=== PATIENT | male | born 1960 | race Caucasian/White ===

== ENCOUNTER 2017-11-13 21:06 | Emergency (ER) | payer BC ==
[2017-11-13] MEDS ORDERED: DIPH,PERTUS(ACELL)TETVAC-LF 0.5 ML VIAL IM ONE (21:31)
[2017-11-13 21:53] LABS: Amphetamine Screen,Urine Not Detected (NotDetected); Barbiturate Screen,Urine Not Detected (NotDetected); Benzodiazepines Screen,Urine Not Detected (NotDetected); Cocaine Screen,Urine Not Detected (NotDetected); Methadone Screen, Urine Not Detected (NotDetected); Opiate Screen,Urine Not Detected (NotDetected); Oxycodone Screen, Urine Not Detected (NotDetected); Phencyclidine Screen,Urine Not Detected (NotDetected); Tricyclic Antidepressant,Urine Not Detected (NotDetected); Urn Cannabinoid Scrn Detected (NotDetected)
--- NOTE | 2017-11-13 22:09 | ED ---
Alcohol HPI - General Chief Complaint: Alcohol Stated Complaint: Medical eval etoh Time Seen by Provider: 11/13/17 21:31 Source: patient, police Mode of arrival: ambulatory Limitations: no limitations - History of Present Illness Initial Comments: This patient is a 56-year-old man brought to be evaluated by police. Police of been called to the patient's home for a domestic dispute, and found the patient very intoxicated. He also mentioned to them that he was depressed. The patient furthermore had had a fall earlier the day, so they felt the patient should be evaluated. Here he is complaining of a little bit of headache at the location of the fall area he states that he had been drinking and lost his balance and fell. No loss consciousness. No neurologic symptoms. No neck pain. The patient denies other injuries. He could not remember when his last tetanus shot was. 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 Recent Trauma: Yes Associated Symptoms: depression Treatments Prior to Arrival: none - Related Data Home Medications Medication Instructions Recorded Confirmed Lisinopril-Hctz 20-25 mg 1 tab PO DAILY 11/13/17 11/13/17 [Zestoretic 20-25] NIFEdipine [NIFEdipine ER] 90 mg PO DAILY 11/13/17 11/13/17 levETIRAcetam [Keppra] 1,000 mg PO Q12HR 11/13/17 11/13/17 Allergies Allergy/AdvReac Type Severity Reaction Status Date / Time No Known Allergies Allergy Verified 11/13/17 22:05 Review of Systems ROS Statement: Those systems with pertinent positive or pertinent negative responses have been documented in the HPI. ROS Other: All systems not noted in ROS Statement are negative. Constitutional: Denies: fever, chills Eyes: Denies: vision change ENT: Denies: ear pain, hearing loss, epistaxis Respiratory: Denies: cough, dyspnea Cardiovascular: Denies: chest pain Gastrointestinal: Denies: abdominal pain, vomiting Musculoskeletal: Denies: back pain Skin: Denies: rash Neurological: Reports: headache. Denies: weakness, numbness, paresthesias, confusion Psychiatric: Reports: depression Past Medical History Past Medical History: No Reported History, Hypertension History of Any Multi-Drug Resistant Organisms: None Reported Past Surgical History: Orthopedic Surgery Additional Past Surgical History / Comment(s): rt femur Past Psychological History: Depression Smoking Status: Current every day smoker Past Alcohol Use History: Abuse, Daily, Heavy Past Drug Use History: Marijuana General Exam Limitations: no limitations General appearance: alert, in no apparent distress, appears intoxicated Head exam: Present: normocephalic, other (Patient has an abrasion/superficial laceration to the left forehead. There is no bony tenderness or deformity) Eye exam: Present: normal appearance, nystagmus. Absent: PERRL, EOMI, scleral icterus, conjunctival injection ENT exam: Present: mucous membranes dry Neck exam: Present: normal inspection, full ROM. Absent: tenderness Respiratory exam: Present: normal lung sounds bilaterally. Absent: respiratory distress, wheezes, rales, rhonchi, stridor, chest wall tenderness Cardiovascular Exam: Present: regular rate, normal rhythm, normal heart sounds. Absent: systolic murmur, diastolic murmur, rubs, gallop GI/Abdominal exam: Present: soft. Absent: distended, tenderness, guarding, rebound, mass Extremities exam: Present: normal inspection, normal capillary refill. Absent: pedal edema, calf tenderness Back exam: Present: normal inspection. Absent: vertebral tenderness Neurological exam: Present: alert, oriented X3. Absent: motor sensory deficit Skin exam: Present: warm, dry, intact, normal color. Absent: rash Course Vital Signs 11/13/17 11/14/17 11/14/17 21:14 00:14 06:11 Temperature 98.0 F 98.3 F Pulse Rate 82 72 64 Respiratory 22 18 15 Rate Blood Pressure 130/79 112/72 113/73 O2 Sat by Pulse 96 95 96 Oximetry Medical Decision Making - Lab Data Lab Results 11/13/17 Range/Units 21:40 Urine Opiates Screen Not Detected (NotDetected) Ur Oxycodone Screen Not Detected (NotDetected) Urine Methadone Screen Not Detected (NotDetected) Ur Propoxyphene Screen Not Detected (NotDetected) Ur Barbiturates Screen Not Detected (NotDetected) U Tricyclic Antidepress Not Detected (NotDetected) Ur Phencyclidine Scrn Not Detected (NotDetected) Ur Amphetamines Screen Not Detected (NotDetected) U Methamphetamines Scrn Not Detected (NotDetected) U Benzodiazepines Scrn Not Detected (NotDetected) Urine Cocaine Screen Not Detected (NotDetected) U Marijuana (THC) Screen Detected H (NotDetected) Disposition Clinical Impression: Alcoholic intoxication Disposition: HOME SELF-CARE Condition: Fair Instructions: Alcohol Intoxication (ED) Referrals: None,Stated [Primary Care Provider] - 1-2 days
--- NOTE | 2017-11-13 22:49 | CT ---
EXAMINATION TYPE: CT brain zack foster DATE OF EXAM: 11/13/2017 COMPARISON: NONE HISTORY: ETOH. Left frontal laceration. Neck pain CT DLP: 1565.6 mGycm Automated exposure control for dose reduction was used. TECHNIQUE: CT scan of the head and cervical spine are performed without contrast. FINDINGS: There is mild cerebral cortical atrophy. There is no mass effect nor midline shift. There is no sign of intracranial hemorrhage. The calvarium appears intact. There is a 4 mm density at the skin surface over the left zygoma. There is some narrowing of the C5-6 disc space with spurring of the endplates. Posterior elements are intact. The skull base is intact. There is no compression fracture. There is a moderate posterior C5 -6 disc herniation with narrowing of the spinal canal in the midline. There is 7 mm spinal stenosis.. IMPRESSION: Cerebral atrophy. No acute intracranial abnormality. Small foreign body at the skin surface over the left zygoma. Spondylosis at C5-6 with moderate superior C5-6 cervical disc herniation. No fracture.
[2017-11-14 08:01] VITALS: BP 132/81; PULSE 98; RESP 16; TEMP 98
== END 2017-11-14 08:01 | disposition home or self-care (01) ==
LOC: EC 21:06
DX: S01.81XA Laceration without foreign body of other part of head, initial encounter (principal); F10.129 Alcohol abuse with intoxication, unspecified; R51 Headache; F32.9 Major depressive disorder, single episode, unspecified; F17.200 Nicotine dependence, unspecified, uncomplicated; I10 Essential (primary) hypertension; Z79.899 Other long term (current) drug therapy; Z23 Encounter for immunization; W18.30XA Fall on same level, unspecified, initial encounter; Y92.009 Unspecified place in unspecified non-institutional (private) residence as the place of occurrence of the external cause
CPT/HCPCS: 70450; 72125; 80306; 82075; 90471; 90715; 99284

== ENCOUNTER → 2018-04-23 | Outpatient (CLI) | payer BC ==
--- NOTE | 2018-04-23 12:55 | XR ---
EXAMINATION TYPE: PA chest and right rib series DATE OF EXAM: 04/23/2018 COMPARISON: None HISTORY: 57-year-old male with right lower anterior rib pain after fall TECHNIQUE: 5 views FINDINGS: Heart normal size. Mild hyperinflation. Aorta and pulmonary vasculature within normal limits. 8 mm nodular density projecting at the left lower lung. Evaluation of the right-sided ribs shows a minimally offset fracture of the right anterolateral ninth rib. IMPRESSION: 1. Minimally offset acute fracture of the right anterolateral ninth rib. 2. Possible underlying COPD without acute cardiopulmonary process. 3. Possible 8 mm pulmonary nodule left lower lobe. Recommend contrast-enhanced CT chest versus 4-6 we ek follow-up radiographs depending on if the patient has risk factors for development of lung cancer.
== END | disposition home or self-care (01) ==
LOC: RADXRYALE 09:06
PROVIDERS: ATTEND Family Medicine
DX: S22.31XA Fracture of one rib, right side, initial encounter for closed fracture (principal)

== ENCOUNTER → 2018-06-09 | Outpatient (CLI) | payer BC ==
--- NOTE | 2018-06-09 12:02 | MR ---
EXAMINATION TYPE: MR brain wo/w con DATE OF EXAM: 06/09/2018 COMPARISON: HISTORY: Localization-related (focal) (partial) symptomatic epilepsy TECHNIQUE: Multiplanar, multisequence images of the brain and brainstem is performed without and with IV contras t, utilizing 6 mL intravenous Gadavist . FINDINGS: Diffusion weighted images demonstrate no evidence of a recent infarct or other diffusion ab normality. Mild generalized degenerative change. There are a few scattered areas of abnormal signal the white matter. All measure less than 5 mm. No e nhancing lesions. No callosal lesions. No cerebellopontine angle mass. Midline structures demonstrate normal morphology. The craniocervical junction appears within normal limits. Post contrast images demonstrate no abnormal enhancement. The dural venous sinuses appear pa tent. Changes of chronic sinusitis noted. IMPRESSION: 1. Minimal nonspecific white matter changes can be seen with migraine headaches, hypertension, remote microvascular ischemia, demyelinating disease. 2. Changes of chronic sinusitis.
== END | disposition home or self-care (01) ==
LOC: RADMRIMAIN 09:40
PROVIDERS: ATTEND Psychiatry & Neurology Neurology
DX: G37.9 Demyelinating disease of central nervous system, unspecified (principal); G43.909 Migraine, unspecified, not intractable, without status migrainosus; I10 Essential (primary) hypertension; J32.9 Chronic sinusitis, unspecified
CPT/HCPCS: 82565; 70553; 36415; A9585

== ENCOUNTER → 2018-06-11 | Outpatient (CLI) | payer BC ==
--- NOTE | 2018-06-14 15:01 | EEG ---
ELECTROENCEPHALOGRAM REPORT DATE OF SERVICE: 06/11/2018. REASON FOR TESTING: MMODL / IJN: [id number] /
== END | disposition home or self-care (01) ==
LOC: NEUROMAIN 07:39
PROVIDERS: ATTEND Psychiatry & Neurology Neurology
DX: G40.209 Localization-related (focal) (partial) symptomatic epilepsy and epileptic syndromes with complex partial seizures, not intractable, without status epilepticus (principal)
CPT/HCPCS: 95816

== ENCOUNTER 2018-08-23 16:42 | Emergency (ER) | payer BC ==
--- NOTE | 2018-08-23 16:58 | ED ---
General Adult HPI - General Stated complaint: anxiety Time Seen by Provider: 08/23/18 16:42 Source: patient, EMS, RN notes reviewed Mode of arrival: EMS - History of Present Illness Initial comments: This is a 57-year-old male with a history of alcoholism and seizure disorder history of pancreatitis and COPD who was brought in by EMS due to shortness of breath he also complained of being anxious he does admit to drinking at least 2 shots of the beer today. He did have a seizure today he states. He denies any pain denies any fevers chills nausea vomiting sweats he complained of shortness of breath as no phlegm production no overt cough no chest pain. He also complains of being anxious. No complaints of fevers chills or sweats. - Related Data Home Medications Medication Instructions Recorded Confirmed Lisinopril-Hctz 20-25 mg 1 tab PO DAILY 11/13/17 08/23/18 [Zestoretic 20-25] NIFEdipine [NIFEdipine ER] 90 mg PO DAILY 11/13/17 08/23/18 levETIRAcetam [Keppra] 1,000 mg PO Q12HR 11/13/17 08/23/18 Folic Acid 1 mg PO DAILY 08/23/18 08/23/18 Metoprolol Succinate (ER) [Toprol 25 mg PO DAILY 08/23/18 08/23/18 XL] Sertraline [Zoloft] 50 mg PO DAILY 08/23/18 08/23/18 Previous Rx's Medication Instructions Recorded Magnesium 200 mg PO DAILY #15 tablet 08/23/18 Potassium Chloride ER [K-Dur 20] 20 meq PO DAILY #15 tab 08/23/18 Allergies Allergy/AdvReac Type Severity Reaction Status Date / Time No Known Allergies Allergy Verified 08/23/18 17:48 Review of Systems ROS Statement: Those systems with pertinent positive or pertinent negative responses have been documented in the HPI. ROS Other: All systems not noted in ROS Statement are negative. Past Medical History Past Medical History: No Reported History, Hypertension History of Any Multi-Drug Resistant Organisms: None Reported Past Surgical History: Orthopedic Surgery Additional Past Surgical History / Comment(s): rt femur Past Psychological History: Depression Smoking Status: Current every day smoker Past Alcohol Use History: Abuse, Daily, Heavy Past Drug Use History: Marijuana General Exam - General Exam Comments Initial Comments: This is a well-developed sec appearing male who is awake alert somewhat lethargic. General appearance: alert, in no apparent distress Head exam: Present: atraumatic, normocephalic, normal inspection Eye exam: Present: normal appearance, PERRL, EOMI. Absent: scleral icterus, conjunctival injection, periorbital swelling ENT exam: Present: mucous membranes dry Neck exam: Present: normal inspection. Absent: tenderness, meningismus, lymphadenopathy Respiratory exam: Present: normal lung sounds bilaterally. Absent: respiratory distress, wheezes, rales, rhonchi, stridor Cardiovascular Exam: Present: regular rate, normal rhythm, normal heart sounds. Absent: systolic murmur, diastolic murmur, rubs, gallop, clicks GI/Abdominal exam: Present: soft, normal bowel sounds. Absent: distended, tenderness, guarding, rebound, rigid Extremities exam: Present: normal inspection, full ROM, normal capillary refill. Absent: tenderness, pedal edema, joint swelling, calf tenderness Back exam: Present: normal inspection Neurological exam: Present: alert, oriented X3, CN II-XII intact Psychiatric exam: Present: normal affect, normal mood Skin exam: Present: warm, dry, intact, normal color. Absent: rash Course Vital Signs 08/23/18 17:02 Temperature 98.8 F Pulse Rate 60 Respiratory 18 Rate Blood Pressure 149/100 O2 Sat by Pulse 98 Oximetry EKG Findings - EKG Results: EKG: interpreted by FREDDIE, sinus rhythm (Sinus bradycardia 57. 01 50 QRS duration 108 QT since QTC 492/478 poor R-wave progression.) Medical Decision Making - Medical Decision Making I did reevaluate patient several occasions and did discuss the findings with him and his . Patient does demonstrate evidence of alcohol intoxication he also demonstrates hypomagnesemia hypokalemia. He is awake alert oriented 3 in no distress. He is able ambulate. He does want to go home his as well as take him home and watch him. She is very comfortable with this. - Lab Data Result diagrams: 08/23/18 17:01 08/23/18 17:53 Lab Results 08/23/18 08/23/18 08/23/18 Range/Units 17:01 17:53 17:53 WBC 4.4 (3.8-10.6) k/uL RBC 3.98 L (4.30-5.90) m/uL Hgb 13.5 (13.0-17.5) gm/dL Hct 42.2 (39.0-53.0) % MCV 106.0 H (80.0-100.0) fL MCH 34.0 (25.0-35.0) pg MCHC 32.0 (31.0-37.0) g/dL RDW 14.2 (11.5-15.5) % Plt Count 154 (150-450) k/uL Neutrophils % (Manual) 72 % Lymphocytes % (Manual) 26 % Monocytes % (Manual) 2 % Neutrophils # (Manual) 3.17 (1.3-7.7) k/uL Lymphocytes # (Manual) 1.14 (1.0-4.8) k/uL Monocytes # (Manual) 0.09 (0-1.0) k/uL Nucleated RBCs 0 (0-0) /100 WBC Manual Slide Review Performed Macrocytosis Moderate Sodium 140 (137-145) mmol/L Potassium 2.8 L (3.5-5.1) mmol/L Chloride 100 (98-107) mmol/L Carbon Dioxide 24 (22-30) mmol/L Anion Gap 16 mmol/L BUN 10 (9-20) mg/dL Creatinine 0.68 (0.66-1.25) mg/dL Est GFR (CKD-EPI)AfAm >90 (>60 ml/min/1.73 sqM) Est GFR (CKD-EPI)NonAf >90 (>60 ml/min/1.73 sqM) Glucose 79 (74-99) mg/dL Calcium 9.1 (8.4-10.2) mg/dL Magnesium 1.8 (1.6-2.3) mg/dL Total Bilirubin 0.8 (0.2-1.3) mg/dL AST 243 H (17-59) U/L ALT 107 H (21-72) U/L Alkaline Phosphatase 129 H (38-126) U/L Total Creatine Kinase 147 (55-170) U/L CK-MB (CK-2) 1.4 (0.0-2.4) ng/mL CK-MB (CK-2) Rel Index 1.0 Troponin I <0.012 (0.000-0.034) ng/mL Total Protein 7.5 (6.3-8.2) g/dL Albumin 4.2 (3.5-5.0) g/dL Amylase 75 (30-110) U/L Lipase 213 (23-300) U/L Serum Alcohol 263 H* mg/dL Disposition Clinical Impression: Alcohol intoxication, Hypokalemia, Seizure Disposition: HOME SELF-CARE Condition: Stable Instructions: Hypokalemia (ED), Alcohol Intoxication (ED), Abuse of Alcohol (ED ), Recurrent Seizures in Adults (ED), Alcohol Dependence (ED) Prescriptions: Magnesium 200 mg PO DAILY #15 tablet Potassium Chloride ER [K-Dur 20] 20 meq PO DAILY #15 tab Is patient prescribed a controlled substance at d/c from ED?: No Referrals: Deirdre Mary DO [Primary Care Provider] - 1-2 days
[2018-08-23 17:07] VITALS: BP 149/100; PULSE 60; RESP 18; TEMP 98.8
[2018-08-23 17:31] LABS: HCT 42.2 % (39.0-53.0); HGB 13.5 gm/dL (13.0-17.5); Macrocytosis Moderate; Mean Platelet Volume 7.7; Platelet Count 154 k/uL (150-450); RBC 3.98 m/uL (4.30-5.90); RDW 14.2 % (11.5-15.5); WBC 4.4 k/uL (3.8-10.6)
[2018-08-23 17:49] LABS: Lymphocytes # (M) 1.14 k/uL (1.0-4.8); Monocytes # (M) 0.09 k/uL (0-1.0); Neutrophils # (M) 3.17 k/uL (1.3-7.7); Neutrophils % (M) 72 %; Nucleated Red Blood Cells 0 /100 WBC (0-0); Total Cells Counted 100
[2018-08-23 18:16] LABS: ALT 107 U/L (21-72); AST 243 U/L (17-59); Albumin 4.2 g/dL (3.5-5.0); Alkaline Phosphatase 129 U/L (38-126); Amylase 75 U/L (30-110); Anion Gap 16 mmol/L; Blood Urea Nitrogen 10 mg/dL (9-20); Calcium 9.1 mg/dL (8.4-10.2); Carbon Dioxide 24 mmol/L (22-30); Chloride 100 mmol/L (98-107); Glucose 79 mg/dL (74-99); Lipase 213 U/L (23-300); Magnesium 1.8 mg/dL (1.6-2.3); Potassium 2.8 mmol/L (3.5-5.1); Sodium 140 mmol/L (137-145); Total Bilirubin 0.8 mg/dL (0.2-1.3); Total Protein 7.5 g/dL (6.3-8.2)
[2018-08-23 18:18] LABS: Creatine Kinase 147 U/L (55-170)
[2018-08-23 18:19] LABS: Alcohol 263 mg/dL
[2018-08-23 18:31] LABS: Creatine Kinase MB 1.4 ng/mL (0.0-2.4); Troponin I <0.012 ng/mL (0.000-0.034)
[2018-08-23] MEDS ORDERED: MAGNESIUM SULFATE-D5W PMX 1 GM in DEXTROSE/WATER 1 100ML.BAG IVPB ONE (18:49)
[2018-08-23] MEDS ORDERED: POTASSIUM CHLORIDE 20 MEQ in WATER FOR INJECTION 1 100ML.BAG IVPB STA (18:51)
--- NOTE | 2018-08-23 19:05 | XR ---
EXAMINATION TYPE: XR chest 2V DATE OF EXAM: 08/23/2018 COMPARISON: 04/23/2018 HISTORY: 57-year-old male with cough, shortness of breath TECHNIQUE: PA and lateral views FINDINGS: Heart normal size. Aorta and pulmonary vasculature within normal limits. Mild peribronchial cuffing i s noted. Nodularity at the left mid to lower lung was present previously and is similar to less defin ed, possible nipple shadow. No consolidation or pleural effusion. IMPRESSION: Mild peribronchial cuffing could represent bronchitis or asthma. Subtle nodularity left mid to lower lung was present four months ago and is stable to less defined. Nipple shadow is suspected. Additiona l follow-up to establish more long-term stability is recommended. The follow-up can utilize vinny colvin.
[2018-08-23] MEDS ORDERED: POTASSIUM CHLORIDE ER 20 MEQ TAB.ER PO STA (19:24)
== END 2018-08-23 19:38 | disposition home or self-care (01) ==
LOC: EC 16:42
DX: G40.909 Epilepsy, unspecified, not intractable, without status epilepticus (principal); F10.129 Alcohol abuse with intoxication, unspecified; E87.6 Hypokalemia; R06.02 Shortness of breath; F41.9 Anxiety disorder, unspecified; I10 Essential (primary) hypertension; F32.9 Major depressive disorder, single episode, unspecified; F17.200 Nicotine dependence, unspecified, uncomplicated; Z79.899 Other long term (current) drug therapy; Z53.8 Procedure and treatment not carried out for other reasons
CPT/HCPCS: 36415; 71046; 80053; 80320; 82150; 82550; 82553; 83690; 83735; 84484; 85025; 93005; 99284

== ENCOUNTER 2019-07-23 13:24 | Inpatient (IN) | payer BC ==
[2019-07-23] MEDS ORDERED: THIAMINE 100 MG in SODIUM CHLORIDE 0.9% 50 ML IVPB STA (14:27)
--- NOTE | 2019-07-23 14:33 | ED ---
General Adult HPI - General Chief complaint: Recheck/Abnormal Lab/Rx Stated complaint: MENTAL HEALTH Time Seen by Provider: 07/23/19 13:29 Source: patient, EMS, RN notes reviewed, old records reviewed Mode of arrival: EMS Limitations: no limitations - History of Present Illness Initial comments: 58-year-old male history of alcohol abuse presenting with altered mental status, bizarre behavior and heavy alcohol consumption. Patient admits to drinking a lcohol over the past several days. Wound was white he's had very strange behaviors been making stacks she is, he's been moving items around his garage with no apparent purpose. He has threatened to move out of the house. She states all this is acute. He was seen at an outside hospital earlier in the week and were discharged. Patient has not been eating or drinking well. He has only been consuming alcohol. - Related Data Home Medications Medication Instructions Recorded Confirmed Lisinopril-Hctz 20-25 mg 1 tab PO DAILY 11/13/17 08/23/18 [Zestoretic 20-25] NIFEdipine [NIFEdipine ER] 90 mg PO DAILY 11/13/17 08/23/18 levETIRAcetam [Keppra] 1,000 mg PO Q12HR 11/13/17 08/23/18 Folic Acid 1 mg PO DAILY 08/23/18 08/23/18 Metoprolol Succinate (ER) [Toprol 25 mg PO DAILY 08/23/18 08/23/18 XL] Sertraline [Zoloft] 50 mg PO DAILY 08/23/18 08/23/18 Previous Rx's Medication Instructions Recorded Magnesium 200 mg PO DAILY #15 tablet 08/23/18 Potassium Chloride ER [K-Dur 20] 20 meq PO DAILY #15 tab 08/23/18 Allergies Allergy/AdvReac Type Severity Reaction Status Date / Time No Known Allergies Allergy Verified 07/23/19 13:47 Review of Systems ROS Statement: Those systems with pertinent positive or pertinent negative responses have been documented in the HPI. ROS Other: All systems not noted in ROS Statement are negative. Past Medical History Past Medical History: No Reported History, Hypertension History of Any Multi-Drug Resistant Organisms: None Reported Past Surgical History: Orthopedic Surgery Additional Past Surgical History / Comment(s): rt femur Past Psychological History: Depression Smoking Status: Current every day smoker Past Alcohol Use History: Abuse, Daily, Heavy Past Drug Use History: Marijuana General Exam Limitations: no limitations General appearance: alert, appears intoxicated Head exam: Present: atraumatic, normocephalic Eye exam: Present: normal appearance, PERRL, nystagmus ENT exam: Present: mucous membranes dry (Horizontal nystagmus) Neck exam: Present: normal inspection. Absent: tenderness, meningismus Respiratory exam: Present: normal lung sounds bilaterally. Absent: respiratory distress, wheezes Cardiovascular Exam: Present: regular rate, normal rhythm GI/Abdominal exam: Present: soft. Absent: distended, tenderness, guarding Extremities exam: Present: normal inspection, normal capillary refill. Absent: pedal edema, calf tenderness Neurological exam: Present: alert, oriented X3, CN II-XII intact. Absent: motor sensory deficit Skin exam: Present: warm, dry, intact. Absent: cyanosis, diaphoretic Course Vital Signs 07/23/19 07/23/19 07/23/19 13:45 13:47 14:36 Temperature 96.9 F L Pulse Rate 72 89 Respiratory 18 18 Rate Blood Pressure 132/70 139/68 O2 Sat by Pulse 97 96 Oximetry Medical Decision Making - Medical Decision Making 58 yo male presenting with confusion, bizarre behavior, ataxia and nystagmus. Patient presented anxious, he has tremor at baseline. He has a very fine horizontal nystagmus on exam. He is bilateral [id number] ataxia and tremor. Vital signs are stable. He appears dehydrated. He has otherwise nonfocal neurologic exam moving all extremities symmetrically. Head CT is performed emergency department which is negative for intracranial hemorrhage, there is chronic changes with no acute process. Chest x-ray performed, negative for focal pneumonia or acute findings. He is anemic which is macrocytic consistent with alcohol abuse. He has mildly elevated AST, ALT and alkaline phosphatase. He has a normal pneumonia. He has a magnesium of 1.6 which is replaced. His urine drug screen is positive for benzodiazepines as well as THC. His alcohol which is 0. He is given thiamine emergency department as well as benzodiazepines and IV fluids. Patient will be admitted for altered mental status, confusion, concern for Wernicke's encephalopathy and concern for alcohol withdrawal. Neurology will be placed on consult. - Lab Data Result diagrams: 07/23/19 14:29 07/23/19 14:29 Lab Results 07/23/19 07/23/1919 Range/Units 13:25 14:29 14:29 WBC (3.8-10.6) k/uL RBC (4.30-5.90) m/uL Hgb (13.0-17.5) gm/dL Hct (39.0-53.0) % MCV (80.0-100.0) fL MCH (25.0-35.0) pg MCHC (31.0-37.0) g/dL RDW (11.5-15.5) % Plt Count (150-450) k/uL Neutrophils % % Lymphocytes % % Monocytes % % Eosinophils % % Basophils % % Neutrophils # (1.3-7.7) k/uL Lymphocytes # (1.0-4.8) k/uL Monocytes # (0-1.0) k/uL Eosinophils # (0-0.7) k/uL Basophils # (0-0.2) k/uL Macrocytosis PT (9.0-12.0) sec INR (<1.2) APTT (22.0-30.0) sec Sodium 134 L (137-145) mmol/L Potassium 3.7 (3.5-5.1) mmol/L Chloride 102 (98-107) mmol/L Carbon Dioxide 23 (22-30) mmol/L Anion Gap 9 mmol/L BUN 12 (9-20) mg/dL Creatinine 0.51 L (0.66-1.25) mg/dL Est GFR (CKD-EPI)AfAm >90 (>60 ml/min/1.73 sqM) Est GFR (CKD-EPI)NonAf >90 (>60 ml/min/1.73 sqM) Glucose 87 (74-99) mg/dL Calcium 9.5 (8.4-10.2) mg/dL Magnesium 1.6 (1.6-2.3) mg/dL Total Bilirubin 0.8 (0.2-1.3) mg/dL AST 211 H (17-59) U/L ALT 140 H (21-72) U/L Alkaline Phosphatase 135 H (38-126) U/L Ammonia 17 (<30) umol/L Total Protein 7.3 (6.3-8.2) g/dL Albumin 3.9 (3.5-5.0) g/dL Urine Color Yellow Urine Appearance Clear (Clear) Urine pH 6.5 (5.0-8.0) Ur Specific [place] 1.023 (1.001-1.035) Urine Protein Trace H (Negative) Urine Glucose (UA) Negative (Negative) Urine Ketones Trace H (Negative) Urine Blood Negative (Negative) Urine Nitrite Negative (Negative) Urine Bilirubin Negative (Negative) Urine Urobilinogen 2.0 (<2.0) mg/dL Ur Leukocyte Esterase Negative (Negative) Urine Opiates Screen Not Detected (NotDetected) Ur Oxycodone Screen Not Detected (NotDetected) Urine Methadone Screen Not Detected (NotDetected) Ur Propoxyphene Screen Not Detected (NotDetected) Ur Barbiturates Screen Not Detected (NotDetected) U Tricyclic Antidepress Not Detected (NotDetected) Ur Phencyclidine Scrn Not Detected (NotDetected) Ur Amphetamines Screen Not Detected (NotDetected) U Methamphetamines Scrn Not Detected (NotDetected) U Benzodiazepines Scrn Detected H (NotDetected) Urine Cocaine Screen Not Detected (NotDetected) U Marijuana (THC) Screen Detected H (NotDetected) Serum Alcohol <10 mg/dL 07/23/19 07/23/19 Range/Units 14:29 14:29 WBC 8.9 (3.8-10.6) k/uL RBC 3.09 L (4.30-5.90) m/uL Hgb 10.4 L (13.0-17.5) gm/dL Hct 31.6 L (39.0-53.0) % MCV 102.5 H (80.0-100.0) fL MCH 33.7 (25.0-35.0) pg MCHC 32.9 (31.0-37.0) g/dL RDW 14.8 (11.5-15.5) % Plt Count 426 (150-450) k/uL Neutrophils % 74 % Lymphocytes % 15 % Monocytes % 7 % Eosinophils % 1 % Basophils % 0 % Neutrophils # 6.6 (1.3-7.7) k/uL Lymphocytes # 1.3 (1.0-4.8) k/uL Monocytes # 0.6 (0-1.0) k/uL Eosinophils # 0.1 (0-0.7) k/uL Basophils # 0.0 (0-0.2) k/uL Macrocytosis Slight PT 10.5 (9.0-12.0) sec INR 1.0 (<1.2) APTT 28.0 (22.0-30.0) sec Sodium (137-145) mmol/L Potassium (3.5-5.1) mmol/L Chloride (98-107) mmol/L Carbon Dioxide (22-30) mmol/L Anion Gap mmol/L BUN (9-20) mg/dL Creatinine (0.66-1.25) mg/dL Est GFR (CKD-EPI)AfAm (>60 ml/min/1.73 sqM) Est GFR (CKD-EPI)NonAf (>60 ml/min/1.73 sqM) Glucose (74-99) mg/dL Calcium (8.4-10.2) mg/dL Magnesium (1.6-2.3) mg/dL Total Bilirubin (0.2-1.3) mg/dL AST (17-59) U/L ALT (21-72) U/L Alkaline Phosphatase (38-126) U/L Ammonia (<30) umol/L Total Protein (6.3-8.2) g/dL Albumin (3.5-5.0) g/dL Urine Color Urine Appearance (Clear) Urine pH (5.0-8.0) Ur Specific [place] (1.001-1.035) Urine Protein (Negative) Urine Glucose (UA) (Negative) Urine Ketones (Negative) Urine Blood (Negative) Urine Nitrite (Negative) Urine Bilirubin (Negative) Urine Urobilinogen (<2.0) mg/dL Ur Leukocyte Esterase (Negative) Urine Opiates Screen (NotDetected) Ur Oxycodone Screen (NotDetected) Urine Methadone Screen (NotDetected) Ur Propoxyphene Screen (NotDetected) Ur Barbiturates Screen (NotDetected) U Tricyclic Antidepress (NotDetected) Ur Phencyclidine Scrn (NotDetected) Ur Amphetamines Screen (NotDetected) U Methamphetamines Scrn (NotDetected) U Benzodiazepines Scrn (NotDetected) Urine Cocaine Screen (NotDetected) U Marijuana (THC) Screen (NotDetected) Serum Alcohol mg/dL Disposition Clinical Impression: Encephalopathy, Alcohol withdrawal Disposition: ADMITTED IP TO [facility] Condition: Stable Is patient prescribed a controlled substance at d/c from ED?: No Referrals: Deirdre Mary DO [Primary Care Provider] - 1-2 days Decision to Admit Reason: Admit from EC Decision Date: 07/23/19 Decision Time: 15:46
[2019-07-23 14:43] LABS: Basophils % (A) 0 %; Eosinophils # (A) 0.1 k/uL (0-0.7); Eosinophils % (A) 1 %; HCT 31.6 % (39.0-53.0); HGB 10.4 gm/dL (13.0-17.5); Lymphocytes # (A) 1.3 k/uL (1.0-4.8); Lymphocytes % (A) 15 %; MCH 33.7 pg (25.0-35.0); MCHC 32.9 g/dL (31.0-37.0); MCV 102.5 fL (80.0-100.0); Macrocytosis Slight; Mean Platelet Volume 6.5; Monocytes # (A) 0.6 k/uL (0-1.0); Monocytes % (A) 7 %; Neutrophils # (A) 6.6 k/uL (1.3-7.7); Neutrophils % (A) 74 %; Platelet Count 426 k/uL (150-450); RBC 3.09 m/uL (4.30-5.90); RDW 14.8 % (11.5-15.5); WBC 8.9 k/uL (3.8-10.6)
[2019-07-23 14:52] LABS: Prothrombin Time 10.5 sec (9.0-12.0)
[2019-07-23 14:53] LABS: Appearance,Urine Clear (Clear); Bilirubin,Urine Negative (Negative); Blood,Urine Negative (Negative); Color,Urine Yellow; Glucose,Urine (UA) Negative (Negative); Ketones,Urine Trace (Negative); Leukocyte Esterase,Urine Negative (Negative); Nitrite,Urine Negative (Negative); PH, Urine 6.5 (5.0-8.0); Protein,Urine Trace (Negative); Specific Gravity,Urine 1.023 (1.001-1.035)
[2019-07-23 14:53] LABS: ALT 140 U/L (21-72); AST 211 U/L (17-59); African American GFR (CKD) >90 (>60 ml/min/1.73 sqM); Albumin 3.9 g/dL (3.5-5.0); Alcohol <10 mg/dL; Alkaline Phosphatase 135 U/L (38-126); Anion Gap 9 mmol/L; Blood Urea Nitrogen 12 mg/dL (9-20); Calcium 9.5 mg/dL (8.4-10.2); Carbon Dioxide 23 mmol/L (22-30); Chloride 102 mmol/L (98-107); Glucose 87 mg/dL (74-99); Magnesium 1.6 mg/dL (1.6-2.3); Non-African American GFR(CKD) >90 (>60 ml/min/1.73 sqM); Potassium 3.7 mmol/L (3.5-5.1); Sodium 134 mmol/L (137-145); Total Bilirubin 0.8 mg/dL (0.2-1.3); Total Protein 7.3 g/dL (6.3-8.2)
[2019-07-23 15:05] LABS: Cocaine Screen,Urine Not Detected (NotDetected); Opiate Screen,Urine Not Detected (NotDetected); Phencyclidine Screen,Urine Not Detected (NotDetected); Urn Cannabinoid Scrn Detected (NotDetected)
[2019-07-23 15:06] LABS: Amphetamine Screen,Urine Not Detected (NotDetected); Barbiturate Screen,Urine Not Detected (NotDetected); Benzodiazepines Screen,Urine Detected (NotDetected); Methadone Screen, Urine Not Detected (NotDetected); Oxycodone Screen, Urine Not Detected (NotDetected); Tricyclic Antidepressant,Urine Not Detected (NotDetected)
--- NOTE | 2019-07-23 15:07 | XR ---
EXAMINATION TYPE: XR chest 2V DATE OF EXAM: 07/23/2019 COMPARISON: Chest x-ray August 23, 2018 HISTORY: Altered mental status and weakness. TECHNIQUE: Frontal and lateral views of the chest are obtained. FINDINGS: There is chronic parenchyma changes without suspicious focal air space opacity, pleural ef fusion, or pneumothorax seen. The cardiac silhouette size is more prominent but remains within kacey l limits. The osseous structures are intact. IMPRESSION: No acute cardiopulmonary process.
--- NOTE | 2019-07-23 15:08 | CT ---
EXAMINATION TYPE: CT brain wo con DATE OF EXAM: 07/23/2019 HISTORY: AMS. Focal seizures, due to alcohol withdrawal CT DLP: 1143.4 mGycm. Automated Exposure Control for Dose Reduction was Utilized. TECHNIQUE: CT scan of the head is performed without contrast. COMPARISON: CT brain November 13, 2017 MRI brain June 09, 2018. FINDINGS: There is no acute intracranial hemorrhage or midline shift identified. There is diffuse v entricular and sulcal prominence consistent with diffuse age-related cerebral atrophy. There is low- attenuation in the periventricular white matter consistent with chronic small vessel ischemic change. The globes are intact and the visualized sinuses are clear. IMPRESSION: No acute intracranial hemorrhage or midline shift. There is mild to moderate diffuse ag e-related cerebral atrophy and mild chronic small vessel ischemic change redemonstrated. No signific ant change from prior studies.
[2019-07-23] MEDS ORDERED: MAGNESIUM SULFATE-D5W PMX 1 GM in DEXTROSE/WATER 1 100ML.BAG IVPB ONE (15:32)
[2019-07-23] MEDS ORDERED: LORazepam 2 MG/ML INJ IV PRN (15:32)
[2019-07-23] MEDS ORDERED: NALOXONE 0.4 MG/ML 1 ML VIAL IV PRN (15:40)
[2019-07-23] MEDS: SODIUM CHLORIDE 0.9% 1,000 ML IV SCH ×2 (16:02→21:31)
[2019-07-23] MEDS: LORazepam 2 MG/ML INJ IV PRN ×3 (16:02→23:33)
[2019-07-23] MEDS ORDERED: HYDROcodone/APAP 5-325MG 1 EACH TAB PO PRN (19:20)
[2019-07-23] MEDS: levETIRAcetam 500 MG TAB PO SCH (21:31)
--- NOTE | 2019-07-23 22:53 | HP ---
HISTORY AND PHYSICAL CHIEF COMPLAINT: Confusion. HISTORY OF PRESENT ILLNESS: This 58-year-old gentleman with a past medical history of hypertension, history of depression, being followed by Dr. Mary in the outpatient setting has significant history of alcohol and smoking also. The patient got confused and the petition the patient and was taken to [facility] and was admitted for further evaluation and treatment with possible delirium tremens. Alcohol was negative. Patient had THC and benzodiazepines blood screens are positive. LFTs elevated also. There is no history of fever, rigors. No headache, loss of consciousness, seizures. The patient unable to give a coherent history. Most of the history taken from my discussion with staff and review of the chart. PAST MEDICAL HISTORY: History of hypertension, history of EtOH. MEDICATIONS: Medications are home medications are: 1. Atarax 25 mg t.i.d. p.r.n. 2. Vitamin B1 100 mg. 3. Zoloft 250 mg daily. 4. Potassium 90 mg daily. 5. Magnesium 200 mg daily. 6. Motrin 800 mg t.i.d. p.r.n. 7. Keppra 1000 mg p.o. b.i.d. 8. Toprol-XL 25 mg p.o. daily. 9. Folic acid 1 mg daily. ALLERGIES: None. Family history, social history and review of systems could not be taken because of the patient's change in mental status. PHYSICAL EXAM: Patient is stuporous, arousable, but confused. Pulse 72. Blood pressure 130/77, respirations 18. Temperature 96.9, pulse ox 97% on room air. HEENT: Conjunctivae normal. Neck: No JVD. CARDIOVASCULAR systems: S1, S2. RESPIRATIONS: Breath sounds diminished in the bases. A few scattered rhonchi. ABDOMEN: Soft. Non tender. No mass palpable. CENTRAL NERVOUS SYSTEM: No focal deficits. LEGS: No edema. No swelling. NERVOUS SYSTEM: Higher functions as mentioned earlier, otherwise could not be examined at this time. SKIN: No ulcers, no rashes and no bleeding. JOINTS: No active deforming arthropathy. LABS: WBC 8.9, hemoglobin 10.4, sodium 134, AST ALT noted. ASSESSMENT: 1. Change in mental status possible acute delirium tremens. 2. History of ETOH. 3. Alcohol withdrawal. 4. Anemia macrocytic 2nd alcohol. 5. Hyponatremia. 6. Use AST/ALT alcoholic hepatitis, present on admission. 7. Hypertension. 8. History of nicotine dependence. 9. History of THC. RECOMMENDATIONS AND DISCUSSION: In this 58-year-old gentleman who presented with multiple complex medical issues, we will monitor the patient closely continue the current management and will continue with CIWA protocol. Multivitamins supplementation. Otherwise, DVT prophylaxis. Continue to monitor. Resume the home medications. Guarded prognosis because of multiple complex medical issues. Further recommendations to follow. A copy of dictation Dr. Mary who is the primary physician. I also recommend alcohol rehab and AA meetings as an outpatient. MMODL / IJN: [id number] /
[2019-07-23] MEDS: THIAMINE 200 MG in SODIUM CHLORIDE 0.9% 100 ML IVPB SCH (23:33)
[2019-07-24] MEDS: PANTOPRAZOLE 40 MG TABLET PO SCH (05:39)
[2019-07-24] MEDS: LORazepam 2 MG/ML INJ IV PRN (05:40)
[2019-07-24 06:07] LABS: Basophils % (A) 0 %; Eosinophils # (A) 0.3 k/uL (0-0.7); Eosinophils % (A) 5 %; HCT 32.6 % (39.0-53.0); HGB 10.6 gm/dL (13.0-17.5); Lymphocytes # (A) 1.5 k/uL (1.0-4.8); Lymphocytes % (A) 23 %; MCH 33.6 pg (25.0-35.0); MCHC 32.6 g/dL (31.0-37.0); Macrocytosis Slight; Mean Platelet Volume 6.5; Monocytes # (A) 0.4 k/uL (0-1.0); Monocytes % (A) 7 %; Neutrophils # (A) 4.1 k/uL (1.3-7.7); Neutrophils % (A) 63 %; Platelet Count 405 k/uL (150-450); RBC 3.16 m/uL (4.30-5.90); RDW 14.7 % (11.5-15.5); WBC 6.6 k/uL (3.8-10.6)
[2019-07-24 06:22] LABS: ALT 129 U/L (21-72); AST 178 U/L (17-59); African American GFR (CKD) >90 (>60 ml/min/1.73 sqM); Albumin 3.2 g/dL (3.5-5.0); Alkaline Phosphatase 116 U/L (38-126); Anion Gap 7 mmol/L; Blood Urea Nitrogen 11 mg/dL (9-20); Calcium 8.9 mg/dL (8.4-10.2); Carbon Dioxide 23 mmol/L (22-30); Chloride 108 mmol/L (98-107); Glucose 83 mg/dL (74-99); Non-African American GFR(CKD) >90 (>60 ml/min/1.73 sqM); Potassium 3.8 mmol/L (3.5-5.1); Sodium 138 mmol/L (137-145); Total Bilirubin 0.9 mg/dL (0.2-1.3); Total Protein 6.4 g/dL (6.3-8.2)
[2019-07-24] MEDS: THIAMINE 200 MG in SODIUM CHLORIDE 0.9% 100 ML IVPB SCH ×2 (08:25→21:06)
[2019-07-24] MEDS: NICOTINE 14MG/24HR PATCH TRANSDERM SCH (08:30)
[2019-07-24] MEDS: FOLIC ACID 1 MG TAB PO SCH (08:33)
[2019-07-24] MEDS: levETIRAcetam 500 MG TAB PO SCH ×2 (08:33→21:06)
[2019-07-24] MEDS: METOPROLOL SUCCINATE (ER) 25 MG TAB.ER.24H PO SCH (08:33)
[2019-07-24] MEDS: MAGNESIUM OXIDE 400 MG TAB PO SCH (08:33)
[2019-07-24] MEDS: SERTRALINE 50 MG TAB PO SCH (08:33)
[2019-07-24] MEDS: THIAMINE 100 MG TAB PO SCH (08:33)
[2019-07-24] MEDS: MULTIVITAMINS, THERA 1 EACH TAB PO SCH (08:33)
[2019-07-24 13:14] VITALS: BMI 15.7
--- NOTE | 2019-07-24 14:46 | P.CN ---
Psychiatric Consult - . Consult date: 07/24/19 Consult:: Reason for consultation: "Alcohol abuse, confusion" Identifying data: Patient is a 58-year-old male who has history of alcohol use disorder and depression. The patient was seen while he was at medical floor. Chief complaint and history of present illness: The patient was admitted to medical service because of altered mental status and confusion which is apparently secondary to severe alcohol use. Patient presented to the ER for further evaluation for DTs, and he was petitioned by his to come to the hospital. As pair chart review his tox screen was positive for benzodiazepines and marijuana. Patient presents to some degree confused and not fully oriented, and he wasn't able to give very informative history, but he was able to answer some questions. He couldn't recall details about his symptoms or alcohol use. The patient reports has been treated for "mild" depression, but he suffers more from an anxiety. He couldn't recall when he started to feel depressed and what medication he takes for depression, but according to chart review he has been prescribed Zoloft 50 mg daily. Patient denies feeling hopeless, helplessness, worthlessness, or suicidal. He denies any current or previous suicidal plan, intent, or attempts. He denies current symptoms of depression including diminished motivation, lack of interest, feeling guilty, or sleep problems. Patient reports sometimes have mood swings, irritable mood, and easily agitated. He denies any violent or aggressive behavior. Patient denies any homicidal ideation, and he denies any hallucinations, paranoid ideation, or delusions. Patient doesn't have any manic symptoms including flight of ideas, pressured speech, tangential thought process, or euphoric mood with irrational behavior. Past psychiatric history: Previous psychiatric hospitalization: Denies any previous psychiatric hospitalization. Previous suicidal attempts: Denies any previous suicidal attempt. Previous psychiatric treatment: Couldn't recall details when he started treatment for depression and anxiety, but apparently he is prescribed Zoloft. Substance use history: Nicotine: Admitted for smoking 1 pack per day for more than 10 years. Alcohol: Couldn't give details about his alcohol use, but he reports that he drinks because he likes it alcohol. He has previous inpatient rehab treatment at [place]. He couldn't give any amount about how much he used to drink. He reports history of severe alcohol withdrawal symptoms including shaking and seizures. Reports previous history of sobriety but he couldn't give any further details. Reports to smoking marijuana occasionally. Denies use of any street drugs and he couldn't explain post drug screen for benzodiazepines. Family history of psychiatric illness: Denies any family history of mental illness, alcohol use disorder, or suicide. Brief social history: Currently lives with his , currently unemployed on [employer]. Reports completed high school and has some college credits. He reports having children from his previous marriage. Reports history of previous DUIs. Mental status examination; Appearance: The patient appears stated age, adequately groomed and dressed, no specific features. Gait/posture: Normal gait, Normal arm swinging: No abnormal movements. Attitude and behavior: engaged, cooperative, eye contact. Motor activity: Normal psychomotor activity Speech: Normal rate, tone. Mood: Anxious Affect: Constricted Thought form: goal-directed, linear, coherent. Thought content: Non-delusional, denies suicidal thoughts, denies homicidal thoughts, denies intentions or plans. Perception: Denies any auditory or visual hallucinations Attention: No impairment. Patient was able to repeat serial 5. Orientation: Patient patient was fully oriented to time place person and situation. Insight: Patient has fair insight about his psychiatric disorder. Judgment: Patient has fair judgment about his psychiatric treatment. Assessment: Alcohol use disorder, severe. Unspecified depressive disorder. Recommendations: Addressed and ensured patient's safety, patient is not actively suicidal, but according to petition paper by his he could be potentially harming himself (no further information available at this time from his ) At this point a decision about psychiatric clearance couldn't be made before obtaining more information from his . SW to obtain collateral information and shere it with psychiatry team tomorrow. EPS nurse was informed about this case and need further follow up. Continue one to one observation. Medication management: Continue Zoloft 50 mg daily for depression and anxiety symptoms. Continue monitoring for alcohol withdrawal symptoms and use when necessary benzodiazepines for severe withdrawal. Discussed the treatment plan with the requesting physician/service. Thank you for permitting me to assist in this patient's treatment. Please call psychiatry department if you have any question or need further help with this case.
[2019-07-24] MEDS: SODIUM CHLORIDE 0.9% 1,000 ML IV SCH (21:06)
[2019-07-24] MEDS: TEMAZEPAM 15 MG CAP PO PRN (21:06)
--- NOTE | 2019-07-24 22:29 | PN ---
PROGRESS NOTE DATE OF SERVICE: 07/24/2019 This 58-year-old gentleman who was admitted with change in mental status and acute delirium tremens following alcohol withdrawal and intense alcohol intake, being closely monitored. Psychiatry is following the patient closely. The patient apparently was petitioned with some abnormal behavior according to the . Otherwise, psychiatry is following the patient. No chest pain. No palpitations. No fever. EXAM: Alert and oriented x3. Pulse is 77, blood pressure 137/80, respiration 18, temperature 98.2, pulse ox 94% on room air. HEENT: Conjunctivae normal. Oral mucosa moist. NECK: No jugular venous distention. No lymph node enlargement. CARDIOVASCULAR: S1, S2. RESPIRATORY: Diminished breath sounds at the bases. No rhonchi, no crackles. ABDOMEN: Soft, nontender. LEGS: No swelling. NERVOUS SYSTEM: No focal deficits. LAB: WBC 6.7, hemoglobin 10.6, sodium 130, potassium 3.8. AST is 178, ALT is 129. ASSESSMENT: 1. Change in mental status, possibly acute delirium tremens. 2. History of ETOH. 3. Alcohol withdrawal. 4. Anemia, microcytic secondary to alcohol. 5. Hyponatremia. 6. AST, ALT alcoholic hepatitis, present on admission. 7. Hypertension. 8. History of nicotine dependence. 9. History of THC. RECOMMENDATIONS AND DISCUSSION: Recommend to continue current medications, continue to monitor, continue symptomatic treatment, psychiatric evaluation. Guarded prognosis. Further recommendations to follow. MMODL / IJN: [id number] / MTDD
[2019-07-25 04:14] VITALS: RESP 18
[2019-07-25 06:06] LABS: Basophils % (A) 1 %; Eosinophils # (A) 0.3 k/uL (0-0.7); Eosinophils % (A) 5 %; HCT 32.7 % (39.0-53.0); HGB 10.8 gm/dL (13.0-17.5); Lymphocytes # (A) 1.6 k/uL (1.0-4.8); Lymphocytes % (A) 23 %; MCH 34.2 pg (25.0-35.0); MCV 103.4 fL (80.0-100.0); Macrocytosis Slight; Mean Platelet Volume 6.5; Monocytes # (A) 0.5 k/uL (0-1.0); Monocytes % (A) 7 %; Neutrophils # (A) 4.5 k/uL (1.3-7.7); Neutrophils % (A) 62 %; Platelet Count 382 k/uL (150-450); RBC 3.17 m/uL (4.30-5.90); RDW 14.7 % (11.5-15.5); WBC 7.2 k/uL (3.8-10.6)
[2019-07-25] MEDS: PANTOPRAZOLE 40 MG TABLET PO SCH (06:14)
[2019-07-25] MEDS: SODIUM CHLORIDE 0.9% 1,000 ML IV SCH (06:14)
[2019-07-25 06:20] LABS: ALT 117 U/L (21-72); AST 140 U/L (17-59); African American GFR (CKD) >90 (>60 ml/min/1.73 sqM); Albumin 3.3 g/dL (3.5-5.0); Alkaline Phosphatase 109 U/L (38-126); Anion Gap 7 mmol/L; Blood Urea Nitrogen 10 mg/dL (9-20); Calcium 9.3 mg/dL (8.4-10.2); Carbon Dioxide 22 mmol/L (22-30); Chloride 107 mmol/L (98-107); Glucose 119 mg/dL (74-99); Non-African American GFR(CKD) >90 (>60 ml/min/1.73 sqM); Potassium 3.7 mmol/L (3.5-5.1); Sodium 136 mmol/L (137-145); Total Bilirubin 0.6 mg/dL (0.2-1.3); Total Protein 6.5 g/dL (6.3-8.2)
[2019-07-25] MEDS: NICOTINE 14MG/24HR PATCH TRANSDERM SCH (08:32)
[2019-07-25] MEDS: MAGNESIUM OXIDE 400 MG TAB PO SCH (08:32)
[2019-07-25] MEDS: THIAMINE 100 MG TAB PO SCH (08:33)
[2019-07-25] MEDS: levETIRAcetam 500 MG TAB PO SCH ×2 (08:33→19:51)
[2019-07-25] MEDS: METOPROLOL SUCCINATE (ER) 25 MG TAB.ER.24H PO SCH (08:33)
[2019-07-25] MEDS: THIAMINE 200 MG in SODIUM CHLORIDE 0.9% 100 ML IVPB SCH ×2 (08:33→19:52)
[2019-07-25] MEDS: FOLIC ACID 1 MG TAB PO SCH (08:33)
[2019-07-25] MEDS: SERTRALINE 50 MG TAB PO SCH (08:33)
[2019-07-25] MEDS: MULTIVITAMINS, THERA 1 EACH TAB PO SCH (11:50)
[2019-07-25] MEDS: IBUPROFEN 800 MG TAB PO PRN ×2 (12:48→19:51)
--- NOTE | 2019-07-25 15:44 | P.CON ---
Consult Note - . Consult date: 07/25/19 Assessment/Plan:: Clinical Problems: Alcohol use disorder severe, alcohol withdrawal, seizure disorder Interim history: I reviewed the medical record, interviewed the patient and spoke with his on the telephone. The hospitalist submitted a psychiatric consult for evaluation of alcohol abuse and confusion. Dr. Davis's sees consult appreciated. His completed a petition that read "fear of harming self or others. Weilding concepcion knife-delusional actions." He was aware that his completed a petition for hospitalization and thought she completed the petition because he was "playing with my concepcion knife." The patient's denied suicidal ideations, intent or plan. He admitted owning a "concepcion knife" but denied that he had been using this to threaten suicide or make a suicide gesture. I spoke to his . She stated she completed the petition because she is concerned about his alcohol use problems. She stated that the Thursday prior to admission he was sharpening his knife then began to run the knife up and down his leg. During this action he appeared unaware of his surroundings. He did not make a suicidal threat or gesture and did not cut himself. She denied that he made suicidal threats or gestures. She denied that he was talking about suicide. She is aware of his alcohol use problem and expressed her frustration with his continued drinking. Mental status exam: He presented as a casually groomed 58-year-old male who was sitting comfortably in bed with his one-to-one in attendance. He made eye contact and attended to interview. He had no distinguishing features or prominent physical abnormalities. He had a blunted but bright facial expression. He was alert and oriented to person, place and time. He showed no abnormality of psychomotor behavior. He was not restless or tremulous. His speech was spontaneous with normal rate, volume and rhythm. He had no articulation difficulties. His affect was stable and appropriate. He denied suicidal ideation or wishes. He denied homicidal ideation. He denied feeling hopeless, helpless or worthless. His spouse no ideas reference, paranoid ideation or delusional thoughts. His thinking was concrete but his associations were coherent and logical. He denied hallucinations and did not appear to be responding to internal stimuli. Assessment: He is middle-aged man with an alcohol use problem and a seizure disorder. He presented to the [facility] for the treatment of acute confusion most likely related to alcohol withdrawal (his serum alcohol level on admission was less than 10). His completed a petition for psychiatric hospitalization because she was concerned about his alcohol use. He denied suicidal ideation, plan or intent. His denied that he expressed suicidal ideation intent or plan prior to admission. She is greatly concerned about his continued alcohol use problems. There is no indication for acute psychiatric treatment at this time but he would benefit from continued substance abuse treatment. Plan: Discontinue one-to-one. Consult social work for residential substance abuse treatment. There is no indication for admission to the psychiatric unit.
[2019-07-25] MEDS: TEMAZEPAM 15 MG CAP PO PRN (19:51)
--- NOTE | 2019-07-25 19:55 | P.CNNES ---
History of Present Illness Consult date: 07/25/19 Reason for Consult: Encephalopathy Chief complaint: AMS, bizarre behavior, and heavy EtOH consumption History of Present Illness: HISTORY OF PRESENT ILLNESS: Thank you for allowing me to evaluate Mr. Hector Caro. Mr. Caro is a 58 year-old man with PMhx of HTN, EtOH withdrawal seizures, depression, presenting to [facility] for EtOH withdrawal symptoms along with bizarre behaviors. Patient's is at bedside. States that patient has been drinking heavily, and it was time for him to stop. Patient was taken by family to an [facility] for patient having bizarre behaviors such as arranging his fishing poles in a row and taking pictures of them. Patient states that he was taking pictures for his brother who lives in [place]. Patient endorses having had multiple episodes of seizures in the setting of heavy EtOH use and withdrawal since about a year ago. Patient denies ever having seizures outside of those episodes. Patient denies ever being intubated for EtOH withdrawal. Patient understands that he needs to stop smoking and drinking, but everyone at his house. Patient's showed a video of patient while he was in the ED, in which patient keeps playing with the blanket. She states that when patient has seizures, he stares off and has random movements of one side but cannot describe accurately. Patient denies headache, nausea, vomiting, weakness, numbness or tin gling. Endorsing double vision when he looks with both eyes but disappears when he closes one eye. Patient denies he stopped driving 5 years ago as he was still drinking a lot and thought it would be dangerous. PAST MEDICAL HISTORY: HTN, EtOH withdrawal seizures, depression PAST SURGICAL HISTORY: R femur surgery HOME MEDICATIONS: Lisinopril-HCTZ, nifedipine, keppra, folic acid, metoprolol, sertraline ALLERGIES: NKDA SOCIAL HISTORY: Current everyday smoker. Endorses heavy daily EtOH abuse. Endorses marijuana use. REVIEW OF SYSTEMS: The 14 systems are reviewed and no additional points are identified compared to the review of systems documented history and physical PHYSICAL EXAMINATION: VITAL SIGNS: T 97.7 HR 69 RR 18 BP 135/72 O2 sat 97% on RA GEN.: NAD, pleasant and cooperative HEENT: NCAT, sclera with mild icterus NECK: Supple SKIN AND EXTREMITIES: Warm to touch, no edema NEURO: MENTAL STATUS: Patient alert and oriented to self, place, time. Able to name the current president. Speech fluent, able to name and repeat, following all commands readily. No right and left disorientation, neglect CRANIAL NERVES II THROUGH XII: II: Pupils are unequal, OD 3mm OS 2mm but both reactive to light symmetrically. No afferent pupillary defect. Visual scott are intact. III, IV, : No ptosis. Extraocular movements full. No nystagmus. V: Facial sensation intact from V1-3. VII. No clear facial asymmetry. VIII: Hearing intact to finger rub bilaterally. IX, X: Symmetric palate elevation. XI: Shoulder shrug intact. XII: Tongue midline without fasciculation or atrophy. MOTOR: Normal bulk/tone. No pronator drift or tremor. Strength is 5/5 throughout all 4 extremities. SENSORY: Intact to light touch in all 4 extremities. Romberg is positive REFLEXES: 2+ throughout. Toes are downgoing. COORDINATION: Finger to nose intact. No dysmetria. GAIT: Narrow-based and stable. Able to toe/heel walk. Difficulty with tandem walking DIAGNOSTIC TESTING: LABORATORY: WBC 7.2 Hgb 10.8 Platelet 382 INR 1.0 Na 136 K 3.7 Cl 107 CO2 22 BUN 10 Cr 0.54 glucose 119 AST 140 ALT 117 AlkPHos 109 urinalysis negative urine tox +benzo and THC IMAGING: CT Head w/o contrast 07/23/19: No acute intracranial hemorrhage or midline shift. There is mild to moderate diffuse age-related cerebral atrophy and mild chronic small vessel ischemic change redemonstrated. No significant change from prior studies. ASSESSMENT/RECOMMENDATIONS: 58 year-old man with PMhx of HTN, EtOH withdrawal seizures, depression, presenting to [facility] for EtOH withdrawal symptoms along with bizarre behaviors. Per patient and , patient's seizure episodes only occurred in the setting of heavy EtOH use and when withdrawing. Patient has been taking seizure medication, but no seizure meds are recommended for EtOH withdrawal seizures. However, since patient is already on seizure medication, it should be continued for now and then tapered off as outpatient. MRI brain was obtained as patient reported having double vision although it was not acute/subacute (had been occurring for a few months). MRI brain per my review with no acute or old stroke. There is possibly some air pocket in the frontal sinus, but would await final radiology report. Patient needs follow-up with outpatient Neurology within 2-3 weeks of discharge. Neurology will sign off at this time. Please call with additional questions or concerns. Past Medical History Past Medical History: No Reported History, Hypertension History of Any Multi-Drug Resistant Organisms: None Reported Past Surgical History: Orthopedic Surgery Additional Past Surgical History / Comment(s): rt femur Past Psychological History: Depression Smoking Status: Current every day smoker Past Alcohol Use History: Abuse, Daily, Heavy Past Drug Use History: Marijuana Medications and Allergies Home Medications Medication Instructions Recorded Confirmed Type levETIRAcetam [Keppra] 1,000 mg PO BID 11/13/17 07/23/19 History Folic Acid 1 mg PO DAILY 08/23/18 07/23/19 History Magnesium 200 mg PO DAILY #15 tablet 08/23/18 07/23/19 Rx Metoprolol Succinate (ER) [Toprol 25 mg PO DAILY 08/23/18 07/23/19 History XL] Sertraline [Zoloft] 50 mg PO DAILY 08/23/18 07/23/19 History Ibuprofen [Motrin] 800 mg PO TID PRN 07/23/19 07/23/19 History Potassium 99 mg PO DAILY 07/23/19 07/23/19 History Thiamine HCl [Vitamin B-1] 100 mg PO DAILY 07/23/19 07/23/19 History hydrOXYzine HCL [Atarax] 25 mg PO TID PRN 07/23/19 07/23/19 History Allergies Allergy/AdvReac Type Severity Reaction Status Date / Time No Known Allergies Allergy Verified 07/23/19 16:08 Physical Examination - Vital Signs Vital Signs: Vital Signs Temp Pulse Resp BP Pulse Ox 07/25/19 04:00 97.8 F 64 18 130/78 95 07/25/19 00:00 98.0 F 65 17 151/86 95 07/24/19 20:00 98.4 F 70 18 135/78 98 07/24/19 16:00 99.2 F 77 18 130/75 94 L 07/24/19 11:11 97.9 F 90 16 124/74 96 Intake and Output 07/24/19 07/25/19 07/25/19 22:59 06:59 14:59 Intake Total 360 120 Output Total 400 400 Balance -40 -400 120 Intake: Oral 360 120 Output: Urine 400 400 Other: Voiding Method Toilet Toilet Urinal Urinal Weight 63.5 kg Results - Laboratory Findings CBC and BMP: 07/25/19 05:27 07/25/19 05:27 Abnormal Lab Findings: Abnormal Labs 07/23/19 07/23/19 07/23/19 13:25 14:29 14:29 RBC 3.09 L Hgb 10.4 L Hct 31.6 L MCV 102.5 H Sodium 134 L Chloride Creatinine 0.51 L Glucose AST 211 H ALT 140 H Alkaline Phosphatase 135 H Albumin Urine Protein Trace H Urine Ketones Trace H U Benzodiazepines Scrn Detected H U Marijuana (THC) Screen Detected H 07/24/19 07/24/19 07/25/19 05:23 05:23 05:27 RBC 3.16 L 3.17 L Hgb 10.6 L 10.8 L Hct 32.6 L 32.7 L MCV 103.0 H 103.4 H Sodium Chloride 108 H Creatinine 0.57 L Glucose AST 178 H ALT 129 H Alkaline Phosphatase Albumin 3.2 L Urine Protein Urine Ketones U Benzodiazepines Scrn U Marijuana (THC) Screen 07/25/19 05:27 RBC Hgb Hct MCV Sodium 136 L Chloride Creatinine 0.54 L Glucose 119 H AST 140 H ALT 117 H Alkaline Phosphatase Albumin 3.3 L Urine Protein Urine Ketones U Benzodiazepines Scrn U Marijuana (THC) Screen
--- NOTE | 2019-07-25 21:46 | MR ---
EXAMINATION TYPE: MR brain wo con DATE OF EXAM: 07/25/2019 COMPARISON: 07/23/2019 CT brain HISTORY: ETOH, double vision, seizure TECHNIQUE: Multiplanar, multisequence images of the brain and brainstem is performed without intravenous contras t. FINDINGS: Diffusion weighted images demonstrate no evidence of a recent infarct or other diffusion ab normality. There is no extra-axial fluid collection. Punctate old lacunar injury of the cranial aspe ct of the caudate nucleus on FLAIR axial fat-sat image 18. Mild burden nonspecific white matter montanez e with scattered punctate foci of T2/FLAIR hyperintensity in the subcortical and periventricular whit e matter. The ventricular system and cisternal spaces are diffusely prominent with frontal predominan ce. Midline structures demonstrate normal morphology. The craniocervical junction appears within normal limits. The dural venous sinuses appear patent. The visualized sinuses demonstrate mild mucosal thick ening of the ethmoid and frontal sinuses as well as scant mucosal thickening of the maxillary sinuses . Secretions are seen in the posterior nasopharynx. IMPRESSION: 1. No acute infarct, midline shift or mass effect. 2. Frontal predominant cerebral atrophy. 3. Mild burden nonspecific white matter change, most commonly on the basis of chronic microangiopath y. In this patient with alcohol abuse no MR evidence of Wernicke's encephalopathy.
[2019-07-26 06:22] LABS: Basophils % (A) 0 %; Eosinophils # (A) 0.4 k/uL (0-0.7); Eosinophils % (A) 6 %; HCT 33.5 % (39.0-53.0); HGB 10.5 gm/dL (13.0-17.5); Lymphocytes # (A) 1.5 k/uL (1.0-4.8); Lymphocytes % (A) 23 %; MCH 32.7 pg (25.0-35.0); MCHC 31.4 g/dL (31.0-37.0); MCV 104.3 fL (80.0-100.0); Macrocytosis Moderate; Mean Platelet Volume 6.6; Monocytes # (A) 0.5 k/uL (0-1.0); Monocytes % (A) 8 %; Neutrophils # (A) 4.1 k/uL (1.3-7.7); Neutrophils % (A) 60 %; Platelet Count 399 k/uL (150-450); RBC 3.21 m/uL (4.30-5.90); RDW 14.7 % (11.5-15.5); WBC 6.8 k/uL (3.8-10.6)
[2019-07-26 06:32] LABS: ALT 126 U/L (21-72); AST 151 U/L (17-59); African American GFR (CKD) >90 (>60 ml/min/1.73 sqM); Albumin 3.3 g/dL (3.5-5.0); Alkaline Phosphatase 97 U/L (38-126); Anion Gap 5 mmol/L; Blood Urea Nitrogen 14 mg/dL (9-20); Calcium 9.4 mg/dL (8.4-10.2); Carbon Dioxide 25 mmol/L (22-30); Chloride 108 mmol/L (98-107); Glucose 98 mg/dL (74-99); Non-African American GFR(CKD) >90 (>60 ml/min/1.73 sqM); Potassium 3.9 mmol/L (3.5-5.1); Sodium 138 mmol/L (137-145); Total Bilirubin 0.6 mg/dL (0.2-1.3); Total Protein 6.3 g/dL (6.3-8.2)
[2019-07-26] MEDS: SODIUM CHLORIDE 0.9% 1,000 ML IV SCH (06:53)
[2019-07-26] MEDS: PANTOPRAZOLE 40 MG TABLET PO SCH (06:58)
--- NOTE | 2019-07-26 07:16 | PN ---
PROGRESS NOTE DATE OF SERVICE: 07/25/2019 This is a 58-year-old gentleman who was admitted with change in mental status and acute delirium tremens, is being closely monitored at this time. Neurology and Psychiatry are following the patient closely. A brain MRA was done which showed some cerebral atrophy and white matter changes, no acute abnormalities noted. The patient apparently was petitioned by the patient's also. Per Psychiatry, there was no evidence of any acute inpatient rehab. No chest pain. No palpitations. No fever. PHYSICAL EXAM: Alert and oriented x2. Pulse is 65, blood pressure 120/70, respiration 17, temperature 97.9, pulse ox 98% on room air. HEENT: Conjunctivae normal. Oral mucosa moist. NECK: No jugular venous distention. No lymph node enlargement. CARDIOVASCULAR SYSTEM: S1, S2, muffled. RESPIRATION: Breath sounds diminished at the bases, no rhonchi, no crackles. ABDOMEN: Soft, nontender. LEGS: No edema. No swelling. NERVOUS SYSTEM: No focal deficits. LABS: WBC is 7.8, hemoglobin is 10.8, sodium 136 and AST is 140, ALT is 117. ASSESSMENT: 1. Change in mental status, possible acute delirium tremens. 2. History of ETOH. 3. Alcohol withdrawal. 4. Anemia, microcytic secondary to alcohol. 5. Hyponatremia. 6. AST, ALT, IV with alcoholic hepatitis, present on admission. 7. Hypertension. 8. History of nicotine dependence. 9. History of THC. RECOMMENDATION: Recommend to continue current medications, continue with the monitoring and symptomatic treatment. Otherwise, repeat labs, closely monitor. Follow with multiple consultants. Prognosis guarded. Further recommendations to follow. MMODL / IJN: [id number] /
[2019-07-26] MEDS: NICOTINE 14MG/24HR PATCH TRANSDERM SCH (08:37)
[2019-07-26] MEDS: levETIRAcetam 500 MG TAB PO SCH (08:38)
[2019-07-26] MEDS: MAGNESIUM OXIDE 400 MG TAB PO SCH (08:38)
[2019-07-26] MEDS: METOPROLOL SUCCINATE (ER) 25 MG TAB.ER.24H PO SCH (08:38)
[2019-07-26] MEDS: FOLIC ACID 1 MG TAB PO SCH (08:38)
[2019-07-26] MEDS: THIAMINE 100 MG TAB PO SCH (08:38)
[2019-07-26] MEDS: SERTRALINE 50 MG TAB PO SCH (08:38)
[2019-07-26] MEDS: THIAMINE 200 MG in SODIUM CHLORIDE 0.9% 100 ML IVPB SCH (08:43)
[2019-07-26] MEDS: IBUPROFEN 800 MG TAB PO PRN (12:46)
[2019-07-26 13:27] VITALS: BP 152/82; PULSE 61; TEMP 98.1
--- NOTE | 2019-07-29 07:47 | DS ---
DISCHARGE SUMMARY DATE OF SERVICE: 07/28/2019 FINAL DIAGNOSES: 1. Change in mental status possible acute delirium tremens. 2. History of ETOH. 3. Alcohol withdrawal. 4. Anemia macrocytic secondary to alcohol. 5. Hyponatremia. 6. AST, ALT with possible alcoholic hepatitis, present on admission. 7. Hypertension. 8. History of nicotine dependence. 9. History of THC. DISCHARGE DISPOSITION: The patient will be discharged in a stable condition with guarded prognosis. HISTORY OF PRESENT ILLNESS: This is a 58-year-old gentleman with a past medical history of multiple medical problems with change in mental status, acute delirium tremens, treated symptomatically, improved significantly. The psychiatrist saw the patient. The patient improved significantly. On exam, vitals are stable. CARDIOVASCULAR SYSTEM: S1, S2. ABDOMEN: Soft. NERVOUS SYSTEM: No focal deficits. DISCHARGE ADVICE: 1. Diet is cardiac. 2. Activity limited until followup. 3. No EtOH, rehab. 4. Follow with Dr. Montano in 2 days. 5. Follow up Psych as recommended. DISCHARGE MEDICATIONS ARE: 1. Atarax 25 mg t.i.d. p.r.n. 2. Fluticasone, Flonase nasal spray p.r.n. 3. Folic acid 1 mg p.o. daily. 4. Keppra 1000 mg p.o. b.i.d. 5. Motrin p.r.n. 6. Multivitamins 1 p.o. daily. 7. Potassium 99 mg p.o. daily. 8. Toprol-XL 25 mg p.o. 9. Vitamin thiamine 100 mg p.o. daily. 10.Zoloft 20 mg p.o. daily. 11.Ativan 1 mg p.o. b.i.d. p.r.n. 12.Magnesium 200 mg p.o. daily. Once again, the patient will be discharged in a stable condition with guarded prognosis. MMODL / IJN: [id number] /
== END 2019-07-26 13:02 | disposition home or self-care (01) | DRG 897 ==
LOC: EC 13:24 → 3SCARD 15:40
PROVIDERS: ADMIT Hospitalist; ATTEND Hospitalist
DX: F10.231 Alcohol dependence with withdrawal delirium (principal); E87.1 Hypo-osmolality and hyponatremia; G93.40 Encephalopathy, unspecified; F12.90 Cannabis use, unspecified, uncomplicated; E86.0 Dehydration; D53.9 Nutritional anemia, unspecified; D50.9 Iron deficiency anemia, unspecified; F17.200 Nicotine dependence, unspecified, uncomplicated; F32.9 Major depressive disorder, single episode, unspecified; G40.909 Epilepsy, unspecified, not intractable, without status epilepticus; H53.2 Diplopia; H55.09 Other forms of nystagmus; I10 Essential (primary) hypertension; K70.10 Alcoholic hepatitis without ascites; Z79.899 Other long term (current) drug therapy
CPT/HCPCS: 36415; 70450; 70551; 71046; 80053; 80306; 80320; 81003; 82075; 82140; 83735; 85025; 85610; 85730; 96365; 96368; 96375; 99285

== ENCOUNTER 2019-07-27 07:05 | Emergency (ER) | payer BC ==
[2019-07-27 07:33] VITALS: PULSE 76; TEMP 98
--- NOTE | 2019-07-27 07:34 | ED ---
General Adult HPI - General Stated complaint: Mental health Time Seen by Provider: 07/27/19 07:08 Source: patient, EMS, RN notes reviewed, old records reviewed - History of Present Illness Initial comments: 58-year-old male presenting for mental health evaluation. Patient had recent admission with alcohol abuse and withdrawal. Patient presents today for psychiatric evaluation, he was up throughout the night picking through the neighbor's trash. He's had several episodes of bizarre behavior over the past several weeks. He was admitted with both psychiatric and neurology evaluation within the past one week. He does admit to drinking alcohol this evening states his last drink was at approximately 2 AM. He presents for evaluation at 7:30 AM. Patient has no specific complaints. No suicidal or homicidal ideation. No headache. No fever. No nausea vomiting. No chest pain or dyspnea. - Related Data Home Medications Medication Instructions Recorded Confirmed levETIRAcetam [Keppra] 1,000 mg PO BID 11/13/17 07/27/19 Folic Acid 1 mg PO DAILY 08/23/18 07/27/19 Metoprolol Succinate (ER) [Toprol 25 mg PO DAILY 08/23/18 07/27/19 XL] Sertraline [Zoloft] 50 mg PO DAILY 08/23/18 07/27/19 Ibuprofen [Motrin] 800 mg PO TID PRN 07/23/19 07/27/19 Potassium 99 mg PO DAILY 07/23/19 07/27/19 Thiamine HCl [Vitamin B-1] 100 mg PO DAILY 07/23/19 07/27/19 hydrOXYzine HCL [Atarax] 25 mg PO TID PRN 07/23/19 07/27/19 Fluticasone Nasal [place] [Flonase 1 spray EA NOSTRIL QID PRN 07/27/19 07/27/19 Nasal [place]] Multivitamins, Thera [Multivitamin 1 tab PO DAILY 07/27/19 07/27/19 (formulary)] Previous Rx's Medication Instructions Recorded Magnesium 200 mg PO DAILY #15 tablet 08/23/18 LORazepam [Ativan] 1 mg PO BID #10 tab 07/26/19 Allergies Allergy/AdvReac Type Severity Reaction Status Date / Time No Known Allergies Allergy Verified 07/27/19 08:50 Review of Systems ROS Statement: Those systems with pertinent positive or pertinent negative responses have been documented in the HPI. ROS Other: All systems not noted in ROS Statement are negative. Past Medical History Past Medical History: No Reported History, Hypertension History of Any Multi-Drug Resistant Organisms: None Reported Past Surgical History: Orthopedic Surgery Additional Past Surgical History / Comment(s): rt femur Past Psychological History: Depression Smoking Status: Current every day smoker Past Alcohol Use History: Abuse, Daily, Heavy Past Drug Use History: Marijuana General Exam General appearance: alert, in no apparent distress Head exam: Present: atraumatic, normocephalic Eye exam: Present: normal appearance, PERRL ENT exam: Present: normal exam Neck exam: Present: normal inspection. Absent: tenderness, meningismus Respiratory exam: Present: normal lung sounds bilaterally. Absent: respiratory distress, wheezes Cardiovascular Exam: Present: regular rate, normal rhythm GI/Abdominal exam: Present: soft. Absent: distended, tenderness Extremities exam: Present: normal inspection, normal capillary refill. Absent: calf tenderness Neurological exam: Present: alert, oriented X3, CN II-XII intact, normal gait. Absent: motor sensory deficit Psychiatric exam: Present: agitated. Absent: suicidal ideation Skin exam: Present: warm, dry, intact. Absent: cyanosis, diaphoretic Course Vital Signs 07/27/19 07:30 Temperature 98.0 F Pulse Rate 76 Respiratory 16 Rate Blood Pressure 132/76 O2 Sat by Pulse 99 Oximetry Medical Decision Making - Medical Decision Making 58-year-old male presents for bizarre behavior and psychiatric evaluation. Patient was petitioned by his . He was found in the evening picking up trash throughout the city. Patient is alert and cooperative, he's got a nonfocal neurologic exam. He was admitted recently with similar symptoms. He is evaluated by EPS in the emergency department and felt to be safe for discharge. He is able to sign a safety plan. His is with him she will take him home. She is given outpatient referral including community mental health, professor of counseling and aging, and substance abuse information including possible need for "ordered guardianship and substance abuse rehabilitation. Patient's safe for discharge at this time under the care of his . is agreeable with plan. - Lab Data Lab Results 07/27/19 Range/Units 07:37 Urine Opiates Screen Detected H (NotDetected) Ur Oxycodone Screen Not Detected (NotDetected) Urine Methadone Screen Not Detected (NotDetected) Ur Propoxyphene Screen Not Detected (NotDetected) Ur Barbiturates Screen Not Detected (NotDetected) U Tricyclic Antidepress Not Detected (NotDetected) Ur Phencyclidine Scrn Not Detected (NotDetected) Ur Amphetamines Screen Not Detected (NotDetected) U Methamphetamines Scrn Not Detected (NotDetected) U Benzodiazepines Scrn Detected H (NotDetected) Urine Cocaine Screen Not Detected (NotDetected) U Marijuana (THC) Screen Detected H (NotDetected) Disposition Clinical Impression: Encephalopathy, Alcohol abuse Disposition: HOME SELF-CARE Condition: Fair Instructions (If sedation given, give patient instructions): Abuse of Alcohol (ED), Alcohol Dependence (ED) Is patient prescribed a controlled substance at d/c from ED?: No Referrals: None,Stated [Primary Care Provider] - 1-2 days Isha Maloney MD [REFERRING] - 1-2 days Time of Disposition: 10:37
[2019-07-27 08:00] LABS: Cocaine Screen,Urine Not Detected (NotDetected); Opiate Screen,Urine Detected (NotDetected); Phencyclidine Screen,Urine Not Detected (NotDetected); Urn Cannabinoid Scrn Detected (NotDetected)
[2019-07-27 08:01] LABS: Amphetamine Screen,Urine Not Detected (NotDetected); Barbiturate Screen,Urine Not Detected (NotDetected); Benzodiazepines Screen,Urine Detected (NotDetected); Methadone Screen, Urine Not Detected (NotDetected); Oxycodone Screen, Urine Not Detected (NotDetected); Tricyclic Antidepressant,Urine Not Detected (NotDetected)
[2019-07-27] MEDS ORDERED: LORazepam 1 MG TAB PO STA (10:35)
[2019-07-27 11:15] VITALS: BP 140/86; RESP 165
== END 2019-07-27 11:14 | disposition home or self-care (01) ==
LOC: EC 07:05
DX: G93.40 Encephalopathy, unspecified (principal); F10.10 Alcohol abuse, uncomplicated; I10 Essential (primary) hypertension; F32.9 Major depressive disorder, single episode, unspecified; F17.200 Nicotine dependence, unspecified, uncomplicated; Z79.899 Other long term (current) drug therapy
CPT/HCPCS: 80306; 82075; 99284

== ENCOUNTER → 2019-09-01 | Outpatient (CLI) | payer BC ==
--- NOTE | 2019-09-01 12:29 | XR ---
EXAMINATION TYPE: XR hand complete LT DATE OF EXAM: 09/01/2019 CLINICAL HISTORY: Recent fifth metacarpal fracture of the left hand. Evaluate healing. Left hand pain . TECHNIQUE: Frontal, lateral and oblique images of the left hand are obtained. COMPARISON: None. FINDINGS: There is no acute fracture/dislocation evident in the left hand. Subacute fracture is seen of the fifth metacarpal head with impaction. Impaction of 8 mm and maximal volar displacement of the distal fracture fragment of 2 mm on the later al view. Impaction fracture is noncomminuted and transversely oriented without intra-articular extens ion. Advanced degenerative changes seen of the first carpometacarpal joint with subcortical cysts, op posing surface sclerosis and bony proliferative change. Lucency of the distal third metacarpal head c ould relate to degenerative cyst or other intraosseous lesion. This appears well-circumscribed and rey s benign characteristics. Negative ulnar variance is seen. The joint spaces in the left hand appear w ithin normal limits. The overlying soft tissue appears unremarkable. IMPRESSION: 1. No evidence of acute fracture of the distal fifth metacarpal is minimally displaced and impacted a s measured above without intra-articular extension. 2. Advanced degenerative change of the first carpal metacarpal joint. 3. Lucent well-circumscribed 8 mm osseous lesion of the distal third metacarpal head, likely benign. 4. Incidentally noted negative ulnar variance.
== END | disposition home or self-care (01) ==
LOC: RADXRYALE 11:47
PROVIDERS: ATTEND Physician Assistant
DX: M19.042 Primary osteoarthritis, left hand (principal); M25.842 Other specified joint disorders, left hand

== ENCOUNTER → 2019-09-15 | Outpatient (CLI) | payer BC ==
--- NOTE | 2019-09-15 11:53 | XR ---
Left hand HISTORY: Fracture 3 views of left hand correlated to prior exam September 01, 2019 Fifth metacarpal fracture shows volar angulation as on prior exam. Suspect there is some periosteal n ew bone formation compared to prior exam. Punctate ossific densities noted on the lateral view sugges ts combination, no intra-articular involvement IMPRESSION: Suspect some fracture healing.
== END | disposition home or self-care (01) ==
LOC: RADXRYALE 10:31
PROVIDERS: ATTEND Physician Assistant
DX: S62.307D Unspecified fracture of fifth metacarpal bone, left hand, subsequent encounter for fracture with routine healing (principal)

== ENCOUNTER 2019-09-18 15:24 | Observation (INO) | payer BC ==
[2019-09-18] MEDS ORDERED: FOLIC ACID 1 MG TAB PO STA (16:32)
[2019-09-18] MEDS ORDERED: THIAMINE 100 MG/ML 2 ML VIAL IM STA (16:32)
[2019-09-18] MEDS ORDERED: DIPH,PERTUS(ACELL)TETVAC-LF 0.5 ML VIAL IM ONE (16:32)
[2019-09-18] MEDS ORDERED: SODIUM CHLORIDE 0.9% 1,000 ML IV STA (16:32)
[2019-09-18] MEDS ORDERED: LORazepam 2 MG/ML INJ IV PRN ×3 (16:33)
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
[2019-09-18 17:12] LABS: Basophils # (A) 0.1 k/uL (0-0.2); Basophils % (A) 1 %; Eosinophils # (A) 0.1 k/uL (0-0.7); Eosinophils % (A) 2 %; HCT 36.9 % (39.0-53.0); HGB 11.6 gm/dL (13.0-17.5); Lymphocytes # (A) 1.4 k/uL (1.0-4.8); Lymphocytes % (A) 25 %; MCH 30.5 pg (25.0-35.0); MCHC 31.5 g/dL (31.0-37.0); MCV 96.8 fL (80.0-100.0); Mean Platelet Volume 7.2; Monocytes # (A) 0.4 k/uL (0-1.0); Monocytes % (A) 7 %; Neutrophils # (A) 3.5 k/uL (1.3-7.7); Neutrophils % (A) 62 %; Platelet Count 252 k/uL (150-450); RBC 3.81 m/uL (4.30-5.90); RDW 15.1 % (11.5-15.5); WBC 5.6 k/uL (3.8-10.6)
[2019-09-18 17:21] LABS: Chloride 105 mmol/L (98-107); Partial Thromboplastin Time 27.7 sec (22.0-30.0); Prothrombin Time 10.8 sec (9.0-12.0)
[2019-09-18 17:24] LABS: African American GFR (CKD) >90 (>60 ml/min/1.73 sqM); Alcohol 75 mg/dL; Anion Gap 15 mmol/L; Blood Urea Nitrogen 12 mg/dL (9-20); Calcium 9.5 mg/dL (8.4-10.2); Carbon Dioxide 19 mmol/L (22-30); Glucose 84 mg/dL (74-99); Magnesium 1.7 mg/dL (1.6-2.3); Non-African American GFR(CKD) >90 (>60 ml/min/1.73 sqM); Potassium 4.4 mmol/L (3.5-5.1); Sodium 139 mmol/L (137-145)
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
[2019-09-18 17:42] LABS: Glucose,Whole Blood 85 mg/dL (75-99)
--- NOTE | 2019-09-18 17:48 | XR ---
EXAMINATION TYPE: XR chest 1V portable DATE OF EXAM: 09/18/2019 COMPARISON: 07/23/2019 HISTORY: Altered mental status TECHNIQUE: FINDINGS: Heart is normal. Lungs are clear. Costophrenic angles are clear. There are no hilar masses. IMPRESSION: No active cardiopulmonary disease. No change.
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
[2019-09-18] MEDS ORDERED: NALOXONE 0.4 MG/ML 1 ML VIAL IV PRN (19:55)
[2019-09-18] MEDS ORDERED: ONDANSETRON 4 MG/2 ML VIAL IVP PRN (19:55)
[2019-09-18] MEDS: SODIUM CHLORIDE 0.9% 1,000 ML IV SCH (22:17)
[2019-09-19] MEDS: SODIUM CHLORIDE 0.9% 1,000 ML IV SCH ×2 (08:18→22:17)
[2019-09-19] MEDS: HYDROcodone/APAP 5-325MG 1 EACH TAB PO PRN (14:06)
[2019-09-19] MEDS ORDERED: IBUPROFEN 800 MG TAB PO PRN (14:21)
--- NOTE | 2019-09-19 14:31 | XR ---
EXAMINATION TYPE: XR chest 2V DATE OF EXAM: 09/19/2019 COMPARISON: 09/18/2019 HISTORY: Shortness of breath TECHNIQUE: Frontal and lateral views of the chest are obtained. FINDINGS: There is no focal air space opacity, pleural effusion, or pneumothorax seen. Pulmonary hyp erinflation with flattening of the diaphragms on the lateral view suggesting underlying COPD. The car diac silhouette size is within normal limits. The osseous structures are intact. Mild multilevel de generative change of the spine. IMPRESSION: No acute cardiopulmonary process. Findings suggesting underlying COPD.
[2019-09-19] MEDS: FOLIC ACID 1 MG TAB PO SCH (15:57)
[2019-09-19] MEDS: POTASSIUM CHLORIDE ER 10 MEQ TAB.ER.PRT PO SCH (15:57)
[2019-09-19] MEDS: MAGNESIUM OXIDE 400 MG TAB PO SCH (15:57)
[2019-09-19] MEDS: METOPROLOL SUCCINATE (ER) 25 MG TAB.ER.24H PO SCH (15:57)
[2019-09-19] MEDS: FLUTICASONE 50MCG/SPRAY NASAL 16GM EA NOSTRIL SCH (16:49)
[2019-09-19] MEDS: levETIRAcetam 500 MG TAB PO SCH ×2 (16:49→22:17)
[2019-09-19 16:52] LABS: ALT 46 U/L (4-49); AST 63 U/L (17-59); African American GFR (CKD) >90 (>60 ml/min/1.73 sqM); Albumin 3.9 g/dL (3.5-5.0); Alkaline Phosphatase 134 U/L (38-126); Anion Gap 11 mmol/L; Blood Urea Nitrogen 12 mg/dL (9-20); Calcium 9.1 mg/dL (8.4-10.2); Carbon Dioxide 19 mmol/L (22-30); Chloride 106 mmol/L (98-107); Glucose 93 mg/dL (74-99); Non-African American GFR(CKD) >90 (>60 ml/min/1.73 sqM); Sodium 136 mmol/L (137-145); Total Bilirubin 0.8 mg/dL (0.2-1.3); Total Protein 7.2 g/dL (6.3-8.2)
[2019-09-19] MEDS ORDERED: cloNIDine HCL 0.1 MG TAB PO PRN (18:09)
[2019-09-19] MEDS ORDERED: TEMAZEPAM 15 MG CAP PO PRN (18:09)
[2019-09-19] MEDS ORDERED: SERTRALINE 50 MG TAB PO SCH (21:00)
[2019-09-19] MEDS: cloNIDine HCL 0.1 MG TAB PO SCH ×2 (21:43→22:06)
[2019-09-19] MEDS: HEPARIN SODIUM,PORCINE 5,000 UNIT/ML 1 ML VIAL SQ SCH (21:43)
[2019-09-19] MEDS: PANTOPRAZOLE 40 MG TABLET PO SCH (21:43)
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
[2019-09-20] MEDS: SODIUM CHLORIDE 0.9% 1,000 ML IV SCH (01:25)
[2019-09-20] MEDS: HYDROcodone/APAP 5-325MG 1 EACH TAB PO PRN (03:57)
[2019-09-20 07:50] VITALS: BP 146/85; PULSE 60; RESP 17; TEMP 98.1
[2019-09-20 07:57] LABS: Basophils % (A) 1 %; Eosinophils # (A) 0.2 k/uL (0-0.7); Eosinophils % (A) 4 %; HCT 36.3 % (39.0-53.0); HGB 11.4 gm/dL (13.0-17.5); Lymphocytes # (A) 1.5 k/uL (1.0-4.8); Lymphocytes % (A) 31 %; MCH 30.7 pg (25.0-35.0); MCHC 31.3 g/dL (31.0-37.0); MCV 98.1 fL (80.0-100.0); Mean Platelet Volume 7.4; Monocytes # (A) 0.3 k/uL (0-1.0); Monocytes % (A) 7 %; Neutrophils # (A) 2.7 k/uL (1.3-7.7); Neutrophils % (A) 55 %; Platelet Count 226 k/uL (150-450); RBC 3.71 m/uL (4.30-5.90); WBC 4.9 k/uL (3.8-10.6)
[2019-09-20 08:12] LABS: ALT 38 U/L (4-49); AST 61 U/L (17-59); African American GFR (CKD) >90 (>60 ml/min/1.73 sqM); Albumin 3.5 g/dL (3.5-5.0); Alkaline Phosphatase 122 U/L (38-126); Anion Gap 7 mmol/L; Blood Urea Nitrogen 7 mg/dL (9-20); Calcium 8.9 mg/dL (8.4-10.2); Carbon Dioxide 23 mmol/L (22-30); Chloride 108 mmol/L (98-107); Glucose 126 mg/dL (74-99); Non-African American GFR(CKD) >90 (>60 ml/min/1.73 sqM); Potassium 3.6 mmol/L (3.5-5.1); Sodium 138 mmol/L (137-145); Total Bilirubin 0.7 mg/dL (0.2-1.3); Total Protein 6.7 g/dL (6.3-8.2)
[2019-09-20] MEDS ORDERED: THIAMINE 100 MG TAB PO SCH (09:00)
[2019-09-20] MEDS ORDERED: MULTIVITAMINS, THERA 1 EACH TAB PO SCH (09:00)
[2019-09-20] MEDS: METOPROLOL SUCCINATE (ER) 25 MG TAB.ER.24H PO SCH (09:20)
[2019-09-20] MEDS: HEPARIN SODIUM,PORCINE 5,000 UNIT/ML 1 ML VIAL SQ SCH (09:21)
[2019-09-20] MEDS: PANTOPRAZOLE 40 MG TABLET PO SCH (09:21)
[2019-09-20] MEDS: FLUTICASONE 50MCG/SPRAY NASAL 16GM EA NOSTRIL SCH (09:21)
[2019-09-20] MEDS: cloNIDine HCL 0.1 MG TAB PO SCH (09:21)
[2019-09-20] MEDS: FOLIC ACID 1 MG TAB PO SCH (09:21)
[2019-09-20] MEDS: POTASSIUM CHLORIDE ER 10 MEQ TAB.ER.PRT PO SCH (09:21)
[2019-09-20] MEDS: MAGNESIUM OXIDE 400 MG TAB PO SCH (09:21)
[2019-09-20] MEDS: levETIRAcetam 500 MG TAB PO SCH (09:22)
--- NOTE | 2019-09-21 07:12 | DS ---
DISCHARGE SUMMARY DATE OF SERVICE: 09/20/2019 FINAL DIAGNOSES: 1. Acute alcohol intoxication. 2. Acute alcohol withdrawal and acute delirium tremens. 3. Change in mental status, metabolic encephalopathy, possibly secondary to alcohol. 4. Anemia, normocytic possibly nutritional. 5. Hyponatremia. 6. Increased AST. 7. Alcoholic hepatitis. 8. History of depression. 9. History of nicotine dependence. 10.History of THC. 11.FULL CODE. DISCHARGE DISPOSITION: The patient will be discharged in stable condition with guarded prognosis. HISTORY OF PRESENT ILLNESS: This is a 58-year-old gentleman with a past medical history of multiple medical problems including alcohol intoxication as well as acute delirium tremens. The patient was treated symptomatically. [facility] protocol was used. Patient improved significantly. On exam, vitals are stable. CARDIOVASCULAR: S1, S2. ABDOMEN: Soft. NERVOUS SYSTEM: No focal deficits. Patient will be discharged in stable condition with guarded prognosis. Diet is cardiac diet. Activity limited until followup. Follow up with Dr. Hewitt in 2-3 days. No alcohol and to attend AA and alcohol rehab. DISCHARGE MEDICATIONS: 1. Flonase once spray as before. 2. Folic acid 1 mg daily. 3. Keppra 1000 mg p.o. b.i.d. 4. Motrin p.r.n. 5. Multivitamins 1 p.o. daily. 6. Potassium as before. 7. Toprol-XL 25 mg daily. 8. Thiamine 100 mg p.o. daily. 9. Zoloft 50 mg q.h.s. 10.Ativan 1 mg p.o. b.i.d. for 3 days. 11.Clonidine 0.1 p.o. b.i.d. for 10 days. 12.Magnesium 200 mg p.o. daily. MMODL / IJN: [id number] /
== END 2019-09-20 12:36 | disposition home or self-care (01) ==
LOC: EC 15:24 → 4SSUR 19:55
PROVIDERS: ADMIT Hospitalist; ATTEND Hospitalist
DX: F10.221 Alcohol dependence with intoxication delirium (principal); F10.231 Alcohol dependence with withdrawal delirium; K70.10 Alcoholic hepatitis without ascites; S00.81XA Abrasion of other part of head, initial encounter; I10 Essential (primary) hypertension; Z23 Encounter for immunization; F17.200 Nicotine dependence, unspecified, uncomplicated; D64.9 Anemia, unspecified; F32.9 Major depressive disorder, single episode, unspecified; G31.9 Degenerative disease of nervous system, unspecified; E87.1 Hypo-osmolality and hyponatremia; M19.90 Unspecified osteoarthritis, unspecified site; Y90.3 Blood alcohol level of 60-79 mg/100 ml; Z79.1 Long term (current) use of non-steroidal anti-inflammatories (NSAID); Z79.899 Other long term (current) drug therapy; X58.XXXA Exposure to other specified factors, initial encounter
CPT/HCPCS: 96361 ×2; 96372 ×3; 96360; 99285; 36415; 93005; 80053 ×2; 80048; 83735; 85025 ×2; 85610; 85730; 80320; 72170; 71045; 71046; 72125; 70450; 90715; G0378 ×3; J1644 ×2; J3411

== ENCOUNTER 2019-09-26 19:05 | Inpatient (IN) | payer BC, MEDICAID ==
--- NOTE | 2019-09-26 19:39 | ED ---
Psych HPI - General Chief Complaint: Psychiatric Symptoms Stated Complaint: EPS eval Time Seen by Provider: 09/26/19 19:24 Source: patient, EMS, RN notes reviewed Mode of arrival: ambulatory - History of Present Illness Initial Comments: This is a 58-year-old male who is brought in by [facility] on a pickup order. Patient. He's been depressed and suicidal been exhibiting bizarre behavior he does admit to drinking 2 drinks today. He states he took his medications and several night meds but he apparently has been noncompliant. He also apparently took his hand in a fashion of a gun and pointed to his head acting like he wanted to shoot himself. He denies any drugs other than marijuana no fevers chills nausea vomiting sweats or other symptoms. MD Complaint: suicidal ideation, feels depressed, other - Related Data Home Medications Medication Instructions Recorded Confirmed Folic Acid 1 mg PO DAILY 08/23/18 09/26/19 Metoprolol Succinate (ER) [Toprol 25 mg PO DAILY 08/23/18 09/26/19 XL] Sertraline [Zoloft] 50 mg PO HS 08/23/18 09/26/19 Ibuprofen [Motrin] 800 mg PO TID PRN 07/23/19 09/26/19 Thiamine HCl [Vitamin B-1] 100 mg PO DAILY 07/23/19 09/26/19 Fluticasone Nasal Maceo [Flonase 1 spray EA NOSTRIL DAILY 07/27/19 09/26/19 Nasal Maceo] Multivitamins, Thera [Multivitamin 1 tab PO DAILY 07/27/19 09/26/19 (formulary)] levETIRAcetam [Keppra] 1,000 mg PO Q12HR 09/18/19 09/26/19 Previous Rx's Medication Instructions Recorded Magnesium 200 mg PO DAILY #15 tablet 08/23/18 cloNIDine HCL [Catapres] 0.1 mg PO BID #20 tab 09/20/19 Allergies Allergy/AdvReac Type Severity Reaction Status Date / Time No Known Allergies Allergy Verified 09/26/19 20:08 Review of Systems ROS Statement: Those systems with pertinent positive or pertinent negative responses have been documented in the HPI. ROS Other: All systems not noted in ROS Statement are negative. Past Medical History Past Medical History: No Reported History, Hypertension History of Any Multi-Drug Resistant Organisms: None Reported Past Surgical History: Orthopedic Surgery Additional Past Surgical History / Comment(s): rt femur Past Psychological History: Depression Smoking Status: Current every day smoker Past Alcohol Use History: Abuse, Daily, Heavy Past Drug Use History: Marijuana General Exam - General Exam Comments Initial Comments: This is a well-developed asthenic appearing male who is awake alert oriented 3 he does appear to be demonstrating obsessive compulsive activity clinically enough impression off everything before meals history. To be examined. Limitations: no limitations General appearance: alert, anxious Head exam: Present: atraumatic, normocephalic, normal inspection Eye exam: Present: normal appearance, PERRL, EOMI. Absent: scleral icterus, conjunctival injection, periorbital swelling ENT exam: Present: normal exam, mucous membranes moist Neck exam: Present: normal inspection. Absent: tenderness, meningismus, lymphadenopathy Respiratory exam: Present: normal lung sounds bilaterally. Absent: respiratory distress, wheezes, rales, rhonchi, stridor Cardiovascular Exam: Present: regular rate, normal rhythm, normal heart sounds. Absent: systolic murmur, diastolic murmur, rubs, gallop, clicks GI/Abdominal exam: Present: soft, normal bowel sounds. Absent: distended, tenderness, guarding, rebound, rigid Extremities exam: Present: normal inspection, full ROM, normal capillary refill. Absent: tenderness, pedal edema, joint swelling, calf tenderness Back exam: Present: normal inspection Neurological exam: Present: alert, oriented X3, CN II-XII intact Psychiatric exam: Present: depressed, manic, suicidal ideation Skin exam: Present: warm, dry, intact, normal color. Absent: rash Course Vital Signs 09/26/19 19:08 Temperature 98.3 F Pulse Rate 81 Respiratory 19 Rate Blood Pressure 156/95 O2 Sat by Pulse 99 Oximetry - Reevaluation(s) Reevaluation #1: 09/26/19 20:57 The patient's care is endorsed to Dr. Vines at her shift change he is pending evaluation by psychiatry Medical Decision Making - Medical Decision Making She was initially endorsed Dr. giraldo shift change was ultimately admitted to the mental health unit for inpatient treatment - Lab Data Result diagrams: 09/28/19 06:00 09/28/19 06:00 Lab Results 09/26/19 Range/Units 19:00 Urine Opiates Screen Not Detected (NotDetected) Ur Oxycodone Screen Not Detected (NotDetected) Urine Methadone Screen Not Detected (NotDetected) Ur Propoxyphene Screen Not Detected (NotDetected) Ur Barbiturates Screen Not Detected (NotDetected) U Tricyclic Antidepress Detected H (NotDetected) Ur Phencyclidine Scrn Detected H (NotDetected) Ur Amphetamines Screen Not Detected (NotDetected) U Methamphetamines Scrn Not Detected (NotDetected) U Benzodiazepines Scrn Not Detected (NotDetected) Urine Cocaine Screen Not Detected (NotDetected) U Marijuana (THC) Screen Detected H (NotDetected) Disposition Clinical Impression: Depression, Suicidal ideation Disposition: TRANSFER TO PSYCH HOSP/UNIT Condition: Stable
[2019-09-26 20:24] LABS: Amphetamine Screen,Urine Not Detected (NotDetected); Barbiturate Screen,Urine Not Detected (NotDetected); Benzodiazepines Screen,Urine Not Detected (NotDetected); Cocaine Screen,Urine Not Detected (NotDetected); Methadone Screen, Urine Not Detected (NotDetected); Opiate Screen,Urine Not Detected (NotDetected); Oxycodone Screen, Urine Not Detected (NotDetected); Phencyclidine Screen,Urine Detected (NotDetected); Tricyclic Antidepressant,Urine Detected (NotDetected); Urn Cannabinoid Scrn Detected (NotDetected)
[2019-09-27] MEDS ORDERED: ACETAMINOPHEN TAB 325 MG TAB PO PRN (00:10)
[2019-09-27] MEDS ORDERED: MAG HYDROX/AL HYDROX/SIMETH 30 ML CUP PO PRN (00:10)
[2019-09-27] MEDS ORDERED: MAGNESIUM HYDROXIDE 2,400 MG/10 ML CUP PO PRN (00:10)
[2019-09-27] MEDS ORDERED: LORazepam 1 MG TAB PO PRN (00:10)
[2019-09-27] MEDS ORDERED: LORazepam 2 MG/ML INJ IM PRN (00:11)
[2019-09-27] MEDS: FLUTICASONE 50MCG/SPRAY NASAL 16GM EA NOSTRIL SCH (09:24)
[2019-09-27] MEDS: METOPROLOL SUCCINATE (ER) 25 MG TAB.ER.24H PO SCH (09:25)
[2019-09-27] MEDS: MULTIVITAMINS, THERA 1 EACH TAB PO SCH (09:25)
[2019-09-27] MEDS: levETIRAcetam 500 MG TAB PO SCH ×2 (09:25→21:29)
[2019-09-27] MEDS: THIAMINE 100 MG TAB PO SCH (09:26)
[2019-09-27] MEDS: FOLIC ACID 1 MG TAB PO SCH (09:26)
[2019-09-27] MEDS: cloNIDine HCL 0.1 MG TAB PO SCH ×2 (09:31→21:29)
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
[2019-09-27] MEDS: SERTRALINE 50 MG TAB PO SCH (21:29)
[2019-09-27] MEDS: IBUPROFEN 800 MG TAB PO PRN (21:31)
[2019-09-27] MEDS: chlordiazePOXIDE 25 MG CAP PO SCH (23:09)
[2019-09-28 09:21] LABS: Basophils # (A) 0.1 k/uL (0-0.2); Basophils % (A) 2 %; Eosinophils # (A) 0.2 k/uL (0-0.7); Eosinophils % (A) 4 %; HCT 39.4 % (39.0-53.0); Lymphocytes # (A) 1.4 k/uL (1.0-4.8); Lymphocytes % (A) 24 %; MCH 29.6 pg (25.0-35.0); MCHC 30.5 g/dL (31.0-37.0); MCV 97.1 fL (80.0-100.0); Mean Platelet Volume 7.4; Monocytes # (A) 0.4 k/uL (0-1.0); Monocytes % (A) 6 %; Neutrophils # (A) 3.6 k/uL (1.3-7.7); Neutrophils % (A) 61 %; Platelet Count 362 k/uL (150-450); RBC 4.06 m/uL (4.30-5.90); WBC 5.8 k/uL (3.8-10.6)
[2019-09-28 09:44] LABS: ALT 48 U/L (4-49); AST 102 U/L (17-59); African American GFR (CKD) >90 (>60 ml/min/1.73 sqM); Albumin 4.2 g/dL (3.5-5.0); Alkaline Phosphatase 137 U/L (38-126); Anion Gap 8 mmol/L; Blood Urea Nitrogen 16 mg/dL (9-20); Calcium 10.1 mg/dL (8.4-10.2); Carbon Dioxide 27 mmol/L (22-30); Chloride 104 mmol/L (98-107); Cholesterol 171 mg/dL (<200); Glucose 154 mg/dL (74-99); HDL Cholesterol 75 mg/dL (40-60); LDL Cholesterol,Calculated 73 mg/dL (0-99); Non-African American GFR(CKD) >90 (>60 ml/min/1.73 sqM); Potassium 4.3 mmol/L (3.5-5.1); Sodium 139 mmol/L (137-145); Total Bilirubin 0.8 mg/dL (0.2-1.3); Total Protein 7.9 g/dL (6.3-8.2); Triglycerides 115 mg/dL (<150)
[2019-09-28] MEDS: METOPROLOL SUCCINATE (ER) 25 MG TAB.ER.24H PO SCH (09:46)
[2019-09-28] MEDS: chlordiazePOXIDE 25 MG CAP PO SCH ×3 (09:46→22:10)
[2019-09-28] MEDS: levETIRAcetam 500 MG TAB PO SCH ×2 (09:46→22:10)
[2019-09-28] MEDS: FOLIC ACID 1 MG TAB PO SCH (09:46)
[2019-09-28] MEDS: FLUTICASONE 50MCG/SPRAY NASAL 16GM EA NOSTRIL SCH (09:46)
[2019-09-28] MEDS: cloNIDine HCL 0.1 MG TAB PO SCH ×2 (09:46→22:10)
[2019-09-28] MEDS: MULTIVITAMINS, THERA 1 EACH TAB PO SCH (09:47)
[2019-09-28] MEDS: THIAMINE 100 MG TAB PO SCH (09:47)
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
[2019-09-28 17:13] LABS: Hemoglobin A1C 5.2 % (4.0-6.0)
[2019-09-28] MEDS: SERTRALINE 50 MG TAB PO SCH (22:10)
[2019-09-29] MEDS: METOPROLOL SUCCINATE (ER) 25 MG TAB.ER.24H PO SCH (09:55)
[2019-09-29] MEDS: THIAMINE 100 MG TAB PO SCH (09:56)
[2019-09-29] MEDS: MULTIVITAMINS, THERA 1 EACH TAB PO SCH (09:56)
[2019-09-29] MEDS: cloNIDine HCL 0.1 MG TAB PO SCH ×2 (09:56→21:50)
[2019-09-29] MEDS: levETIRAcetam 500 MG TAB PO SCH ×2 (09:56→21:50)
[2019-09-29] MEDS: chlordiazePOXIDE 25 MG CAP PO SCH ×3 (09:56→21:51)
[2019-09-29] MEDS: FOLIC ACID 1 MG TAB PO SCH (09:56)
[2019-09-29] MEDS: FLUTICASONE 50MCG/SPRAY NASAL 16GM EA NOSTRIL SCH (09:57)
--- NOTE | 2019-09-29 14:41 | P.PN ---
Subjective Progress Note Date: 09/29/19 Principal diagnosis: Alcohol use disorder severe, alcohol withdrawal, rule out alcohol withdrawal delirium, marital problems I reviewed the medical record, interviewed the patient and discuss his treatment and treatment plan during team meeting. He was less demanding but again r equested to be discharged. He stated several time during interview that he "does not belong here." He denied feeling depressed or having thoughts of or suicide. He denies alcohol withdrawal symptoms. He denies experiencing psychotic symptoms such as hallucinations or paranoia. He denies that he has thoughts of harm towards his stating that he "loves her" and would never hurt her. He confirmed that he has no plans to stop drinking because he enjoys drinking alcohol. He justified his alcohol use by the fact that his family and her family drink alcohol and his "has a glass of wine" with friends "once in a while". He remains opposed to a residential substance abuse treatment program. His response to the possibility that a visor installer may order treatment was "we'll see what happens." During treatment team the [facility] liaison reported that he is [facility] chief petroleum engineer will visit him today and report to the printing plate maker. Objective - Vital Signs Vital signs: Vital Signs Temp 97.9 F 09/29/19 02:30 Pulse 115 H 09/29/19 10:01 Resp 20 09/29/19 10:01 BP 109/78 09/29/19 10:01 Pulse Ox 99 09/27/19 06:05 - Exam He presented as a casually groomed middle-aged male who was pleasant and cooperative. He made eye contact and attended to the interview. He was not tremulous or diaphoretic. He had a calm facial expression. He was alert and oriented to person, place and time. He was not restless or agitated. His speech was spontaneous with normal volume but normal rate and rhythm. He was not angry, loud or depending as he was yesterday. He made no threats towards himself or others. He denied that he has thoughts of harm towards his . He denied feeling hopeless helpless or worthless. He he did not express ideas reference, paranoid ideation or delusions. His thinking was concrete. Associations were coherent and logical. He denied hallucinations and did not appear to be responding to internal stimuli. - Labs CBC & Chem 7: 09/28/19 06:00 09/28/19 06:00 Assessment and Plan Assessment: He has no signs of alcohol withdrawal. He denies feelings depression or thoughts of or suicide. He denies homicidal ideation. There is no evidence of psychosis. Plan: Discharge home after recently being with his chief petroleum engineer. Continue sertraline 25 mg daily for depression and/or anxiety. Continue alcohol detox as written by PCP.
[2019-09-29] MEDS: SERTRALINE 50 MG TAB PO SCH (21:50)
[2019-09-29 22:32] LABS: Appearance,Urine Clear (Clear); Bilirubin,Urine Negative (Negative); Blood,Urine Negative (Negative); Color,Urine Yellow; Glucose,Urine (UA) Negative (Negative); Ketones,Urine Negative (Negative); Leukocyte Esterase,Urine Negative (Negative); Nitrite,Urine Negative (Negative); Protein,Urine Negative (Negative)
[2019-09-30 03:31] VITALS: RESP 14; TEMP 98
[2019-09-30] MEDS: FOLIC ACID 1 MG TAB PO SCH (08:50)
[2019-09-30] MEDS: MULTIVITAMINS, THERA 1 EACH TAB PO SCH (08:50)
[2019-09-30] MEDS: THIAMINE 100 MG TAB PO SCH (08:50)
[2019-09-30] MEDS: METOPROLOL SUCCINATE (ER) 25 MG TAB.ER.24H PO SCH (08:50)
[2019-09-30] MEDS: FLUTICASONE 50MCG/SPRAY NASAL 16GM EA NOSTRIL SCH (08:50)
[2019-09-30] MEDS: cloNIDine HCL 0.1 MG TAB PO SCH (08:51)
[2019-09-30] MEDS: chlordiazePOXIDE 25 MG CAP PO SCH (08:51)
[2019-09-30] MEDS: levETIRAcetam 500 MG TAB PO SCH (08:51)
[2019-09-30] MEDS: IBUPROFEN 800 MG TAB PO PRN (08:53)
[2019-09-30 09:52] VITALS: BP 118/84; PULSE 87
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
== END 2019-09-30 12:23 | disposition home or self-care (01) | DRG 897 ==
LOC: EC 19:05 → 3MHU 23:15
PROVIDERS: ADMIT Psychiatry & Neurology Psychiatry; ATTEND Psychiatry & Neurology Psychiatry
DX: F10.231 Alcohol dependence with withdrawal delirium (principal); R45.851 Suicidal ideations; F10.24 Alcohol dependence with alcohol-induced mood disorder; I10 Essential (primary) hypertension; F17.200 Nicotine dependence, unspecified, uncomplicated; G40.909 Epilepsy, unspecified, not intractable, without status epilepticus; F12.90 Cannabis use, unspecified, uncomplicated; F41.9 Anxiety disorder, unspecified; F32.9 Major depressive disorder, single episode, unspecified; F19.10 Other psychoactive substance abuse, uncomplicated; Z91.19 Patient's noncompliance with other medical treatment and regimen; Z56.0 Unemployment, unspecified; Z79.899 Other long term (current) drug therapy
CPT/HCPCS: 80053; 80061; 80306; 81003; 82075; 83036; 84443; 85025; 99285

== ENCOUNTER 2019-10-23 17:32 | Inpatient (IN) | payer BC ==
[2019-10-23] MEDS ORDERED: SODIUM CHLORIDE 0.9% 1,000 ML IV STA ×2 (17:45→21:35)
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
[2019-10-23 18:49] LABS: Basophils % (A) 0 %; Eosinophils # (A) 0.1 k/uL (0-0.7); Eosinophils % (A) 1 %; HGB 14.1 gm/dL (13.0-17.5); Lymphocytes # (A) 2.1 k/uL (1.0-4.8); Lymphocytes % (A) 26 %; MCH 29.4 pg (25.0-35.0); MCHC 32.6 g/dL (31.0-37.0); Mean Platelet Volume 7.6; Monocytes # (A) 0.4 k/uL (0-1.0); Monocytes % (A) 6 %; Neutrophils # (A) 5.2 k/uL (1.3-7.7); Neutrophils % (A) 66 %; Platelet Count 189 k/uL (150-450); RBC 4.78 m/uL (4.30-5.90); RDW 15.8 % (11.5-15.5)
[2019-10-23 19:10] LABS: ALT 25 U/L (4-49); AST 84 U/L (17-59); African American GFR (CKD) >90 (>60 ml/min/1.73 sqM); Albumin 4.3 g/dL (3.5-5.0); Alkaline Phosphatase 177 U/L (38-126); Anion Gap 17 mmol/L; Blood Urea Nitrogen 16 mg/dL (9-20); Calcium 9.9 mg/dL (8.4-10.2); Carbon Dioxide 20 mmol/L (22-30); Chloride 98 mmol/L (98-107); Glucose 91 mg/dL (74-99); Non-African American GFR(CKD) >90 (>60 ml/min/1.73 sqM); Sodium 135 mmol/L (137-145); Total Bilirubin 0.7 mg/dL (0.2-1.3); Total Protein 7.7 g/dL (6.3-8.2)
[2019-10-23 19:22] LABS: Alcohol 160 mg/dL; Potassium 3.7 mmol/L (3.5-5.1)
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
[2019-10-23] MEDS ORDERED: HYDROmorphone 1 MG/ML 1 ML SYRINGE IVP STA (20:12)
[2019-10-23] MEDS ORDERED: LIDOCAINE 1% INJ 10MG/ML (20 ML MDV) SQ ONE (20:12)
[2019-10-23] MEDS ORDERED: LORazepam 2 MG/ML INJ ONE (20:42)
[2019-10-23] MEDS ORDERED: LORazepam 2 MG/ML INJ IV STA (20:44)
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
[2019-10-23] MEDS ORDERED: ACETAMINOPHEN TAB 325 MG TAB PO PRN (21:23)
[2019-10-23] MEDS ORDERED: HYDROcodone/APAP 5-325MG 1 EACH TAB PO PRN (21:23)
[2019-10-23] MEDS ORDERED: NALOXONE 0.4 MG/ML 1 ML VIAL IV PRN (21:23)
[2019-10-23] MEDS ORDERED: LORazepam 2 MG/ML INJ IV PRN ×4 (21:25)
[2019-10-23] MEDS: THIAMINE 100 MG TAB PO SCH (21:50)
[2019-10-23 22:20] LABS: Glucose,Whole Blood 90 mg/dL (75-99)
[2019-10-24] MEDS: HEPARIN SODIUM,PORCINE 5,000 UNIT/ML 1 ML VIAL SQ SCH ×4 (00:44→23:20)
[2019-10-24] MEDS: HYDROcodone/APAP 5-325MG 1 EACH TAB PO PRN ×5 (00:44→22:33)
[2019-10-24 04:40] LABS: African American GFR (CKD) >90 (>60 ml/min/1.73 sqM); Anion Gap 11 mmol/L; Blood Urea Nitrogen 16 mg/dL (9-20); Calcium 9.3 mg/dL (8.4-10.2); Carbon Dioxide 21 mmol/L (22-30); Chloride 101 mmol/L (98-107); Glucose 82 mg/dL (74-99); Non-African American GFR(CKD) >90 (>60 ml/min/1.73 sqM); Potassium 3.5 mmol/L (3.5-5.1); Sodium 133 mmol/L (137-145)
[2019-10-24 04:53] LABS: Basophils % (A) 0 %; Eosinophils # (A) 0.1 k/uL (0-0.7); Eosinophils % (A) 1 %; HCT 37.1 % (39.0-53.0); Lymphocytes # (A) 1.6 k/uL (1.0-4.8); Lymphocytes % (A) 19 %; MCH 29.7 pg (25.0-35.0); MCHC 32.4 g/dL (31.0-37.0); MCV 91.8 fL (80.0-100.0); Mean Platelet Volume 8.3; Monocytes # (A) 0.5 k/uL (0-1.0); Monocytes % (A) 6 %; Neutrophils % (A) 72 %; Platelet Count 209 k/uL (150-450); RBC 4.04 m/uL (4.30-5.90); RDW 15.7 % (11.5-15.5); WBC 8.3 k/uL (3.8-10.6)
[2019-10-24] MEDS ORDERED: Potassium Replacement Protocol 1 EACH MISC MISCELLANE PRN (04:56)
[2019-10-24] MEDS: POTASSIUM CHLORIDE ER 20 MEQ TAB.ER PO SCH ×2 (05:08→06:31)
[2019-10-24] MEDS: THIAMINE 100 MG TAB PO SCH ×2 (06:31→17:23)
[2019-10-24] MEDS: PANTOPRAZOLE 40 MG TABLET PO SCH (06:31)
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
--- NOTE | 2019-10-24 11:20 | XR ---
EXAMINATION TYPE: XR chest 1V portable DATE OF EXAM: 10/24/2019 COMPARISON: 10/24/2019 HISTORY: Chest tube. Follow-up exam. Waterseal placed. TECHNIQUE: Single frontal view of the chest is obtained. FINDINGS: Subcutaneous emphysema similar. Trace left pneumothorax is resolved. Right hemidiaphragm e levation is chronic. Cardiomediastinal silhouette is stable. No new focal consolidation. Resolved rig ht basilar atelectasis. Stable placement of a left thoracostomy tube. IMPRESSION: Resolved right basilar atelectasis and resolved left pneumothorax with stable placement of a left thoracostomy tube.
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
[2019-10-24] MEDS: SODIUM CHLORIDE 0.9% 1,000 ML IV SCH ×2 (15:41→23:20)
[2019-10-24] MEDS ORDERED: IPRATROPIUM-ALBUTEROL 3 ML NEB INHALATION PRN (19:26)
[2019-10-24] MEDS ORDERED: HYDROmorphone 0.5 MG/0.5 ML SYRINGE IVP PRN (19:26)
[2019-10-24] MEDS ORDERED: TEMAZEPAM 15 MG CAP PO PRN (19:26)
[2019-10-24] MEDS: IPRATROPIUM-ALBUTEROL 3 ML NEB INHALATION SCH (20:17)
[2019-10-24] MEDS: SERTRALINE 50 MG TAB PO SCH (20:30)
[2019-10-24] MEDS: levETIRAcetam 500 MG TAB PO SCH (20:30)
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
[2019-10-25 04:51] LABS: Basophils % (A) 0 %; Eosinophils # (A) 0.2 k/uL (0-0.7); Eosinophils % (A) 4 %; HCT 37.3 % (39.0-53.0); Lymphocytes # (A) 1.8 k/uL (1.0-4.8); Lymphocytes % (A) 30 %; MCH 29.2 pg (25.0-35.0); MCHC 32.2 g/dL (31.0-37.0); MCV 90.7 fL (80.0-100.0); Mean Platelet Volume 8.4; Monocytes # (A) 0.4 k/uL (0-1.0); Monocytes % (A) 7 %; Neutrophils # (A) 3.3 k/uL (1.3-7.7); Neutrophils % (A) 57 %; Platelet Count 151 k/uL (150-450); RBC 4.11 m/uL (4.30-5.90); RDW 15.5 % (11.5-15.5); WBC 5.9 k/uL (3.8-10.6)
[2019-10-25 04:58] LABS: African American GFR (CKD) >90 (>60 ml/min/1.73 sqM); Anion Gap 7 mmol/L; Blood Urea Nitrogen 7 mg/dL (9-20); Calcium 9.4 mg/dL (8.4-10.2); Carbon Dioxide 26 mmol/L (22-30); Chloride 97 mmol/L (98-107); Glucose 157 mg/dL (74-99); Non-African American GFR(CKD) >90 (>60 ml/min/1.73 sqM); Potassium 2.9 mmol/L (3.5-5.1); Sodium 130 mmol/L (137-145)
[2019-10-25] MEDS: POTASSIUM CHLORIDE ER 20 MEQ TAB.ER PO SCH ×3 (06:36→11:54)
[2019-10-25] MEDS: PANTOPRAZOLE 40 MG TABLET PO SCH (06:36)
[2019-10-25] MEDS: THIAMINE 100 MG TAB PO SCH ×2 (06:36→17:53)
[2019-10-25] MEDS: levETIRAcetam 500 MG TAB PO SCH ×2 (07:50→19:51)
[2019-10-25] MEDS: HYDROcodone/APAP 5-325MG 1 EACH TAB PO PRN ×4 (07:50→23:45)
[2019-10-25] MEDS: FOLIC ACID 1 MG TAB PO SCH (07:51)
[2019-10-25] MEDS: HEPARIN SODIUM,PORCINE 5,000 UNIT/ML 1 ML VIAL SQ SCH ×3 (07:51→23:45)
[2019-10-25] MEDS: METOPROLOL SUCCINATE (ER) 25 MG TAB.ER.24H PO SCH (07:51)
[2019-10-25] MEDS: MULTIVITAMINS, THERA 1 EACH TAB PO SCH (07:51)
[2019-10-25] MEDS: FLUTICASONE 50MCG/SPRAY NASAL 16GM EA NOSTRIL SCH (07:52)
[2019-10-25] MEDS: MAGNESIUM OXIDE 400 MG TAB PO SCH (07:52)
[2019-10-25] MEDS: SODIUM CHLORIDE 0.9% 1,000 ML IV SCH (07:52)
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
--- NOTE | 2019-10-25 08:40 | XR ---
EXAMINATION TYPE: XR chest 1V portable DATE OF EXAM: 10/25/2019 COMPARISON: 10/24/2019 INDICATION: Short of breath TECHNIQUE: Single frontal view of the chest is obtained. FINDINGS: The heart size is normal. The pulmonary vasculature is normal. The lungs are clear. No pneumothorax is evident. Left-sided chest tube is present. Small amount of subcutaneous emphysema is lateral to the left lower chest wall. IMPRESSION: 1. No pneumothorax, left-sided chest tube remains in position.
[2019-10-25] MEDS ORDERED: NON FORMULARY DRUG (Vitamin B Complex [Vitamin B Complex] 1 CAP) PO SCH (09:00)
[2019-10-25] MEDS: IPRATROPIUM-ALBUTEROL 3 ML NEB INHALATION SCH ×3 (09:29→20:38)
--- NOTE | 2019-10-25 09:58 | XR ---
EXAMINATION TYPE: XR chest 1V portable DATE OF EXAM: 10/25/2019 COMPARISON: 10/25/2019 earlier exam INDICATION: Left Thorax, prior chest tube TECHNIQUE: Single frontal view of the chest is obtained. FINDINGS: The heart size is normal. The pulmonary vasculature is normal. The lungs are clear. Chest tube is been removed. Small amount of subcutaneous emphysema is lateral. No thorax is evident. IMPRESSION: 1. No pneumothorax post chest tube removal
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
[2019-10-25 14:48] LABS: Magnesium 1.4 mg/dL (1.6-2.3); Potassium 3.7 mmol/L (3.5-5.1)
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
[2019-10-25] MEDS ORDERED: Magnesium Replacement Protocol 1 EACH MISC MISCELLANE PRN (15:45)
[2019-10-25] MEDS: MAGNESIUM SULFATE-D5W PMX 1 GM in DEXTROSE/WATER 1 100ML.BAG IVPB SCH ×3 (16:02→19:50)
[2019-10-25] MEDS: SERTRALINE 50 MG TAB PO SCH (19:51)
[2019-10-26] MEDS: HYDROcodone/APAP 5-325MG 1 EACH TAB PO PRN ×2 (05:18→10:07)
--- NOTE | 2019-10-26 07:41 | XR ---
EXAMINATION TYPE: XR chest 2V DATE OF EXAM: 10/26/2019 COMPARISON: 10/25/2019 HISTORY: Follow-up for pneumothorax TECHNIQUE: Frontal and lateral views of the chest are obtained. FINDINGS: There is no pulmonary vascular congestion, pleural effusion, or pneumothorax seen. The ca rdiac silhouette size is within normal limits. The osseous structures are intact. Punctate foci of subcutaneous emphysema are seen with subtle adjacent left rib fracture. Minimal right basilar atelect asis at the costophrenic angle. IMPRESSION: 1. No residual left pneumothorax seen status post thoracostomy tube placement. Few punctate foci of s ubcutaneous emphysema remain. 2. Similar subsegmental right basilar atelectasis.
[2019-10-26 08:11] LABS: Basophils % (A) 0 %; Eosinophils # (A) 0.4 k/uL (0-0.7); Eosinophils % (A) 7 %; HCT 38.9 % (39.0-53.0); HGB 12.3 gm/dL (13.0-17.5); Lymphocytes # (A) 1.8 k/uL (1.0-4.8); Lymphocytes % (A) 30 %; MCH 29.3 pg (25.0-35.0); MCHC 31.7 g/dL (31.0-37.0); MCV 92.4 fL (80.0-100.0); Mean Platelet Volume 8.5; Monocytes # (A) 0.4 k/uL (0-1.0); Monocytes % (A) 7 %; Neutrophils # (A) 3.1 k/uL (1.3-7.7); Neutrophils % (A) 51 %; Platelet Count 192 k/uL (150-450); WBC 6.1 k/uL (3.8-10.6)
[2019-10-26 08:13] VITALS: BP 135/93; RESP 17; TEMP 97.8
[2019-10-26 08:23] LABS: African American GFR (CKD) >90 (>60 ml/min/1.73 sqM); Anion Gap 10 mmol/L; Blood Urea Nitrogen 8 mg/dL (9-20); Calcium 9.7 mg/dL (8.4-10.2); Carbon Dioxide 24 mmol/L (22-30); Chloride 97 mmol/L (98-107); Glucose 104 mg/dL (74-99); Magnesium 1.9 mg/dL (1.6-2.3); Non-African American GFR(CKD) >90 (>60 ml/min/1.73 sqM); Potassium 3.7 mmol/L (3.5-5.1); Sodium 131 mmol/L (137-145)
[2019-10-26] MEDS: levETIRAcetam 500 MG TAB PO SCH (08:30)
[2019-10-26] MEDS: PANTOPRAZOLE 40 MG TABLET PO SCH (08:30)
[2019-10-26] MEDS: METOPROLOL SUCCINATE (ER) 25 MG TAB.ER.24H PO SCH (08:30)
[2019-10-26] MEDS: FOLIC ACID 1 MG TAB PO SCH (08:30)
[2019-10-26] MEDS: HEPARIN SODIUM,PORCINE 5,000 UNIT/ML 1 ML VIAL SQ SCH (08:30)
[2019-10-26] MEDS: MAGNESIUM OXIDE 400 MG TAB PO SCH (08:30)
[2019-10-26] MEDS: MULTIVITAMINS, THERA 1 EACH TAB PO SCH (08:30)
[2019-10-26] MEDS: THIAMINE 100 MG TAB PO SCH (08:30)
[2019-10-26] MEDS: FLUTICASONE 50MCG/SPRAY NASAL 16GM EA NOSTRIL SCH (08:32)
[2019-10-26] MEDS: IPRATROPIUM-ALBUTEROL 3 ML NEB INHALATION SCH (08:37)
[2019-10-26 08:50] VITALS: PULSE 82
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
== END 2019-10-26 11:45 | disposition home or self-care (01) | DRG 200 ==
LOC: EC 17:32 → 2SICU 21:24 → 5NMEDONC 10-25 18:44
PROVIDERS: ADMIT Surgery; ATTEND Surgery
PROC: 0W9B30Z Drainage of Left Pleural Cavity with Drainage Device, Percutaneous Approach (ICD-10-PCS; principal; 2019-10-23)
DX: S27.0XXA Traumatic pneumothorax, initial encounter (principal); S22.42XA Multiple fractures of ribs, left side, initial encounter for closed fracture; E87.2 Acidosis; J44.1 Chronic obstructive pulmonary disease with (acute) exacerbation; E87.1 Hypo-osmolality and hyponatremia; J98.11 Atelectasis; T79.7XXA Traumatic subcutaneous emphysema, initial encounter; F10.229 Alcohol dependence with intoxication, unspecified; E83.42 Hypomagnesemia; E87.6 Hypokalemia; G40.909 Epilepsy, unspecified, not intractable, without status epilepticus; I10 Essential (primary) hypertension; F32.9 Major depressive disorder, single episode, unspecified; Y90.6 Blood alcohol level of 120-199 mg/100 ml; F17.210 Nicotine dependence, cigarettes, uncomplicated; Z71.41 Alcohol abuse counseling and surveillance of alcoholic; Z71.6 Tobacco abuse counseling; Z98.890 Other specified postprocedural states; Z79.899 Other long term (current) drug therapy; Y04.0XXA Assault by unarmed brawl or fight, initial encounter; Y92.008 Other place in unspecified non-institutional (private) residence as the place of occurrence of the external cause
CPT/HCPCS: 32551; 36415; 71045; 71046; 72050; 80048; 80053; 80320; 83605; 83735; 84132; 85025; 94640; 96361; 96374; 96375; 99285

== ENCOUNTER 2019-10-29 14:41 | Emergency (ER) | payer BC ==
[2019-10-29 14:48] VITALS: RESP 18; TEMP 98.1
[2019-10-29] MEDS ORDERED: THIAMINE 100 MG/ML 2 ML VIAL IM STA (14:51)
[2019-10-29] MEDS ORDERED: LORazepam 2 MG/ML INJ IV PRN ×3 (14:51)
[2019-10-29 15:39] LABS: Anisocytosis Slight; Basophils % (A) 0 %; Eosinophils # (A) 0.1 k/uL (0-0.7); Eosinophils % (A) 1 %; HCT 32.8 % (39.0-53.0); HGB 10.9 gm/dL (13.0-17.5); Lymphocytes # (A) 0.8 k/uL (1.0-4.8); Lymphocytes % (A) 14 %; MCH 30.3 pg (25.0-35.0); MCHC 33.3 g/dL (31.0-37.0); Mean Platelet Volume 7.6; Monocytes # (A) 0.4 k/uL (0-1.0); Monocytes % (A) 6 %; Neutrophils # (A) 4.5 k/uL (1.3-7.7); Neutrophils % (A) 76 %; Platelet Count 269 k/uL (150-450); WBC 5.9 k/uL (3.8-10.6)
[2019-10-29 15:40] LABS: Appearance,Urine Clear (Clear); Bilirubin,Urine Negative (Negative); Blood,Urine Negative (Negative); Color,Urine Light Yellow; Glucose,Urine (UA) Negative (Negative); Ketones,Urine Negative (Negative); Leukocyte Esterase,Urine Negative (Negative); Nitrite,Urine Negative (Negative); Protein,Urine Negative (Negative); Specific Gravity,Urine 1.006 (1.001-1.035); Urobilinogen,Urine <2.0 mg/dL (<2.0)
[2019-10-29 15:51] LABS: Amphetamine Screen,Urine Not Detected (NotDetected); Barbiturate Screen,Urine Not Detected (NotDetected); Benzodiazepines Screen,Urine Detected (NotDetected); Cocaine Screen,Urine Not Detected (NotDetected); Methadone Screen, Urine Not Detected (NotDetected); Opiate Screen,Urine Not Detected (NotDetected); Oxycodone Screen, Urine Not Detected (NotDetected); Phencyclidine Screen,Urine Not Detected (NotDetected); Tricyclic Antidepressant,Urine Not Detected (NotDetected); Urn Cannabinoid Scrn Detected (NotDetected)
[2019-10-29 15:54] LABS: ALT 46 U/L (4-49); AST 120 U/L (17-59); African American GFR (CKD) >90 (>60 ml/min/1.73 sqM); Albumin 4.2 g/dL (3.5-5.0); Alcohol <10 mg/dL; Alkaline Phosphatase 157 U/L (38-126); Anion Gap 11 mmol/L; Blood Urea Nitrogen 10 mg/dL (9-20); Calcium 9.8 mg/dL (8.4-10.2); Carbon Dioxide 23 mmol/L (22-30); Chloride 95 mmol/L (98-107); Glucose 97 mg/dL (74-99); Magnesium 1.7 mg/dL (1.6-2.3); Non-African American GFR(CKD) >90 (>60 ml/min/1.73 sqM); Potassium 4.3 mmol/L (3.5-5.1); Sodium 129 mmol/L (137-145); Total Bilirubin 0.7 mg/dL (0.2-1.3); Total Protein 7.6 g/dL (6.3-8.2)
[2019-10-29] MEDS ORDERED: SODIUM CHLORIDE 0.9% 500 ML 500 ML IV ONE (16:04)
[2019-10-29] MEDS ORDERED: SODIUM CHLORIDE 0.9% 1,000 ML IV SCH (16:15)
--- NOTE | 2019-10-29 16:57 | ED ---
Recheck HPI - General Source: EMS Mode of arrival: EMS Limitations: no limitations <NarindercrispinJihan Kristen - Last Filed: 10/29/19 17:34> <Christina Santa - Last Filed: 10/31/19 00:03> - General Chief Complaint: Recheck/Abnormal Lab/Rx Stated Complaint: Seizure Time Seen by Provider: 10/29/19 14:51 - History of Present Illness Initial Comments: 58-year-old male with history of seizure disorder including absence seizures p resents emergency department for absence seizure. was contacted to provide history states the patient was playing a game with her when he seemed out of it and staring off into space. Patient states this does not feel like his typical absence seizures he states that he was just tired and zoned out because he has not slept in 48 hours. Patient denies any loss of bowel bladder control urinary incontinence. denies any tonic-clonic shaking. Patient states he does heavily drink but states he does not feel like he is withdrawing he states he does have a headache. He denies any nausea vomiting falls or head injury or denies any falls or head injury. Patient denies any tremors visual changes hallucinations nor vomiting. Patient states he has had some nausea today for very mild. Patient denies any weakness of the upper and lower extremity speech changes visual changes he denies any dizziness or lightheadedness chest pain or shortness of breath. Patient has no other complaints and upon arrival he appears well (Jihan Gallegos) - Related Data Home Medications Medication Instructions Recorded Confirmed Folic Acid 1 mg PO DAILY 08/23/18 10/30/19 Metoprolol Succinate (ER) [Toprol 25 mg PO DAILY 08/23/18 10/30/19 XL] Sertraline [Zoloft] 50 mg PO HS 08/23/18 10/30/19 Fluticasone Nasal [place] [Flonase 1 spray EA NOSTRIL DAILY 07/27/19 10/30/19 Nasal [place]] Multivitamins, Thera [Multivitamin 1 tab PO DAILY 07/27/19 10/30/19 (formulary)] levETIRAcetam [Keppra] 1,000 mg PO Q12HR 09/18/19 10/30/19 Vitamin B Complex 1 cap PO DAILY 10/24/19 10/30/19 Previous Rx's Medication Instructions Recorded Magnesium 200 mg PO DAILY #15 tablet 08/23/18 Acetaminophen Tab [Tylenol Tab] 650 mg PO Q4H PRN #30 tablet 10/26/19 Allergies Allergy/AdvReac Type Severity Reaction Status Date / Time No Known Allergies Allergy Verified 10/30/19 11:54 Review of Systems ROS Other: All systems not noted in ROS Statement are negative. <Jihan Gallegos - Last Filed: 10/29/19 17:34> ROS Other: All systems not noted in ROS Statement are negative. <Christina Santa Rene - Last Filed: 10/31/19 00:03> ROS Statement: Those systems with pertinent positive or pertinent negative responses have been documented in the HPI. Past Medical History Past Medical History: Hypertension, Seizure Disorder Additional Past Medical History / Comment(s): ETOH, depression, encephalopathy History of Any Multi-Drug Resistant Organisms: None Reported Past Surgical History: Orthopedic Surgery Additional Past Surgical History / Comment(s): rt femur Past Psychological History: Depression Smoking Status: Current every day smoker Past Alcohol Use History: Abuse, Daily Past Drug Use History: None Reported <Jihan Gallegos - Last Filed: 10/29/19 17:34> General Exam Limitations: no limitations <Jihan Gallegos - Last Filed: 10/29/19 17:34> - General Exam Comments Initial Comments: General: The patient is awake and alert, in no distress, and does not appear acutely ill. Eye: +3 mm pupils are equal, round and reactive to light, extra-ocular mov ements are intact. No nystagmus. There is normal conjunctiva bilaterally. No signs of icterus. Ears, nose, mouth and throat: There are moist mucous membranes and no oral lesions. Neck: The neck is supple, there is no tenderness or JVD. Cardiovascular: There is a regular rate and rhythm. No murmur, rub or gallop is appreciated. Respiratory: Lungs are clear to auscultation, respirations are non-labored, breath sounds are equal. No wheezes, stridor, rales, or rhonchi. Gastrointestinal: Soft, non-distended, non-tender abdomen without masses or organomegaly noted. There is no rebound or guarding present. Musculoskeletal: Normal ROM, no tenderness. Strength 5/5 of the upper and lower extremities equal and comparison bilaterally. Sensation intact. Pulses equal bilaterally 2+. Neurological: A&O x 3. CN II-XII intact grossly, There are no obvious motor or sensory deficits. Coordination appears grossly intact. Speech is normal. No tremors. Finger to nose, heel to lynn smooth and coordinated. No pronator drift. Skin: Skin is warm and dry and no rashes or lesions are noted. Psychiatric: Cooperative, appropriate mood & affect, normal judgment. (Jihan Gallegos) Course Vital Signs 10/29/19 10/29/19 14:44 17:01 Temperature 98.1 F Pulse Rate 70 78 Respiratory 18 18 Rate Blood Pressure 156/92 148/90 O2 Sat by Pulse 97 Oximetry Medical Decision Making - Lab Data Result diagrams: 10/29/19 15:09 10/29/19 15:09 <Jihan Gallegos - Last Filed: 10/29/19 17:34> - Lab Data Result diagrams: 10/29/19 15:09 10/29/19 15:09 <Christina Santa - Last Filed: 10/31/19 00:03> - Medical Decision Making 58-year-old male with history of EtOH abuse presenting for possible absence seizure history of absence seizures. Patient has no focal neurological deficits. Patient states patient was back to baseline after seeming out of it for a few seconds. Patient states he does not feel like he is withdrawing patient's serum alcohol 0 he has had heavy drinking in the past. Patient has no tremors no nystagmus is not hallucinating patient does not appear to be having symptoms of delirium tremens he does have noted hyponatremia. CIWA8. Given IVF, recommended increase intake of salt. Patient refused observation and wanted to go home. Evaluated by Dr. Santa. As patient does not appear intoxicated, he is neurological intact with no focal symptoms. CIWA of 8, i feel he is stable for discharge with strict return parameters, f/u with PCP for repeat labs. 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 Patient discharged appearing well. (Jihan Gallegos) I was available for consultation in the emergency department. The history and physical exam were done by the midlevel provider. I was consulted for this patients care. I reviewed the case with the midlevel provider and based on their presentation of the patient, I agree with the assessment, medical decision making and plan of care as documented. I evaluated the patient myself. The patient presented with reported absence seizure at home for which the patient has a history of. Patient reports it is not uncommon for him to have a breakthrough seizure. I discussed the possibility of withdrawal seizure with the patient as he has been drinking heavily daily without any alcohol intake daily. The patient refutes the idea. He is currently without tremors, tachycardia or hallucinations. Patient resting comfortably in bed requesting to go home. He is of sound mind and capable of making his own decisions. His alcohol level is zero at this time. We did call and discussed the treatment plan with the patients who did feel comfortable taking him home. He is given strict return parameters and discharged home. Chart was dictated using [employer] dictation software. Attempts were made to correct any dictation errors however some typographical errors may persist. (Christina Santa) - Lab Data Lab Results 10/29/19 10/29/19 10/29/19 Range/Units 15:09 15:09 15:09 WBC 5.9 (3.8-10.6) k/uL RBC 3.60 L (4.30-5.90) m/uL Hgb 10.9 L (13.0-17.5) gm/dL Hct 32.8 L (39.0-53.0) % MCV 91.0 (80.0-100.0) fL MCH 30.3 (25.0-35.0) pg MCHC 33.3 (31.0-37.0) g/dL RDW 17.0 H (11.5-15.5) % Plt Count 269 (150-450) k/uL Neutrophils % 76 % Lymphocytes % 14 % Monocytes % 6 % Eosinophils % 1 % Basophils % 0 % Neutrophils # 4.5 (1.3-7.7) k/uL Lymphocytes # 0.8 L (1.0-4.8) k/uL Monocytes # 0.4 (0-1.0) k/uL Eosinophils # 0.1 (0-0.7) k/uL Basophils # 0.0 (0-0.2) k/uL Anisocytosis Slight Sodium 129 L (137-145) mmol/L Potassium 4.3 (3.5-5.1) mmol/L Chloride 95 L (98-107) mmol/L Carbon Dioxide 23 (22-30) mmol/L Anion Gap 11 mmol/L BUN 10 (9-20) mg/dL Creatinine 0.50 L (0.66-1.25) mg/dL Est GFR (CKD-EPI)AfAm >90 (>60 ml/min/1.73 sqM) Est GFR (CKD-EPI)NonAf >90 (>60 ml/min/1.73 sqM) Glucose 97 (74-99) mg/dL Calcium 9.8 (8.4-10.2) mg/dL Magnesium 1.7 (1.6-2.3) mg/dL Total Bilirubin 0.7 (0.2-1.3) mg/dL AST 120 H (17-59) U/L ALT 46 (4-49) U/L Alkaline Phosphatase 157 H (38-126) U/L Total Protein 7.6 (6.3-8.2) g/dL Albumin 4.2 (3.5-5.0) g/dL Urine Color Light Yellow Urine Appearance Clear (Clear) Urine pH 7.0 (5.0-8.0) Ur Specific [place] 1.006 (1.001-1.035) Urine Protein Negative (Negative) Urine Glucose (UA) Negative (Negative) Urine Ketones Negative (Negative) Urine Blood Negative (Negative) Urine Nitrite Negative (Negative) Urine Bilirubin Negative (Negative) Urine Urobilinogen <2.0 (<2.0) mg/dL Ur Leukocyte Esterase Negative (Negative) Urine Opiates Screen Not Detected (NotDetected) Ur Oxycodone Screen Not Detected (NotDetected) Urine Methadone Screen Not Detected (NotDetected) Ur Propoxyphene Screen Not Detected (NotDetected) Ur Barbiturates Screen Not Detected (NotDetected) U Tricyclic Antidepress Not Detected (NotDetected) Ur Phencyclidine Scrn Not Detected (NotDetected) Ur Amphetamines Screen Not Detected (NotDetected) U Methamphetamines Scrn Not Detected (NotDetected) U Benzodiazepines Scrn Detected H (NotDetected) Urine Cocaine Screen Not Detected (NotDetected) U Marijuana (THC) Screen Detected H (NotDetected) Serum Alcohol <10 mg/dL Disposition Is patient prescribed a controlled substance at d/c from ED?: No Time of Disposition: 16:55 <KinJihan roa - Last Filed: 10/29/19 17:34> <Danya Santaah Rene - Last Filed: 10/31/19 00:03> Clinical Impression: Seizure, Hx of seizure disorder, Hyponatremia Disposition: HOME SELF-CARE Condition: Good Instructions (If sedation given, give patient instructions): Epilepsy (ED), Alcohol Withdrawal (ED) Additional Instructions: Please use medication as discussed. Please follow-up with family doctor in the next 2 days. Please return to emergency room if the symptoms increase or worsen or for any other concerns. Referrals: Reuben Hewitt DO [Primary Care Provider] - 1-2 days
[2019-10-29 17:11] VITALS: BP 148/90; PULSE 78
[2019-10-30] MEDS ORDERED: THIAMINE 100 MG TAB PO SCH (07:30)
== END 2019-10-29 17:01 | disposition home or self-care (01) ==
LOC: EC 14:41
DX: G40.A09 Absence epileptic syndrome, not intractable, without status epilepticus (principal); E87.1 Hypo-osmolality and hyponatremia; I10 Essential (primary) hypertension; F32.9 Major depressive disorder, single episode, unspecified; F17.200 Nicotine dependence, unspecified, uncomplicated; Z79.899 Other long term (current) drug therapy; F10.11 Alcohol abuse, in remission; Y90.0 Blood alcohol level of less than 20 mg/100 ml
CPT/HCPCS: 36415; 80053; 83735; 85025; 81003; 80306; 80320; 96374; 96372; 99284; J2060; J3411; 96360

== ENCOUNTER 2019-10-29 19:48 | Observation (INO) | payer BC ==
[2019-10-29] MEDS ORDERED: LORazepam 2 MG/ML INJ IV PRN ×3 (21:49)
[2019-10-29] MEDS ORDERED: NALOXONE 0.4 MG/ML 1 ML VIAL IV PRN (21:49)
[2019-10-29] MEDS ORDERED: THIAMINE 100 MG/ML 2 ML VIAL IM STA ×2 (21:49→22:29)
--- NOTE | 2019-10-29 22:00 | ED ---
General Adult HPI - General Chief complaint: Seizure Stated complaint: seizure Time Seen by Provider: 10/29/19 19:58 Source: patient, EMS Mode of arrival: EMS Limitations: physical limitation - History of Present Illness Initial comments: 58 year-old male patient presents to the emergency department today for evaluation after having 2 seizures. Patient was seen and evaluated here earlier today after having 2 absence seizures at home. Patient is have a history of seizures, is taking medication, he is unsure which medication it is. Patient was seen and evaluated here in the emergency department, cleared, and discharged home. Upon arriving home patient did have a beer. states that he then had 2 more seizures and was exhibiting full body shaking so she called ambulance. EMS staff reports patient had 2 more seizures in the ambulance, reports them being tonic-clonic type seizures. Patient denies loss of bowel or bladder control. Patient is drowsy during history and physical consistent with a post ictal state. He does answer questions appropriately. He is reporting generalized body aches. Pain to the left rib area where he had a chest tube placed recently. Patient does admit to drinking heavily on a daily basis. States that he has not had much to drink today. Patient denies any recent rash, fever, chills, shortness breath, abdominal pain, nausea, vomiting, diarrhea, constipation, back pain, numbness, tingling, dizziness, weakness, hematuria, dysuria, urinary urgency, urinary frequency, headache, visual changes, or any other complaints. - Related Data Home Medications Medication Instructions Recorded Confirmed Folic Acid 1 mg PO DAILY 08/23/18 10/29/19 Metoprolol Succinate (ER) [Toprol 25 mg PO DAILY 08/23/18 10/29/19 XL] Sertraline [Zoloft] 50 mg PO HS 08/23/18 10/29/19 Fluticasone Nasal [place] [Flonase 1 spray EA NOSTRIL DAILY 07/27/19 10/29/19 Nasal [place]] Multivitamins, Thera [Multivitamin 1 tab PO DAILY 07/27/19 10/29/19 (formulary)] levETIRAcetam [Keppra] 1,000 mg PO Q12HR 09/18/19 10/29/19 Vitamin B Complex 1 cap PO DAILY 10/24/19 10/29/19 Previous Rx's Medication Instructions Recorded Magnesium 200 mg PO DAILY #15 tablet 08/23/18 Acetaminophen Tab [Tylenol Tab] 650 mg PO Q4H PRN #30 tablet 10/26/19 Allergies Allergy/AdvReac Type Severity Reaction Status Date / Time No Known Allergies Allergy Verified 10/29/19 21:05 Review of Systems ROS Statement: Those systems with pertinent positive or pertinent negative responses have been documented in the HPI. ROS Other: All systems not noted in ROS Statement are negative. Past Medical History Past Medical History: Hypertension, Seizure Disorder Additional Past Medical History / Comment(s): ETOH, depression, encephalopathy History of Any Multi-Drug Resistant Organisms: None Reported Past Surgical History: Orthopedic Surgery Additional Past Surgical History / Comment(s): rt femur Past Psychological History: Depression Smoking Status: Current every day smoker Past Alcohol Use History: Abuse, Daily Past Drug Use History: None Reported General Exam Limitations: physical limitation General appearance: alert, in no apparent distress, other (Social well- developed, well-nourished adult male patient in no acute distress. Vital signs upon presentation are temperature 98.3F, pulse 71, respirations 18, blood pressure 129/71, pulse ox 97% on room air.) Eye exam: Present: normal appearance, PERRL, EOMI. Absent: scleral icterus, conjunctival injection, periorbital swelling ENT exam: Present: normal exam, normal oropharynx, mucous membranes moist Respiratory exam: Present: normal lung sounds bilaterally. Absent: respiratory distress, wheezes, rales, rhonchi, stridor Cardiovascular Exam: Present: regular rate, normal rhythm, normal heart sounds. Absent: systolic murmur, diastolic murmur, rubs, gallop, clicks GI/Abdominal exam: Present: soft, normal bowel sounds. Absent: distended, tenderness, guarding, rebound, rigid Neurological exam: Present: alert, oriented X3, CN II-XII intact, other (Strength in all 4 extremities is 5/5.) Psychiatric exam: Present: normal affect, normal mood Skin exam: Present: warm, dry, intact, normal color. Absent: rash Course Vital Signs 10/29/19 10/29/19 10/29/19 19:52 21:45 23:21 Temperature 98.3 F 98.3 F Pulse Rate 71 58 L 77 Respiratory 18 14 18 Rate Blood Pressure 129/71 136/94 129/98 O2 Sat by Pulse 97 96 95 Oximetry EKG Findings - EKG Comments: EKG Findings:: EKG obtained at 2009 shows normal sinus rhythm with a ventricular rate is 70, OR interval 150, QRS duration 90, QT 438, QTC 473. No evidence of ST elevation or depression. Medical Decision Making - Medical Decision Making 58 year-old male patient presents to the emergency department today for evaluation after having multiple seizures at home. Patient was evaluated in the emergency department and discharged earlier today after having multiple absence seizures. Upon arrival home patient did have an additional 4 tonic-clonic type seizures and was brought back to the emergency department. Labs from earlier today were reviewed and were unremarkable. Patient's breath alcohol test is zero. Patient EKG was repeated and was unremarkable. Given patient's history of heavy alcohol abuse it is felt that seizures are related to alcohol withdrawal. We will admit with withdrawal protocol in place. Disposition Clinical Impression: Alcohol withdrawal, Seizure Disposition: ADMITTED IP TO THIS [facility] Condition: Serious Decision to Admit Reason: Admit from EC Decision Date: 10/30/19
[2019-10-29] MEDS ORDERED: 0.9% NACL WITH KCL 20 MEQ/L 1,000 ML with MVI, ADULT NO.4 WITH VIT K 10 ML, THIAMINE 10... IV SCH ×4 (22:30)
[2019-10-30 08:04] VITALS: BP 122/80; PULSE 74; RESP 14; TEMP 98.3
[2019-10-30] MEDS: THIAMINE 100 MG TAB PO SCH ×2 (09:32→13:19)
[2019-10-30] MEDS ORDERED: ACETAMINOPHEN TAB 325 MG TAB PO PRN (12:38)
[2019-10-30] MEDS ORDERED: TEMAZEPAM 15 MG CAP PO PRN (12:39)
[2019-10-30] MEDS ORDERED: MAGNESIUM OXIDE 400 MG TAB PO SCH (12:45)
[2019-10-30] MEDS ORDERED: MULTIVITAMINS, THERA 1 EACH TAB PO SCH (12:45)
[2019-10-30] MEDS ORDERED: FLUTICASONE 50MCG/SPRAY NASAL 16GM EA NOSTRIL SCH (12:45)
[2019-10-30] MEDS ORDERED: METOPROLOL SUCCINATE (ER) 25 MG TAB.ER.24H PO SCH (12:45)
[2019-10-30] MEDS ORDERED: levETIRAcetam 500 MG TAB PO SCH (12:45)
[2019-10-30] MEDS ORDERED: FOLIC ACID 1 MG TAB PO SCH (12:45)
[2019-10-30] MEDS ORDERED: HEPARIN SODIUM,PORCINE 5,000 UNIT/ML 1 ML VIAL SQ SCH (12:45)
--- NOTE | 2019-10-30 13:24 | XR ---
EXAMINATION TYPE: XR chest 1V portable DATE OF EXAM: 10/30/2019 Comparison: 10/26/2019 Clinical History: 58-year-old male rib fracture Findings: Heart normal size. Aorta and pulmonary vasculature are within normal limits. No consolidation, pneumo thorax, or pleural effusion. Impression: No acute cardiopulmonary process.
[2019-10-30 13:26] LABS: Anisocytosis Slight; Basophils % (A) 0 %; Eosinophils # (A) 0.1 k/uL (0-0.7); Eosinophils % (A) 2 %; HCT 38.8 % (39.0-53.0); Lymphocytes # (A) 1.1 k/uL (1.0-4.8); Lymphocytes % (A) 18 %; MCV 93.5 fL (80.0-100.0); Mean Platelet Volume 8.5; Monocytes # (A) 0.7 k/uL (0-1.0); Monocytes % (A) 11 %; Neutrophils # (A) 4.1 k/uL (1.3-7.7); Neutrophils % (A) 66 %; Platelet Count 315 k/uL (150-450); RBC 4.15 m/uL (4.30-5.90); RDW 16.9 % (11.5-15.5); WBC 6.2 k/uL (3.8-10.6)
[2019-10-30 13:36] LABS: AST 117 U/L (17-59); African American GFR (CKD) >90 (>60 ml/min/1.73 sqM); Albumin 4.1 g/dL (3.5-5.0); Alkaline Phosphatase 157 U/L (38-126); Anion Gap 10 mmol/L; Blood Urea Nitrogen 12 mg/dL (9-20); Carbon Dioxide 27 mmol/L (22-30); Chloride 98 mmol/L (98-107); Glucose 145 mg/dL (74-99); Non-African American GFR(CKD) >90 (>60 ml/min/1.73 sqM); Potassium 4.8 mmol/L (3.5-5.1); Sodium 135 mmol/L (137-145); Total Bilirubin 0.6 mg/dL (0.2-1.3); Total Protein 7.6 g/dL (6.3-8.2)
[2019-10-30 14:02] LABS: ALT 43 U/L (4-49)
[2019-10-30] MEDS ORDERED: SERTRALINE 50 MG TAB PO SCH (21:00)
[2019-10-31] MEDS ORDERED: PANTOPRAZOLE 40 MG TABLET PO SCH (07:30)
[2019-10-31] MEDS ORDERED: NON FORMULARY DRUG (Vitamin B Complex [Vitamin B Complex] 1 CAP) PO SCH (09:00)
--- NOTE | 2019-11-08 08:43 | CDI ---
Documentation Clarification Form Date: 11/08/2019 From: HERLINDA Roblero, Catarina Navarrete, Bail Attacher Phone: If you have any questions about this query, please contact Catarina Campbelleileenfrancisco at [phone] between 8 am and 5 pm Admit date: 10/29/19 Patient Name; Hector Caro Visit Number:; [id number] Discharge Date: 10/30/[address] Masters, The patient presented to the ED with seizures. Documentation in the record indicates heavy alcohol abuse and the seizures felt to be due to withdrawal. History/Risk Factors, Seizures, depression, smoker, daily alcohol abuse. Treatment: Alcohol withdrawal protocol. In order to assign the correct ICD-10-DM code based on guidelines for alcohol use/abuse/dependence, please clarify if you are treating, Alcohol abuse with withdrawal Alcohol dependence with withdrawal Other, please specify Undetermined. Place X here if this finding has no clinical significance, is not applicable or if you are unable to provide additional documentation. Alcohol abuse with withdrawal MTDD
== END 2019-10-30 16:37 | disposition left against medical advice (07) ==
LOC: EC 19:48 → 4SSUR 22:35
PROVIDERS: ADMIT Hospitalist; ATTEND Hospitalist
DX: F10.10 Alcohol abuse, uncomplicated (principal); R07.81 Pleurodynia; I10 Essential (primary) hypertension; F32.9 Major depressive disorder, single episode, unspecified; G40.409 Other generalized epilepsy and epileptic syndromes, not intractable, without status epilepticus; F17.200 Nicotine dependence, unspecified, uncomplicated; Z79.899 Other long term (current) drug therapy
CPT/HCPCS: 96365; 96372 ×2; 82075; 99285; 80053; 85025; 71045; G0378 ×2; J1644; J3411 ×2; J0690

== ENCOUNTER → 2019-11-01 | Outpatient (CLI) | payer BC ==
--- NOTE | 2019-11-01 15:29 | XR ---
EXAMINATION TYPE: XR ribs LT w pa chest x-ray DATE OF EXAM: 11/01/2019 CLINICAL HISTORY: Chest and left mid rib pain. TECHNIQUE: Single frontal view of the chest is obtained. A frontal and oblique images of the left-laura ed ribs. COMPARISON: Prior chest x-ray October 30, 2019 and older x-rays. Prior left rib x-rays October 23, 2019. FINDINGS: There is no focal air space opacity, pleural effusion, or pneumothorax seen currently. Th e cardiac silhouette size remains within normal limits. The osseous structures are intact. Dedicated images of left-sided ribs redemonstrate acute minimally displaced fractures involving the a nterolateral left third and fourth ribs with some new callus formation. No new displaced fractures ar e evident. IMPRESSION: 1. No new acute cardiopulmonary process. 2. Callus formation through acute minimally displaced fractures anterolateral third and fourth ribs c onsistent with interval healing. No new displaced fractures are evident.
== END | disposition home or self-care (01) ==
LOC: RADXRYALE 14:59
PROVIDERS: ATTEND Family Medicine
DX: S22.42XD Multiple fractures of ribs, left side, subsequent encounter for fracture with routine healing (principal)

== ENCOUNTER 2019-11-02 | Emergency (ER) | payer BC | END 2019-11-02 23:11 | disposition left against medical advice (07) | CPT/HCPCS: 99284; 96365; 96375; 96361; 36415; 80053; 80177; 83735; 85025; 80320; 71046; 70450; J2060; J1953 ==

== ENCOUNTER 2019-11-12 12:21 | Emergency (ER) | payer BC ==
[2019-11-12 12:28] VITALS: BP 133/75; PULSE 72; RESP 18; TEMP 98.7
--- NOTE | 2019-11-12 12:57 | ED ---
General Adult HPI - General Chief complaint: Psychiatric Symptoms Stated complaint: EPS eval Time Seen by Provider: 11/12/19 12:31 Source: patient, RN notes reviewed, old records reviewed Mode of arrival: ambulatory Limitations: no limitations - History of Present Illness Initial comments: This patient's a 58-year-old male with history of chronic alcoholism. He presents emergency department today with his . His reports that he was sent here for evaluation for mental health evaluation. Patient has reportedly had on behaviors for the past few weeks. Patient reportedly has been having on behaviors for the past few weeks, which she mostly relates to when he is intoxicated. Apparently Patient has been spreading down the [place] bathroom to order to clean them with a shower head causing the bathroom be soaked. He also also been imaging through his neighbors trash and wanting to see if these things to sell or to make something with. His reports that this is abnormal behavior because they are supposed to be out of their home within the next 2 weeks. Patient reports that he and his are : On good terms". He denies any suicidal thoughts. - Related Data Home Medications Medication Instructions Recorded Confirmed Folic Acid 1 mg PO DAILY 08/23/18 11/12/19 Metoprolol Succinate (ER) [Toprol 25 mg PO DAILY 08/23/18 11/12/19 XL] Sertraline [Zoloft] 50 mg PO HS 08/23/18 11/12/19 Fluticasone Nasal [place] [Flonase 1 spray EA NOSTRIL DAILY 07/27/19 11/12/19 Nasal [place]] Multivitamins, Thera [Multivitamin 1 tab PO DAILY 07/27/19 11/12/19 (formulary)] levETIRAcetam [Keppra] 1,000 mg PO Q12HR 09/18/19 11/12/19 Vitamin B Complex 1 cap PO DAILY 10/24/19 11/12/19 Cephalexin [Keflex] 500 mg PO TID 11/12/19 11/12/19 Indomethacin [Indocin] 50 mg PO TID PRN 11/12/19 11/12/19 Previous Rx's Medication Instructions Recorded Magnesium 200 mg PO DAILY #15 tablet 08/23/18 Acetaminophen Tab [Tylenol Tab] 650 mg PO Q4H PRN #30 tablet 10/26/19 Allergies Allergy/AdvReac Type Severity Reaction Status Date / Time No Known Allergies Allergy Verified 11/12/19 13:02 Review of Systems ROS Statement: Those systems with pertinent positive or pertinent negative responses have been documented in the HPI. ROS Other: All systems not noted in ROS Statement are negative. Past Medical History Past Medical History: Hypertension, Seizure Disorder Additional Past Medical History / Comment(s): ETOH, depression, encephalopathy, pt stated lung collapse approx 3 weeks ago with chest tube. History of Any Multi-Drug Resistant Organisms: None Reported Past Surgical History: Orthopedic Surgery Additional Past Surgical History / Comment(s): rt femur Past Anesthesia/Blood Transfusion Reactions: No Reported Reaction Past Psychological History: Depression Smoking Status: Current every day smoker Past Alcohol Use History: Abuse, Daily Past Drug Use History: Marijuana General Exam - General Exam Comments Initial Comments: This is a 58-year-old male. Alert and oriented 3. Patient appears in no acute distress. Limitations: no limitations General appearance: alert Head exam: Present: atraumatic, normocephalic, normal inspection Eye exam: Present: normal appearance, PERRL, EOMI. Absent: scleral icterus, conjunctival injection, periorbital swelling ENT exam: Present: normal exam, mucous membranes moist Neck exam: Present: normal inspection. Absent: tenderness, meningismus, lymphadenopathy Respiratory exam: Present: normal lung sounds bilaterally. Absent: respiratory distress, wheezes, rales, rhonchi, stridor Cardiovascular Exam: Present: regular rate, normal rhythm, normal heart sounds. Absent: systolic murmur, diastolic murmur, rubs, gallop, clicks GI/Abdominal exam: Present: soft, normal bowel sounds. Absent: distended, tenderness, guarding, rebound, rigid Extremities exam: Present: normal inspection, full ROM, normal capillary refill. Absent: tenderness, pedal edema, joint swelling, calf tenderness Back exam: Present: normal inspection Neurological exam: Present: alert, oriented X3, CN II-XII intact Psychiatric exam: Present: normal affect, normal mood Skin exam: Present: warm, dry, intact, normal color. Absent: rash Course Vital Signs 11/12/19 12:25 Temperature 98.7 F Pulse Rate 72 Respiratory 18 Rate Blood Pressure 133/75 O2 Sat by Pulse 100 Oximetry Medical Decision Making - Medical Decision Making This is a pleasant 58-year-old male, presents emergency room today of chronic alcohol use disorder. He has no intentions to stop drinking. He presents with his for abnormal behaviors while is been intoxicated. Patient denies any suicidal thought. His normal amount. Process at this time. He appears in no distress. Denies any physical complaints. Patient was to be evaluated by EPS. He is evaluated by EPS nurse Jeanette. 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 Discussed the Patient will be discharged at this time is no suicidal thoughts. Patient's family and Patient agreed to follow-up with neurologist. Did discuss importance of stopping drinking. Disposition Clinical Impression: Alcohol abuse, Episode of abnormal behavior Disposition: HOME SELF-CARE Condition: Good Instructions (If sedation given, give patient instructions): Abuse of Alcohol (ED) Additional Instructions: Please follow up with family doctor if symptoms have not improved over the next two days. Please return to the emergency room if your symptoms increase or worsen or for any other concerns. Is patient prescribed a controlled substance at d/c from ED?: No Referrals: Reuben Hewitt DO [Primary Care Provider] - 1-2 days Time of Disposition: 14:04
== END 2019-11-12 14:27 | disposition home or self-care (01) ==
LOC: EC 12:21
DX: F10.129 Alcohol abuse with intoxication, unspecified (principal); I10 Essential (primary) hypertension; G40.909 Epilepsy, unspecified, not intractable, without status epilepticus; F32.9 Major depressive disorder, single episode, unspecified; F17.200 Nicotine dependence, unspecified, uncomplicated; Z79.899 Other long term (current) drug therapy
CPT/HCPCS: 82075; 99284

== ENCOUNTER 2019-12-20 19:56 | Emergency (ER) | payer BC, MEDICAID ==
[2019-12-20 20:13] VITALS: BP 163/93; PULSE 76; RESP 20; TEMP 98.7
[2019-12-20] MEDS ORDERED: LIDOCAINE 5% PATCH TOPICAL STA (20:58)
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
--- NOTE | 2019-12-20 21:16 | XR ---
EXAMINATION TYPE: XR ribs LT DATE OF EXAM: 12/20/2019 COMPARISON: None HISTORY: Left rib pain TECHNIQUE: 4 views FINDINGS: There is no pleural effusion or pneumothorax. There is possible old left clavicle healed fr acture. There is fracture anterior left seventh rib that is probably a healing fracture. I see no def inite acute rib fracture. IMPRESSION: Healing left seventh rib fracture.
--- NOTE | 2019-12-20 21:17 | XR ---
EXAMINATION TYPE: XR chest 2V DATE OF EXAM: 12/20/2019 COMPARISON: 11/02/2019 HISTORY: Chest pain TECHNIQUE: 2 views FINDINGS: Heart and mediastinum are normal. Lungs are clear. Diaphragm is normal. Bony thorax is norm al. IMPRESSION: No active cardiopulmonary disease. Normal heart. No change.
--- NOTE | 2019-12-20 21:30 | XR ---
EXAMINATION TYPE: XR foot limited bilateral DATE OF EXAM: 12/20/2019 COMPARISON: NONE HISTORY: Bilateral foot pain TECHNIQUE: 2 views each foot FINDINGS: There is bilateral moderate hallux valgus deformity. There is a subluxation deformity at th e second MP joint of the left foot. Metatarsals are intact. I see no focal bone destruction. There is no fracture nor dislocation. IMPRESSION: Hallux valgus. Subluxation deformity at the second MP joint raises the possibility of inf lammatory arthritis. No fracture seen. Chronic dislocated second MP joint of the left foot is possibl e.
--- NOTE | 2019-12-20 21:36 | XR ---
EXAMINATION TYPE: XR hand limited bilateral DATE OF EXAM: 12/20/2019 COMPARISON: NONE HISTORY: Hand pain TECHNIQUE: 2 views each hand FINDINGS: There is bilateral subluxation deformity at the second and third MP joints. There is small cystic changes in the left side third metacarpal head. There is narrowing and cystic changes on the f irst carpometacarpal joints of both hands. I see no fracture nor dislocation. IMPRESSION: There is subluxation deformities and some cystic changes that is suggestive of rheumatoid arthritis. No fracture seen.
== END 2019-12-20 22:39 | disposition home or self-care (01) ==
LOC: EC 19:56
DX: R07.9 Chest pain, unspecified (principal); R06.02 Shortness of breath; M79.641 Pain in right hand; M79.642 Pain in left hand; I10 Essential (primary) hypertension; F32.9 Major depressive disorder, single episode, unspecified; G40.909 Epilepsy, unspecified, not intractable, without status epilepticus; F17.200 Nicotine dependence, unspecified, uncomplicated; Z79.51 Long term (current) use of inhaled steroids; Z79.899 Other long term (current) drug therapy
CPT/HCPCS: 71046; 99285

== ENCOUNTER 2019-12-21 22:04 | Emergency (ER) | payer BC ==
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
[2019-12-21] MEDS ORDERED: levETIRAcetam IV 1,000 MG in SALINE 1 100ML.BAG IVPB ONE (22:30)
[2019-12-21 22:38] LABS: Anisocytosis Slight; Basophils % (A) 0 %; Eosinophils # (A) 0.1 k/uL (0-0.7); Eosinophils % (A) 1 %; HCT 33.3 % (39.0-53.0); HGB 10.8 gm/dL (13.0-17.5); Lymphocytes # (A) 1.6 k/uL (1.0-4.8); Lymphocytes % (A) 25 %; MCH 30.3 pg (25.0-35.0); MCHC 32.5 g/dL (31.0-37.0); MCV 93.1 fL (80.0-100.0); Mean Platelet Volume 8.9; Monocytes # (A) 0.5 k/uL (0-1.0); Monocytes % (A) 7 %; Neutrophils # (A) 4.2 k/uL (1.3-7.7); Neutrophils % (A) 64 %; Platelet Count 196 k/uL (150-450); RBC 3.57 m/uL (4.30-5.90); RDW 18.7 % (11.5-15.5); WBC 6.6 k/uL (3.8-10.6)
[2019-12-21 22:47] LABS: Potassium 3.1 mmol/L (3.5-5.1)
[2019-12-21 22:48] LABS: ALT 41 U/L (4-49); AST 113 U/L (17-59); African American GFR (CKD) >90 (>60 ml/min/1.73 sqM); Albumin 3.9 g/dL (3.5-5.0); Alcohol <10 mg/dL; Alkaline Phosphatase 128 U/L (38-126); Anion Gap 9 mmol/L; Blood Urea Nitrogen 20 mg/dL (9-20); Calcium 9.5 mg/dL (8.4-10.2); Carbon Dioxide 22 mmol/L (22-30); Chloride 100 mmol/L (98-107); Glucose 117 mg/dL (74-99); Magnesium 1.7 mg/dL (1.6-2.3); Non-African American GFR(CKD) >90 (>60 ml/min/1.73 sqM); Sodium 131 mmol/L (137-145); Total Protein 7.2 g/dL (6.3-8.2)
[2019-12-21] MEDS ORDERED: POTASSIUM CHLORIDE ER 20 MEQ TAB.ER PO STA (22:48)
[2019-12-22 00:12] VITALS: BP 123/87; PULSE 74; RESP 16; TEMP 98.1
== END 2019-12-22 00:13 | disposition home or self-care (01) ==
LOC: EC 22:04
DX: G40.909 Epilepsy, unspecified, not intractable, without status epilepticus (principal); E87.6 Hypokalemia; I10 Essential (primary) hypertension; F32.9 Major depressive disorder, single episode, unspecified; F17.200 Nicotine dependence, unspecified, uncomplicated; Z79.51 Long term (current) use of inhaled steroids; Z79.899 Other long term (current) drug therapy
CPT/HCPCS: 36415; 80053; 80177; 83735; 85025; 80320; 99284; 96365; J1953

== ENCOUNTER 2020-01-29 16:03 | Emergency (ER) | payer BC ==
[2020-01-29] MEDS ORDERED: SODIUM CHLORIDE 0.9% 1,000 ML IV STA (16:35)
[2020-01-29 17:16] LABS: Anisocytosis Slight; Basophils % (A) 1 %; Eosinophils % (A) 1 %; HCT 41.8 % (39.0-53.0); HGB 13.1 gm/dL (13.0-17.5); Lymphocytes # (A) 0.7 k/uL (1.0-4.8); Lymphocytes % (A) 12 %; MCH 29.7 pg (25.0-35.0); MCHC 31.2 g/dL (31.0-37.0); MCV 95.1 fL (80.0-100.0); Mean Platelet Volume 7.9; Monocytes # (A) 0.2 k/uL (0-1.0); Monocytes % (A) 4 %; Neutrophils # (A) 4.6 k/uL (1.3-7.7); Neutrophils % (A) 81 %; Platelet Count 183 k/uL (150-450); RBC 4.39 m/uL (4.30-5.90); RDW 17.7 % (11.5-15.5); WBC 5.7 k/uL (3.8-10.6)
[2020-01-29 17:25] LABS: INR 0.9 (<1.2); Partial Thromboplastin Time 26.5 sec (22.0-30.0); Prothrombin Time 9.6 sec (9.0-12.0)
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
[2020-01-29 17:30] LABS: ALT 31 U/L (4-49); AST 107 U/L (17-59); African American GFR (CKD) >90 (>60 ml/min/1.73 sqM); Albumin 4.9 g/dL (3.5-5.0); Alkaline Phosphatase 173 U/L (38-126); Anion Gap 21 mmol/L; Blood Urea Nitrogen 15 mg/dL (9-20); Calcium 9.4 mg/dL (8.4-10.2); Carbon Dioxide 13 mmol/L (22-30); Chloride 107 mmol/L (98-107); Glucose 65 mg/dL (74-99); Magnesium 1.8 mg/dL (1.6-2.3); Non-African American GFR(CKD) >90 (>60 ml/min/1.73 sqM); Sodium 141 mmol/L (137-145); Total Protein 8.6 g/dL (6.3-8.2)
[2020-01-29 17:35] LABS: Alcohol 294 mg/dL; Potassium 5.4 mmol/L (3.5-5.1)
--- NOTE | 2020-01-29 18:52 | XR ---
EXAMINATION TYPE: XR chest 2V DATE OF EXAM: 01/29/2020 COMPARISON: 12/20/2019 INDICATION: Chest pain productive cough TECHNIQUE: Frontal and lateral views of the chest are obtained. FINDINGS: The heart size is normal. The pulmonary vasculature is normal. A 0.9 cm density is at the left lower lung field rib overlap region not identified previously. Underl altagracia nodule may be present. This could be related to summation density. Recommend follow-up chest x-r ays. No pneumothorax is evident. IMPRESSION: 1. No acute pulmonary process. 2. Summation density versus developing nodule left lung base. Follow-up chest x-rays are recommended
[2020-01-30 03:18] VITALS: BP 138/77; PULSE 96; RESP 18; TEMP 98.8
== END 2020-01-30 03:18 | disposition home or self-care (01) ==
LOC: EC 16:03
DX: R07.89 Other chest pain (principal); F10.20 Alcohol dependence, uncomplicated; Y90.8 Blood alcohol level of 240 mg/100 ml or more; E87.5 Hyperkalemia; E16.2 Hypoglycemia, unspecified; R91.1 Solitary pulmonary nodule; F17.200 Nicotine dependence, unspecified, uncomplicated; I10 Essential (primary) hypertension; G40.909 Epilepsy, unspecified, not intractable, without status epilepticus; F32.9 Major depressive disorder, single episode, unspecified; Z79.899 Other long term (current) drug therapy; W50.0XXA Accidental hit or strike by another person, initial encounter; Y92.099 Unspecified place in other non-institutional residence as the place of occurrence of the external cause
CPT/HCPCS: 36415; 71046; 80053; 80320; 83735; 84132; 84484; 85025; 85610; 85730; 93005; 96360; 99285

== ENCOUNTER 2020-02-20 17:13 | Emergency (ER) | payer BC ==
[2020-02-20] MEDS ORDERED: SODIUM CHLORIDE 0.9% 1,000 ML IV ONE (18:06)
--- NOTE | 2020-02-20 18:16 | ED ---
General Adult HPI - General Chief complaint: Alcohol Stated complaint: ETOH Time Seen by Provider: 02/20/20 17:42 Source: patient, RN notes reviewed, old records reviewed Mode of arrival: ambulatory Limitations: physical limitation - History of Present Illness Initial comments: 59-year-old male patient presents today for alcohol intoxication. Patient was reportedly at a care home house and he began drinking today. They called EMS and had him transported hospital because he is intoxicated. Patient denies any recent falls or trauma. Patient is complaining of right foot pain since he broke his foot 3 months ago and that he was walking around a lot today and his right foot is hurting him. Denies any other complaints. Systemic: Pt denies fatigue, fever/chills, rash. Pt denies weakness, night sweats, weight loss. Neuro: Pt denies headache, visual disturbances, syncope or pre-syncope. HEENT: Pt denies ocular discharge or irritation, otalgia, rhinorrhea, pharyngitis or notable lymphadenopathy. Cardiopulmonary: Pt denies chest pain, SOB, heart palpitations, dyspnea on exertion. Abdominal/GI: Pt denies abdominal pain, n/v/d. : Pt denies dysuria, burning w/ urination, frequency/urgency. Denies new onset urinary or bowel incontinence. MSK: Pt denies loss of strength or function in extremities. Neuro: Pt denies new onset weakness, paresthesias. - Related Data Home Medications Medication Instructions Recorded Confirmed Folic Acid 1 mg PO DAILY 08/23/18 02/20/20 Metoprolol Succinate (ER) [Toprol 25 mg PO DAILY 08/23/18 02/20/20 XL] Fluticasone Nasal [place] [Flonase 1 spray EA NOSTRIL DAILY 07/27/19 02/20/20 Nasal [place]] levETIRAcetam [Keppra] 1,000 mg PO Q12HR 09/18/19 02/20/20 Vitamin B Complex 1 cap PO DAILY 10/24/19 02/20/20 Naproxen 500 mg PO BID 02/20/20 02/20/20 Potassium Gluconate 550 mg PO DAILY 02/20/20 02/20/20 Allergies Allergy/AdvReac Type Severity Reaction Status Date / Time No Known Allergies Allergy Verified 02/20/20 19:35 Review of Systems ROS Statement: Those systems with pertinent positive or pertinent negative responses have been documented in the HPI. ROS Other: All systems not noted in ROS Statement are negative. Past Medical History Past Medical History: Hypertension, Seizure Disorder Additional Past Medical History / Comment(s): ETOH, depression, encephalopathy, pt stated lung collapse approx 3 weeks ago with chest tube. History of Any Multi-Drug Resistant Organisms: None Reported Past Surgical History: Orthopedic Surgery Additional Past Surgical History / Comment(s): rt femur Past Anesthesia/Blood Transfusion Reactions: No Reported Reaction Past Psychological History: Depression Smoking Status: Current every day smoker Past Alcohol Use History: Abuse, Daily Past Drug Use History: Marijuana General Exam - General Exam Comments Initial Comments: Constitutional: NAD, AOX3, Pt has pleasant affect. HEENT: NC/AT, trachea midline, neck supple, no lymphadenopathy. Posterior pharynx non erythematous, without exudates. External ears appear normal, without discharge. Mucous membranes moist. Eyes PERRLA, EOM intact. There is no scleral icterus. No pallor noted. Cardiopulmonary: RRR, no murmurs, rubs or gallops, no JVD noted. Lungs CTAB in anterior and posterior scott. No peripheral edema. Abdominal exam: Abdomen soft and non-distended. Abdomen non-tender to palpation in all 4 quadrants. Bowel sounds active in LLQ. No hepatosplenomegaly. No ecchymosis Neuro: CN II-XII grossly intact. No nuchal rigidity. No raccon eyes, no hogan sign, no hemotympanum. No cervical spinal tenderness. MSK: No posterior calf tenderness bilaterally, homans sign negative bilaterally. Posterior tibialis and radial pulse +2 bilaterally. Sensation intact in upper and lower extremities. Full active ROM in upper and lower extremities, 5/5 stregnth. Fifth metatarsal region of left foot is moderately tender to palpation. Limitations: physical limitation Course Vital Signs 02/20/20 17:34 Temperature 98.4 F Pulse Rate 74 Respiratory 18 Rate Blood Pressure 129/81 O2 Sat by Pulse 97 Oximetry Medical Decision Making - Medical Decision Making 59-year-old male patient presented to ED for evaluation of alcohol intoxication. Patient also reports that his left foot hurts because he broke it 2 months ago. Patient will tender stable, afebrile. Physical exam displayed mild tenderness to palpation fifth metatarsal region. Alcohol was initially elevated 208 serum. Repeat evaluation patient a call is now [phone]. Patient is alert a nd oriented 3. Patient has requesting discharge. Reportedly a home a detention. I did advise patient that I should put a splint on his foot and he should not bear weight as it is broken. Patient is declining this. Patient will be discharged I will give him orthopedic follow-up as well as primary caregiver and he'll return to ER if condition worsens. Case discussed with Dr. Hernandez. - Lab Data Result diagrams: 02/20/20 18:50 02/20/20 18:50 Lab Results 02/20/20 02/20/20 02/20/20 Range/Units 18:50 18:50 18:50 WBC 6.6 (3.8-10.6) k/uL RBC 3.88 L (4.30-5.90) m/uL Hgb 12.1 L (13.0-17.5) gm/dL Hct 37.3 L (39.0-53.0) % MCV 96.3 (80.0-100.0) fL MCH 31.3 (25.0-35.0) pg MCHC 32.5 (31.0-37.0) g/dL RDW 16.8 H (11.5-15.5) % Plt Count 298 (150-450) k/uL Neutrophils % 51 % Lymphocytes % 37 % Monocytes % 5 % Eosinophils % 3 % Basophils % 1 % Neutrophils # 3.3 (1.3-7.7) k/uL Lymphocytes # 2.4 (1.0-4.8) k/uL Monocytes # 0.3 (0-1.0) k/uL Eosinophils # 0.2 (0-0.7) k/uL Basophils # 0.0 (0-0.2) k/uL Anisocytosis Slight Sodium 141 (137-145) mmol/L Potassium 3.8 (3.5-5.1) mmol/L Chloride 104 (98-107) mmol/L Carbon Dioxide 24 (22-30) mmol/L Anion Gap 13 mmol/L BUN 14 (9-20) mg/dL Creatinine 0.70 (0.66-1.25) mg/dL Est GFR (CKD-EPI)AfAm >90 (>60 ml/min/1.73 sqM) Est GFR (CKD-EPI)NonAf >90 (>60 ml/min/1.73 sqM) Glucose 92 (74-99) mg/dL Calcium 9.7 (8.4-10.2) mg/dL Total Bilirubin 0.4 (0.2-1.3) mg/dL AST 54 (17-59) U/L ALT 36 (4-49) U/L Alkaline Phosphatase 134 H (38-126) U/L Total Protein 8.0 (6.3-8.2) g/dL Albumin 4.3 (3.5-5.0) g/dL Urine Color Light Yellow Urine Appearance Clear (Clear) Urine pH 6.0 (5.0-8.0) Ur Specific [place] 1.008 (1.001-1.035) Urine Protein Negative (Negative) Urine Glucose (UA) Negative (Negative) Urine Ketones Negative (Negative) Urine Blood Negative (Negative) Urine Nitrite Negative (Negative) Urine Bilirubin Negative (Negative) Urine Urobilinogen <2.0 (<2.0) mg/dL Ur Leukocyte Esterase Negative (Negative) Urine Opiates Screen Not Detected (NotDetected) Ur Oxycodone Screen Not Detected (NotDetected) Urine Methadone Screen Not Detected (NotDetected) Ur Propoxyphene Screen Not Detected (NotDetected) Ur Barbiturates Screen Not Detected (NotDetected) U Tricyclic Antidepress Not Detected (NotDetected) Ur Phencyclidine Scrn Not Detected (NotDetected) Ur Amphetamines Screen Not Detected (NotDetected) U Methamphetamines Scrn Not Detected (NotDetected) U Benzodiazepines Scrn Not Detected (NotDetected) Urine Cocaine Screen Not Detected (NotDetected) U Marijuana (THC) Screen Not Detected (NotDetected) Serum Alcohol 208 H* mg/dL Disposition Clinical Impression: Foot fracture, Alcohol intoxication Disposition: HOME SELF-CARE Condition: Stable Instructions (If sedation given, give patient instructions): Alcohol I ntoxication (ED) Additional Instructions: Follow-up with primary care provider tomorrow. Follow-up with orthopedic consult tomorrow. Return to ER if condition worsens. Is patient prescribed a controlled substance at d/c from ED?: No Referrals: Reuben Hewitt DO [Primary Care Provider] - 1-2 days Nik Boyle MD [Medical Doctor] - 1-2 days
--- NOTE | 2020-02-20 18:38 | XR ---
EXAMINATION TYPE: XR foot complete LT DATE OF EXAM: 02/20/2020 COMPARISON: 12/20/2019 HISTORY: Foot pain. TECHNIQUE: 3 views FINDINGS: There is an oblique fracture distal shaft of the fifth metatarsal. There is separation of t he 5 mm. Fracture appears subacute. There is some minimal callus formation. There is moderate narrowing of the second MP joint. There is hallux valgus. The hindfoot appears inta ct. IMPRESSION: There is an oblique fracture of the fifth metatarsal that appears new compared to 12/20/19 20 does not appear acute. Moderate hallux valgus unchanged. 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 There is subluxation mild deformity at the second MP joint.
[2020-02-20 18:57] LABS: Anisocytosis Slight; Basophils % (A) 1 %; Eosinophils # (A) 0.2 k/uL (0-0.7); Eosinophils % (A) 3 %; HCT 37.3 % (39.0-53.0); HGB 12.1 gm/dL (13.0-17.5); Lymphocytes # (A) 2.4 k/uL (1.0-4.8); Lymphocytes % (A) 37 %; MCH 31.3 pg (25.0-35.0); MCHC 32.5 g/dL (31.0-37.0); MCV 96.3 fL (80.0-100.0); Mean Platelet Volume 7.2; Monocytes # (A) 0.3 k/uL (0-1.0); Monocytes % (A) 5 %; Neutrophils # (A) 3.3 k/uL (1.3-7.7); Neutrophils % (A) 51 %; Platelet Count 298 k/uL (150-450); RBC 3.88 m/uL (4.30-5.90); RDW 16.8 % (11.5-15.5); WBC 6.6 k/uL (3.8-10.6)
[2020-02-20 18:58] LABS: Appearance,Urine Clear (Clear); Bilirubin,Urine Negative (Negative); Blood,Urine Negative (Negative); Color,Urine Light Yellow; Glucose,Urine (UA) Negative (Negative); Ketones,Urine Negative (Negative); Leukocyte Esterase,Urine Negative (Negative); Nitrite,Urine Negative (Negative); Protein,Urine Negative (Negative); Specific Gravity,Urine 1.008 (1.001-1.035); Urobilinogen,Urine <2.0 mg/dL (<2.0)
[2020-02-20 19:09] LABS: ALT 36 U/L (4-49); AST 54 U/L (17-59); African American GFR (CKD) >90 (>60 ml/min/1.73 sqM); Albumin 4.3 g/dL (3.5-5.0); Alkaline Phosphatase 134 U/L (38-126); Anion Gap 13 mmol/L; Blood Urea Nitrogen 14 mg/dL (9-20); Calcium 9.7 mg/dL (8.4-10.2); Carbon Dioxide 24 mmol/L (22-30); Chloride 104 mmol/L (98-107); Glucose 92 mg/dL (74-99); Non-African American GFR(CKD) >90 (>60 ml/min/1.73 sqM); Potassium 3.8 mmol/L (3.5-5.1); Sodium 141 mmol/L (137-145); Total Bilirubin 0.4 mg/dL (0.2-1.3)
[2020-02-20 19:15] LABS: Amphetamine Screen,Urine Not Detected (NotDetected); Barbiturate Screen,Urine Not Detected (NotDetected); Benzodiazepines Screen,Urine Not Detected (NotDetected); Cocaine Screen,Urine Not Detected (NotDetected); Methadone Screen, Urine Not Detected (NotDetected); Opiate Screen,Urine Not Detected (NotDetected); Oxycodone Screen, Urine Not Detected (NotDetected); Phencyclidine Screen,Urine Not Detected (NotDetected); Tricyclic Antidepressant,Urine Not Detected (NotDetected); Urn Cannabinoid Scrn Not Detected (NotDetected)
[2020-02-20 19:26] LABS: Alcohol 208 mg/dL
[2020-02-20 22:18] VITALS: BP 120/84; PULSE 70; RESP 16; TEMP 98.2
== END 2020-02-20 22:17 | disposition home or self-care (01) ==
LOC: EC 17:13
DX: F10.129 Alcohol abuse with intoxication, unspecified (principal); S92.352A Displaced fracture of fifth metatarsal bone, left foot, initial encounter for closed fracture; I10 Essential (primary) hypertension; F17.200 Nicotine dependence, unspecified, uncomplicated; G40.909 Epilepsy, unspecified, not intractable, without status epilepticus; Y90.7 Blood alcohol level of 200-239 mg/100 ml
CPT/HCPCS: 36415; 80053; 80306; 80320; 81003; 82075; 85025; 96360; 99284

== ENCOUNTER 2020-02-24 20:33 | Emergency (ER) | payer BC ==
[2020-02-24 20:57] VITALS: BP 109/72; PULSE 77; RESP 18; TEMP 98.1
--- NOTE | 2020-02-24 21:43 | ED ---
Lower Extremity Injury HPI - General Source: patient Mode of arrival: ambulatory Limitations: no limitations <Carmelina Steel - Last Filed: 02/24/20 21:53> <Christina Santa - Last Filed: 02/26/20 02:32> - General Chief Complaint: Extremity Injury, Lower Stated Complaint: ETOH,L Foot Injury Time Seen by Provider: 02/24/20 21:00 - History of Present Illness Initial Comments: 59-year-old male patient presents to the emergency department today reporting left foot pain. Patient states that he is intoxicated was picked up by the police and brought in for the foot pain. Patient states that he injured the foot approximately 2 months ago was diagnosed with fracture. Patient states he does have a bowel movement but is causing blisters on his feet. States that he has been not wearing any splint or bruit for the last several days. States he is having pain to the area. He was seen and evaluated here a few days ago and refused splint at that time, states he now would like one. He denies any new injury to the foot. Denies increased pain to the foot. Denies numbness or tingling.Patient denies any headache, neck pain, back pain, chest pain, shortness of breath, dizziness, weakness, abdominal pain, nausea, vomiting, or difficulties with bowel movements or urination. (Carmelina Steel) - Related Data Home Medications Medication Instructions Recorded Confirmed Folic Acid 1 mg PO DAILY 08/23/18 02/20/20 Metoprolol Succinate (ER) [Toprol 25 mg PO DAILY 08/23/18 02/20/20 XL] Fluticasone Nasal [place] [Flonase 1 spray EA NOSTRIL DAILY 07/27/19 02/20/20 Nasal [place]] levETIRAcetam [Keppra] 1,000 mg PO Q12HR 09/18/19 02/20/20 Vitamin B Complex 1 cap PO DAILY 10/24/19 02/20/20 Naproxen 500 mg PO BID 02/20/20 02/20/20 Potassium Gluconate 550 mg PO DAILY 02/20/20 02/20/20 Allergies Allergy/AdvReac Type Severity Reaction Status Date / Time No Known Allergies Allergy Verified 02/24/20 20:57 Review of Systems ROS Other: All systems not noted in ROS Statement are negative. <Carmelina Steel - Last Filed: 02/24/20 21:53> ROS Other: All systems not noted in ROS Statement are negative. <Christina Santa Rene - Last Filed: 02/26/20 02:32> ROS Statement: Those systems with pertinent positive or pertinent negative responses have been documented in the HPI. Past Medical History Past Medical History: Hypertension, Seizure Disorder Additional Past Medical History / Comment(s): ETOH, depression, encephalopathy, pt stated lung collapse approx 3 weeks ago with chest tube. History of Any Multi-Drug Resistant Organisms: None Reported Past Surgical History: Orthopedic Surgery Additional Past Surgical History / Comment(s): rt femur Past Anesthesia/Blood Transfusion Reactions: No Reported Reaction Past Psychological History: Depression Smoking Status: Current every day smoker Past Alcohol Use History: Abuse, Daily Past Drug Use History: Marijuana <Carmelina Steel Odalis - Last Filed: 02/24/20 21:53> General Exam Limitations: no limitations General appearance: alert, in no apparent distress, other (Physical well- developed, well-nourished adult male patient in no acute distress. Vital signs upon presentation are temperature 98.1F, pulse 77, respirations 18, blood pressure 109/72, pulse ox 97% on room air.) Respiratory exam: Present: normal lung sounds bilaterally. Absent: respiratory distress, wheezes, rales, rhonchi, stridor Cardiovascular Exam: Present: regular rate, normal rhythm, normal heart sounds. Absent: systolic murmur, diastolic murmur, rubs, gallop, clicks Extremities exam: Present: normal inspection, full ROM, tenderness (OVer the fifth metatarsal left foot. ), normal capillary refill, other (Skin to the left foot is pink, warm, dry. Cap refills less than 3 seconds. Pedal pulses 2+ to). Absent: pedal edema, joint swelling, calf tenderness Neurological exam: Present: alert, oriented X3, CN II-XII intact Psychiatric exam: Present: normal affect, normal mood Skin exam: Present: warm, dry, intact, normal color. Absent: rash <Carmelina Steel Odalis - Last Filed: 02/24/20 21:53> Course Vital Signs 02/24/20 20:53 Temperature 98.1 F Pulse Rate 77 Respiratory 18 Rate Blood Pressure 109/72 O2 Sat by Pulse 97 Oximetry Procedures - Orthopedic Splinting/Casting Injury #1 Side: left Lower Extremity Injury Location: short leg, foot Lower Extremity Immobilizer: posterior splint, Boni wrap <Carmelina Steel - Last Filed: 02/24/20 21:53> - Orthopedic Splinting/Casting Injury #1 Additional Comments: Posterior OCL splint applied with web rolled padding. Neurovascular status intact after splint application. Skin to the toes pink, warm, dry. Cap refills less than 3 seconds. Patient denies numbness or tingling to the foot. (Carmelina Steel) Medical Decision Making <Carmelina Steel - Last Filed: 02/24/20 21:53> <Christina Santa - Last Filed: 02/26/20 02:32> - Medical Decision Making This is a 9-year-old male patient presents to the emergency department today for evaluation of left foot pain. Patient has a known fracture to the fifth metatarsal. I did review x-rays from a few days ago which does redemonstrate the healing fifth metatarsal fracture. Patient is requesting to be splinted because his shoe is giving him blisters. Physical examination is unremarkable. He is neurovascularly intact to the foot. I did apply a short leg OCL splint. He is instructed to remain nonweightbearing and follow-up with orthopedic specialty. States that he has his own land acquisition specialist he will be using does not want referral. He is instructed take Tylenol Motrin for pain control. Return parameters were discussed in detail. He verbalizes understanding and agrees with this plan (Carmelina Steel) I was available for consultation in the emergency department. The history and physical exam were done by the midlevel provider. I was consulted for this patients care. I reviewed the case with the midlevel provider and based on their presentation of the patient, I agree with the assessment, medical decision making and plan of care as documented. Chart was dictated using [employer] dictation software. Attempts were made to correct any dictation errors however some typographical errors may persist. Patient was seen during a national state of emergency due to the Covid-19 pandemic. (Christina Santa) Disposition Is patient prescribed a controlled substance at d/c from ED?: No Time of Disposition: 21:54 <Carmelina Steel - Last Filed: 02/24/20 21:53> <Christina Santa - Last Filed: 02/26/20 02:32> Clinical Impression: Nondisplaced fracture of fifth metatarsal bone, left foot, subsequent encounter for fracture with delayed healing Disposition: HOME SELF-CARE Condition: Good Instructions (If sedation given, give patient instructions): Foot Fracture in Adults (ED), Splint Care (ED) Additional Instructions: Follow-up with land acquisition specialist for further evaluation as soon as possible. Remain nonweightbearing to the left foot. Take Tylenol Motrin for pain control. Return to the emergency department immediately for any new, worsening, or concerning symptoms. Referrals: Reuben Hewitt DO [Primary Care Provider] - 1-2 days
== END 2020-02-24 22:07 | disposition home or self-care (01) ==
LOC: EC 20:33
DX: S92.355G Nondisplaced fracture of fifth metatarsal bone, left foot, subsequent encounter for fracture with delayed healing (principal); I10 Essential (primary) hypertension; G40.909 Epilepsy, unspecified, not intractable, without status epilepticus; F10.950 Alcohol use, unspecified with alcohol-induced psychotic disorder with delusions; F17.200 Nicotine dependence, unspecified, uncomplicated; Z79.1 Long term (current) use of non-steroidal anti-inflammatories (NSAID); Z79.899 Other long term (current) drug therapy; X58.XXXD Exposure to other specified factors, subsequent encounter
CPT/HCPCS: 29515; 99283

== ENCOUNTER 2021-06-15 10:05 | Observation (INO) | payer MEDICARE, OTHER ==
--- NOTE | 2021-06-15 10:51 | ED ---
General Adult HPI - General Chief complaint: Altered Mental Status Stated complaint: seizures, vomiting Time Seen by Provider: 06/15/21 10:33 Source: patient, family Mode of arrival: wheelchair Limitations: no limitations - History of Present Illness Initial comments: Dictation was produced using [employer] dictation software. please excuse any grammatical, word or spelling errors. Chief Complaint: 60-year-old male brought in by for concerns of seizures History of Present Illness: She is a 52-year-old male. Patient has history of chronic alcoholism. He's been sober for the last 3 weeks. He is brought in by for concerns of sternal into space and tapping with his hands. She thinks that this is a very abnormal behavior. Patient has history of seizures and takes Keppra. has had patient follow up with the primary care doctor. She was instructed to bring patient to his neurologist Dr. Mendosa. However they did not have any openings at the neurologist office for several weeks. They contacted primary care doctor again and was instructed to come to the ER to be value by the neurologist. Patient feels fine he has no complaints. The ROS documented in this emergency department record has been reviewed and confirmed by me. Those systems with pertinent positive or negative responses have been documented in the HPI. All other systems are other negative and/or noncontributory. PHYSICAL EXAM: General Impression: Alert and oriented x3, not in acute distress HEENT: Normocephalic atraumatic, extra-ocular movements intact, pupils equal and reactive to light bilaterally, mucous membranes moist. Cardiovascular: Heart regular rate and rhythm Chest: Able to complete full sentences, no retractions, no tachypnea Abdomen: abdomen soft, non-tender, non-distended, no organomegaly Musculoskeletal: Pulses present and equal in all extremities, no peripheral edema Motor: no focal deficits noted Neurological: CN II-XII grossly intact, no focal motor or sensory deficits noted Skin: Intact with no visualized rashes Psych: Normal affect and mood ED course: 60-year-old well-appearing male brought in by for concerns of focal seizures. He does take Keppra daily. Vital signs upon arrival are within acceptable limits. Documentation from ER visit from May 31 from [facility] was reviewed. This is allegedly the last time patient was at [facility]. Documentation reviewed. Patient normal metabolic panel. Normal CBC. He did have macrocytic red blood cells. He did have a computed tomography scan that day showed no acute processes. Laboratory evaluation obtained. Metabolic panel and CBC are unremarkable. Patient reevaluated bedside at 1:30 PM 5 to be stable medical condition. Case is discussed with our neurologist who left up to the patient if he wanted to be admitted to observation with EEG. Otherwise neurology had no recommendations. Disposition options were discussed. Agreeable with discharge. - Related Data Home Medications Medication Instructions Recorded Confirmed Metoprolol Succinate (ER) [Toprol 25 mg PO DAILY 08/23/18 06/15/21 XL] levETIRAcetam [Keppra] 1,000 mg PO Q12HR 09/18/19 06/15/21 Cyanocobalamin (Vitamin B-12) 1,000 mcg PO DAILY 06/15/21 06/15/21 [Vitamin B-12] Donepezil [Aricept] 10 mg PO DAILY 06/15/21 06/15/21 LORazepam [Ativan] 1 mg PO TID PRN 06/15/21 06/15/21 Meloxicam 15 mg PO DAILY 06/15/21 06/15/21 Mirtazapine [Remeron] 30 mg PO HS 06/15/21 06/15/21 Multivitamins, Thera [Multivitamin 1 tab PO DAILY 06/15/21 06/15/21 (formulary)] NIFEdipine [NIFEdipine ER] 30 mg PO DAILY 06/15/21 06/15/21 Naltrexone HCl [Revia] 50 mg PO DAILY 06/15/21 06/15/21 Ramelteon 8 mg PO HS 06/15/21 06/15/21 Previous Rx's Medication Instructions Recorded LORazepam [Ativan] 1 mg PO HS 3 Days #3 tab 06/15/21 Allergies Allergy/AdvReac Type Severity Reaction Status Date / Time goat milk Allergy Unknown Uncoded 06/15/21 12:49 Childhood Review of Systems ROS Statement: Those systems with pertinent positive or pertinent negative responses have been documented in the HPI. ROS Other: All systems not noted in ROS Statement are negative. Past Medical History Past Medical History: Hypertension, Seizure Disorder Additional Past Medical History / Comment(s): ETOH, depression, encephalopathy, left lung collapse History of Any Multi-Drug Resistant Organisms: None Reported Past Surgical History: Orthopedic Surgery Additional Past Surgical History / Comment(s): rt femur Past Anesthesia/Blood Transfusion Reactions: No Reported Reaction Past Psychological History: Depression Smoking Status: Current every day smoker Past Alcohol Use History: Abuse, Daily Past Drug Use History: Marijuana General Exam Limitations: no limitations Course Vital Signs 06/15/21 10:28 Temperature 98.7 F Pulse Rate 66 Respiratory 18 Rate Blood Pressure 129/89 Medical Decision Making - Lab Data Result diagrams: 06/15/21 11:50 06/15/21 11:52 Lab Results 06/15/21 06/15/21 Range/Units 11:50 11:52 WBC 8.8 (3.8-10.6) k/uL RBC 4.60 (4.30-5.90) m/uL Hgb 15.4 (13.0-17.5) gm/dL Hct 47.2 (39.0-53.0) % MCV 102.6 H (80.0-100.0) fL MCH 33.5 (25.0-35.0) pg MCHC 32.6 (31.0-37.0) g/dL RDW 12.9 (11.5-15.5) % Plt Count 317 (150-450) k/uL MPV 7.6 Neutrophils % 83 % Lymphocytes % 12 % Monocytes % 3 % Eosinophils % 1 % Basophils % 0 % Neutrophils # 7.4 (1.3-7.7) k/uL Lymphocytes # 1.0 (1.0-4.8) k/uL Monocytes # 0.2 (0-1.0) k/uL Eosinophils # 0.1 (0-0.7) k/uL Basophils # 0.0 (0-0.2) k/uL Macrocytosis Slight Sodium 136 L (137-145) mmol/L Potassium 4.2 (3.5-5.1) mmol/L Chloride 105 (98-107) mmol/L Carbon Dioxide 21 L (22-30) mmol/L Anion Gap 10 mmol/L BUN 15 (9-20) mg/dL Creatinine 0.70 (0.66-1.25) mg/dL Est GFR (CKD-EPI)AfAm >90 (>60 ml/min/1.73 sqM) Est GFR (CKD-EPI)NonAf >90 (>60 ml/min/1.73 sqM) Glucose 110 H (74-99) mg/dL Calcium 10.1 (8.4-10.2) mg/dL Magnesium 2.1 (1.6-2.3) mg/dL Disposition Clinical Impression: Seizure Disposition: HOME SELF-CARE Condition: Good Instructions (If sedation given, give patient instructions): Recurrent Seizures in Adults (ED) Additional Instructions: Follow-up with your neurologist Prescriptions: LORazepam [Ativan] 1 mg PO HS 3 Days #3 tab Is patient prescribed a controlled substance at d/c from ED?: Yes If prescribed controlled substance>3 days was MAPS reviewed?: Prescribed <3 Days Referrals: Reuben Hewitt DO [Primary Care Provider] - 1-2 days
[2021-06-15 12:01] LABS: Basophils % (A) 0 %; Eosinophils # (A) 0.1 k/uL (0-0.7); Eosinophils % (A) 1 %; HCT 47.2 % (39.0-53.0); HGB 15.4 gm/dL (13.0-17.5); Lymphocytes % (A) 12 %; MCH 33.5 pg (25.0-35.0); MCHC 32.6 g/dL (31.0-37.0); MCV 102.6 fL (80.0-100.0); Macrocytosis Slight; Mean Platelet Volume 7.6; Monocytes # (A) 0.2 k/uL (0-1.0); Monocytes % (A) 3 %; Neutrophils # (A) 7.4 k/uL (1.3-7.7); Neutrophils % (A) 83 %; Platelet Count 317 k/uL (150-450); RDW 12.9 % (11.5-15.5); WBC 8.8 k/uL (3.8-10.6)
[2021-06-15 12:13] LABS: African American GFR (CKD) >90 (>60 ml/min/1.73 sqM); Anion Gap 10 mmol/L; Blood Urea Nitrogen 15 mg/dL (9-20); Calcium 10.1 mg/dL (8.4-10.2); Carbon Dioxide 21 mmol/L (22-30); Chloride 105 mmol/L (98-107); Glucose 110 mg/dL (74-99); Magnesium 2.1 mg/dL (1.6-2.3); Non-African American GFR(CKD) >90 (>60 ml/min/1.73 sqM); Potassium 4.2 mmol/L (3.5-5.1); Sodium 136 mmol/L (137-145)
[2021-06-15] MEDS ORDERED: NALOXONE 0.4 MG/ML 1 ML VIAL IV PRN (14:19)
--- NOTE | 2021-06-15 14:19 | ED ---
Medical Decision Making - Medical Decision Making Patient was discharged and brought to his car he had an episode of altered mental status. He did not want to follow commands. Lasted briefly. Patient back to the room he was just discharged from. His eyelids bedside fast stable medical condition. Patient is well-appearing. He is not showing any mental status changes. He is answering questions appropriate. does not feel comfortable taking patient home. Patient be admitted with consultation to neurology. - Lab Data Result diagrams: 06/15/21 11:50 06/15/21 11:52 Lab Results 06/15/21 06/15/21 Range/Units 11:50 11:52 WBC 8.8 (3.8-10.6) k/uL RBC 4.60 (4.30-5.90) m/uL Hgb 15.4 (13.0-17.5) gm/dL Hct 47.2 (39.0-53.0) % MCV 102.6 H (80.0-100.0) fL MCH 33.5 (25.0-35.0) pg MCHC 32.6 (31.0-37.0) g/dL RDW 12.9 (11.5-15.5) % Plt Count 317 (150-450) k/uL MPV 7.6 Neutrophils % 83 % Lymphocytes % 12 % Monocytes % 3 % Eosinophils % 1 % Basophils % 0 % Neutrophils # 7.4 (1.3-7.7) k/uL Lymphocytes # 1.0 (1.0-4.8) k/uL Monocytes # 0.2 (0-1.0) k/uL Eosinophils # 0.1 (0-0.7) k/uL Basophils # 0.0 (0-0.2) k/uL Macrocytosis Slight Sodium 136 L (137-145) mmol/L Potassium 4.2 (3.5-5.1) mmol/L Chloride 105 (98-107) mmol/L Carbon Dioxide 21 L (22-30) mmol/L Anion Gap 10 mmol/L BUN 15 (9-20) mg/dL Creatinine 0.70 (0.66-1.25) mg/dL Est GFR (CKD-EPI)AfAm >90 (>60 ml/min/1.73 sqM) Est GFR (CKD-EPI)NonAf >90 (>60 ml/min/1.73 sqM) Glucose 110 H (74-99) mg/dL Calcium 10.1 (8.4-10.2) mg/dL Magnesium 2.1 (1.6-2.3) mg/dL Disposition Clinical Impression: Seizure, Mental status change resolved Disposition: ADMITTED IP TO THIS HOSP Condition: Fair Instructions (If sedation given, give patient instructions): Recurrent Seizures in Adults (ED) Additional Instructions: Follow-up with your neurologist Prescriptions: LORazepam [Ativan] 1 mg PO HS 3 Days #3 tab Referrals: Reuben Hewitt DO [Primary Care Provider] - 1-2 days
[2021-06-15 16:06] LABS: Glucose,Whole Blood 108 mg/dL (75-99)
[2021-06-15 17:23] LABS: Glucose,Whole Blood 108 mg/dL (75-99)
[2021-06-15] MEDS ORDERED: LORazepam 1 MG TAB PO PRN (17:25)
[2021-06-15] MEDS: SODIUM CHLORIDE 0.9% 1,000 ML IV SCH ×2 (18:25→21:53)
[2021-06-15] MEDS: levETIRAcetam 500 MG TAB PO SCH (21:45)
[2021-06-15] MEDS: MIRTAZAPINE 15 MG TAB PO SCH (21:45)
[2021-06-16] MEDS: MELOXICAM 7.5 MG TAB PO SCH (08:47)
[2021-06-16] MEDS: levETIRAcetam 500 MG TAB PO SCH ×2 (08:48→20:43)
[2021-06-16] MEDS: NIFEdipine XL 30 MG TAB.ER.24 PO SCH (08:48)
[2021-06-16] MEDS: METOPROLOL SUCCINATE (ER) 25 MG TAB.ER.24H PO SCH (08:48)
[2021-06-16] MEDS: DONEPEZIL 10 MG TAB PO SCH (08:49)
[2021-06-16] MEDS: CYANOCOBALAMIN 500 MCG TAB PO SCH (08:49)
[2021-06-16] MEDS ORDERED: LORazepam 2 MG/ML INJ IV PRN (10:13)
--- NOTE | 2021-06-16 11:15 | CT ---
EXAMINATION TYPE: CT brain wo con DATE OF EXAM: 06/16/2021 COMPARISON: 11/02/2019 HISTORY: seizure like activity, stuttering CT DLP: 1090.[address] of the brain was performed. The ventricles, basal cisterns and sulci overlying the cerebral convexities demonstrate mild enlargem ent. There is no evidence for intracranial hemorrhage or sulcal effacement. There is decreased attenuation about the periventricular white matter and deep white matter of both c erebral hemispheres, compatible with chronic small vessel ischemia. Differential diagnosis does inclu de demyelination. No mass effects are seen.No midline shift. Osseous calvarium is intact. If symptoms persist consider MRI. IMPRESSION: 1. Age related atrophic and chronic small vessel ischemic change without acute intracranial process s een at this time.
--- NOTE | 2021-06-16 19:19 | P.HPIM ---
History of Present Illness H&P Date: 06/15/21 Chief Complaint: altered mental status 52-year-old male patient with history of chronic alcoholism who has been sober for over 3 weeks brought into the ED by ; with mental status change according to patient had been reaching out into space and tapping with his hand with behavior at that is very unlike him; patient currently not able to provide much history Patient does have history of seizure disorder and takes Keppra and follows up with local neurologist Dr. Mendosa; tried taking patient to neurologists office with the did not have any opening for; several weeks she contacted patient's primary care physician and was advised to come to ER patient was worked up in ED which was essentially unremarkable and was planned to be discharged home; vital in the parking lot patient had similar episode and was brought back to the ED and is planned to be admitted for further neurology evaluation Review of Systems ROS unobtainable: due to mental status Past Medical History Past Medical History: Hypertension, Seizure Disorder Additional Past Medical History / Comment(s): ETOH, depression, encephalopathy, left lung collapse History of Any Multi-Drug Resistant Organisms: None Reported Past Surgical History: Orthopedic Surgery Additional Past Surgical History / Comment(s): rt femur Past Anesthesia/Blood Transfusion Reactions: No Reported Reaction Past Psychological History: Depression Smoking Status: Current every day smoker Past Alcohol Use History: Abuse, Daily Past Drug Use History: Marijuana Medications and Allergies Home Medications Medication Instructions Recorded Confirmed Type Metoprolol Succinate (ER) [Toprol 25 mg PO DAILY 08/23/18 06/15/21 History XL] levETIRAcetam [Keppra] 1,000 mg PO Q12HR 09/18/19 06/15/21 History Cyanocobalamin (Vitamin B-12) 1,000 mcg PO DAILY 06/15/21 06/15/21 History [Vitamin B-12] Donepezil [Aricept] 10 mg PO DAILY 06/15/21 06/15/21 History LORazepam [Ativan] 1 mg PO HS 3 Days #3 tab 06/15/21 Rx LORazepam [Ativan] 1 mg PO TID PRN 06/15/21 06/15/21 History Meloxicam 15 mg PO DAILY 06/15/21 06/15/21 History Mirtazapine [Remeron] 30 mg PO HS 06/15/21 06/15/21 History Multivitamins, Thera [Multivitamin 1 tab PO DAILY 06/15/21 06/15/21 History (formulary)] NIFEdipine [NIFEdipine ER] 30 mg PO DAILY 06/15/21 06/15/21 History Naltrexone HCl [Revia] 50 mg PO DAILY 06/15/21 06/15/21 History Ramelteon 8 mg PO HS 06/15/21 06/15/21 History Allergies Allergy/AdvReac Type Severity Reaction Status Date / Time goat milk Allergy Unknown Uncoded 06/15/21 12:49 Childhood Physical Exam Vitals: Vital Signs Temp Pulse Resp BP Pulse Ox 06/15/21 13:47 68 18 119/82 95 06/15/21 13:00 18 06/15/21 12:00 18 06/15/21 11:32 18 06/15/21 10:28 98.7 F 66 18 129/89 Intake and Output 06/15/21 06/15/21 06/15/21 06:59 14:59 22:59 Other: Weight 79.379 kg - Constitutional General appearance: Present: average body habitus, cooperative, no acute distress - EENT Eyes: Present: anicteric sclerae, EOMI, PERRLA, normal appearance ENT: Present: hearing grossly normal, normal oropharynx Ears: bilateral: normal - Neck Neck: Present: normal ROM. Absent: lymphadenopathy, rigidity, thyromegaly Carotids: negative: bruit present Thyroid: bilateral: normal size, negative: enlarged, nodule - Respiratory Respiratory: bilateral: CTA, negative: rales, rhonchi, wheezing - Cardiovascular Rhythm: regular Heart sounds: normal: S1, S2 Abnormal Heart Sounds: Absent: systolic murmur, diastolic murmur - Gastrointestinal General gastrointestinal: Present: normal bowel sounds, soft. Absent: distended, organomegaly, tenderness - Genitourinary Genitourinary Comment(s): deferred - Integumentary Integumentary: Present: normal turgor. Absent: jaundiced, rash, ulcer - Neurologic Neurologic: Present: CNII-XII intact. Absent: focal deficits - Musculoskeletal Musculoskeletal: Present: gait normal, strength equal bilaterally - Psychiatric Psychiatric: Present: A&O x's 3, appropriate affect, intact judgment & insight Results CBC & Chem 7: 06/15/21 11:50 10/23/21 11:52 Labs: Abnormal Lab Results - Last 24 Hours (Table) 06/15/21 06/15/21 Range/Units 11:50 11:52 MCV 102.6 H (80.0-100.0) fL Sodium 136 L (137-145) mmol/L Carbon Dioxide 21 L (22-30) mmol/L Glucose 110 H (74-99) mg/dL Assessment and Plan Assessment: 1. Altered mental status 2. Possible breakthrough seizures; Patient takes Keppra thousand milligrams twice a day; CT of the head was done which was unremarkable; we will place patient on seizure precautions - Neurology to see patient and make further recommendations 3. Hypertension; continue with home dose of nifedipine and metoprolol 25 mg daily 4. Dementia/anxiety/depression; continue with home dose of Remeron 30 mg by mouth daily at bedtime, Ativan 1 mg by mouth 3 times a day and Aricept 10 mg daily 5. Osteoarthritis; continue with home dose of Mobic 15 mg daily 6. Vitamin B12 deficiency; vitamin B12 thousand MCG daily DVT prophylaxis; SCDs CODE STATUS; full code
--- NOTE | 2021-06-16 19:47 | P.PN ---
Subjective Progress Note Date: 06/16/21 Principal diagnosis: Altered mental status Possible breakthrough seizures 52-year-old male patient with history of chronic alcoholism who has been sober f or over 3 weeks brought into the ED by ; with mental status change according to patient had been reaching out into space and tapping with his hand with behavior at that is very unlike him; patient currently not able to provide much history Patient does have history of seizure disorder and takes Keppra and follows up with local neurologist Dr. Mendosa; tried taking patient to neurologists office with the did not have any opening for; several weeks she contacted patient's primary care physician and was advised to come to ER patient was worked up in ED which was essentially unremarkable and was planned to be discharged home; vital in the parking lot patient had similar episode and was brought back to the ED and is planned to be admitted for further neurology evaluation 06/16/2021 Patient is seen and evaluated in room at bedside; discussed with nursing staff; has had multiple episodes of seizure-like activity Vital signs are reviewed 97.9, 50, 16, 129/88 Neurology is on board; planning to continue with Keppra thousand milligrams twice a day; Vimpat is added at 50 mg by mouth twice a day; EEG is pending; IV lorazepam by mouth/IV as needed for seizure activity Objective - Vital Signs Vital signs: Vital Signs Temp 97.9 F 06/16/21 15:00 Pulse 50 L 06/16/21 17:23 Resp 16 06/16/21 17:23 BP 129/88 06/16/21 17:23 Pulse Ox 95 06/16/21 17:23 Intake & Output 06/15/21 06/16/21 06/16/21 18:59 06:59 18:59 Intake Total 540 Balance 540 Weight 79.379 kg Intake: Intake, IV Titration 240 Amount Sodium Chloride 0.9% 1, 240 000 ml @ 20 mls/hr IV . Q24H [facility] Rx#:[id number] Oral 300 Other: # Voids 4 1 - Exam PHYSICAL EXAMINATION: GENERAL: The patient is alert and oriented x3, not in any acute distress. Well developed, well nourished. HEENT: Pupils are round and equally reacting to light. EOMI. No scleral icterus. No conjunctival pallor. Normocephalic, atraumatic. No pharyngeal erythema. No thyromegaly. CARDIOVASCULAR: S1 and S2 present. No murmurs, rubs, or gallops. PULMONARY: Chest is clear to auscultation, no wheezing or crackles. ABDOMEN: Soft, nontender, nondistended, normoactive bowel sounds. No palpable organomegaly. MUSCULOSKELETAL: No joint swelling or deformity. EXTREMITIES: No cyanosis, clubbing, or pedal edema. NEUROLOGICAL: Gross neurological examination did not reveal any focal deficits. SKIN: No rashes. - Labs CBC & Chem 7: 06/15/21 11:50 06/15/21 11:52 Assessment and Plan Assessment: 1. Altered mental status 2. Possible breakthrough seizures; Patient takes Keppra thousand milligrams twice a day; CT of the head was done which was unremarkable; we will place patient on seizure precautions - Neurology to see patient and make further recommendations 3. Hypertension; continue with home dose of nifedipine and metoprolol 25 mg daily 4. Dementia/anxiety/depression; continue with home dose of Remeron 30 mg by mouth daily at bedtime, Ativan 1 mg by mouth 3 times a day and Aricept 10 mg daily 5. Osteoarthritis; continue with home dose of Mobic 15 mg daily 6. Vitamin B12 deficiency; vitamin B12 thousand MCG daily DVT prophylaxis; SCDs CODE STATUS; full code
[2021-06-16] MEDS: SODIUM CHLORIDE 0.9% 1,000 ML IV SCH (20:43)
[2021-06-16] MEDS: LACOSAMIDE 50 MG TABLET PO SCH (20:43)
[2021-06-16] MEDS: MIRTAZAPINE 15 MG TAB PO SCH (20:43)
--- NOTE | 2021-06-17 01:33 | P.CNNES ---
History of Present Illness Consult date: 06/16/21 Requesting physician: Isaias Soto Reason for Consult: Breakthrough seizures History of Present Illness: This is a Tele-neurology consultation performed today on 06/16/2021. Patient is a 60-year-old male with history of alcoholism came to the hospital yesterday at 10:05 AM for recurrent seizures. Patient's was also present at the time of this interview. She says that patient has history of seizures for the last 3-4 years. Patient has been on Keppra 500 mg twice a day. His seizures are grand mal generalized tonic-clonic seizure and one time he was admitted to the ICU for seizures. His seizures were felt to be related to alcoholism and he would get seizures once every few days and sometimes 2 in 1 day. Patient stopped drinking alcohol on 04/25/2021. Since then he has been having some different type of seizures, which are different than his previous seizures, that started about 3-1/2 weeks ago. About 1-1/2 weeks ago he was admitted to [facility] where he was admitted for couple days he was given Ativan and then released. The spells have continued therefore he was brought to the hospital. Since in the hospital, he had about 5 these type of seizures. The nurse was present, who also has witnessed those events. She states that each spell consist of speech difficulty, in which he would say some words but does not make sense. When he starts reaching out for something, mumbles then has a blank stare and starts drooling. He would perseverate on "love and success". These spells last for about 3-7 minutes. There is no loss of control of urine, tongue bite or any convulsive activity. Patient is already on Keppra 500 mg twice a day. As the spells occurred in the ER patient was admitted to the hospital for further evaluation. The nurse has also noticed that after he received Ativan, he was not having these episodes as severe. Patient has long-standing history of alcoholism. He was drinking from January to 04/25/2021, when he quit alcohol. Prior to January 2021, he had quit alcohol for 6 months as well. Patient usually drinks double shots of hot fire balls, 1 pint of whiskey a day. He also uses marijuana, as it calms him down. Vital signs on arrival blood pressure 129/89, pulse rate 66, temperature 98.7. EKG shows marked sinus bradycardia. Cannot rule out anterior infarct, age indeterminate. Patient's blood test shows normal CBC with elevated MCV 102.6. Sodium 136 potassium 4.2, normal renal functions. Calcium is normal 10.1. Magnesium 2.1. Coronavirus PCR negative. Patient had a previous negative Lyme titer, MADHAVI, CCP and rheumatoid factor. Patient had multiple admissions to the hospital for alcohol intoxication, the last one was on 02/20/2020, with the level was 208. Patient's previous MRI of the brain from 05/25/2019 showed no acute process. Frontal predominant cerebral atrophy. Mild white matter changes. Patient's home medications include Keppra 1000 mg every 12 hours, nifedipine, metoprolol, B12, Remeron 30 mg, lorazepam 1 mg 3 times a day when necessary, donepezil 10 mg, ramelteon 8 mg, multivitamin. Patient was seen by Dr. Louis in neurology consultation on 07/25/2019 for encephalopathy, which was felt to be related to alcoholism. Patient had a normal EEG on 08/07/2018 Review of Systems Patient denies any chest pain shortness of breath wheezing or cough. Denies any abdominal pain nausea vomiting diarrhea. No double vision loss of vision. No hoarseness, sore throat, dysphagia. No fever or chills. No significant back pain. All other review of systems reviewed and noncontributory. Past Medical History Past Medical History: Hypertension, Seizure Disorder Additional Past Medical History / Comment(s): ETOH, depression, encephalopathy, left lung collapse History of Any Multi-Drug Resistant Organisms: None Reported Past Surgical History: Orthopedic Surgery Additional Past Surgical History / Comment(s): rt femur Past Anesthesia/Blood Transfusion Reactions: No Reported Reaction Past Psychological History: Depression Smoking Status: Current every day smoker Past Alcohol Use History: Abuse, Daily Past Drug Use History: Marijuana Medications and Allergies Home Medications Medication Instructions Recorded Confirmed Type Metoprolol Succinate (ER) [Toprol 25 mg PO DAILY 08/23/18 06/15/21 History XL] levETIRAcetam [Keppra] 1,000 mg PO Q12HR 09/18/19 06/15/21 History Cyanocobalamin (Vitamin B-12) 1,000 mcg PO DAILY 06/15/21 06/15/21 History [Vitamin B-12] Donepezil [Aricept] 10 mg PO DAILY 06/15/21 06/15/21 History LORazepam [Ativan] 1 mg PO HS 3 Days #3 tab 06/15/21 Rx LORazepam [Ativan] 1 mg PO TID PRN 06/15/21 06/15/21 History Meloxicam 15 mg PO DAILY 06/15/21 06/15/21 History Mirtazapine [Remeron] 30 mg PO HS 06/15/21 06/15/21 History Multivitamins, Thera [Multivitamin 1 tab PO DAILY 06/15/21 06/15/21 History (formulary)] NIFEdipine [NIFEdipine ER] 30 mg PO DAILY 06/15/21 06/15/21 History Naltrexone HCl [Revia] 50 mg PO DAILY 06/15/21 06/15/21 History Ramelteon 8 mg PO HS 06/15/21 06/15/21 History Allergies Allergy/AdvReac Type Severity Reaction Status Date / Time goat milk Allergy Unknown Uncoded 06/15/21 12:49 Childhood Physical Examination - Vital Signs Vital Signs: Vital Signs Temp Pulse Pulse Resp BP BP BP 06/16/21 07:00 98.4 F 57 L 15 134/80 06/16/21 02:00 97.5 F L 16 155/82 06/15/21 15:30 64 18 147/86 06/15/21 13:47 68 18 119/82 06/15/21 13:00 18 06/15/21 12:00 18 06/15/21 11:32 18 Pulse Ox 06/16/21 07:00 96 06/16/21 02:00 97 06/15/21 15:30 98 06/15/21 13:47 95 06/15/21 13:00 06/15/21 12:00 06/15/21 11:32 Intake and Output 06/15/21 06/16/21 06/16/21 22:59 06:59 14:59 Intake Total 540 Balance 540 Intake: Intake, IV Titration 240 Amount Sodium Chloride 0.9% 1, 240 000 ml @ 20 mls/hr IV . Q24H [facility] Rx#:[id number] Oral 300 Other: # Voids 2 4 Patient is a middle aged male, in no acute distress. Patient is alert awake oriented to time place and person. He knows it is May 2021 and that it is fall season and that he is in [facility]. Speech and language functions are normal. Attention, concentration and fund of knowledge is adequate. On cranial examination, pupils are round and reacting to light, visual scott are full on confrontation, extraocular muscles are intact with no nystagmus. Face is symmetric, tongue protrudes to the midline. Palatal elevation and sensation normal, hearing and shoulder shrug normal, facial sensation normal. Shoulder shrug normal. On muscle strength testing, there is no pronator drift and the strength is normal in arms and legs distally and proximally. Deep tendon reflexes are 1 and plantars downgoing. Sensory to touch is equal with no neglect. Cerebellar function showed no ataxia for [id number] testing. No dysdiadochokinesia. Tone and bulk of muscles normal. Gait not checked. On general examination, there is no carotid bruit or murmur, S1-S2 audible. Abdomen is soft nontender. Chest is clear. Peripheral pulses are present. No edema. Results - Laboratory Findings CBC and BMP: 06/15/21 11:50 06/15/21 11:52 Abnormal Lab Findings: Abnormal Labs 06/15/21 06/15/21 06/15/21 11:50 11:52 15:46 MCV 102.6 H Sodium 136 L Carbon Dioxide 21 L Glucose 110 H POC Glucose (mg/dL) 108 H 06/15/21 17:22 MCV Sodium Carbon Dioxide Glucose POC Glucose (mg/dL) 108 H Assessment and Plan Assessment: * Seizure disorder, came with breakthrough seizures. Patient continues to have seizure-type spells, which suggests possible complex partial seizures. * History of alcoholism, sober since 04/25/2021 * Hypertension Plan: * Continue Keppra 1000 mg twice a day. Check Keppra levels. * Stat EEG was performed today. It was normal awake and drowsy EEG. No focal, lateralized or epileptiform activity was seen. * Check carotid Doppler. * As patient is having frequent seizures, we will start Vimpat 50 mg twice a day. The dose may be increased to 100 mg twice a day if seizures recur. * Patient was informed of [place] state law of no driving unless seizure free for 6 pills, climbing ladders, operate dangerous machineries or unsupervised swimming. * Dr. Steven Musa Will resume neurology service in the morning. * Thank you for the consult.
[2021-06-17] MEDS: LACOSAMIDE 50 MG TABLET PO SCH (08:12)
[2021-06-17] MEDS: DONEPEZIL 10 MG TAB PO SCH (08:12)
[2021-06-17] MEDS: CYANOCOBALAMIN 500 MCG TAB PO SCH (08:12)
[2021-06-17] MEDS: levETIRAcetam 500 MG TAB PO SCH (08:12)
[2021-06-17] MEDS: MELOXICAM 7.5 MG TAB PO SCH (08:12)
[2021-06-17] MEDS: NIFEdipine XL 30 MG TAB.ER.24 PO SCH (08:12)
[2021-06-17] MEDS: METOPROLOL SUCCINATE (ER) 25 MG TAB.ER.24H PO SCH (08:13)
--- NOTE | 2021-06-17 08:27 | US ---
EXAMINATION TYPE: US carotid duplex BILAT DATE OF EXAM: 06/17/2021 COMPARISON: NONE CLINICAL HISTORY: Speech difficulty, seizure vs tia. EXAM MEASUREMENTS: RIGHT: Peak Systolic Velocity (PSV) cm/sec ----- Right CCA: 91.8 ----- Right ICA: 61.5 ----- Right ECA: 98.8 ICA/CCA ratio: 0.67 RIGHT: End Diastole cm/sec ----- Right CCA: 21.7 ----- Right ICA: 13.2 ----- Right ECA: 19.2 LEFT: Peak Systolic Velocity (PSV) cm/sec ----- Left CCA: 98.0 ----- Left ICA: 73.9 ----- Left ECA: 87.5 ICA/CCA ratio: .075 LEFT: End Diastole cm/sec ----- Left CCA: 25.1 ----- Left ICA: 21.7 ----- Left ECA: 16.3 VERTEBRALS (direction of flow): Right Vertebral: Antegrade Left Vertebral: Antegrade Rhythm: Normal Minimal bilateral bulb plaque IMPRESSION: No hemodynamically significant stenosis Criteria for Assigning % of Stenosis / Diameter reduction (Estimation based on the indirect measurements of the internal carotid artery velocities (ICA PSV). 1. Normal (no stenosis)=ICA PSV < 125 cm/s: ratio < 2.0: ICA EDV<40 cm/s. 2. Less than 50% stenosis=ICA PSV < 125 cm/s: ratio < 2.0: ICA EDV<40 cm/s. 3. 50 to 69% stenosis=ICA PSV of 125 to 230 cm/s: ration 2.0 ? 4.0: ICA EDV 40-100 cm/s. 4. Greater than 70% stenosis to near occlusion= ICA PSV > 230 cm/s: ratio > 4.0: ICA EDV > 100 cm/s. 5. Near occlusion= ICA PSV velocities may be low or undetectable: variable ratio and ICA EDV. 6. Total occlusion=unable to detect flow.
--- NOTE | 2021-06-17 08:54 | EEG ---
ELECTROENCEPHALOGRAM REPORT DATE OF SERVICE: 06/16/2021 PREAMBLE: This is a 60-year-old male with recurrent seizure-like spells. This study is performed to evaluate for any epileptiform activity. EEG FINDINGS: This is a 21-channel digital EEG recorded with video competent, utilizing 10/20 international system with referential and bipolar montages. Background consists of well developed, well regulated, moderate voltage activity in 9 hertz alpha. Background is posterior-dominant and reactive to eye opening and closing. Photic driving response was seen with some flash frequencies. Hyperventilation was not done. Mild drowsiness was seen with appearance of bilaterally symmetric theta frequency rhythm. Deeper stages of sleep were not seen. No focal or generalized epileptiform activity was seen. IMPRESSION: This is a normal awake and drowsy EEG. No focal, lateralized or epileptiform activity was seen. No seizures were recorded. MMHALLEL / IJN: [id number] / MTDD
[2021-06-17 08:55] LABS: Basophils % (A) 1 %; Eosinophils # (A) 0.2 k/uL (0-0.7); Eosinophils % (A) 3 %; HCT 47.8 % (39.0-53.0); HGB 15.6 gm/dL (13.0-17.5); Lymphocytes % (A) 26 %; MCH 33.8 pg (25.0-35.0); MCHC 32.6 g/dL (31.0-37.0); MCV 103.6 fL (80.0-100.0); Macrocytosis Slight; Mean Platelet Volume 7.9; Monocytes # (A) 0.4 k/uL (0-1.0); Monocytes % (A) 5 %; Neutrophils # (A) 4.7 k/uL (1.3-7.7); Neutrophils % (A) 62 %; Platelet Count 301 k/uL (150-450); RBC 4.62 m/uL (4.30-5.90); RDW 12.8 % (11.5-15.5); WBC 7.5 k/uL (3.8-10.6)
[2021-06-17 09:03] LABS: African American GFR (CKD) >90 (>60 ml/min/1.73 sqM); Anion Gap 11 mmol/L; Blood Urea Nitrogen 13 mg/dL (9-20); Carbon Dioxide 21 mmol/L (22-30); Chloride 107 mmol/L (98-107); Glucose 136 mg/dL (74-99); Non-African American GFR(CKD) >90 (>60 ml/min/1.73 sqM); Sodium 139 mmol/L (137-145)
[2021-06-17 11:49] VITALS: RESP 18
[2021-06-17 12:07] VITALS: BP 137/80; PULSE 51; TEMP 98.2
--- NOTE | 2021-06-17 13:08 | P.PN ---
Subjective Progress Note Date: 06/17/21 I am seeing the patient for the first time for neurological management. Please refer to Dr. Freeman's note for further details. He is accompanied with his who is at bedside and stated he has not had any further seizures since he has been in the hospital. The patient feels back to baseline and denies of any neurological problems. Objective - Vital Signs Vital signs: Vital Signs Temp 97.5 F L 06/17/21 08:10 Pulse 61 06/17/21 08:10 Resp 18 06/17/21 08:10 BP 129/61 06/17/21 08:10 Pulse Ox 95 06/17/21 08:10 Intake & Output 06/16/21 06/17/21 06/17/21 18:59 06:59 18:59 Intake Total 180 240 360 Output Total 0 Balance 180 240 360 Weight 74.2 kg Intake: Intake, IV Titration 240 Amount Sodium Chloride 0.9% 1, 240 000 ml @ 20 mls/hr IV . Q24H [facility] Rx#:[id number] Oral 180 360 Output: Urine 0 Stool 0 Urine/Stool Mix 0 Emesis 0 Other: Voiding Method Toilet # Voids 3 1 0 # Bowel Movements 0 - Exam GENERAL: The patient is sitting, having his lunch and is not in acute distress. NEUROLOGICAL: Higher mental function: The patient is awake, alert, oriented to self, place and time. Patient is following commands. No aphasia and no neglect. Cranial nerves: The pupils are round, equal and reactive to light and accommodation. Visual scott are full to confrontation throughout. Extraocular movement is intact no nystagmus is noted. Facial sensation is normal to touch throughout. The facial strength is normal throughout. Hearing is normal bilaterally to hand rub. Tongue is midline and moved [id number] without any difficulty. No dysarthria is noted. Shoulder shrug is normal bilaterally. Motor: Gait is deferred. The strength is 5 over 5 throughout. Normal tone and bulk. Cerebellum: Normal finger to nose bilaterally. Sensation: Sensation is normal to touch throughout. Reflexes (right/left): 2+ throughout. Plantars are downgoing bilaterally. WORK-UP Blood cell is 8.8 thousand.: Calcium 10.1, magnesium is 2.1. Anne virus PCR was not detected CT of the head is reported as age-related atrophy and chronic small vessel ischemic change without acute intracranial process seen at this time. Carotid duplex is reported as no hemodynamic significant stenosis. EEG on 06/16/2021 reported as normal. - Labs CBC & Chem 7: 06/17/21 08:26 06/17/21 08:20 Labs: Abnormal Lab Results - Last 24 Hours (Table) 06/17/21 06/17/21 Range/Units 08:20 08:26 MCV 103.6 H (80.0-100.0) fL Carbon Dioxide 21 L (22-30) mmol/L Creatinine 0.65 L (0.66-1.25) mg/dL Glucose 136 H (74-99) mg/dL Assessment and Plan Assessment: * Seizure disorder, came with breakthrough seizures. Patient continues to have seizure-type spells, which suggests possible complex partial seizures. * History of alcoholism, sober since 04/25/2021 * Hypertension Plan: * Continue Keppra 1000 mg twice a day. Vimpat 50mg bid was started by Dr. Freeman since having increase seizure and recommended to increase to 100mg 1 tab bid in seizures recur. Pending Keppra levels. * Patient continues to have seizure-like episodes would recommend long-term EEG as an outpatient or even an epilepsy monitoring unit as an outpatient as well. * On seizure precautions seizure pads. * Patient was informed of [place] state law of no driving unless seizure free for 6 months, avoid heights, operate dangerous machineries or unsupervised swimming. * Defer the rest of the medical measure the primary team. * Upon discharge the patient needs to follow up with his neurologist (Dr. Mendosa) within 1-2 weeks. The plan is discussed with the patient, his and the primary team. There is no further neurological work-up and patient is clear for discharge. Steven Musa MD Neuro-Hospitalist Time with Patient: Less than 30
--- NOTE | 2021-06-17 23:13 | P.DS ---
Providers Date of admission: 06/15/21 14:19 Attending physician: Aayush Atwood MD Consults: 06/15/21 17:27 Consult Physician Routine Consulting Provider: Abhishek Freeman Consult Reason/Comments: breakthrough seizures Do you want consulting provider notified?: Yes Primary care physician: Reuben Hewitt [facility] Course: Final diagnoses Altered Mental Status Possible Breakthrough seizures Possible complex partial seizures hypertension [place] Anxiety Depression Osteoarthritis Vit B12 deficiency Chronic alcohol abuse Chronic tobacco use Discharge Disposition Home with , started on oral vimpat and cleared by neurology to f/u in the office outpatient. Pt instructed [email or web address] law no driving for 6 months and also must be seizure free. Instructed no operating heavy machinery or swimming unsupervised as well. Neurology is recommending usp EEG outpatient or epilepsy monitoring unit outpatient. Hospital Course This is a pleasant 52-year-old male patient with history of chronic alcoholism w ho has been sober for over 3 weeks brought into the ED by ; with mental status change according to patient had been reaching out into space and tapping with his hand with behavior at that is very unlike him; patient currently not able to provide much history. Patient does have history of seizure disorder and takes Keppra and follows up with local neurologist Dr. Mendosa; tried taking patient to neurologists office with the did not have any opening for; several weeks she contacted patient's primary care physician and was advised to come to ER. The patient was worked up in ED which was essentially unremarkable and was planned to be discharged home; however in the parking lot patient had similar episode and was brought back to the ED and is planned to be admitted for further neurology evaluation. Apparently the patient had multiple seizure like episodes in the his room. Pt will continue on keppra 1000 mg po bid as well as start vimpat 50 mg po bid. EEG was completed which was a normal awake and drowsy EEG, there was no focal, lateralized, or epileptiform activity. No seizures were recorded. Carotid doppler was completed which revealed no hemodynamically significant stenosis. Brain CT showed age related atrophic and chronic small vessel ischemic change without acute intracranial processes seen at this time. Telemetry monitoring revealed sinus bradycardia, and a biphasic p wave. Reviewed by writing RN and there was no sign of a heart block. Toprol XL was discotinued, if patient continues to have "seizure like stuttering spells" would also benefit from an event monitor outpatient to further monitor cardiac rhythm. BP 137/80, patient has remained afebrile, 95% on room air. Labs reviewed include: an unremarkable blood count panel, and and an unremarkable chemistry panel. There is some mild hyperglycemia, max is 136 non fasting. sodium is 139, magnesium is 2.1. Covid PCR was not detected. 06/17/2021 Patient is evaluated at the bedside today, awake alert and oriented x 3 with his present. Pt was cleared by neurology for discharge with the addition of vimpat and to f/u with PCP, and his neurologist Dr Mendosa in 1-2 weeks in the office. Pt lungs are clear to ausculation, there is no focal neruological deficit. VSS, labs are unremarkable today. Pt and updated on POC. Discussed with patient he must remain seizure free for 6 months in order to drive again. In addtion, he cannot operate heavy machinery or swim unsupervised. Please see medication reconciliation for a list of current medications. Thank you for allowing us to participate in the care of this patient. Patient Condition at Discharge: Fair Plan - Discharge Summary Discharge Rx Participant: Yes New Discharge Prescriptions: New LORazepam [Ativan] 1 mg PO HS 3 Days #3 tab Lacosamide [Vimpat] 50 mg PO BID #60 tablet Continue levETIRAcetam [Keppra] 1,000 mg PO Q12HR NIFEdipine [NIFEdipine ER] 30 mg PO DAILY Naltrexone HCl [Revia] 50 mg PO DAILY Cyanocobalamin (Vitamin B-12) [Vitamin B-12] 1,000 mcg PO DAILY Mirtazapine [Remeron] 30 mg PO HS Meloxicam 15 mg PO DAILY LORazepam [Ativan] 1 mg PO TID PRN PRN Reason: Anxiety Donepezil [Aricept] 10 mg PO DAILY Ramelteon 8 mg PO HS Multivitamins, Thera [Multivitamin (formulary)] 1 tab PO DAILY Discontinued Metoprolol Succinate (ER) [Toprol XL] 25 mg PO DAILY Discharge Medication List levETIRAcetam [Keppra] 1,000 mg PO Q12HR 09/18/19 [History] Cyanocobalamin (Vitamin B-12) [Vitamin B-12] 1,000 mcg PO DAILY 06/15/21 [History] Donepezil [Aricept] 10 mg PO DAILY 06/15/21 [History] LORazepam [Ativan] 1 mg PO HS 3 Days #3 tab 06/15/21 [Rx] LORazepam [Ativan] 1 mg PO TID PRN 06/15/21 [History] Meloxicam 15 mg PO DAILY 06/15/21 [History] Mirtazapine [Remeron] 30 mg PO HS 06/15/21 [History] Multivitamins, Thera [Multivitamin (formulary)] 1 tab PO DAILY 06/15/21 [History] NIFEdipine [NIFEdipine ER] 30 mg PO DAILY 06/15/21 [History] Naltrexone HCl [Revia] 50 mg PO DAILY 06/15/21 [History] Ramelteon 8 mg PO HS 06/15/21 [History] Lacosamide [Vimpat] 50 mg PO BID #60 tablet 06/17/21 [Rx] Follow up Appointment(s)/Referral(s): Reuben Hewitt DO [Primary Care Provider] - 3 Days (OFFICE IS CLOSED AT THE TIME OF DISCHARGE, PLEASE CALL AND SCHEDULE APPOINTMENT.) Patient Instructions/Handouts: Altered Mental Status (GEN), Recurrent Seizures in Adults (DC) Activity/Diet/Wound Care/Special Instructions: Follow-up with your neurologist Discharge Disposition: HOME SELF-CARE
== END 2021-06-17 14:54 | disposition home or self-care (01) ==
LOC: EC 10:05 → 6NMEDSUR 14:19 → 3SCARD 06-16 17:17
PROVIDERS: ADMIT Internal Medicine; ATTEND Internal Medicine
DX: R41.82 Altered mental status, unspecified (principal); I10 Essential (primary) hypertension; F03.90 Unspecified dementia, unspecified severity, without behavioral disturbance, psychotic disturbance, mood disturbance, and anxiety; F41.9 Anxiety disorder, unspecified; M19.90 Unspecified osteoarthritis, unspecified site; E53.8 Deficiency of other specified B group vitamins; Z20.822 Contact with and (suspected) exposure to COVID-19; F10.21 Alcohol dependence, in remission; R00.1 Bradycardia, unspecified; R73.9 Hyperglycemia, unspecified; F32.9 Major depressive disorder, single episode, unspecified; F17.200 Nicotine dependence, unspecified, uncomplicated; F12.90 Cannabis use, unspecified, uncomplicated; Z79.1 Long term (current) use of non-steroidal anti-inflammatories (NSAID); Z79.899 Other long term (current) drug therapy; Z91.011 Allergy to milk products; G40.909 Epilepsy, unspecified, not intractable, without status epilepticus
CPT/HCPCS: 96374; 99285; 36415; 95816; 93005; 80048 ×2; 80177; 83735; 85025 ×2; 87635; 93880; 70450; G0378 ×3; J2060

== ENCOUNTER → 2021-06-24 | Outpatient (CLI) | payer MEDICARE, OTHER | END | disposition home or self-care (01) | LOC: LABWHC1 09:12 | PROVIDERS: ATTEND Psychiatry & Neurology Neurology | DX: G40.209 Localization-related (focal) (partial) symptomatic epilepsy and epileptic syndromes with complex partial seizures, not intractable, without status epilepticus (principal) | CPT/HCPCS: 36415; 80235 ==

== ENCOUNTER → 2021-09-23 | Outpatient (CLI) | payer MEDICARE, OTHER ==
[2021-09-24 08:35] LABS: Levetiracetam (Keppra) 35.3 ug/mL (3.0-60.0)
== END | disposition home or self-care (01) ==
LOC: LABWHC1 10:52
PROVIDERS: ATTEND Psychiatry & Neurology Neurology
DX: G40.209 Localization-related (focal) (partial) symptomatic epilepsy and epileptic syndromes with complex partial seizures, not intractable, without status epilepticus (principal)
CPT/HCPCS: 36415; 80177; 80235

== ENCOUNTER 2022-03-10 19:50 | Observation (INO) | payer MEDICARE, OTHER ==
[2022-03-10] MEDS ORDERED: SODIUM CHLORIDE 0.9% 500 ML 500 ML IV STA (20:53)
--- NOTE | 2022-03-10 20:58 | ED ---
General Adult HPI - General Chief complaint: Weakness Stated complaint: Post-op weakness Time Seen by Provider: 03/10/22 20:45 Source: patient, EMS, RN notes reviewed, old records reviewed Mode of arrival: EMS Limitations: no limitations - History of Present Illness Initial comments: 61-year-old male presents to the emergency room with his complaining of generalized weakness and malaise that started around 6:30 today. She states that she bought him a sub around 1730 and when she went to check on him around 183 he had eaten it and was laying on the couch asleep. She states she tried to wake him and he was slow to respond and weak. He states that he did drink 2 shots of whiskey today and is a daily drinker, usually a pint a day. States he does have a history of seizures and takes Keppra. is not sure but states he may have had a seizure today. He denies any falls. He did have cataract surgery on Thursday, left eye. He denies any headaches. No nausea or vomiting but does state he has diarrhea. He denies any abdominal pain. -: hour(s) (4) Severity scale (1-10): 0 Associated Symptoms: malaise, weakness, other (diarrhea) - Related Data Home Medications Medication Instructions Recorded Confirmed levETIRAcetam [Keppra] 1,000 mg PO BID@0900,2100 09/18/19 03/10/22 Cyanocobalamin (Vitamin B-12) 1,000 mcg PO DAILY@0900 06/15/21 03/10/22 [Vitamin B-12] Meloxicam 15 mg PO DAILY@0900 06/15/21 03/10/22 Multivitamins, Thera [Multivitamin 1 tab PO DAILY@0900 06/15/21 03/10/22 (formulary)] Naltrexone HCl [Revia] 50 mg PO BID@0900,1700 06/15/21 03/10/22 Citalopram Hydrobromide 10 mg PO BID@0900,1700 03/10/22 03/10/22 [Citalopram HBr] Folic Acid 0.8 mg PO DAILY@0900 03/10/22 03/10/22 Ketorolac 0.5% Ophth Soln [Acular 1 drop LEFT EYE QID 03/10/22 03/10/22 0.5%] Lacosamide [Vimpat] 50 mg PO BID@0900,2100 03/10/22 03/10/22 Mirtazapine 45 mg PO HS@2100 03/10/22 03/10/22 Ofloxacin 0.3% Ophth Soln [Ocuflox 1 drop LEFT EYE QID 03/10/22 03/10/22 Ophth Soln] Pantoprazole [Protonix] 40 mg PO BID@0900,2200 03/10/22 03/10/22 Zolpidem [Ambien] 10 mg PO HS@2100 03/10/22 03/10/22 clonazePAM [KlonoPIN] 0.5 mg PO BID@0900,1700 03/10/22 03/10/22 prednisoLONE ACETATE 1% OPHTH 1 drop LEFT EYE QID 03/10/22 03/10/22 [Pred Forte 1%] prednisoLONE ACETATE 1% OPHTH 1 drop RIGHT EYE BID 03/10/22 03/10/22 [Pred Forte 1%] Allergies Allergy/AdvReac Type Severity Reaction Status Date / Time goat milk Allergy Unknown Uncoded 03/10/22 22:26 Childhood Review of Systems ROS Statement: Those systems with pertinent positive or pertinent negative responses have been documented in the HPI. ROS Other: All systems not noted in ROS Statement are negative. Past Medical History Past Medical History: Hypertension, Seizure Disorder Additional Past Medical History / Comment(s): ETOH, depression, encephalopathy, left lung collapse History of Any Multi-Drug Resistant Organisms: None Reported Past Surgical History: Orthopedic Surgery Additional Past Surgical History / Comment(s): rt femur Past Anesthesia/Blood Transfusion Reactions: No Reported Reaction Past Psychological History: Depression Smoking Status: Current every day smoker Past Alcohol Use History: Abuse, Daily Past Drug Use History: Marijuana - Past Family History Father Family Medical History: Hypertension General Exam Limitations: no limitations General appearance: alert, in no apparent distress Head exam: Present: atraumatic, normocephalic Eye exam: Present: normal appearance, EOMI. Absent: scleral icterus, conjunctival injection, periorbital swelling, periorbital tenderness ENT exam: Present: normal exam, mucous membranes moist Neck exam: Present: normal inspection. Absent: tenderness, meningismus Respiratory exam: Present: normal lung sounds bilaterally. Absent: respiratory distress, accessory muscle use Cardiovascular Exam: Present: regular rate GI/Abdominal exam: Present: soft. Absent: distended, tenderness Extremities exam: Present: full ROM, normal capillary refill. Absent: tenderness, pedal edema Neurological exam: Present: alert, oriented X3 Expanded Patient oriented to: Present: person, place, time Speech: Present: fluid speech (Speech is slow) Cranial nerves: EOM's Intact: Normal, Gag Reflex: Normal, Tongue Deviation: Normal Motor strength exam: RUE: 4, LUE: 4, RLE: 4, LLE: 4 Eye Response: (4) open spontaneously Motor Response: (6) obeys commands Verbal Response: (5) oriented [place] Total: 15 Psychiatric exam: Present: normal affect, normal mood Skin exam: Present: warm, dry, normal color. Absent: cyanosis, diaphoretic Course Vital Signs 03/10/22 03/10/22 03/10/22 19:54 21:05 21:35 Temperature 98.3 F Pulse Rate 62 59 L 56 L Respiratory 16 16 16 Rate Blood Pressure 153/89 116/85 129/90 O2 Sat by Pulse 98 92 L 97 Oximetry 03/11/22 03/11/22 00:09 01:20 Temperature Pulse Rate 51 L 55 L Respiratory 16 16 Rate Blood Pressure 126/88 120/73 O2 Sat by Pulse 98 96 Oximetry - Reevaluation(s) Reevaluation #1: 03/10/22 21:23 Nurse states that after the patient's left he did tell her that he took 8 Ambien because he wanted to take a nap. I did discuss this with the patient and he is unable to tell me why he took so many Ambien. He denies any suicidal or homicidal ideations. Time: 21:23 EKG Findings - EKG Results: EKG: sinus rhythm (Ventricular rate of 60, RI interval 0.166, QRS 0.90, QTC 0.451; normal axis) Medical Decision Making - Medical Decision Making Patient presents with generalized weakness after taking 8 Ambien and 2 shots of whiskey tonight just to go to sleep. He initially denied suicidal ideation. He has a history of hypertension, seizure disorder, alcohol abuse, depression, and encephalopathy. He states he drinks a pint of whiskey a day. Labs show no evidence of leukocytosis, lactic acid is 2.4 and patient was given IV fluids. Serum alcohol is 108. He was placed on a CIWA scale. X-ray shows a left lower lobe infiltrate he was given 1 g of Rocephin. Troponin is negative at 0.012. EKG shows normal sinus rhythm with no ST elevation, normal axis. Patient remains drowsy and later admitted to suicidal intent. He was placed in observation with pneumonia, suicide attempt, lactic acidosis, an alcohol abuse. Case discussed with Dr. Hernandez. - Lab Data Result diagrams: 03/10/22 20:00 03/10/22 20:00 Lab Results 03/10/22 03/10/22 03/10/22 Range/Units 20:00 20:00 20:00 WBC 6.8 (3.8-10.6) k/uL RBC 3.56 L (4.30-5.90) m/uL Hgb 12.7 L (13.0-17.5) gm/dL Hct 37.1 L (39.0-53.0) % MCV 104.4 H (80.0-100.0) fL MCH 35.6 H (25.0-35.0) pg MCHC 34.1 (31.0-37.0) g/dL RDW 11.9 (11.5-15.5) % Plt Count 232 (150-450) k/uL MPV 7.7 Neutrophils % 60 % Lymphocytes % 31 % Monocytes % 5 % Eosinophils % 1 % Basophils % 0 % Neutrophils # 4.1 (1.3-7.7) k/uL Lymphocytes # 2.1 (1.0-4.8) k/uL Monocytes # 0.4 (0-1.0) k/uL Eosinophils # 0.1 (0-0.7) k/uL Basophils # 0.0 (0-0.2) k/uL Macrocytosis Slight PT 11.8 (9.0-12.0) sec INR 1.1 (<1.2) APTT 28.8 (22.0-30.0) sec Sodium (137-145) mmol/L Potassium (3.5-5.1) mmol/L Chloride (98-107) mmol/L Carbon Dioxide (22-30) mmol/L Anion Gap mmol/L BUN (9-20) mg/dL Creatinine (0.66-1.25) mg/dL Est GFR (CKD-EPI)AfAm (>60 ml/min/1.73 sqM) Est GFR (CKD-EPI)NonAf (>60 ml/min/1.73 sqM) Glucose (74-99) mg/dL POC Glucose (mg/dL) (70-110) mg/dL POC Glu Adoption Worker ID Lactic Ac Sepsis Rflx Plasma Lactic Acid Jayson (0.7-2.0) mmol/L Calcium (8.4-10.2) mg/dL Magnesium (1.6-2.3) mg/dL Total Bilirubin (0.2-1.3) mg/dL AST (17-59) U/L ALT (4-49) U/L Alkaline Phosphatase (38-126) U/L Troponin I (0.000-0.034) ng/mL Total Protein (6.3-8.2) g/dL Albumin (3.5-5.0) g/dL Urine Color Light Yellow Urine Appearance Clear (Clear) Urine pH 7.0 (5.0-8.0) Ur Specific [place] 1.007 (1.001-1.035) Urine Protein Negative (Negative) Urine Glucose (UA) Negative (Negative) Urine Ketones Negative (Negative) Urine Blood Negative (Negative) Urine Nitrite Negative (Negative) Urine Bilirubin Negative (Negative) Urine Urobilinogen <2.0 (<2.0) mg/dL Ur Leukocyte Esterase Negative (Negative) Serum Alcohol mg/dL 03/10/22 03/10/22 03/10/22 Range/Units 20:00 20:00 20:00 WBC (3.8-10.6) k/uL RBC (4.30-5.90) m/uL Hgb (13.0-17.5) gm/dL Hct (39.0-53.0) % MCV (80.0-100.0) fL MCH (25.0-35.0) pg MCHC (31.0-37.0) g/dL RDW (11.5-15.5) % Plt Count (150-450) k/uL MPV Neutrophils % % Lymphocytes % % Monocytes % % Eosinophils % % Basophils % % Neutrophils # (1.3-7.7) k/uL Lymphocytes # (1.0-4.8) k/uL Monocytes # (0-1.0) k/uL Eosinophils # (0-0.7) k/uL Basophils # (0-0.2) k/uL Macrocytosis PT (9.0-12.0) sec INR (<1.2) APTT (22.0-30.0) sec Sodium 138 (137-145) mmol/L Potassium 3.6 (3.5-5.1) mmol/L Chloride 107 (98-107) mmol/L Carbon Dioxide 24 (22-30) mmol/L Anion Gap 7 mmol/L BUN 8 L (9-20) mg/dL Creatinine 0.82 (0.66-1.25) mg/dL Est GFR (CKD-EPI)AfAm >90 (>60 ml/min/1.73 sqM) Est GFR (CKD-EPI)NonAf >90 (>60 ml/min/1.73 sqM) Glucose 99 (74-99) mg/dL POC Glucose (mg/dL) (70-110) mg/dL POC Glu Adoption Worker ID Lactic Ac Sepsis Rflx Plasma Lactic Acid Jayson 2.4 H* (0.7-2.0) mmol/L Calcium 8.9 (8.4-10.2) mg/dL Magnesium 2.0 (1.6-2.3) mg/dL Total Bilirubin 0.4 (0.2-1.3) mg/dL AST 31 (17-59) U/L ALT 18 (4-49) U/L Alkaline Phosphatase 70 (38-126) U/L Troponin I <0.012 (0.000-0.034) ng/mL Total Protein 6.2 L (6.3-8.2) g/dL Albumin 3.7 (3.5-5.0) g/dL Urine Color Urine Appearance (Clear) Urine pH (5.0-8.0) Ur Specific [place] (1.001-1.035) Urine Protein (Negative) Urine Glucose (UA) (Negative) Urine Ketones (Negative) Urine Blood (Negative) Urine Nitrite (Negative) Urine Bilirubin (Negative) Urine Urobilinogen (<2.0) mg/dL Ur Leukocyte Esterase (Negative) Serum Alcohol 108 mg/dL 03/10/22 03/10/22 Range/Units 21:09 21:45 WBC (3.8-10.6) k/uL RBC (4.30-5.90) m/uL Hgb (13.0-17.5) gm/dL Hct (39.0-53.0) % MCV (80.0-100.0) fL MCH (25.0-35.0) pg MCHC (31.0-37.0) g/dL RDW (11.5-15.5) % Plt Count (150-450) k/uL MPV Neutrophils % % Lymphocytes % % Monocytes % % Eosinophils % % Basophils % % Neutrophils # (1.3-7.7) k/uL Lymphocytes # (1.0-4.8) k/uL Monocytes # (0-1.0) k/uL Eosinophils # (0-0.7) k/uL Basophils # (0-0.2) k/uL Macrocytosis PT (9.0-12.0) sec INR (<1.2) APTT (22.0-30.0) sec Sodium (137-145) mmol/L Potassium (3.5-5.1) mmol/L Chloride (98-107) mmol/L Carbon Dioxide (22-30) mmol/L Anion Gap mmol/L BUN (9-20) mg/dL Creatinine (0.66-1.25) mg/dL Est GFR (CKD-EPI)AfAm (>60 ml/min/1.73 sqM) Est GFR (CKD-EPI)NonAf (>60 ml/min/1.73 sqM) Glucose (74-99) mg/dL POC Glucose (mg/dL) 107 (70-110) mg/dL POC Glu Adoption Worker ID Laryr Robles Lactic Ac Sepsis Rflx Y Plasma Lactic Acid Jayson (0.7-2.0) mmol/L Calcium (8.4-10.2) mg/dL Magnesium (1.6-2.3) mg/dL Total Bilirubin (0.2-1.3) mg/dL AST (17-59) U/L ALT (4-49) U/L Alkaline Phosphatase (38-126) U/L Troponin I (0.000-0.034) ng/mL Total Protein (6.3-8.2) g/dL Albumin (3.5-5.0) g/dL Urine Color Urine Appearance (Clear) Urine pH (5.0-8.0) Ur Specific [place] (1.001-1.035) Urine Protein (Negative) Urine Glucose (UA) (Negative) Urine Ketones (Negative) Urine Blood (Negative) Urine Nitrite (Negative) Urine Bilirubin (Negative) Urine Urobilinogen (<2.0) mg/dL Ur Leukocyte Esterase (Negative) Serum Alcohol mg/dL Disposition Clinical Impression: Pneumonia, Accidental overdose, Lactic acidosis, Alcohol abuse Disposition: ADMITTED IP TO THIS [facility] Decision Date: 03/10/22 Decision Time: 22:25
[2022-03-10 21:11] LABS: Glucose,Whole Blood 107 mg/dL (70-110)
[2022-03-10 21:18] LABS: Basophils % (A) 0 %; Eosinophils # (A) 0.1 k/uL (0-0.7); Eosinophils % (A) 1 %; HCT 37.1 % (39.0-53.0); HGB 12.7 gm/dL (13.0-17.5); Lymphocytes # (A) 2.1 k/uL (1.0-4.8); Lymphocytes % (A) 31 %; MCH 35.6 pg (25.0-35.0); MCHC 34.1 g/dL (31.0-37.0); MCV 104.4 fL (80.0-100.0); Macrocytosis Slight; Mean Platelet Volume 7.7; Monocytes # (A) 0.4 k/uL (0-1.0); Monocytes % (A) 5 %; Neutrophils # (A) 4.1 k/uL (1.3-7.7); Neutrophils % (A) 60 %; Platelet Count 232 k/uL (150-450); RBC 3.56 m/uL (4.30-5.90); RDW 11.9 % (11.5-15.5); WBC 6.8 k/uL (3.8-10.6)
[2022-03-10 21:26] LABS: Appearance,Urine Clear (Clear); Bilirubin,Urine Negative (Negative); Blood,Urine Negative (Negative); Color,Urine Light Yellow; Glucose,Urine (UA) Negative (Negative); Ketones,Urine Negative (Negative); Leukocyte Esterase,Urine Negative (Negative); Nitrite,Urine Negative (Negative); Protein,Urine Negative (Negative); Specific Gravity,Urine 1.007 (1.001-1.035); Urobilinogen,Urine <2.0 mg/dL (<2.0)
[2022-03-10 21:29] LABS: INR 1.1 (<1.2); Partial Thromboplastin Time 28.8 sec (22.0-30.0); Prothrombin Time 11.8 sec (9.0-12.0)
[2022-03-10 21:30] LABS: ALT 18 U/L (4-49); AST 31 U/L (17-59); African American GFR (CKD) >90 (>60 ml/min/1.73 sqM); Albumin 3.7 g/dL (3.5-5.0); Alkaline Phosphatase 70 U/L (38-126); Anion Gap 7 mmol/L; Blood Urea Nitrogen 8 mg/dL (9-20); Calcium 8.9 mg/dL (8.4-10.2); Carbon Dioxide 24 mmol/L (22-30); Chloride 107 mmol/L (98-107); Glucose 99 mg/dL (74-99); Non-African American GFR(CKD) >90 (>60 ml/min/1.73 sqM); Potassium 3.6 mmol/L (3.5-5.1); Sodium 138 mmol/L (137-145); Total Bilirubin 0.4 mg/dL (0.2-1.3); Total Protein 6.2 g/dL (6.3-8.2)
--- NOTE | 2022-03-10 21:37 | XR ---
EXAMINATION TYPE: XR chest 2V DATE OF EXAM: 03/10/2022 COMPARISON: 01/29/2020 HISTORY: Chest pain TECHNIQUE: FINDINGS: There is some infiltrate posteriorly on the lateral view there is likely in the left lower lobe. The other lung scott are clear. There are no hilar masses. Heart size is fairly normal. No hea rt failure. No pleural effusion. Bony thorax is intact. IMPRESSION: There is some posterior left basilar infiltrate likely related to pneumonia and is a tucker ge compared to old exam.
[2022-03-10 21:45] LABS: Alcohol 108 mg/dL
--- NOTE | 2022-03-10 22:07 | CT ---
EXAMINATION TYPE: CT brain wo con DATE OF EXAM: 03/10/2022 COMPARISON: 06/16/2021 HISTORY: weaknes post cataract sx yesterday CT DLP: 1219.4 mGycm Automated exposure control for dose reduction was used. Images of the brain obtained with no contrast. There is cerebral mild cortical atrophy. There is no mass effect or midline shift. No evidence of int racranial hemorrhage. Calvarium is intact. Skull base is intact. IMPRESSION: Mild atrophy. No acute intracranial abnormality. No change.
[2022-03-10] MEDS ORDERED: cefTRIAXone IN SWFI 1,000 MG/10 ML SYRINGE IVP STA (22:14)
[2022-03-10] MEDS ORDERED: LORazepam 2 MG/ML INJ IV PRN ×3 (22:26)
[2022-03-10] MEDS ORDERED: THIAMINE 100 MG/ML 2 ML VIAL IM STA (22:26)
--- NOTE | 2022-03-11 00:45 | P.HPIM ---
History of Present Illness H&P Date: 03/11/22 The patient is a 61-year-old male with a PMH of EtOH abuse, seizure disorder, and cataracts who presented to the emergency room accompanied by his for generalized weakness. The patient reports that he has been drinking heavily for the past several decades, and that earlier today he had his usual several shots of whiskey and then proceeded to take 6 pills of Ambien in a suicide attempt. The patient reports that this occurred at around 4 PM earlier today. As per the ED documentation, the patient's had given him food, and when she went back into check on him, the patient was slow to respond and appeared confused, which made her concerned for a possible seizure. Patient reports that he took the Ambien as he was trying to go to sleep and not wake up as he is tired of his ongoing alcohol use. He reports that the attempt was a mistake and that he does not wish to take his life and has no suicidal ideation at the time of interview. He reported feeling fatigued at the time of interview but denied any additional complaints. He denied experiencing chest discomfort, cough, fever, chills, nausea, vomiting, abdominal pain, diarrhea. Denied focal weakness, numbness, tingling, or headaches. Denied experiencing urinary or bowel incontinence earlier today. CT brain was negative for acute abnormalities with chest x-ray showing a left basilar infiltrate suspected pneumonia with EKG showing sinus rhythm at [address]/T-wave changes noted as reviewed by me. The patient was hypoxic in the emergency room with SpO2 92% on room air was subsequently placed on nasal cannula oxygen 2 L with SpO2 98%. Patient reports that he underwent cataract surgery this past Thursday and is currently using protective glasses. Laboratory evaluation was remarkable for lactic acid 2.4. Review of systems: Pertinent positives and negatives as discussed in HPI, a complete review of syst ems was performed and all other systems are negative. Physical examination: General: non toxic, no distress, appears at stated age, normal weight Derm: no unusual rashes/lesions, warm Head: atraumatic, normocephalic, symmetric Eyes: EOMI, no lid lag, anicteric sclera, pupils equal round reactive to light ENT: Nose and ears atraumatic Neck: No cervical lymphadenopathy, trachea midline, supple Mouth: no lip lesion, mucus membranes moist Cardiovascular: S1S2 reg, no murmur, positive dorsalis pedis pulse bilateral, no edema Lungs: CTA bilateral, no rhonchi, no rales, no accessory muscle use Abdominal: soft, nontender to palpation, no guarding Ext: muscle strength 4 out of 5 in all 4 extremities grossly, no gross muscle atrophy, no contractures, Neuro: CN II-XI grossly intact, no gross focal neuro deficits Psych: Alert, oriented, appropriate affect Assessment/plan Acute hypoxic respiratory failure secondary to community acquired pneumonia -Continue with antibiotics -Supplemental oxygen Generalized fatigue and lethargy after attempted overdose with Ambien -Psychiatry consult -Continue to monitor for now Lactic acidosis -Continue with IV fluids and monitor for resolution EtOH abuse -[facility] protocol -Thiamine, multivitamin -Strongly advised on importance of cessation -Continue with home antiepileptics DVT prophylaxis -Lovenox The patient is admitted with an anticipated less than 2 midnight stay for evaluation of CAP CODE STATUS: Full Code Discussed with: Patient Anticipated discharge date: 03/[address]: Home Past Medical History Past Medical History: Hypertension, Seizure Disorder Additional Past Medical History / Comment(s): ETOH, depression, encephalopathy, left lung collapse History of Any Multi-Drug Resistant Organisms: None Reported Past Surgical History: Orthopedic Surgery Additional Past Surgical History / Comment(s): rt femur Past Anesthesia/Blood Transfusion Reactions: No Reported Reaction Past Psychological History: Depression Smoking Status: Current every day smoker Past Alcohol Use History: Abuse, Daily Past Drug Use History: Marijuana - Past Family History Father Family Medical History: Hypertension Medications and Allergies Home Medications Medication Instructions Recorded Confirmed Type RX: levETIRAcetam [Keppra] 1,000 mg PO BID@0900,2100 09/18/19 03/10/22 History RX: Cyanocobalamin (Vitamin B-12) 1,000 mcg PO DAILY@0900 06/15/21 03/10/22 History [Vitamin B-12] RX: Meloxicam 15 mg PO DAILY@0900 06/15/21 03/10/22 History RX: Multivitamins, Thera 1 tab PO DAILY@0900 06/15/21 03/10/22 History [Multivitamin (formulary)] RX: Naltrexone HCl [Revia] 50 mg PO BID@0900,1700 06/15/21 03/10/22 History Ketorolac 0.5% Ophth Soln [Acular 1 drop LEFT EYE QID 03/10/22 03/10/22 History 0.5%] Ofloxacin 0.3% Ophth Soln [Ocuflox 1 drop LEFT EYE QID 03/10/22 03/10/22 History Ophth Soln] Pantoprazole [Protonix] 40 mg PO BID@0900,2200 03/10/22 03/10/22 History RX: Citalopram Hydrobromide 10 mg PO BID@0900,1700 03/10/22 03/10/22 History [Citalopram HBr] RX: Folic Acid 0.8 mg PO DAILY@0900 03/10/22 03/10/22 History RX: Lacosamide [Vimpat] 50 mg PO BID@0900,2100 03/10/22 03/10/22 History RX: Mirtazapine 45 mg PO HS@2100 03/10/22 03/10/22 History Zolpidem [Ambien] 10 mg PO HS@2100 03/10/22 03/10/22 History clonazePAM [KlonoPIN] 0.5 mg PO BID@0900,1700 03/10/22 03/10/22 History prednisoLONE ACETATE 1% OPHTH 1 drop LEFT EYE QID 03/10/22 03/10/22 History [Pred Forte 1%] prednisoLONE ACETATE 1% OPHTH 1 drop RIGHT EYE BID 03/10/22 03/10/22 History [Pred Forte 1%] Allergies Allergy/AdvReac Type Severity Reaction Status Date / Time goat milk Allergy Unknown Uncoded 03/10/22 22:26 Childhood Physical Exam Vitals: Vital Signs Temp Pulse Resp BP Pulse Ox 03/11/22 00:09 51 L 16 126/88 98 03/10/22 21:35 56 L 16 129/90 97 03/10/22 21:05 59 L 16 116/85 92 L 03/10/22 19:54 98.3 F 62 16 153/89 98 Intake and Output 03/10/22 03/10/22 03/11/22 14:59 22:59 06:59 Other: Weight 73.936 kg Results CBC & Chem 7: 03/10/22 20:00 03/10/22 20:00 Labs: Abnormal Lab Results - Last 24 Hours (Table) 03/10/22 03/10/22 03/10/22 Range/Units 20:00 20:00 20:00 RBC 3.56 L (4.30-5.90) m/uL Hgb 12.7 L (13.0-17.5) gm/dL Hct 37.1 L (39.0-53.0) % MCV 104.4 H (80.0-100.0) fL MCH 35.6 H (25.0-35.0) pg BUN 8 L (9-20) mg/dL Plasma Lactic Acid Jayson 2.4 H* (0.7-2.0) mmol/L Total Protein 6.2 L (6.3-8.2) g/dL
[2022-03-11] MEDS: SODIUM CHLORIDE 0.9% 1,000 ML IV SCH ×4 (00:59→21:24)
[2022-03-11] MEDS: PANTOPRAZOLE 40 MG TABLET PO SCH ×2 (09:25→21:22)
[2022-03-11] MEDS: levETIRAcetam 500 MG TAB PO SCH ×2 (09:25→21:22)
[2022-03-11] MEDS: AZITHROMYCIN 500 MG TAB PO SCH (09:25)
[2022-03-11] MEDS: MELOXICAM 7.5 MG TAB PO SCH (09:25)
[2022-03-11] MEDS: LACOSAMIDE 50 MG TABLET PO SCH ×2 (09:25→21:23)
[2022-03-11] MEDS: THIAMINE 100 MG TAB PO SCH ×2 (09:25→17:40)
[2022-03-11] MEDS: ENOXAPARIN 40 MG/0.4 ML SYRINGE SQ SCH (09:26)
[2022-03-11] MEDS: OFLOXACIN 0.3% OPHTH DROPS 5 ML BOTTLE LEFT EYE SCH ×4 (09:26→21:23)
[2022-03-11] MEDS: KETOROLAC 0.5% OPHTH DROPS 5 ML BTL LEFT EYE SCH ×4 (09:28→21:23)
[2022-03-11] MEDS: prednisoLONE ACETATE 1% OPHTH DROPS 5 ML BTL LEFT EYE SCH ×4 (09:28→21:23)
--- NOTE | 2022-03-11 13:40 | P.CN ---
Psychiatric Consult - . Consult date: 03/11/22 Consult:: 03/11/22 12:32 IDENTIFYING DATA: This patient is a 61-year-old male currently lives alone in apartment is . REASON FOR REFERRAL: Psychiatry was consulted for suicidal ideations HISTORY OF PRESENT ILLNESS: The patient presented to the hospital according to ER report had weakness and malaise yesterday. Patient's computed tomography scan of the brain was negative for any acute changes. Blood alcohol level was 108 on admission. Patient was admitted to the medical floor nurse or alcohol withdrawal symptoms. Patient claims that she has a history of alcohol use and relapsed one year ago. He states that he has been to vision class and also [place] 2 times in the past. He states that he recently had cataract surgery on Thursday and claims that he has been having a difficult time sleeping due to it. He states that he took the Ambien pills about 6-8 of them at nighttime to help him with sleep. He states that he was not trying to harm himself and has never overdosed and is life. He claims that he drinks usually about 2 shots of whiskey to 1 pint of whiskey a day. He claims that he has a problem with alcohol and wants to quit. He states that his sleep has been fairly poor and was requesting help with her. He was fairly future oriented and claims that he is rastafari and wants to live for his grandkids. He claims his mood is "happy" affect was constricted. Denies any changes or problems with his appetite. He does somewhat guarded at times however attempting to cooperate and directable. He states that he has very minor withdrawal symptoms at this time denies any tremors sweating or seizures at this time but does state that he has a history of withdrawal seizures in the past. At this time patient denies any suicidal or homical ideations, intent or plan. Patient denies any auditory, v isual hallucinations and denies any paranoia or delusions. Patients admits to using alcohol as noted above. He's been [place] twice in the past. He smokes cigarettes daily. He also uses cannabis occasionally. Tare Worker spoke with patient's outside of the room with patient's permission, her name was Beatirz. She expresses her concern about patient's drinking and states that she found him obtunded on the bed and realized that he overdosed and drank alcohol. She claims that he has not been endorsing any suicidal thoughts at all to her and claims that he wants to live and is future oriented. She states that she will continue monitoring him at home if he goes home and wants him to get help for his drinking. We spoke about medications and other treatment options. PAST PSYCHIATRIC HISTORY: Patient has a a history of alcohol abuse depression and anxiety. Claims that he is on Celexa and naltrexone and also Remeron. He claims that he is also prescribed Ambien for nighttime. Patient denies any previous psychiatric hospitalizations. He states that he does follow up with [facility]. Patient denies any history of suicide attempts in the past. Past Medical History: Hypertension, Seizure Disorder Additional Past Medical History / Comment(s): ETOH, depression, encephalopathy, left lung collapse ALLERGIES: as per EMR. CHEMICAL DEPENDENCY HISTORY: as per HPI. FAMILY PSYCHIATRIC/SUBSTANCE USE HISTORY: denies SOCIAL HISTORY: Patient was born and raised in [place] [facility]. He states that he is currently , lives in an apartment alone, he completed high school and did some college. He states that he has 2 kids. He claims that he does have a felony due to previous DUIs in the past. MENTAL STATUS EXAM: General Appearance: Patient appears to be tall, stated age is alert, comes to be cooperative. Patient appears to have fair hygiene and grooming wearing hospital gown with fair eye contact. Behavior: Patient is calmly lying in bed without any agitated behavior. Speech: Patient's speech is fluent and nonpressured. Monotone Mood/Affect: Patient reports their mood is "happy", affect is congruent and constricted Suicidality/Homicidality: Patient denies having any suicidal or homicidal ideation intent or plan. Perceptions: Patient denies any visual hallucinations and denies any auditory hallucinations Though content/process: There is no evidence of any delusional thought content and thought process is linear and goal-directed. [place] Memory and concentration: AOX3, grossly intact for the purposes of this session. Can spell "WORLD" backwards Judgment and insight: poor IMPRESSIONS: Overdose on medications Alcohol use disorder Cannabis use disorder mild Nicotine dependence History of depressive disorder and anxiety disorder PLAN: -At this time patient DOES NOT meet criteria for inpatient psychiatric admission. -Delirium precautions recommended with patient including - avoiding use of narcotics and DEMOLITIONIST sedatives, limit anticholinergic medications when possible, frequent re-orientation, minimize use of restraints, open window shades during the day and close them at night -Would recommend the following medication changes/additions: Please refrain from prescribing patient benzodiazepines or BZD like sleep meds like ambien as he is well interact with alcohol and lead to possible overdose or delirium, falls etc. Increase patient's Celexa to 30 mg daily for mood/anxiety. Continue Remeron 45 mg daily at bedtime. Added trazodone 50 mg daily at bedtime for insomnia/mood. Continue naltrexone 50 mg daily for alcohol cravings. -CIWA protocol with PRN Ativan for alcohol withdrawal. Continue to monitor vital signs. -Can discontinue 1:1 sitter at this time as patient is not currently an imminent threat to themselves -stoneworker to provide patient with outpatient mental health/psychiatry resources for appropriate follow up upon discharge -Tare Worker spoke with patient about substance abuse and the harmful effects on medical and mental health, patient verbally understood and agreed. -stoneworker to provide patient substance use treatment resources including AA/NA meetings in the community. -stoneworker to provide patient with access line number to call for inpatient substance rehab -Communicated plan to patient's nurse -Will continue to follow along tomorrow. -Please contact with any questions.
[2022-03-11] MEDS: CITALOPRAM HYDROBROMIDE 10 MG TAB PO SCH (15:02)
[2022-03-11] MEDS: NALTREXONE HCL 50 MG TAB PO SCH (15:02)
--- NOTE | 2022-03-11 15:55 | P.PN ---
Subjective Progress Note Date: 03/11/22 Hospital course: The patient is a 61-year-old male with a past medical history of EtOH abuse, nicotine dependence, cannabinoid use disorder, seizure disorder, depression, anxiety, and cataracts. He presented to the emergency department with a chief complaint of generalized weakness. The patient reported drinking heavily and taking his usual shots of whiskey followed by 6 of his Ambien pills a reported suicide attempt. Patient reported taking this medication approximately 4 hours prior to arriving to the emergency department. Patient's reportedly went to check on her finding him slow to respond and confused and she was concerned because he has a history of seizures. Patient reported that he took the 6 Ambien pills because he was trying to go to sleep and could not sleep and he was tired of his ongoing alcohol abuse. Patient states this was a mistake and currently denies having any suicidal ideations. He underwent full evaluation in the emergency department. CBC revealed macrocytic hyperchromic anemia with hemoglobin of 12.7. CMP was unremarkable. Troponin negative at less than 0.012. Urinalysis negative for blood or infection. Serum alcohol 108 and Lactic acid was 2.4 with repeat of 1.8 status post IV fluid bolus. CT head negative for acute intercranial process showing mild atrophy. Chest x-ray revealing some posterior left basilar infiltrate consistent with pneumonia. Patient was started on Rocephin and azithromycin and admitted under our services with consultation to psychiatry. Physical examination: Patient seen and fully evaluated at bedside this morning. Patient's at bedside. Sitter also had bedside. Patient's concerned that sitter is at bedside and explained that this was for patient's safety and can be removed only if cleared by psychiatry. Patient's reports that her follows with [facility]. Patient currently denying having any suicidal or homicidal ideations And denies having any other needs or complaints at this time. SpO2 96% on room air. Vital signs otherwise stable. Awaiting psychiatry evaluation. Physical examination: General: non toxic, no distress, appears at stated age Derm: warm, dry Head: atraumatic, normocephalic, symmetric Eyes: EOMI, no lid lag, anicteric sclera Mouth: no lip lesion, mucus membranes moist Cardiovascular: S1S2 reg, no murmur, positive posterior tibial pulse bilateral, Lungs: CTA bilateral, no rhonchi, no rales , no accessory muscle use Abdominal: soft, nontender to palpation, no guarding, no appreciable organomegaly Ext: no gross muscle atrophy, no edema, no contractures Neuro: CN II-XI grossly intact, no focal neuro deficits Psych: Alert, oriented, appropriate affect Assessment and plan of care: Acute hypoxic respiratory failure secondary to community acquired pneumonia -Oxygenation to be administered and titrated as needed to maintain SPO2 equal to or greater than 92%. Wean as patient tolerates -Telemetry monitoring. -Monitor Pulse-oximetry -Duonebs as needed for SOB and/or wheezing -Incentive Spirometry -Antibiotics: Rocephin and azithromycin Generalized fatigue and lethargy after attempted overdose with Ambien Suicidal attempt Anxiety and depression -Psychiatry consult -Suicide precautions -Continue to monitor for now Lactic acidosis, resolved after IV fluid hydration EtOH abuse -[facility] protocol -Thiamine, multivitamin -Strongly advised on importance of cessation -Continue with home antiepileptics CODE STATUS: Full Code DVT prophylaxis: Lovenox Discussed with: Patient, patient's , and RN Anticipated discharge date: Later today versus tomorrow Anticipated discharge place: Home with follow-up to [facility] vs inpatient mental health unit A total of 34 minutes was spent on the care of this complex patient more than 50% of the time was spent in counseling and care coordination. Ilir Wise NP rendered care for this patient independently, reviewed the findings and plan as documented in the note above. I did not physically speak with or examine the patient on this date. Objective - Vital Signs Vital signs: Vital Signs Temp 98.5 F 03/11/22 04:46 Pulse 70 03/11/22 04:46 Resp 18 03/11/22 04:46 BP 151/76 03/11/22 04:46 Pulse Ox 98 03/11/22 04:46 FiO2 Intake & Output 03/10/22 03/11/22 03/11/22 18:59 06:59 18:59 Intake Total 120 Balance 120 Weight 73.936 kg Intake: Oral 120 Other: Voiding Method Toilet # Voids 1 - Labs CBC & Chem 7: 03/10/22 20:00 03/10/22 20:00 Labs: Abnormal Lab Results - Last 24 Hours (Table) 03/10/22 03/10/22 03/10/22 Range/Units 20:00 20:00 20:00 RBC 3.56 L (4.30-5.90) m/uL Hgb 12.7 L (13.0-17.5) gm/dL Hct 37.1 L (39.0-53.0) % MCV 104.4 H (80.0-100.0) fL MCH 35.6 H (25.0-35.0) pg BUN 8 L (9-20) mg/dL Plasma Lactic Acid Jayson 2.4 H* (0.7-2.0) mmol/L Total Protein 6.2 L (6.3-8.2) g/dL
[2022-03-11] MEDS ORDERED: traZODone HCL 50 MG TAB PO SCH (21:00)
[2022-03-11] MEDS ORDERED: MIRTAZAPINE 45 MG TABLET PO SCH (21:00)
[2022-03-12] MEDS: prednisoLONE ACETATE 1% OPHTH DROPS 5 ML BTL LEFT EYE SCH (08:38)
[2022-03-12] MEDS: KETOROLAC 0.5% OPHTH DROPS 5 ML BTL LEFT EYE SCH (08:38)
[2022-03-12] MEDS: LACOSAMIDE 50 MG TABLET PO SCH (08:39)
[2022-03-12] MEDS: ENOXAPARIN 40 MG/0.4 ML SYRINGE SQ SCH (08:39)
[2022-03-12] MEDS: OFLOXACIN 0.3% OPHTH DROPS 5 ML BOTTLE LEFT EYE SCH (08:39)
[2022-03-12] MEDS: MELOXICAM 7.5 MG TAB PO SCH (08:39)
[2022-03-12] MEDS: NALTREXONE HCL 50 MG TAB PO SCH (08:40)
[2022-03-12] MEDS: PANTOPRAZOLE 40 MG TABLET PO SCH (08:40)
[2022-03-12] MEDS: THIAMINE 100 MG TAB PO SCH (08:40)
[2022-03-12] MEDS: AZITHROMYCIN 500 MG TAB PO SCH (08:40)
[2022-03-12] MEDS: levETIRAcetam 500 MG TAB PO SCH (08:41)
[2022-03-12] MEDS: CITALOPRAM HYDROBROMIDE 10 MG TAB PO SCH (08:41)
[2022-03-12] MEDS: SODIUM CHLORIDE 0.9% 1,000 ML IV SCH (10:41)
--- NOTE | 2022-03-12 12:04 | P.DS ---
Providers Date of admission: 03/10/22 22:22 Expected date of discharge: 03/12/22 Attending physician: Mary Vitale MD Consults: 03/10/22 23:57 Consult Physician Routine Consulting Provider: David Grimm Consult Reason/Comments: suicidal ideation Do you want consulting provider notified?: Already Contacted Primary care physician: Stated None Hospital Course: Discharge Diagnosis: Acute hypoxic respiratory failure secondary to community acquired pneumonia, Pt received 2 doses of Rocephin along with Azithromycin and being discharged home on Azithromycin 500 mg daily for the next 5 days. SPO2 98% on room air. Recommend continuation of incentive spirometry. Generalized fatigue and lethargy after intentional overdose with Ambien. Anxiety and depression Lactic acidosis, resolved after IV fluid hydration EtOH abuse. Strongly advised on importance of cessation Hospital Course: The patient is a 61-year-old male with a past medical history of EtOH abuse, nicotine dependence, cannabinoid use disorder, seizure disorder, depression, anxiety, and cataracts. He presented to the emergency department with a chief complaint of generalized weakness. The patient reported drinking heavily and taking his usual shots of whiskey followed by 6 of his Ambien pills a reported suicide attempt. Patient reported taking this medication approximately 4 hours prior to arriving to the emergency department. Patient's reportedly went to check on her finding him slow to respond and confused and she was concerned because he has a history of seizures. Patient reported that he took the 6 Ambien pills because he was trying to go to sleep and could not sleep and he was tired of his ongoing alcohol abuse. Patient states this was a mistake and currently denies having any suicidal ideations. He underwent full evaluation in the emergency department. CBC revealed macrocytic hyperchromic anemia with hemoglobin of 12.7. CMP was unremarkable. Troponin negative at less than 0.012. Urinalysis negative for blood or infection. Serum alcohol 108 and Lactic acid was 2.4 with repeat of 1.8 status post IV fluid bolus. CT head negative for acute intercranial process showing mild atrophy. Chest x-ray revealing some posterior left basilar infiltrate consistent with pneumonia. P sharon was started on Rocephin and azithromycin and admitted under our services with consultation to psychiatry. Psychiatry evaluated and stated patient does not meet criteria for inpatient psychiatric admission and made medication changes by adding trazadone 50 mg daily, increased celexa to 30 mg daily and continuation of naltrexone 50 mg daily. Patient continues to deny having any suicidal ideations. Pt medically stable. Plan is for patient to be discharged home with prescriptions for psychiatric medication changes as well as antibiotic for completion of treatment of pneumonia. It was recommended that pt stop smoking and avoid all alcohol use. Patient to follow-up with [facility] as scheduled Thursday03/19/22. Patient was strongly encouraged to attend inpatient drug and rehabilitation facility, he is declining at this time. Patient given information on substance abuse and outpatient mental health treatment programs and resources available to him. Physical examination: General: non toxic, no distress, appears at stated age Derm: warm, dry Head: atraumatic, normocephalic, symmetric Eyes: EOMI, no lid lag, anicteric sclera Mouth: no lip lesion, mucus membranes moist Cardiovascular: S1S2 reg, no murmur, positive posterior tibial pulse bilateral, Lungs: CTA bilateral, no rhonchi, no rales , no accessory muscle use Abdominal: soft, nontender to palpation, no guarding, no appreciable organomegaly Ext: no gross muscle atrophy, no edema, no contractures Neuro: CN II-XI grossly intact, no focal neuro deficits Psych: Alert, oriented, appropriate affect A total of 35 minutes of time were spent preparing this complex discharge summary. Pt was discharged on 03/12/22 at 12:01 PM. Ilir Wise NP rendered care for this patient independently, reviewed the findings and plan as documented in the note above. I did not physically speak with or examine the patient on this date. Patient Condition at Discharge: Stable Plan - Discharge Summary Discharge Rx Participant: No New Discharge Prescriptions: New Naltrexone HCl [Revia] 50 mg PO DAILY tab Azithromycin [Zithromax] 500 mg PO Q24H 5 Days #5 tab Citalopram Hydrobromide [CeleXA] 30 mg PO DAILY 30 Days #90 tab traZODone HCL [Desyrel] 50 mg PO HS 30 Days #30 tab Continue levETIRAcetam [Keppra] 1,000 mg PO BID@0900,2100 Cyanocobalamin (Vitamin B-12) [Vitamin B-12] 1,000 mcg PO DAILY@0900 prednisoLONE ACETATE 1% OPHTH [Pred Forte 1%] 1 drop LEFT EYE QID Pantoprazole [Protonix] 40 mg PO BID@0900,2200 Ofloxacin 0.3% Ophth Soln [Ocuflox Ophth Soln] 1 drop LEFT EYE QID Meloxicam 15 mg PO DAILY@0900 Multivitamins, Thera [Multivitamin (formulary)] 1 tab PO DAILY@0900 prednisoLONE ACETATE 1% OPHTH [Pred Forte 1%] 1 drop RIGHT EYE BID Ketorolac 0.5% Ophth Soln [Acular 0.5%] 1 drop LEFT EYE QID Mirtazapine 45 mg PO HS@2100 Folic Acid 0.8 mg PO DAILY@0900 Lacosamide [Vimpat] 50 mg PO BID@0900,2100 Discontinued Naltrexone HCl [Revia] 50 mg PO BID@0900,1700 clonazePAM [KlonoPIN] 0.5 mg PO BID@0900,1700 Zolpidem [Ambien] 10 mg PO HS@2100 Citalopram Hydrobromide [Citalopram HBr] 10 mg PO BID@0900,1700 Discharge Medication List levETIRAcetam [Keppra] 1,000 mg PO BID@0900,2100 09/18/19 [History] Cyanocobalamin (Vitamin B-12) [Vitamin B-12] 1,000 mcg PO DAILY@0900 06/15/21 [History] Meloxicam 15 mg PO DAILY@0900 06/15/21 [History] Multivitamins, Thera [Multivitamin (formulary)] 1 tab PO DAILY@0900 06/15/21 [History] Folic Acid 0.8 mg PO DAILY@0900 03/10/22 [History] Ketorolac 0.5% Ophth Soln [Acular 0.5%] 1 drop LEFT EYE QID 03/10/22 [History] Lacosamide [Vimpat] 50 mg PO BID@0900,2100 03/10/22 [History] Mirtazapine 45 mg PO HS@2100 03/10/22 [History] Ofloxacin 0.3% Ophth Soln [Ocuflox Ophth Soln] 1 drop LEFT EYE QID 03/10/22 [History] Pantoprazole [Protonix] 40 mg PO BID@0900,2200 03/10/22 [History] prednisoLONE ACETATE 1% OPHTH [Pred Forte 1%] 1 drop LEFT EYE QID 03/10/22 [History] prednisoLONE ACETATE 1% OPHTH [Pred Forte 1%] 1 drop RIGHT EYE BID 03/10/22 [History] Azithromycin [Zithromax] 500 mg PO Q24H 5 Days #5 tab 03/12/22 [Rx] Citalopram Hydrobromide [CeleXA] 30 mg PO DAILY 30 Days #90 tab 03/12/22 [Rx] Naltrexone HCl [Revia] 50 mg PO DAILY tab 03/12/22 [Rx] traZODone HCL [Desyrel] 50 mg PO HS 30 Days #30 tab 03/12/22 [Rx] Follow up Appointment(s)/Referral(s): Chidi Fajardo MD [REFERRING] - 1 Week Patient Instructions/Handouts: Trazodone (By mouth), Azithromycin (By mouth), Citalopram (By mouth) Activity/Diet/Wound Care/Special Instructions: Activity: As tolerated. Take breaks as needed. Diet: Heart healthy and carb consistent diet. Avoid salts, or foods with hidden salts such as canned or boxed foods and frozen dinners. Extra salt makes your heart work harder and traps the fluid in your body for longer. Special Instructions: Take all of your medications as directed and remember to keep all of your doctor's appointments and follow-up as needed. You have been provided with a 1 month prescription for the medication changes made by psychiatry team. You will need to follow up with [facility] for continued medication management and evaluation. Strongly advised cessation of all alcohol use. Recommended inpatient drug and alcohol rehabilitation center, patient stating he would like to talk over further with before making any decisions. Thank you for allowing us to participate in your care, it was truly a pleasure having you for our patient!!! Discharge/Stand Alone Forms: AA Meetings [facility], Community Resources, Ou tpatient Counseling, Inp Substance Abuse Facilities Discharge Disposition: HOME SELF-CARE
[2022-03-12 12:48] VITALS: BP 133/60; PULSE 59; RESP 18; TEMP 99
--- NOTE | 2022-03-12 13:14 | P.PN ---
Progress Note - Text Progress Note Date: 03/12/22 Interval History: Patient was seen today for psychiatric follow-up. Patient states that he is d oing "better" compared to yesterday. He is denying any depression or anxiety today. He is also denying any withdrawal symptoms at this time. He does go to AA meetings twice a week and we'll continue going on to keep attending the meetings and is not agreeing to go to rehab at this time. We spoke about his medications and he states that he had a difficult time sleeping last night and only got about 4 hours of sleep. He was agreeable to have his trazodone increased to 100 mg. He was informed that she can take 1 Benadryl at home if he continues to have trouble breathing however was not advised to take anymore Ambien at this time. He states that he wants to remain sober and is more future oriented today. Fair appetite. At this time patient denies any suicidal or homical ideations, intent or plan. Patient denies any auditory, visual hallucinations and denies any paranoia or delusions. Patient denies any side effects from the medications and has been compliant with meds. Patient's was also present during conversation and asked questions about his medications and also his follow-up through [facility] in [place] Mental Status Exam: general Appearance: Patient appears to be tall, stated age is alert, appears to be more cooperative. Patient appears to have fair hygiene and grooming wearing hospital gown with fair eye contact. Behavior: Patient is calmly lying in bed without any agitated behavior. Speech: Patient's speech is fluent and nonpressured. Monotone Mood/Affect: Patient reports their mood is "happy", affect is congruent and constricted Suicidality/Homicidality: Patient denies having any suicidal or homicidal ideation intent or plan. Perceptions: Patient denies any visual hallucinations and denies any auditory hallucinations Though content/process: There is no evidence of any delusional thought content and thought process is linear and goal-directed. Hurricane Memory and concentration: AOX3, grossly intact for the purposes of this session. Can spell "WORLD" backwards Judgment and insight: improving mildly IMPRESSIONS: Overdose on medications Alcohol use disorder Cannabis use disorder mild Nicotine dependence History of depressive disorder and anxiety disorder PLAN: -At this time patient DOES NOT meet criteria for inpatient psychiatric admission. -Delirium precautions recommended with patient including - avoiding use of narcotics and [employer] sedatives, limit anticholinergic medications when possible, frequent re-orientation, minimize use of restraints, open window shades during the day and close them at night -Would recommend the following medication changes/additions: Please refrain from prescribing patient benzodiazepines or BZD like sleep meds like ambien as he is well interact with alcohol and lead to possible overdose or delirium, falls etc. Celexa to 30 mg daily for mood/anxiety. Continue Remeron 45 mg daily at bedtime. Increased trazodone 100 mg daily at bedtime for insomnia/mood. Continue naltrexone 50 mg daily for alcohol cravings. -CIWA protocol with PRN Ativan for alcohol withdrawal. Continue to monitor vital signs. -Patient currently follows up with [facility] and was advised to follow up with them in 1-2 weeks. -[employer] Helper spoke with patient about substance abuse and the harmful effects on medical and mental health, patient verbally understood and agreed. -line out worker to provide patient substance use treatment resources including AA/NA meetings in the community. -line out worker to provide patient with access line number to call for inpatient substance rehab -Communicated plan to patient's nurse -at this time psychiatry will sign off. -Please contact with any questions.
[2022-03-12] MEDS ORDERED: traZODone HCL 100 MG TAB PO SCH (21:00)
== END 2022-03-12 14:25 | disposition home or self-care (01) ==
LOC: EC 19:50 → 4SSUR 22:22 → 5NMEDONC 03-11 00:28
PROVIDERS: ADMIT Internal Medicine; ATTEND Internal Medicine
DX: T42.6X2A Poisoning by other antiepileptic and sedative-hypnotic drugs, intentional self-harm, initial encounter (principal); J18.9 Pneumonia, unspecified organism; J96.01 Acute respiratory failure with hypoxia; E87.2 Acidosis; F10.139 Alcohol abuse with withdrawal, unspecified; Y90.5 Blood alcohol level of 100-119 mg/100 ml; G40.909 Epilepsy, unspecified, not intractable, without status epilepticus; H26.9 Unspecified cataract; I10 Essential (primary) hypertension; F32.A Depression, unspecified; G93.40 Encephalopathy, unspecified; D53.9 Nutritional anemia, unspecified; F17.210 Nicotine dependence, cigarettes, uncomplicated; F41.9 Anxiety disorder, unspecified; Z79.1 Long term (current) use of non-steroidal anti-inflammatories (NSAID); Z79.899 Other long term (current) drug therapy; Z91.011 Allergy to milk products; Z82.49 Family history of ischemic heart disease and other diseases of the circulatory system; Z71.6 Tobacco abuse counseling; Z71.41 Alcohol abuse counseling and surveillance of alcoholic
CPT/HCPCS: 96361 ×2; 96372 ×3; 96376; 96365; 99285; 36415; 93005; 80053; 83605 ×2; 83735; 84484; 85025; 85610; 85730; 81003; 87040 ×2; 71046; 70450; G0378 ×2; G0480; J3411; J1650 ×2; J0696 ×2; 80320

== ENCOUNTER 2022-04-08 08:43 | Day surgery (SDC) | payer MEDICARE, OTHER ==
[2022-04-07 10:29] VITALS: BMI 22.2
[~2022-04-08 08:43] MED LIST: LACTATED RINGERS 1,000 ML IV SCH
[2022-04-08 09:35] VITALS: TEMP 97.9
[2022-04-08] MEDS ORDERED: LIDOCAINE 1% (10MG/ML) FOR IV START INTRADERMA ONE (09:35)
[2022-04-08] MEDS ORDERED: PROPOFOL 10 MG/ML 20 ML VIAL IV ONE (10:39)
[2022-04-08] MEDS ORDERED: LIDOCAINE 2% INJ 20 MG/ML (2 ML VIAL) ONE (10:39)
--- NOTE | 2022-04-08 10:53 | P.PCN ---
Date of Procedure: 04/08/22 Procedure(s) Performed: BRIEF HISTORY: Patient is a 61-year-old, pleasant, male scheduled for an upper endoscopy as a part of evaluation of progressive dysphagia to solids for the last 6 months duration.. PROCEDURE PERFORMED: Esophagogastroduodenoscopy with biopsy. PREOPERATIVE DIAGNOSIS: Progressive dysphagia to solids of 6 months duration. IV sedation per anesthesia. PROCEDURE: After informed consent was obtained, the patient was brought into the endoscopy unit. IV sedation was administered by Anesthesia under continuous monitoring. Initially the Olympus GIF-140 video endoscope was inserted into the mouth. Esophagus intubated without any difficulty. It was gradually advanced into the stomach and duodenum and carefully examined. The bulb and the second part of the duodenum appeared normal. The scope at this time was withdrawn to the stomach, adequately insufflated with air, and upon careful examination, mucosa of the antrum, had mild gastritis and biopsies were done from this area. The body, cardia and the fundus appeared normal. The scope was then withdrawn into the esophagus. The GE junction was located at 39 cm from the incisors. The esophagus appeared normal. There were no erosions or ulcerations seen. There was no evidence of esophageal stricture. Multiple biopsies were done from mid and distal esophagus and the patient tolerated the procedure well. IMPRESSION: 1. Normal-appearing esophagus with no evidence of esophagitis or esophageal stricture. 2. Mild antral gastric. RECOMMENDATIONS: The findings of this examination were discussed with the patient as well as his family. He was advised to follow with the biopsy results. If he continues to have persistent dysphagia and he can have a modified barium swallow to evaluate for cricopharyngeal dysfunction versus oropharyngeal dysphagia..
[2022-04-08 11:16] VITALS: BP 162/82; PULSE 66; RESP 18
== END 2022-04-08 11:38 | disposition home or self-care (01) ==
LOC: ORWHC2ENDO 08:43
PROVIDERS: ATTEND Internal Medicine Gastroenterology
DX: K29.50 Unspecified chronic gastritis without bleeding (principal); K20.90 Esophagitis, unspecified without bleeding; F32.A Depression, unspecified; R56.9 Unspecified convulsions; Z91.011 Allergy to milk products; Z79.899 Other long term (current) drug therapy; Z79.1 Long term (current) use of non-steroidal anti-inflammatories (NSAID); F17.200 Nicotine dependence, unspecified, uncomplicated; Z82.49 Family history of ischemic heart disease and other diseases of the circulatory system
CPT/HCPCS: 88305; 43239; J2704; J2001

== ENCOUNTER 2022-06-25 13:10 | Inpatient (IN) | payer MEDICARE, OTHER ==
[2022-06-25] MEDS ORDERED: SODIUM CHLORIDE 0.9% 1,000 ML IV STA (13:45)
[2022-06-25] MEDS ORDERED: SODIUM CHLORIDE 0.9% 1,000 ML IV ONE ×2 (13:45)
--- NOTE | 2022-06-25 13:48 | ED ---
Altered Mental Status HPI - General Chief Complaint: Altered Mental Status Stated Complaint: AMS Time Seen by Provider: 06/25/22 13:36 Source: patient, family, EMS Mode of arrival: EMS Limitations: altered mental status - History of Present Illness Initial Comments: This patient is 61-year-old man brought by ambulance to be evaluated for altered mental status. Most of the history is given from the patient's who is at the bedside, but states she does reside in a different apartment from him. She had seen him last night and he was not feeling well he had had some vomiting last night. She went to check him today and he was not very responsive. He would not get out of bed. He had vomited overnight. When I interview the patient, he denies pain area he denies dyspnea. He does admit vomiting. He did not notice any blood. He is only answering some yes or no questions. Patient did have some alcohol yesterday. MD Complaint: altered mental status, decreased responsiveness -: hour(s) Severity: severe Consistency of Symptoms: getting worse Associated Symptoms: nausea/vomiting - Related Data Home Medications Medication Instructions Recorded Confirmed Cyanocobalamin (Vitamin B-12) 1,000 mcg PO DAILY@0900 06/15/21 04/07/22 [Vitamin B-12] Meloxicam 15 mg PO DAILY@0900 06/15/21 04/07/22 Multivitamins, Thera [Multivitamin 1 tab PO DAILY@0900 06/15/21 04/07/22 (formulary)] Folic Acid 0.8 mg PO DAILY@0900 03/10/22 04/07/22 Mirtazapine 45 mg PO HS@2100 03/10/22 04/07/22 Pantoprazole [Protonix] 40 mg PO BID@0900,2200 03/10/22 04/07/22 Lacosamide [Vimpat] 50 mg PO BID 04/07/22 04/07/22 NIFEdipine [Adalat CC] 30 mg PO DAILY 04/07/22 04/07/22 levETIRAcetam [Keppra] 1,000 mg PO Q12HR 04/07/22 04/07/22 Previous Rx's Medication Instructions Recorded Citalopram Hydrobromide [CeleXA] 30 mg PO DAILY 30 Days #90 tab 03/12/22 Naltrexone HCl [Revia] 50 mg PO DAILY tab 03/12/22 traZODone HCL [Desyrel] 50 mg PO HS 30 Days #30 tab 03/12/22 Allergies Allergy/AdvReac Type Severity Reaction Status Date / Time goat milk Allergy Unknown Uncoded 04/08/22 09:20 Childhood Review of Systems ROS Statement: Those systems with pertinent positive or pertinent negative responses have been documented in the HPI. ROS Other: All systems not noted in ROS Statement are negative. Limitations: ROS unobtainable due to patients medical condition Constitutional: Reports: weakness Respiratory: Denies: dyspnea Cardiovascular: Denies: chest pain Gastrointestinal: Reports: vomiting. Denies: hematemesis Neurological: Denies: headache Past Medical History Past Medical History: Hypertension, Seizure Disorder Additional Past Medical History / Comment(s): ETOH, depression, encephalopathy, left lung collapse History of Any Multi-Drug Resistant Organisms: None Reported Past Surgical History: Orthopedic Surgery Additional Past Surgical History / Comment(s): rt femur Past Anesthesia/Blood Transfusion Reactions: No Reported Reaction Past Psychological History: Depression Past Alcohol Use History: Abuse, Daily - Past Family History Father Family Medical History: Hypertension Mother Family Medical History: No Reported History General Exam Limitations: altered mental status General appearance: obtunded Head exam: Present: atraumatic, normocephalic Eye exam: Present: normal appearance, PERRL, EOMI. Absent: scleral icterus, conjunctival injection ENT exam: Present: mucous membranes dry Neck exam: Present: normal inspection, full ROM. Absent: meningismus Respiratory exam: Present: normal lung sounds bilaterally. Absent: respiratory distress, wheezes, rales, rhonchi, stridor Cardiovascular Exam: Present: regular rate, normal rhythm, normal heart sounds. Absent: systolic murmur, diastolic murmur, rubs, gallop GI/Abdominal exam: Present: soft. Absent: distended, tenderness, guarding, rebound, mass Extremities exam: Present: normal inspection, normal capillary refill. Absent: pedal edema, calf tenderness Back exam: Present: normal inspection. Absent: CVA tenderness (R), CVA tenderness (L) Neurological exam: Present: altered. Absent: motor sensory deficit Skin exam: Present: warm, dry, intact, mottled. Absent: rash Course Vital Signs 06/25/22 06/25/22 06/25/22 13:16 13:45 13:54 Temperature 97.7 F Pulse Rate 88 70 56 L Respiratory 16 16 16 Rate Blood Pressure 123/79 76/52 65/47 O2 Sat by Pulse 98 96 97 Oximetry 06/25/22 06/25/22 13:55 15:24 Temperature Pulse Rate 71 67 Respiratory 16 18 Rate Blood Pressure 158/91 155/86 O2 Sat by Pulse 97 96 Oximetry Medical Decision Making - Lab Data Result diagrams: 06/25/22 13:51 06/25/22 13:51 Lab Results 06/25/22 06/25/22 06/25/22 Range/Units 13:51 13:51 13:51 WBC 7.5 (3.8-10.6) k/uL RBC 4.17 L (4.30-5.90) m/uL Hgb 15.0 (13.0-17.5) gm/dL Hct 41.5 (39.0-53.0) % MCV 99.6 (80.0-100.0) fL MCH 35.9 H (25.0-35.0) pg MCHC 36.1 (31.0-37.0) g/dL RDW 12.5 (11.5-15.5) % Plt Count 275 (150-450) k/uL MPV 8.0 Neutrophils % 87 % Lymphocytes % 8 % Monocytes % 4 % Eosinophils % 0 % Basophils % 1 % Neutrophils # 6.5 (1.3-7.7) k/uL Lymphocytes # 0.6 L (1.0-4.8) k/uL Monocytes # 0.3 (0-1.0) k/uL Eosinophils # 0.0 (0-0.7) k/uL Basophils # 0.0 (0-0.2) k/uL PT 11.5 (9.0-12.0) sec INR 1.1 (<1.2) APTT 23.5 (22.0-30.0) sec Sodium 142 (137-145) mmol/L Potassium 3.7 (3.5-5.1) mmol/L Chloride 106 (98-107) mmol/L Carbon Dioxide 21 L (22-30) mmol/L Anion Gap 15 mmol/L BUN 13 (9-20) mg/dL Creatinine 0.76 (0.66-1.25) mg/dL Est GFR (CKD-EPI)AfAm >90 (>60 ml/min/1.73 sqM) Est GFR (CKD-EPI)NonAf >90 (>60 ml/min/1.73 sqM) Glucose 148 H (74-99) mg/dL Calcium 9.1 (8.4-10.2) mg/dL Total Bilirubin 0.8 (0.2-1.3) mg/dL AST 55 (17-59) U/L ALT 33 (4-49) U/L Alkaline Phosphatase 109 (38-126) U/L Ammonia (<30) umol/L Troponin I (0.000-0.034) ng/mL Total Protein 7.3 (6.3-8.2) g/dL Albumin 4.7 (3.5-5.0) g/dL Urine Color Urine Appearance (Clear) Urine pH (5.0-8.0) Ur Specific [place] (1.001-1.035) Urine Protein (Negative) Urine Glucose (UA) (Negative) Urine Ketones (Negative) Urine Blood (Negative) Urine Nitrite (Negative) Urine Bilirubin (Negative) Urine Urobilinogen (<2.0) mg/dL Ur Leukocyte Esterase (Negative) Urine Opiates Screen (NotDetected) Ur Oxycodone Screen (NotDetected) Urine Methadone Screen (NotDetected) Ur Propoxyphene Screen (NotDetected) Ur Barbiturates Screen (NotDetected) U Tricyclic Antidepress (NotDetected) Ur Phencyclidine Scrn (NotDetected) Ur Amphetamines Screen (NotDetected) U Methamphetamines Scrn (NotDetected) U Benzodiazepines Scrn (NotDetected) Urine Cocaine Screen (NotDetected) U Marijuana (THC) Screen (NotDetected) Serum Alcohol 81 mg/dL 06/25/22 06/25/22 06/25/22 Range/Units 13:51 13:51 15:11 WBC (3.8-10.6) k/uL RBC (4.30-5.90) m/uL Hgb (13.0-17.5) gm/dL Hct (39.0-53.0) % MCV (80.0-100.0) fL MCH (25.0-35.0) pg MCHC (31.0-37.0) g/dL RDW (11.5-15.5) % Plt Count (150-450) k/uL MPV Neutrophils % % Lymphocytes % % Monocytes % % Eosinophils % % Basophils % % Neutrophils # (1.3-7.7) k/uL Lymphocytes # (1.0-4.8) k/uL Monocytes # (0-1.0) k/uL Eosinophils # (0-0.7) k/uL Basophils # (0-0.2) k/uL PT (9.0-12.0) sec INR (<1.2) APTT (22.0-30.0) sec Sodium (137-145) mmol/L Potassium (3.5-5.1) mmol/L Chloride (98-107) mmol/L Carbon Dioxide (22-30) mmol/L Anion Gap mmol/L BUN (9-20) mg/dL Creatinine (0.66-1.25) mg/dL Est GFR (CKD-EPI)AfAm (>60 ml/min/1.73 sqM) Est GFR (CKD-EPI)NonAf (>60 ml/min/1.73 sqM) Glucose (74-99) mg/dL Calcium (8.4-10.2) mg/dL Total Bilirubin (0.2-1.3) mg/dL AST (17-59) U/L ALT (4-49) U/L Alkaline Phosphatase (38-126) U/L Ammonia 27 (<30) umol/L Troponin I 0.014 (0.000-0.034) ng/mL Total Protein (6.3-8.2) g/dL Albumin (3.5-5.0) g/dL Urine Color Colorless Urine Appearance Clear (Clear) Urine pH 7.0 (5.0-8.0) Ur Specific Gaston 1.010 (1.001-1.035) Urine Protein Negative (Negative) Urine Glucose (UA) Negative (Negative) Urine Ketones Negative (Negative) Urine Blood Negative (Negative) Urine Nitrite Negative (Negative) Urine Bilirubin Negative (Negative) Urine Urobilinogen <2.0 (<2.0) mg/dL Ur Leukocyte Esterase Negative (Negative) Urine Opiates Screen Not Detected (NotDetected) Ur Oxycodone Screen Not Detected (NotDetected) Urine Methadone Screen Not Detected (NotDetected) Ur Propoxyphene Screen Not Detected (NotDetected) Ur Barbiturates Screen Not Detected (NotDetected) U Tricyclic Antidepress Not Detected (NotDetected) Ur Phencyclidine Scrn Not Detected (NotDetected) Ur Amphetamines Screen Not Detected (NotDetected) U Methamphetamines Scrn Not Detected (NotDetected) U Benzodiazepines Scrn Not Detected (NotDetected) Urine Cocaine Screen Not Detected (NotDetected) U Marijuana (THC) Screen Detected H (NotDetected) Serum Alcohol mg/dL - EKG Data -: EKG Interpreted by Nv EKG shows normal: sinus rhythm, axis (Normal), intervals (Normal), QRS complexes (Normal), ST-T waves (Normal) Rate: normal (Rate 70 bpm) Interpretation: normal EKG Disposition Clinical Impression: Altered mental status Disposition: HOME SELF-CARE Condition: Good Instructions (If sedation given, give patient instructions): Altered Mental Status (ED) Is patient prescribed a controlled substance at d/c from ED?: No Referrals: None,Stated [Primary Care Provider] - 1-2 days
[2022-06-25 14:03] LABS: Basophils % (A) 1 %; Eosinophils % (A) 0 %; HCT 41.5 % (39.0-53.0); Lymphocytes # (A) 0.6 k/uL (1.0-4.8); Lymphocytes % (A) 8 %; MCH 35.9 pg (25.0-35.0); MCHC 36.1 g/dL (31.0-37.0); MCV 99.6 fL (80.0-100.0); Monocytes # (A) 0.3 k/uL (0-1.0); Monocytes % (A) 4 %; Neutrophils # (A) 6.5 k/uL (1.3-7.7); Neutrophils % (A) 87 %; Platelet Count 275 k/uL (150-450); RBC 4.17 m/uL (4.30-5.90); RDW 12.5 % (11.5-15.5); WBC 7.5 k/uL (3.8-10.6)
[2022-06-25 14:12] LABS: INR 1.1 (<1.2); Partial Thromboplastin Time 23.5 sec (22.0-30.0); Prothrombin Time 11.5 sec (9.0-12.0)
[2022-06-25 14:15] LABS: ALT 33 U/L (4-49); AST 55 U/L (17-59); African American GFR (CKD) >90 (>60 ml/min/1.73 sqM); Albumin 4.7 g/dL (3.5-5.0); Alkaline Phosphatase 109 U/L (38-126); Anion Gap 15 mmol/L; Blood Urea Nitrogen 13 mg/dL (9-20); Calcium 9.1 mg/dL (8.4-10.2); Carbon Dioxide 21 mmol/L (22-30); Chloride 106 mmol/L (98-107); Glucose 148 mg/dL (74-99); Non-African American GFR(CKD) >90 (>60 ml/min/1.73 sqM); Sodium 142 mmol/L (137-145); Total Bilirubin 0.8 mg/dL (0.2-1.3); Total Protein 7.3 g/dL (6.3-8.2)
[2022-06-25 14:38] LABS: Alcohol 81 mg/dL; Potassium 3.7 mmol/L (3.5-5.1)
--- NOTE | 2022-06-25 14:38 | XR ---
EXAMINATION TYPE: XR chest 2V DATE OF EXAM: 06/25/2022 COMPARISON: Chest x-ray March 10, 2022 HISTORY: Altered mental status and weakness. TECHNIQUE: Frontal and lateral views of the chest are obtained. FINDINGS: There is chronic prominence and parenchymal changes bilaterally without suspicious focal a ir space opacity, pleural effusion, or pneumothorax seen. The cardiac silhouette size is stable and mildly enlarged. The osseous structures are intact. Overlying EKG leads are seen on current study. IMPRESSION: Chronic changes and mild cardiomegaly without acute pulmonary process.
[2022-06-25 15:24] LABS: Appearance,Urine Clear (Clear); Bilirubin,Urine Negative (Negative); Blood,Urine Negative (Negative); Color,Urine Colorless; Glucose,Urine (UA) Negative (Negative); Ketones,Urine Negative (Negative); Leukocyte Esterase,Urine Negative (Negative); Nitrite,Urine Negative (Negative); Protein,Urine Negative (Negative); Urobilinogen,Urine <2.0 mg/dL (<2.0)
[2022-06-25 15:33] LABS: Cocaine Screen,Urine Not Detected (NotDetected); Phencyclidine Screen,Urine Not Detected (NotDetected); Urn Cannabinoid Scrn Detected (NotDetected)
[2022-06-25 15:34] LABS: Amphetamine Screen,Urine Not Detected (NotDetected); Barbiturate Screen,Urine Not Detected (NotDetected); Benzodiazepines Screen,Urine Not Detected (NotDetected); Methadone Screen, Urine Not Detected (NotDetected); Opiate Screen,Urine Not Detected (NotDetected); Oxycodone Screen, Urine Not Detected (NotDetected); Tricyclic Antidepressant,Urine Not Detected (NotDetected)
--- NOTE | 2022-06-25 16:16 | CT ---
EXAMINATION TYPE: CT brain zack veliz con DATE OF EXAM: 06/25/2022 COMPARISON: 03/10/22 HISTORY: ams CT DLP: 1561.[address] of the brain was performed. The ventricles, basal cisterns and sulci overlying the cerebral convexities demonstrate mild enlargem ent. There is no evidence for intracranial hemorrhage or sulcal effacement. There is decreased attenuatio n about the periventricular white matter and deep white matter of both cerebral hemispheres, compatib le with chronic small vessel ischemia. No mass effects are seen. If symptoms persist consider MRI. Osseous calvarium is intact. IMPRESSION: 1. Age related atrophic and chronic small vessel ischemic change without acute intracranial process seen at this time. CT Cervical Spine: Unenhanced CT of the cervical spine was performed with bone and soft tissue window settings submitted . Coronal and sagittal reconstruction is obtained. There is normal alignment and prevertebral soft tissues. No evidence for acute cervical fracture . Scattered degenerative disc disease and spondylosis. Biapical scarring. IMPRESSION: 1. No evidence for acute fracture or subluxation of the cervical spine.
[2022-06-25] MEDS ORDERED: LACOSAMIDE 50 MG TABLET PO STA (16:25)
[2022-06-25] MEDS ORDERED: levETIRAcetam 500 MG TAB PO STA (16:26)
[2022-06-25] MEDS ORDERED: NALOXONE 0.4 MG/ML 1 ML VIAL IV PRN (17:26)
[2022-06-25] MEDS ORDERED: ACETAMINOPHEN TAB 325 MG TAB PO PRN (17:26)
[2022-06-25] MEDS ORDERED: LORazepam 2 MG/ML INJ IV PRN ×3 (17:31)
[2022-06-25] MEDS ORDERED: chlordiazePOXIDE 25 MG CAP PO PRN (17:31)
[2022-06-25] MEDS ORDERED: THIAMINE 100 MG/ML 2 ML VIAL IM STA (17:31)
[2022-06-25] MEDS: SODIUM CHLORIDE 0.9% 1,000 ML IV SCH (18:21)
[2022-06-25] MEDS ORDERED: LORazepam 1 MG/0.5 ML VIAL IV PRN ×2 (20:21→20:22)
[2022-06-25] MEDS: LORazepam 1 MG/0.5 ML VIAL IV PRN (20:54)
[2022-06-25] MEDS: FAMOTIDINE 20 MG TAB PO SCH (22:10)
--- NOTE | 2022-06-26 03:01 | P.HPIM ---
History of Present Illness H&P Date: 06/25/22 Chief Complaint: evaluation for altered mental status 61 year old male with hypertension , seizure. patient is very poor historian , during my interview , he seems sleepy , but easily arousable , answering questions properly. he denies any complaints at this time, except that he feels tired and sleepy. he denies any chest pain , trouble breathing, URI symptoms, abd pain , nausea or vomiting, diarrhea or GI bleeding. however, he does report an episode of vomiting last night , and occasional rectal bleeding from known hemorrhoids. per ED note, was visiting the patient (they live in separate houses) and she found him unusually less responsive today. she was concerned and notified EMS. patient does admit to daily alcohol drinking, his last drink was this morning. blood work in the ED overall was unremarkable , alcohol level was 81 , urine drug screen positive for Marijuana CT of the Head and CT of the cervical spine both without any acute abnormalities CXR no acute disease Review of Systems Pertinent positives as noted in HPI. All other systems were reviewed and are negative Past Medical History Past Medical History: Hypertension, Seizure Disorder Additional Past Medical History / Comment(s): ETOH, depression, encephalopathy, left lung collapse History of Any Multi-Drug Resistant Organisms: None Reported Past Surgical History: Orthopedic Surgery Additional Past Surgical History / Comment(s): rt femur Past Anesthesia/Blood Transfusion Reactions: No Reported Reaction Past Psychological History: Depression Past Alcohol Use History: Abuse, Daily - Past Family History Father Family Medical History: Hypertension Mother Family Medical History: No Reported History Medications and Allergies Home Medications Medication Instructions Recorded Confirmed Type Cyanocobalamin (Vitamin B-12) 1,000 mcg PO DAILY 06/15/21 06/25/22 History [Vitamin B-12] Meloxicam 15 mg PO DAILY 06/15/21 06/25/22 History Multivitamins, Thera [Multivitamin 1 tab PO DAILY 06/15/21 06/25/22 History (formulary)] Folic Acid 0.8 mg PO DAILY 03/10/22 06/25/22 History Mirtazapine 45 mg PO HS 03/10/22 06/25/22 History Pantoprazole [Protonix] 40 mg PO BID 03/10/22 06/25/22 History Naltrexone HCl [Revia] 50 mg PO DAILY tab 03/12/22 06/25/22 Rx traZODone HCL [Desyrel] 50 mg PO HS 30 Days #30 tab 03/12/22 06/25/22 Rx Lacosamide [Vimpat] 50 mg PO BID 04/07/22 06/25/22 History NIFEdipine [Adalat CC] 30 mg PO DAILY 04/07/22 06/25/22 History levETIRAcetam [Keppra] 1,000 mg PO BID 04/07/22 06/25/22 History Allergies Allergy/AdvReac Type Severity Reaction Status Date / Time goat milk Allergy Unknown Uncoded 06/25/22 17:57 Childhood Physical Exam Vitals: Vital Signs Temp Pulse Resp BP Pulse Ox 06/25/22 17:12 90 18 157/95 98 06/25/22 15:24 67 18 155/86 96 06/25/22 13:55 71 16 158/91 97 06/25/22 13:54 56 L 16 65/47 97 06/25/22 13:45 70 16 76/52 96 06/25/22 13:16 97.7 F 88 16 123/79 98 Intake and Output 06/25/22 06/25/22 06/25/22 06:59 14:59 22:59 Other: Weight 81.647 kg Constitutional: No acute distress, sleepy but easily arousable answers questions properly , conversant and cooperative Eyes: Anicteric sclerae, moist conjunctiva, Pupils equal round reactive to light ENMT: NC/AT Oropharynx clear, no erythema, or exudates Neck: Supple, no masses, or JVD No carotid bruits No thyromegaly Lungs: Clear to auscultation Clear to percussion Normal respiratory effort, no accessory muscle use Cardiovascular: Heart regular in rate and rhythm, No murmurs, gallops, or rubs No peripheral edema Abdominal: Soft Nontender, no guarding, rebound or rigidity Abdomen moving with respiration Normoactive bowel sounds No hepatomegaly, No splenomegaly No palpable mass No abdominal wall hernia noted Skin: Normal temperature, tone, texture, turgor No induration No subcutaneous nodules No rash, lesions No ulcers Extremities: No digital cyanosis No clubbing Pedal pulses intact and symmetrical Radial pulses intact and symmetrical No calf tenderness Psychiatric: Alert and oriented to person, place and time Appropriate affect fair judgement Neuro Muscles Strength 5/5 in all 4 extremities Sensation to light touch grossly present throughout Cranial nerves II-XII grossly intact Lymphatics: no palpable cervical or supraclavicular lymph nodes Results CBC & Chem 7: 06/25/22 13:51 06/25/22 13:51 Labs: Abnormal Lab Results - Last 24 Hours (Table) 06/25/22 06/25/22 06/25/22 Range/Units 13:51 13:51 15:11 RBC 4.17 L (4.30-5.90) m/uL MCH 35.9 H (25.0-35.0) pg Lymphocytes # 0.6 L (1.0-4.8) k/uL Carbon Dioxide 21 L (22-30) mmol/L Glucose 148 H (74-99) mg/dL U Marijuana (THC) Screen Detected H (NotDetected) Assessment and Plan Assessment: acute metabolic encephalopathy , rule out breakthrough seizures chronic alcohol dependance and abuse resume keppra seizure and fall precautions neuro checks monitor for alcohol withdrawal syndrome Benzo per CIWA thiamine IVF hydration with normal saline PPI daily chronic conditions hypertension seizure , possible breakthrough seizure with post ictal confusion , resume keppra verify home meds neuro consult full code DVT PPX mechanical
[2022-06-26] MEDS: PANTOPRAZOLE 40 MG TABLET PO SCH ×2 (07:23→16:41)
[2022-06-26] MEDS: SODIUM CHLORIDE 0.9% 1,000 ML IV SCH ×2 (07:24→21:02)
[2022-06-26] MEDS: THIAMINE 100 MG TAB PO SCH (09:00)
[2022-06-26] MEDS: FAMOTIDINE 20 MG TAB PO SCH ×2 (09:00→21:10)
[2022-06-26] MEDS: levETIRAcetam 500 MG TAB PO SCH ×2 (09:00→21:09)
[2022-06-26] MEDS ORDERED: SODIUM CHLORIDE 0.9% 1,000 ML IV ONE (09:01)
[2022-06-26] MEDS: LORazepam 1 MG/0.5 ML VIAL IV PRN (11:55)
--- NOTE | 2022-06-26 13:01 | P.PN ---
Subjective Progress Note Date: 06/26/22 Patient's mentation is improving, now interacting with interview appropriately. Pending neurology consultation Gen: awake, alert HEENT: normocephalic, atraumatic, good hearing acuity, moist mucous membranes Resp: good air exchange, breathing comfortably with no accessory muscle use CVS: good distal perfusion x 4, GI: soft, NTTP, ND : no SPT, no CVAT, landeros catheter not present MSK: no pitting edema, no clubbing Neuro: non-focal, moving all extremities Psych: cooperative, euthymic mood acute metabolic encephalopathy , rule out breakthrough seizures chronic alcohol dependance and abuse resume keppra seizure and fall precautions neuro checks monitor for alcohol withdrawal syndrome Benzo per CIWA thiamine IVF hydration with normal saline PPI daily chronic conditions hypertension seizure , possible breakthrough seizure with post ictal confusion , resume keppra neuro consult full code DVT PPX mechanical Objective - Vital Signs Vital signs: Vital Signs Temp 98.1 F 06/26/22 08:56 Pulse 68 06/26/22 11:38 Resp 18 06/26/22 11:38 BP 172/81 06/26/22 11:38 Pulse Ox 99 06/26/22 11:38 FiO2 Intake & Output 06/25/22 06/26/22 06/26/22 18:59 06:59 18:59 Intake Total 118 Output Total 950 200 Balance -950 -82 Weight 81.647 kg 81.647 kg Intake: Oral 118 Output: Urine 950 200 Other: Voiding Method Urinal Urinal - Labs CBC & Chem 7: 06/25/22 13:51 06/25/22 13:51 Labs: Abnormal Lab Results - Last 24 Hours (Table) 06/25/22 06/25/22 06/25/22 Range/Units 13:51 13:51 15:11 RBC 4.17 L (4.30-5.90) m/uL MCH 35.9 H (25.0-35.0) pg Lymphocytes # 0.6 L (1.0-4.8) k/uL Carbon Dioxide 21 L (22-30) mmol/L Glucose 148 H (74-99) mg/dL U Marijuana (THC) Screen Detected H (NotDetected) Microbiology - Last 24 Hours (Table) 06/25/22 13:35 Blood Culture Gram Stain - Preliminary Blood 06/25/22 13:35 Blood Culture - Final Blood
[2022-06-26] MEDS ORDERED: NIFEdipine XL 30 MG TAB.ER.24 PO STA (14:21)
--- NOTE | 2022-06-26 14:41 | P.CNNES ---
History of Present Illness Consult date: 06/26/22 Requesting physician: Tom Vines Reason for Consult: Altered mental status History of Present Illness: Patient is a 61-year-old male, with history of seizure disorder, alcoholism, came to the hospital by ambulance yesterday at 1:10 PM. As per EMS flow sheet when they arrived, patient was complaining of being cold and tired and just wanted to be left alone. Neighbors came to check on him because she has not seen him that day and she believes that he was not acting like himself. Patient normally takes care of himself but she stated that she helps him from time to time. Patient has history of alcohol abuse and has been in treatment for it. Patient mentioned that he was not feeling well yesterday afternoon and has not had anything to eat since 1 PM yesterday. Patient did admit he vomited once but did not answer many questions. Patient denied alcohol but he had alcohol breath. No alcohol was noted in his apartment. Patient was laying in the bed trying to sleep and would not talk to the EMS. Patient was not cooperative, would not follow simple commands like squeezing hands. He only answered basic questions as a day and location. Patient's blood pressure was 190/110, which came down to 144/84. Pulse rate 70, respirations 16 saturation 96% and blood sugar 195. Patient's blood test shows normal CBC, PT/PTT, normal CMP. UA is negative, urine drug screen positive for marijuana. Blood alcohol level 81. Patient has been hospitalized previously for alcohol intoxication's. CT head showed age-related atrophic and chronic small vessel ischemic change without acute intracranial process. I could not see the films personally in the computer because the radiology systems synapse is down. CT of the cervical spine showed no evidence for acute fracture or subluxation of the cervical spine. EKG shows sinus rhythm. Chest x-ray revealed chronic changes and mild cardiomegaly without acute cardiopulmonary process. I spoke to patient's on the phone. Patient and his both admitted that patient has not had any seizures for over a year. He is currently on Vimpat 50 mg twice a day and Keppra 1000 mg twice a day. Patient's mentioned that she saw him the night prior at 6 PM at dinner and he was fine. Yesterday she found him at 1 PM and he was not like himself. He had thrown up. He was shaking. He has mentioned that he has tried to some take extra tablets of seizure medication to help sleep, and also admitted to taking more than usual amount of alcohol. Patient admitted that he took more than usual office seizure medication to help him sleep. He admits to drinking alcohol and drinks about half a pint daily. However yesterday he drank 2 half pints of fire ball whiskey. Which is more than usual. He smokes weed every day but states "not a lot". He smokes one pack per day since age 16. Patient states that since all this happened, he has been feeling very dizzy, and the room spins when he tries to get up. Patient states that when he stands up, he is scared of falling. He did not eat breakfast. His stomach feels funny. He feels unstable. Review of Systems Constitutional: Denies chills, Denies fever Eyes: denies blurred vision, denies pain Ears: deny: earache Ears, nose, mouth and throat: Denies headache, Denies sore throat Cardiovascular: Denies chest pain, Denies shortness of breath Respiratory: Denies cough Gastrointestinal: Reports abdominal pain, Reports nausea, Denies diarrhea, Denies vomiting Musculoskeletal: Denies myalgias Integumentary: Denies pruritus, Denies rash Neurological: Reports as per HPI Psychiatric: Reports depression, Reports insomnia Endocrine: Denies fatigue, Denies weight change Hematologic/Lymphatic: Denies easy bruising Allergic/Immunologic: Denies persistent infections Past Medical History Past Medical History: Hypertension, Seizure Disorder Additional Past Medical History / Comment(s): ETOH, depression, encephalopathy, left lung collapse History of Any Multi-Drug Resistant Organisms: None Reported Past Surgical History: Orthopedic Surgery Additional Past Surgical History / Comment(s): rt femur Past Anesthesia/Blood Transfusion Reactions: No Reported Reaction Past Psychological History: Depression Past Alcohol Use History: Abuse, Daily - Past Family History Father Family Medical History: Hypertension Mother Family Medical History: No Reported History Medications and Allergies Home Medications Medication Instructions Recorded Confirmed Type Cyanocobalamin (Vitamin B-12) 1,000 mcg PO DAILY 06/15/21 06/25/22 History [Vitamin B-12] Meloxicam 15 mg PO DAILY 06/15/21 06/25/22 History Multivitamins, Thera [Multivitamin 1 tab PO DAILY 06/15/21 06/25/22 History (formulary)] Folic Acid 0.8 mg PO DAILY 03/10/22 06/25/22 History Mirtazapine 45 mg PO HS 03/10/22 06/25/22 History Pantoprazole [Protonix] 40 mg PO BID 03/10/22 06/25/22 History Naltrexone HCl [Revia] 50 mg PO DAILY tab 03/12/22 06/25/22 Rx traZODone HCL [Desyrel] 50 mg PO HS 30 Days #30 tab 03/12/22 06/25/22 Rx Lacosamide [Vimpat] 50 mg PO BID 04/07/22 06/25/22 History NIFEdipine [Adalat CC] 30 mg PO DAILY 04/07/22 06/25/22 History levETIRAcetam [Keppra] 1,000 mg PO BID 04/07/22 06/25/22 History Acetaminophen Tab [Tylenol] 650 mg PO Q6HR PRN tab 06/27/22 Rx Famotidine [Pepcid] 20 mg PO BID tab 06/27/22 Rx Thiamine [Vitamin B-1] 100 mg PO DAILY tab 06/27/22 Rx Allergies Allergy/AdvReac Type Severity Reaction Status Date / Time goat milk Allergy Unknown Uncoded 06/25/22 17:57 Childhood Physical Examination - Vital Signs Vital Signs: Vital Signs Temp Pulse Pulse Resp BP BP Pulse Ox 06/26/22 01:30 98.7 F 76 16 164/90 97 06/25/22 19:30 98.4 F 71 16 168/90 98 06/25/22 17:12 90 18 157/95 98 06/25/22 15:24 67 18 155/86 96 06/25/22 13:55 71 16 158/91 97 06/25/22 13:54 56 L 16 65/47 97 06/25/22 13:45 70 16 76/52 96 06/25/22 13:16 97.7 F 88 16 123/79 98 Intake and Output 06/25/22 06/26/22 06/26/22 22:59 06:59 14:59 Intake Total 118 Output Total 950 Balance -950 118 Intake: Oral 118 Output: Urine 950 Other: Voiding Method Urinal Weight 81.647 kg Patient is a middle aged male, in no acute distress. Patient is alert awake oriented to time place and person. Speech and language functions are normal. Patient can name and repeat very well. No aphasia or dysarthria. Attention, concentration and fund of knowledge is adequate. On cranial nerve examination, pupils are equal, round and reacting to light, visual scott are full on confrontation, with no neglect on double simultaneous stimulation. Extraocular muscles are intact with no nystagmus. Face is symmetric, tongue protrudes to the midline. Palatal elevation and sensation normal, hearing and shoulder shrug normal, facial sensation normal. On muscle strength testing, there is no pronator drift and the strength is normal in arms and legs distally and proximally. Deep tendon reflexes are symmetric biceps 2+, brachioradialis 2+, knees 2+, ankles 1+ and plantars downgoing bilaterally. Sensory to touch is equal with no neglect on double simultaneous stimulation. Cerebellar function showed no ataxia for [id number] testing. No dysdiadochokinesia. No ataxia for byrq-sj-[id number] testing on either side. Tone and bulk of muscles normal. Gait deferred.. On general examination, there is no carotid bruit or murmur, S1-S2 audible. Chest is clear on consultation. Abdomen is soft nontender. No organomegaly, bowel sounds present. Peripheral pulses are present. No edema. Results - Laboratory Findings CBC and BMP: 06/25/22 13:51 06/25/22 13:51 Abnormal Lab Findings: Abnormal Labs 06/25/22 06/25/22 06/25/22 13:51 13:51 15:11 RBC 4.17 L MCH 35.9 H Lymphocytes # 0.6 L Carbon Dioxide 21 L Glucose 148 H U Marijuana (THC) Screen Detected H Assessment and Plan Assessment: * Seizure disorder, currently in remission. Patient has not had any seizures for over a year. Patient's current altered mental status likely because of drinking more than usual, and taking seizure medication more than usual help sleep. * Alcoholism * Tobacco use * Marijuana use * Hypertension Plan: * Patient underwent EEG, which was mildly abnormal because of mild background slowing, suggestive of mild encephalopathy. No epileptiform activity was seen. * Recommend continue same dose of his seizure medication Vimpat 50 mg twice a day and Keppra 1000 mg twice a day. No need to change seizure medication dose, as there is no evidence of breakthrough seizure, and his current symptoms likely because of drinking alcohol more than usual. * Patient complaining of dizziness, which could be from medication side effect, as he took extra doses of seizure medications to help sleep. * Neurologically clear, if the dizziness resolves. Discussed with primary physician. * Thank you for the consult.
[2022-06-26] MEDS ORDERED: MECLIZINE 12.5 MG TAB PO PRN (15:19)
[2022-06-26] MEDS ORDERED: MIRTAZAPINE 45 MG TABLET PO SCH (21:00)
[2022-06-26] MEDS ORDERED: traZODone HCL 50 MG TAB PO SCH (21:00)
[2022-06-26] MEDS: LACOSAMIDE 50 MG TABLET PO SCH (21:09)
--- NOTE | 2022-06-27 00:10 | EEG ---
ELECTROENCEPHALOGRAM REPORT PREAMBLE: This is a 61-year-old male with history of seizure disorder. EEG FINDINGS: This is a 21-channel digital EEG recorded with video component, utilizing 10/20 international system with referential and bipolar montages. Background consists of well developed, well regulated, moderate voltage activity in mixed 7 hertz theta with some 8 hertz alpha with some fast frequency beta activity seen in bihemispheric region. Background is posterior dominant and reactive to eye opening and closing. Photic driving response was seen. Some drowsiness was seen with appearance of bilaterally symmetric theta frequency rhythm. Deeper stages of sleep were not seen. No focal or generalized epileptiform activity was seen. IMPRESSION: This is an abnormal EEG due to background slowing of mild degree. This is suggestive of generalized cerebral dysfunction as can be seen with encephalopathy or medication effect. No epileptiform activity was seen. MMHALLEL / IJN: [id number] /
[2022-06-27] MEDS: PANTOPRAZOLE 40 MG TABLET PO SCH (06:34)
[2022-06-27 08:18] VITALS: RESP 18
[2022-06-27] MEDS ORDERED: NALTREXONE HCL 50 MG TAB PO SCH (09:00)
[2022-06-27] MEDS ORDERED: MULTIVITAMINS, THERA 1 EACH TAB PO SCH (09:00)
[2022-06-27] MEDS ORDERED: NIFEdipine XL 30 MG TAB.ER.24 PO SCH (09:00)
[2022-06-27] MEDS ORDERED: CYANOCOBALAMIN 500 MCG TAB PO SCH (09:00)
[2022-06-27] MEDS ORDERED: MELOXICAM 7.5 MG TAB PO SCH (09:00)
[2022-06-27] MEDS ORDERED: FOLIC ACID 1 MG TAB PO SCH (09:00)
[2022-06-27] MEDS: LACOSAMIDE 50 MG TABLET PO SCH (09:58)
[2022-06-27] MEDS: THIAMINE 100 MG TAB PO SCH (09:59)
[2022-06-27] MEDS: levETIRAcetam 500 MG TAB PO SCH (09:59)
[2022-06-27] MEDS: FAMOTIDINE 20 MG TAB PO SCH (09:59)
[2022-06-27] MEDS: SODIUM CHLORIDE 0.9% 1,000 ML IV SCH (10:00)
--- NOTE | 2022-06-27 11:51 | P.DS ---
Providers Date of admission: 06/25/22 17:29 Expected date of discharge: 06/27/22 Attending physician: Milka Mar MD Consults: 06/25/22 17:26 Consult Physician Routine Consulting Provider: Abhishek Freeman Consult Reason/Comments: Altered mental status Do you want consulting provider notified?: Yes Primary care physician: Stated None Hospital Course: Acute metabolic encephalopathy Chronic alcohol dependance and abuse Hypertension Seizure 61 year old male with hypertension, seizure presented with altered mental status in the context of drinking alcohol and having a background of seizure disorder. In the emergency room, patient is afebrile, 123/79, heart rate 88, 98% on room air. CBC was unremarkable. Chemistries were unremarkable. UA was unremarkable. Urine tox was positive for marijuana. Alcohol level is 81. EKG shows sinus rhythm. Chest x-ray showed chronic changes of mild cardiomegaly without any acute pulmonary process. Head and spine CT showed age-related atrophic changes and chronic small vessel ischemic change without acute intracranial process as well as a normal C-spine. Patient was subsequently admitted for observation and neurology workup. Patient's mentation improved after 24 hours in the hospital and improved again after 48 back to normal. Patient provided additional history that he had taken additional doses of his seizure medication because he is having trouble sleeping. He says his been trying to stop drinking and recently fell off the wagon, is motivated to return to sobriety. EEG was also done to rule out breakthrough seizures and this was negative. Patient will follow-up with alcohol anonymous, primary care physician, [facility]. I spent 34 minutes coordinating this complex discharge, discharge date 06/27 Gen: awake, alert HEENT: normocephalic, atraumatic, good hearing acuity, moist mucous membranes Resp: good air exchange, breathing comfortably with no accessory muscle use CVS: good distal perfusion x 4, GI: soft, NTTP, ND : no SPT, no CVAT, lnaderos catheter not present MSK: no pitting edema, no clubbing Neuro: non-focal, moving all extremities Psych: cooperative, euthymic mood Patient Condition at Discharge: Good Plan - Discharge Summary Discharge Rx Participant: No New Discharge Prescriptions: New Famotidine [Pepcid] 20 mg PO BID tab Thiamine [Vitamin B-1] 100 mg PO DAILY tab Acetaminophen Tab [Tylenol] 650 mg PO Q6HR PRN tab PRN Reason: Mild Pain Or Fever > 100.5 Continue Cyanocobalamin (Vitamin B-12) [Vitamin B-12] 1,000 mcg PO DAILY Pantoprazole [Protonix] 40 mg PO BID Naltrexone HCl [Revia] 50 mg PO DAILY tab levETIRAcetam [Keppra] 1,000 mg PO BID NIFEdipine [Adalat CC] 30 mg PO DAILY Meloxicam 15 mg PO DAILY Multivitamins, Thera [Multivitamin (formulary)] 1 tab PO DAILY Mirtazapine 45 mg PO HS Folic Acid 0.8 mg PO DAILY traZODone HCL [Desyrel] 50 mg PO HS 30 Days #30 tab Lacosamide [Vimpat] 50 mg PO BID Discharge Medication List Cyanocobalamin (Vitamin B-12) [Vitamin B-12] 1,000 mcg PO DAILY 06/15/21 [History] Meloxicam 15 mg PO DAILY 06/15/21 [History] Multivitamins, Thera [Multivitamin (formulary)] 1 tab PO DAILY 06/15/21 [History] Folic Acid 0.8 mg PO DAILY 03/10/22 [History] Mirtazapine 45 mg PO HS 03/10/22 [History] Pantoprazole [Protonix] 40 mg PO BID 03/10/22 [History] Naltrexone HCl [Revia] 50 mg PO DAILY tab 03/12/22 [Rx] traZODone HCL [Desyrel] 50 mg PO HS 30 Days #30 tab 03/12/22 [Rx] Lacosamide [Vimpat] 50 mg PO BID 04/07/22 [History] NIFEdipine [Adalat CC] 30 mg PO DAILY 04/07/22 [History] levETIRAcetam [Keppra] 1,000 mg PO BID 04/07/22 [History] Acetaminophen Tab [Tylenol] 650 mg PO Q6HR PRN tab 06/27/22 [Rx] Famotidine [Pepcid] 20 mg PO BID tab 06/27/22 [Rx] Thiamine [Vitamin B-1] 100 mg PO DAILY tab 06/27/22 [Rx] Follow up Appointment(s)/Referral(s): None,Stated [Primary Care Provider] - 1-2 days Patient Instructions/Handouts: Altered Mental Status (ED) Discharge/Stand Alone Forms: AA Meetings [place], Outpatient Counseling, In Substance Abuse Facilities, Personal Wall[employer] Discharge Disposition: HOME SELF-CARE
[2022-06-27 13:05] VITALS: BP 133/84; PULSE 71; TEMP 97.8
--- NOTE | 2022-06-27 23:27 | P.PN ---
Subjective Progress Note Date: 06/27/22 Patient laying comfortably in the bed. Offers no complaints. The dizziness has mostly resolved. Patient's was present today as well. Telemetry monitoring showing sinus rhythm, with sinus arrhythmia and some ectopics, PVCs PACs and trigeminy. Objective - Vital Signs Vital signs: Vital Signs Temp 98.6 F 06/27/22 08:18 Pulse 88 06/27/22 08:18 Resp 18 06/27/22 08:18 BP 137/78 06/27/22 08:18 Pulse Ox 98 06/27/22 08:18 FiO2 Intake & Output 06/26/22 06/27/22 06/27/22 18:59 06:59 18:59 Intake Total 354 118 Output Total 700 2900 Balance -346 -2900 118 Intake: Oral 354 118 Output: Urine 700 2900 Other: Voiding Method Urinal Urinal Urinal # Voids 1 - Exam Patient's mental status, speech and language functions are normal. Muscle strength is normal. - Labs CBC & Chem 7: 06/25/22 13:51 06/25/22 13:51 Labs: Microbiology - Last 24 Hours (Table) 06/25/22 13:35 Blood Culture Gram Stain - Final Blood Blood Culture - Final Bacillus species Not Anthracis 06/25/22 13:40 Blood Culture - Preliminary Blood No Growth after 24 hours Assessment and Plan Assessment: * Seizure disorder, currently in remission. Patient has not had any seizures for over a year. Patient's current altered mental status likely because of drinking more than usual, and taking seizure medication more than usual help sleep. * Alcoholism * Tobacco use * Marijuana use * Hypertension Plan: * Patient underwent EEG, which was mildly abnormal because of mild background slowing, suggestive of mild encephalopathy. No epileptiform activity was seen. * Recommend continue same dose of his seizure medication Vimpat 50 mg twice a day and Keppra 1000 mg twice a day. No need to change seizure medication dose, as there is no evidence of breakthrough seizure, and his current symptoms likely because of drinking alcohol more than usual. * Dizziness, that occurred probably due to taking extra doses of seizure medications to help sleep, now has resolved. * Neurologically clear, if the dizziness resolves. Discussed with primary physician. Patient has an appointment with his neurologist Dr. Mendosa on 07/01/2022.
--- NOTE | 2022-07-01 10:21 | CDI ---
Documentation Clarification Form Date: 07/01/2022 09:19:00 AM From: Reshma Hernández Admit Date: 06/25/2022 05:29:00 PM Patient Name: Hector Caro Visit Number: [id number] Discharge Date: 06/27/2022 02:15:00 PM ATTENTION: The Clinical Documentation Specialists (CDI) and [facility] Coding Staff appreciate your assistance in clarifying documentation. Please respond to the clarification below the line at the bottom and electronically sign. The CDI & [facility] Coding staff will review the response and follow-up if needed. Please note: Queries are made part of the Legal Health Record. If you have any questions, please contact the author of this message via ITS. Dr. Milka Mar Per 05/27 PN and Neuro consult, patient's encephalopathy is due likely because of drinking more than usual (BAL 81) and taking seizure medication more than usual. Your patient has admitted to taking more seizure medication than usual to help him sleep. Based on this information could patient's AMS, metabolic encephalopathy be due to over dose of seizure medication? Patient history/risk factors: Seizures in remission, alcohol dependence. Drinking more than usual and taking more seizure medication to aid with sleep. Clinical Indicators: Treatment: Is there an additional diagnosis that is clinically appropriate for this patient? [ ] Metabolic encephalopathy due to over dose of seizure meds [ ] Metabolic encephalopathy due to alcohol intoxication [x] Metabolic Encephalopathy due to both alcohol intoxication and overdose of seizure medication [ ] Other, please specify [ ] Unable to determine MTDD
== END 2022-06-27 14:15 | disposition home or self-care (01) | DRG 72 ==
LOC: EC 13:10 → 5NMEDONC 17:29 → 3SCARD 18:10
PROVIDERS: ADMIT Internal Medicine; ATTEND Internal Medicine
DX: G93.41 Metabolic encephalopathy (principal); G40.909 Epilepsy, unspecified, not intractable, without status epilepticus; T42.6X4A Poisoning by other antiepileptic and sedative-hypnotic drugs, undetermined, initial encounter; G92.8 Other toxic encephalopathy; F10.229 Alcohol dependence with intoxication, unspecified; F17.210 Nicotine dependence, cigarettes, uncomplicated; F32.A Depression, unspecified; I10 Essential (primary) hypertension; I49.3 Ventricular premature depolarization; K64.9 Unspecified hemorrhoids; Y90.4 Blood alcohol level of 80-99 mg/100 ml; Z79.1 Long term (current) use of non-steroidal anti-inflammatories (NSAID); Z79.899 Other long term (current) drug therapy; Z82.49 Family history of ischemic heart disease and other diseases of the circulatory system; I49.1 Atrial premature depolarization
CPT/HCPCS: 36415; 70450; 71046; 72125; 80053; 80306; 80320; 81003; 82140; 84484; 85025; 85610; 85730; 87040; 93005; 95816; 96361; 96374; 99285

== ENCOUNTER 2022-07-05 12:35 | Observation (INO) | payer MEDICARE, OTHER ==
[2022-07-05] MEDS ORDERED: LORazepam 2 MG/ML INJ IV STA (13:50)
[2022-07-05 13:54] LABS: Basophils % (A) 0 %; Eosinophils % (A) 0 %; HCT 37.4 % (39.0-53.0); HGB 13.2 gm/dL (13.0-17.5); Lymphocytes # (A) 0.9 k/uL (1.0-4.8); Lymphocytes % (A) 11 %; MCH 35.5 pg (25.0-35.0); MCHC 35.2 g/dL (31.0-37.0); Monocytes # (A) 0.6 k/uL (0-1.0); Monocytes % (A) 7 %; Neutrophils # (A) 6.5 k/uL (1.3-7.7); Neutrophils % (A) 80 %; Platelet Count 278 k/uL (150-450); RBC 3.71 m/uL (4.30-5.90); RDW 12.8 % (11.5-15.5); WBC 8.1 k/uL (3.8-10.6)
--- NOTE | 2022-07-05 14:01 | ED ---
General Adult HPI - General Chief complaint: Seizure Stated complaint: SEIZURE Time Seen by Provider: 07/05/22 13:42 Source: patient, family, EMS, RN notes reviewed Mode of arrival: EMS Limitations: no limitations - History of Present Illness Initial comments: Patient is a pleasant 61-year-old male presenting to the emergency department with concern with seizures. He should does have history of seizures however has been seizure-free for many months, possibly years. Patient recently stopped drinking again. Patient has had multiple seizures over the past week. Patient did recently seen neurology. Family describes them as partial SEIZURES. PATRICIO ENT DID HAVE A GENERALIZED TONIC-CLONIC ACTIVITY LASTING 1-2 MINUTES. PATIENT STATES AT THIS TIME HE IS FEELING FINE. PATIENT IS ON MEDICATION AND HAS BEEN TAKING IT SCHEDULED. - Related Data Home Medications Medication Instructions Recorded Confirmed Cyanocobalamin (Vitamin B-12) 1,000 mcg PO DAILY 06/15/21 06/25/22 [Vitamin B-12] Meloxicam 15 mg PO DAILY 06/15/21 06/25/22 Multivitamins, Thera [Multivitamin 1 tab PO DAILY 06/15/21 06/25/22 (formulary)] Folic Acid 0.8 mg PO DAILY 03/10/22 06/25/22 Mirtazapine 45 mg PO HS 03/10/22 06/25/22 Pantoprazole [Protonix] 40 mg PO BID 03/10/22 06/25/22 Lacosamide [Vimpat] 50 mg PO BID 04/07/22 06/25/22 NIFEdipine [Adalat CC] 30 mg PO DAILY 04/07/22 06/25/22 levETIRAcetam [Keppra] 1,000 mg PO BID 04/07/22 06/25/22 Previous Rx's Medication Instructions Recorded Naltrexone HCl [Revia] 50 mg PO DAILY tab 03/12/22 traZODone HCL [Desyrel] 50 mg PO HS 30 Days #30 tab 03/12/22 Acetaminophen Tab [Tylenol] 650 mg PO Q6HR PRN tab 06/27/22 Famotidine [Pepcid] 20 mg PO BID tab 06/27/22 Thiamine [Vitamin B-1] 100 mg PO DAILY tab 06/27/22 Allergies Allergy/AdvReac Type Severity Reaction Status Date / Time goat milk Allergy Unknown Uncoded 11/02/22 17:57 Childhood Review of Systems ROS Statement: Those systems with pertinent positive or pertinent negative responses have been documented in the HPI. ROS Other: All systems not noted in ROS Statement are negative. Constitutional: Denies: fever Eyes: Denies: eye pain ENT: Denies: ear pain Respiratory: Denies: cough Cardiovascular: Denies: chest pain Endocrine: Denies: fatigue Gastrointestinal: Denies: abdominal pain Genitourinary: Denies: dysuria Musculoskeletal: Denies: back pain Skin: Denies: rash Neurological: Reports: as per HPI. Denies: weakness Past Medical History Past Medical History: Hypertension, Seizure Disorder Additional Past Medical History / Comment(s): ETOH, depression, encephalopathy, left lung collapse History of Any Multi-Drug Resistant Organisms: None Reported Past Surgical History: Orthopedic Surgery Additional Past Surgical History / Comment(s): rt femur Past Anesthesia/Blood Transfusion Reactions: No Reported Reaction Past Psychological History: Depression Smoking Status: Current every day smoker Past Alcohol Use History: Abuse, Daily Past Drug Use History: Marijuana - Past Family History Father Family Medical History: Hypertension Mother Family Medical History: No Reported History General Exam Limitations: no limitations General appearance: alert, in no apparent distress Head exam: Present: normocephalic Eye exam: Present: normal appearance, PERRL, EOMI ENT exam: Present: normal oropharynx Neck exam: Present: normal inspection. Absent: tenderness Respiratory exam: Present: normal lung sounds bilaterally Cardiovascular Exam: Present: regular rate, normal rhythm GI/Abdominal exam: Present: soft. Absent: tenderness Extremities exam: Present: normal inspection Neurological exam: Present: alert, oriented X3, CN II-XII intact. Absent: motor sensory deficit Expanded Neurological exam: Present: protecting the airway Speech: Present: fluid speech Sensory exam: Upper Extremity Light Touch: Normal, Lower Extremity Light Touch: Normal Motor strength exam: RUE: 5, LUE: 5, RLE: 5, LLE: 5 Eye Response: (4) open spontaneously Motor Response: (6) obeys commands Verbal Response: (5) oriented Psychiatric exam: Present: normal affect, normal mood Skin exam: Present: normal color Course Vital Signs 07/05/22 07/05/22 07/05/22 12:44 13:23 14:40 Temperature 98.4 F Pulse Rate 57 L 55 L 56 L Respiratory 16 16 16 Rate Blood Pressure 134/85 129/71 133/75 O2 Sat by Pulse 97 97 95 Oximetry 07/05/22 15:09 Temperature Pulse Rate 50 L Respiratory 16 Rate Blood Pressure 121/79 O2 Sat by Pulse 96 Oximetry Medical Decision Making - Medical Decision Making Patient reevaluated and resting comfortably in bed. Patient and family updated on results and plan. Patient had questionable partial seizure on arrival. Case was discussed with Dr. Aguiar, who will admit coming hospital observation call. - Lab Data Result diagrams: 07/05/22 13:49 07/05/22 13:53 Lab Results 07/05/22 07/05/22 Range/Units 13:49 13:53 WBC 8.1 (3.8-10.6) k/uL RBC 3.71 L (4.30-5.90) m/uL Hgb 13.2 (13.0-17.5) gm/dL Hct 37.4 L (39.0-53.0) % MCV 101.0 H (80.0-100.0) fL MCH 35.5 H (25.0-35.0) pg MCHC 35.2 (31.0-37.0) g/dL RDW 12.8 (11.5-15.5) % Plt Count 278 (150-450) k/uL MPV 8.0 Neutrophils % 80 % Lymphocytes % 11 % Monocytes % 7 % Eosinophils % 0 % Basophils % 0 % Neutrophils # 6.5 (1.3-7.7) k/uL Lymphocytes # 0.9 L (1.0-4.8) k/uL Monocytes # 0.6 (0-1.0) k/uL Eosinophils # 0.0 (0-0.7) k/uL Basophils # 0.0 (0-0.2) k/uL Sodium 137 (137-145) mmol/L Potassium 2.8 L (3.5-5.1) mmol/L Chloride 104 (98-107) mmol/L Carbon Dioxide 25 (22-30) mmol/L Anion Gap 8 mmol/L BUN 10 (9-20) mg/dL Creatinine 0.81 (0.66-1.25) mg/dL Est GFR (CKD-EPI)AfAm >90 (>60 ml/min/1.73 sqM) Est GFR (CKD-EPI)NonAf >90 (>60 ml/min/1.73 sqM) Glucose 104 H (74-99) mg/dL Calcium 9.1 (8.4-10.2) mg/dL Total Bilirubin 0.3 (0.2-1.3) mg/dL AST 28 (17-59) U/L ALT 20 (4-49) U/L Alkaline Phosphatase 80 (38-126) U/L Total Protein 6.3 (6.3-8.2) g/dL Albumin 3.9 (3.5-5.0) g/dL Disposition Clinical Impression: Recurrent seizures Disposition: ADMITTED IP TO THIS HOSP Is patient prescribed a controlled substance at d/c from ED?: No Referrals: None,Stated [Primary Care Provider] - 1-2 days Time of Disposition: 15:16
[2022-07-05 14:33] LABS: ALT 20 U/L (4-49); AST 28 U/L (17-59); African American GFR (CKD) >90 (>60 ml/min/1.73 sqM); Albumin 3.9 g/dL (3.5-5.0); Alkaline Phosphatase 80 U/L (38-126); Anion Gap 8 mmol/L; Blood Urea Nitrogen 10 mg/dL (9-20); Calcium 9.1 mg/dL (8.4-10.2); Carbon Dioxide 25 mmol/L (22-30); Chloride 104 mmol/L (98-107); Glucose 104 mg/dL (74-99); Non-African American GFR(CKD) >90 (>60 ml/min/1.73 sqM); Potassium 2.8 mmol/L (3.5-5.1); Sodium 137 mmol/L (137-145); Total Bilirubin 0.3 mg/dL (0.2-1.3); Total Protein 6.3 g/dL (6.3-8.2)
[2022-07-05] MEDS ORDERED: Potassium Replacement Protocol 1 EACH MISC MISCELLANE PRN (14:35)
[2022-07-05] MEDS: POTASSIUM CHLORIDE ER 20 MEQ TAB.ER PO SCH ×3 (15:11→17:30)
[2022-07-05] MEDS ORDERED: LORazepam 2 MG/ML INJ IV PRN (15:16)
[2022-07-05] MEDS ORDERED: NALOXONE 0.4 MG/ML 1 ML VIAL IV PRN (15:21)
[2022-07-05] MEDS ORDERED: SODIUM CHLORIDE 0.9% 1,000 ML IV SCH (15:30)
--- NOTE | 2022-07-05 16:06 | P.HPIM ---
History of Present Illness H&P Date: 07/05/22 Chief Complaint: seizure Patient is a 61-year-old male with history of epilepsy, alcohol dependence, nicotine dependence presenting after breakthrough seizures. Patient was recently discharged from this facility on 06/27 for seizure-like activity. Neurology workup at that time was negative. is present at bedside. She claims that he's been having absence seizure for the past week. He went to his outpatient neurologist couple of days ago, no changes in medications were made. He had an outpatient EEG which was negative. However, today he had a tonic- clonic seizure, witnessed. He had emesis just prior to his seizure. He seized while he was in a recliner chair. He did not soil his clothing, or bit his tongue. Per , patient had a postictal period. After EMS was called, patient had another possible partial seizures. Prior to this, patient has not had breakthrough seizures for almost 2 years. Patient also drinks heavily, half a pint of whiskey on a daily basis. However, he has not had a drink for over 10 days. He also smokes about 1 pack per day. He denies any illicit drug use. He is also complaining of recent insomnia, possibly leading to his seizure. He denies any recent chest pain, shortness of breath, abdominal pain, diarrhea, constipation, urinary complaints. In the ED, vital signs were within normal limits. His lab work was significant for potassium of 2.8. He received Ativan 1 mg, and oral potassium. Patient seen and examined at bedside. Pertinent positives and negatives as discussed in HPI, a complete review of systems was performed and all other systems are negative. Vital signs reviewed General: nontoxic, no distress, appears at stated age, drowsy Derm: warm, dry Head: atraumatic, normocephalic, symmetric Eyes: EOMI, no lid lag, anicteric sclera, pupils equal round reactive to light ENT: Nose and ears atraumatic Neck: No thyromegaly, supple Mouth: no lip lesion, mucus membranes moist Cardiovascular: S1S2 reg, no murmur, no edema Lungs: clear to auscultation bilateral, no rhonchi, no rales, no wheeze, no accessory muscle use Abdominal: soft, nontender to palpation, no guarding, no appreciable organomegaly Ext: no gross muscle atrophy, muscle strength muscle strength 5 out of 5 in all 4 extremities, no contractures Neuro: CN II-XII grossly intact Psych: Alert, oriented, appropriate affect Assessment/Plan: Breakthrough seizures Epilepsy Alcohol dependence Hypokalemia - Continue home seizure medications -Levels pending -Fall and seizure precautions -Neurology consult -Replete potassium and monitor -Last drink over 10 days ago -Thiamine and folic acid Nicotine dependence -Counseled regarding cessation Hypertension -Continue home medication The patient is admitted with an anticipated less than 2 midnight stay for evaluation of breakthrough seizure. Surrogate decision-maker: CODE STATUS: Full code DVT prophylaxis: Heparin subcu Anticipated discharge date: 07/[address]: Home A total of for 45 minutes was spent on the care of this complex patient more than 50% of the time was spent in counseling and care coordination. Past Medical History Past Medical History: Hypertension, Seizure Disorder Additional Past Medical History / Comment(s): ETOH, depression, encephalopathy, left lung collapse History of Any Multi-Drug Resistant Organisms: None Reported Past Surgical History: Orthopedic Surgery Additional Past Surgical History / Comment(s): rt femur Past Anesthesia/Blood Transfusion Reactions: No Reported Reaction Past Psychological History: Depression Smoking Status: Current every day smoker Past Alcohol Use History: Abuse, Daily Past Drug Use History: Marijuana - Past Family History Father Family Medical History: Hypertension Mother Family Medical History: No Reported History Medications and Allergies Home Medications Medication Instructions Recorded Confirmed Type Cyanocobalamin (Vitamin B-12) 1,000 mcg PO DAILY 06/15/21 06/25/22 History [Vitamin B-12] Meloxicam 15 mg PO DAILY 06/15/21 06/25/22 History Multivitamins, Thera [Multivitamin 1 tab PO DAILY 06/15/21 06/25/22 History (formulary)] Folic Acid 0.8 mg PO DAILY 03/10/22 06/25/22 History Mirtazapine 45 mg PO HS 03/10/22 06/25/22 History Pantoprazole [Protonix] 40 mg PO BID 03/10/22 06/25/22 History Naltrexone HCl [Revia] 50 mg PO DAILY tab 03/12/22 06/25/22 Rx traZODone HCL [Desyrel] 50 mg PO HS 30 Days #30 tab 03/12/22 06/25/22 Rx Lacosamide [Vimpat] 50 mg PO BID 04/07/22 06/25/22 History NIFEdipine [Adalat CC] 30 mg PO DAILY 04/07/22 06/25/22 History levETIRAcetam [Keppra] 1,000 mg PO BID 04/07/22 06/25/22 History Acetaminophen Tab [Tylenol] 650 mg PO Q6HR PRN tab 06/27/22 Rx Famotidine [Pepcid] 20 mg PO BID tab 06/27/22 Rx Thiamine [Vitamin B-1] 100 mg PO DAILY tab 06/27/22 Rx Allergies Allergy/AdvReac Type Severity Reaction Status Date / Time goat milk Allergy Unknown Uncoded 06/25/22 17:57 Childhood Physical Exam Vitals: Vital Signs Temp Pulse Resp BP Pulse Ox 07/05/22 15:09 50 L 16 121/79 96 07/05/22 14:40 56 L 16 133/75 95 07/05/22 13:23 55 L 16 129/71 97 07/05/22 12:44 98.4 F 57 L 16 134/85 97 Intake and Output 07/05/22 07/05/22 07/05/22 06:59 14:59 22:59 Other: Weight 68.946 kg Results CBC & Chem 7: 07/05/22 13:49 07/05/22 13:53 Labs: Abnormal Lab Results - Last 24 Hours (Table) 07/05/22 07/05/22 Range/Units 13:49 13:53 RBC 3.71 L (4.30-5.90) m/uL Hct 37.4 L (39.0-53.0) % MCV 101.0 H (80.0-100.0) fL MCH 35.5 H (25.0-35.0) pg Lymphocytes # 0.9 L (1.0-4.8) k/uL Potassium 2.8 L (3.5-5.1) mmol/L Glucose 104 H (74-99) mg/dL
[2022-07-05] MEDS: THIAMINE 100 MG TAB PO SCH (16:42)
[2022-07-05] MEDS: FOLIC ACID 1 MG TAB PO SCH (16:42)
[2022-07-05] MEDS: HEPARIN SODIUM,PORCINE/PF 5,000 UNIT/0.5 ML SYRINGE SQ SCH (16:42)
[2022-07-05 16:54] LABS: Basophils % (A) 0 %; Eosinophils # (A) 0.1 k/uL (0-0.7); Eosinophils % (A) 1 %; HCT 35.5 % (39.0-53.0); HGB 12.8 gm/dL (13.0-17.5); Lymphocytes # (A) 1.7 k/uL (1.0-4.8); Lymphocytes % (A) 22 %; MCH 36.2 pg (25.0-35.0); MCHC 36.1 g/dL (31.0-37.0); MCV 100.4 fL (80.0-100.0); Mean Platelet Volume 7.9; Monocytes # (A) 0.4 k/uL (0-1.0); Monocytes % (A) 5 %; Neutrophils # (A) 5.4 k/uL (1.3-7.7); Neutrophils % (A) 70 %; Platelet Count 274 k/uL (150-450); RBC 3.54 m/uL (4.30-5.90); RDW 12.6 % (11.5-15.5); WBC 7.7 k/uL (3.8-10.6)
[2022-07-05 17:03] LABS: African American GFR (CKD) >90 (>60 ml/min/1.73 sqM); Anion Gap 4 mmol/L; Blood Urea Nitrogen 11 mg/dL (9-20); Calcium 8.7 mg/dL (8.4-10.2); Carbon Dioxide 28 mmol/L (22-30); Chloride 105 mmol/L (98-107); Glucose 88 mg/dL (74-99); Non-African American GFR(CKD) >90 (>60 ml/min/1.73 sqM); Sodium 137 mmol/L (137-145)
[2022-07-05 17:04] LABS: Alcohol <10 mg/dL; Magnesium 2.1 mg/dL (1.6-2.3)
[2022-07-05 17:05] LABS: Potassium 2.7 mmol/L (3.5-5.1)
[2022-07-05] MEDS ORDERED: LORazepam 1 MG/0.5 ML VIAL IV PRN (18:38)
[2022-07-05] MEDS: POTASSIUM CHLORIDE 10 MEQ in WATER FOR INJECTION 1 100ML.BAG IVPB SCH ×4 (18:44→23:18)
[2022-07-05] MEDS: levETIRAcetam 500 MG TAB PO SCH (21:22)
[2022-07-05] MEDS: LACOSAMIDE 50 MG TABLET PO SCH (21:22)
[2022-07-06] MEDS: POTASSIUM CHLORIDE 10 MEQ in WATER FOR INJECTION 1 100ML.BAG IVPB SCH ×2 (00:54→00:59)
[2022-07-06] MEDS: HEPARIN SODIUM,PORCINE/PF 5,000 UNIT/0.5 ML SYRINGE SQ SCH ×2 (00:54→08:06)
[2022-07-06 06:17] LABS: African American GFR (CKD) >90 (>60 ml/min/1.73 sqM); Anion Gap 4 mmol/L; Blood Urea Nitrogen 13 mg/dL (9-20); Calcium 8.6 mg/dL (8.4-10.2); Carbon Dioxide 26 mmol/L (22-30); Chloride 107 mmol/L (98-107); Glucose 86 mg/dL (74-99); Magnesium 2.1 mg/dL (1.6-2.3); Non-African American GFR(CKD) >90 (>60 ml/min/1.73 sqM); Potassium 3.7 mmol/L (3.5-5.1); Sodium 137 mmol/L (137-145)
[2022-07-06] MEDS: LACOSAMIDE 50 MG TABLET PO SCH (08:06)
[2022-07-06] MEDS: THIAMINE 100 MG TAB PO SCH (08:06)
[2022-07-06] MEDS: FOLIC ACID 1 MG TAB PO SCH (08:07)
[2022-07-06] MEDS: levETIRAcetam 500 MG TAB PO SCH (08:07)
[2022-07-06] MEDS ORDERED: NIFEdipine XL 30 MG TAB.ER.24 PO SCH (09:00)
[2022-07-06 09:37] VITALS: BP 137/80; PULSE 61; TEMP 97.9
[2022-07-06 09:55] VITALS: RESP 16
--- NOTE | 2022-07-06 11:56 | P.CNNES ---
History of Present Illness Consult date: 07/06/22 Reason for Consult: seizure History of Present Illness: The patient is a 61-year-old male who is seen in neurologic consultation on July 06, 2022, via telemetry neurology. The patient is being seen because of concern regarding seizure. Patient reportedly has a history of seizure disorder and is taking Vimpat and Keppra. In addition, the patient has a history of alcohol abuse. The patient reports that he stopped drinking, last Thursday (10 days ago). The patient denies a history of alcohol withdrawal seizures. He states that he has had seizures while drinking and taking Keppra at the same time. The events surrounding this admission are somewhat unclear. The patient reports that he was told he had a generalized seizure. The patient however states that it was not witnessed. He says that someone just told him he had a seizure. He also reports having "focal" seizures which consist of the being able to hear, but unable to speak. The patient reports that these seizures last for 10-15 minutes at a time. The patient denies tongue biting, loss of bowel and bladder control. The patient reportedly does have an neurologist whom he saw on this past Thursday. Apparently blood levels of medications were drawn and an EEG was performed. The patient does not have those results yet. Because of the seizures, the patient and his felt he should come into the hospital. Workup in the emergency department revealed a CT scan of the brain. There is no evidence of acute hemorrhage or infarct. Laboratory evaluation revealed the patient to be severely hypokalemic, with potassium level of 2.7. Alcohol level is less than 10. Past Medical History Past Medical History: Hypertension, Seizure Disorder Additional Past Medical History / Comment(s): ETOH, depression, encephalopathy, left lung collapse History of Any Multi-Drug Resistant Organisms: None Reported Past Surgical History: Orthopedic Surgery Additional Past Surgical History / Comment(s): rt femur Past Anesthesia/Blood Transfusion Reactions: No Reported Reaction Past Psychological History: Depression Smoking Status: Current every day smoker Past Alcohol Use History: Abuse, Daily Additional Past Alcohol Use History / Comment(s): drinks 1-2 pints of liquor per day. Past Drug Use History: Marijuana Additional Drug Use History / Comment(s): recreational marijuana use. - Past Family History Father Family Medical History: Hypertension Mother Family Medical History: No Reported History Medications and Allergies Home Medications Medication Instructions Recorded Confirmed Type Cyanocobalamin (Vitamin B-12) 1,000 mcg PO DAILY 06/15/21 07/05/22 History [Vitamin B-12] Meloxicam 15 mg PO DAILY 06/15/21 07/05/22 History Multivitamins, Thera [Multivitamin 1 tab PO DAILY 06/15/21 07/05/22 History (formulary)] Folic Acid 0.8 mg PO DAILY 03/10/22 07/05/22 History Mirtazapine 45 mg PO HS 03/10/22 07/05/22 History Pantoprazole [Protonix] 40 mg PO BID 03/10/22 07/05/22 History Naltrexone HCl [Revia] 50 mg PO DAILY tab 03/12/22 07/05/22 Rx traZODone HCL [Desyrel] 50 mg PO HS 30 Days #30 tab 03/12/22 07/05/22 Rx Lacosamide [Vimpat] 50 mg PO BID 04/07/22 07/05/22 History NIFEdipine [Adalat CC] 30 mg PO DAILY 04/07/22 07/05/22 History levETIRAcetam [Keppra] 1,000 mg PO BID 04/07/22 07/05/22 History Acetaminophen Tab [Tylenol] 650 mg PO Q6HR PRN tab 06/27/22 07/05/22 Rx Famotidine [Pepcid] 20 mg PO BID tab 06/27/22 07/05/22 Rx Thiamine [Vitamin B-1] 100 mg PO DAILY tab 06/27/22 07/05/22 Rx Allergies Allergy/AdvReac Type Severity Reaction Status Date / Time goat milk Allergy Unknown Uncoded 07/05/22 18:40 Childhood Physical Examination - Vital Signs Vital Signs: Vital Signs Temp Pulse Pulse Resp BP BP Pulse Ox 07/06/22 08:06 16 07/06/22 08:00 97.9 F 61 18 137/80 98 07/06/22 02:00 98.3 F 56 L 17 123/67 97 07/05/22 20:20 98.9 F 52 L 16 138/85 95 07/05/22 17:25 98.3 F 50 L 17 131/81 96 07/05/22 16:00 49 L 16 128/81 97 07/05/22 15:09 50 L 16 121/79 96 11/12/22 14:40 56 L 16 133/75 95 07/05/22 13:23 55 L 16 129/71 97 07/05/22 12:44 98.4 F 57 L 16 134/85 97 Intake and Output 07/05/22 07/06/22 07/06/22 22:59 06:59 14:59 Other: Voiding Method Toilet Toilet Urinal Urinal # Voids 0 2 Weight 68.946 kg Gen.: The patient is reclining in the bed. He is a thin male who is in no acute distress. HEENT: Head is atraumatic, normocephalic. Fundus not visualized. There is no scleral icterus. Mucous membranes are moist. Neck: Supple without carotid bruits Heart: Regular rate and rhythm Extremities: Without edema Neurological examination Mental status: The patient is awake, alert and oriented 3. His speech is clear. There is no dysarthria or aphasia. Cranial nerves: Pupils are equal at 3 mm and reactive. Visual scott are full to confrontation. Extraocular movements are intact. There is no nystagmus. Facial sensations intact. There is no facial asymmetry. Hearing is grossly intact. Uvula and palate are midline. Shoulder shrug is symmetric. Tongue protrudes midline. There is no evidence of tongue bite. Motor: Strength is 5/5 throughout. Sensation: Grossly intact to light touch throughout. Deep tendon reflexes: 2+/4+ in the upper extremities. 3+/4+ at the knees. Coordination: Finger to nose and rapid alternating movements are intact. There is no evidence of tremor Gait: Not assessed Results - Laboratory Findings CBC and BMP: 07/05/22 16:03 07/06/22 05:53 Abnormal Lab Findings: Abnormal Labs 07/05/22 07/05/22 07/05/22 13:49 13:53 16:03 RBC 3.71 L 3.54 L Hgb 12.8 L Hct 37.4 L 35.5 L MCV 101.0 H 100.4 H MCH 35.5 H 36.2 H Lymphocytes # 0.9 L Potassium 2.8 L Glucose 104 H 07/05/22 16:03 RBC Hgb Hct MCV MCH Lymphocytes # Potassium 2.7 L* Glucose Assessment and Plan Assessment: 1. Breakthrough seizure, likely provoked by alcohol withdrawal 2. Hypokalemia 3. History of hypertension 4. History of depression Plan: 1. Continue current home antiepileptic medications 2. Correction of hypokalemia 3. Alcohol withdrawal protocol 4. The patient is advised to follow up with his own neurologist 5. The patient reports that he will continue to not drink alcohol. He reports having a good support system in his . He says that he has gone to Alcoholics Anonymous in the past. The patient is encouraged to continue not drinking Time with Patient: Greater than 30 (Spent 25 minutes examining the patient with greater than 50% of that time spent in counseling. Another 20 minutes were spent reviewing labs, imaging reports, documentation and preparing this note)
--- NOTE | 2022-07-06 12:23 | P.DS ---
Providers Date of admission: 07/05/22 15:21 Expected date of discharge: 07/06/22 Attending physician: Prachi Brewer MD Consults: 07/05/22 15:21 Consult Physician Routine Consulting Provider: Steven Musa Consult Reason/Comments: seizure Do you want consulting provider notified?: Yes Primary care physician: Stated None Hospital Course: Discharge Diagnosis: Breakthrough seizures Epilepsy Alcohol dependence Hypokalemia Nicotine dependence Hypertension Hospital Course: 61-year-old male with history of epilepsy, alcohol dependence, nicotine dependence presenting after breakthrough seizures. Patient was recently discharged from this facility on 06/27 for seizure-like activity. Neurology workup at that time was negative. Per , he's been having absence seizure for the past week. He went to his outpatient neurologist couple of days ago, no changes in medications were made. He had an outpatient EEG which was negative. On admission, lab work was significant for potassium of 2.8. Patient was evaluated by neurology. No further workup required. Seizure likely in the setting of alcohol dependence and possible withdrawal. Potassium repleted and n ormal at discharge. Patient will follow up with his outpatient neurologist. Patient seen and examined at bedside. Vital signs reviewed and stable. General: nontoxic, no distress, appears at stated age Derm: warm, dry Head: atraumatic, normocephalic, symmetric Eyes: EOMI, no lid lag, anicteric sclera Mouth: no lip lesion, mucus membranes moist Cardiovascular: S1S2 reg, no murmur Lungs: CTA bilateral, no rhonchi, no rales , no accessory muscle use Abdominal: soft, nontender to palpation, no guarding, no appreciable organomegaly Ext: no gross muscle atrophy, no edema, no contractures Neuro: CN II-XI grossly intact, no focal neuro deficits Psych: Alert, oriented, appropriate affect A total of 43 minutes of time were spent preparing this complex discharge summary. Patient was discharged on 07/06/22 at 12:16. Patient Condition at Discharge: Stable Plan - Discharge Summary New Discharge Prescriptions: Continue Cyanocobalamin (Vitamin B-12) [Vitamin B-12] 1,000 mcg PO DAILY Pantoprazole [Protonix] 40 mg PO BID Naltrexone HCl [Revia] 50 mg PO DAILY tab levETIRAcetam [Keppra] 1,000 mg PO BID NIFEdipine [Adalat CC] 30 mg PO DAILY Famotidine [Pepcid] 20 mg PO BID tab Thiamine [Vitamin B-1] 100 mg PO DAILY tab Meloxicam 15 mg PO DAILY Multivitamins, Thera [Multivitamin (formulary)] 1 tab PO DAILY Mirtazapine 45 mg PO HS Folic Acid 0.8 mg PO DAILY traZODone HCL [Desyrel] 50 mg PO HS 30 Days #30 tab Lacosamide [Vimpat] 50 mg PO BID Acetaminophen Tab [Tylenol] 650 mg PO Q6HR PRN tab PRN Reason: Mild Pain Or Fever > 100.5 Discharge Medication List Cyanocobalamin (Vitamin B-12) [Vitamin B-12] 1,000 mcg PO DAILY 06/15/21 [History] Meloxicam 15 mg PO DAILY 06/15/21 [History] Multivitamins, Thera [Multivitamin (formulary)] 1 tab PO DAILY 06/15/21 [History] Folic Acid 0.8 mg PO DAILY 03/10/22 [History] Mirtazapine 45 mg PO HS 03/10/22 [History] Pantoprazole [Protonix] 40 mg PO BID 03/10/22 [History] Naltrexone HCl [Revia] 50 mg PO DAILY tab 03/12/22 [Rx] traZODone HCL [Desyrel] 50 mg PO HS 30 Days #30 tab 03/12/22 [Rx] Lacosamide [Vimpat] 50 mg PO BID 04/07/22 [History] NIFEdipine [Adalat CC] 30 mg PO DAILY 04/07/22 [History] levETIRAcetam [Keppra] 1,000 mg PO BID 04/07/22 [History] Acetaminophen Tab [Tylenol] 650 mg PO Q6HR PRN tab 06/27/22 [Rx] Famotidine [Pepcid] 20 mg PO BID tab 06/27/22 [Rx] Thiamine [Vitamin B-1] 100 mg PO DAILY tab 06/27/22 [Rx] Follow up Appointment(s)/Referral(s): None,Stated [Primary Care Provider] - 1-2 days Patient Instructions/Handouts: Recurrent Seizures in Adults (DC) Activity/Diet/Wound Care/Special Instructions: Please follow-up with your PCP in 1-2 days and neurologist in 1-2 weeks. Discharge Disposition: HOME SELF-CARE
== END 2022-07-06 14:17 | disposition home or self-care (01) ==
LOC: EC 12:35 → 4SSUR 15:21
PROVIDERS: ADMIT Family Medicine; ATTEND Family Medicine
DX: G40.909 Epilepsy, unspecified, not intractable, without status epilepticus (principal); E87.6 Hypokalemia; F10.20 Alcohol dependence, uncomplicated; I10 Essential (primary) hypertension; F32.A Depression, unspecified; F12.90 Cannabis use, unspecified, uncomplicated; F17.200 Nicotine dependence, unspecified, uncomplicated; Z79.899 Other long term (current) drug therapy; Z79.1 Long term (current) use of non-steroidal anti-inflammatories (NSAID); Z82.49 Family history of ischemic heart disease and other diseases of the circulatory system; Y90.0 Blood alcohol level of less than 20 mg/100 ml
CPT/HCPCS: 96365; 96366 ×2; 96372 ×2; 96375; 99285; 36415; 80053; 80048 ×2; 80177; 83735 ×2; 85025; 80235; G0378 ×2; G0480; J2060; J3480 ×2; J1644 ×2; 80320

== ENCOUNTER 2022-11-29 13:34 | Inpatient (IN) | payer MEDICARE, OTHER ==
[2022-11-29] MEDS ORDERED: SODIUM CHLORIDE 0.9% 1,000 ML IV ONE ×2 (13:47→15:37)
[2022-11-29] MEDS ORDERED: SODIUM CHLORIDE 0.9% 500 ML 500 ML IV ONE (13:47)
[2022-11-29] MEDS ORDERED: ONDANSETRON 4 MG/2 ML VIAL IVP STA (13:47)
--- NOTE | 2022-11-29 13:56 | ED ---
General Adult HPI - General Chief complaint: Alcohol Stated complaint: ETOH Time Seen by Provider: 11/29/22 13:40 Source: patient, EMS, RN notes reviewed, old records reviewed Mode of arrival: EMS Limitations: altered mental status - History of Present Illness Initial comments: This is a 61-year-old male who came in because it was highly intoxicated acc ording to the report we got stated he was dizzy however patient denies a patient states his wanted him to come in because he was too intoxicated. Patient does admit to drinking heavily. Patient states she's been alcoholic for most of his life. Patient states that over the last 3 days he's even drinking considerably more. Patient denies any chest pain abdominal pain. Patient denies any difficulty breathing shortest breath per patient denies being lightheaded. Patient denies any recent fever chills or cough. Patient states he did vomit yesterday and did vomit once today. - Related Data Home Medications Medication Instructions Recorded Confirmed Cyanocobalamin (Vitamin B-12) 1,000 mcg PO DAILY 06/15/21 07/05/22 [Vitamin B-12] Meloxicam 15 mg PO DAILY 06/15/21 07/05/22 Multivitamins, Thera [Multivitamin 1 tab PO DAILY 06/15/21 07/05/22 (formulary)] Folic Acid 0.8 mg PO DAILY 03/10/22 07/05/22 Mirtazapine 45 mg PO HS 03/10/22 07/05/22 Pantoprazole [Protonix] 40 mg PO BID 03/10/22 07/05/22 Lacosamide [Vimpat] 50 mg PO BID 04/07/22 07/05/22 NIFEdipine [Adalat CC] 30 mg PO DAILY 04/07/22 07/05/22 levETIRAcetam [Keppra] 1,000 mg PO BID 04/07/22 07/05/22 Previous Rx's Medication Instructions Recorded Naltrexone HCl [Revia] 50 mg PO DAILY tab 03/12/22 traZODone HCL [Desyrel] 50 mg PO HS 30 Days #30 tab 03/12/22 Acetaminophen Tab [Tylenol] 650 mg PO Q6HR PRN tab 06/27/22 Famotidine [Pepcid] 20 mg PO BID tab 06/27/22 Thiamine [Vitamin B-1] 100 mg PO DAILY tab 06/27/22 Allergies Allergy/AdvReac Type Severity Reaction Status Date / Time goat milk Allergy Unknown Uncoded 07/05/22 18:40 Childhood Review of Systems ROS Statement: Those systems with pertinent positive or pertinent negative responses have been documented in the HPI. ROS Other: All systems not noted in ROS Statement are negative. Past Medical History Past Medical History: Hypertension, Seizure Disorder Additional Past Medical History / Comment(s): ETOH, depression, encephalopathy, left lung collapse History of Any Multi-Drug Resistant Organisms: None Reported Past Surgical History: Orthopedic Surgery Additional Past Surgical History / Comment(s): rt femur Past Anesthesia/Blood Transfusion Reactions: No Reported Reaction Past Psychological History: Depression Smoking Status: Current every day smoker Past Alcohol Use History: Abuse, Daily Past Drug Use History: Marijuana - Past Family History Father Family Medical History: Hypertension Mother Family Medical History: No Reported History General Exam - General Exam Comments Initial Comments: GENERAL: Patient is well-developed and well-nourished. Patient is nontoxic and well- hydrated and is in no acute distress. Patient appears very intoxicated ENT: Neck is soft and supple. No significant lymphadenopathy is noted. Oropharynx is clear. Moist mucous membranes. Neck has full range of motion without eliciting any pain. EYES: The sclera were anicteric and conjunctiva were pink and moist. Extraocular movements were intact and pupils were equal round and reactive to light. Eyelids were unremarkable. PULMONARY: Unlabored respirations. Good breath sounds bilaterally. No audible rales rhonchi or wheezing was noted. CARDIOVASCULAR: There is a regular rate and rhythm without any murmurs gallops or rubs. ABDOMEN: Soft and nontender with normal bowel sounds. SKIN: Skin is clear with no lesions or rashes and otherwise unremarkable. NEUROLOGIC: Patient is alert and oriented x3. Cranial nerves II through XII are grossly intact. Motor and sensory are also intact. Normal speech, volume and content. Symmetrical smile. MUSCULOSKELETAL: Normal extremities with adequate strength and full range of motion. LYMPHATICS: No significant lymphadenopathy is noted PSYCHIATRIC: Normal psychiatric evaluation. Limitations: altered mental status Course Vital Signs 11/29/22 13:38 Temperature 98.1 F Pulse Rate 129 H Respiratory 18 Rate Blood Pressure 118/90 O2 Sat by Pulse 98 Oximetry Medical Decision Making - Medical Decision Making EKG was interpreted by myself. EKG shows atrial flutter 132 bpm QRS is 91 Q-T intervals 160 QTC is 246. Patient's EKG shows no ST segment elevation Was pt. sent in by a medical professional or institution ([employer] Mcginnis, TRAFFIC SIGNAL MECHANIC, urgent care, hospital, or fci...) When possible be specific @ -No Did you speak to anyone other than the patient for history (EMS, parent, family, police, friend...)? What history was obtained from this source @ -EMS gave most of the history Did you review nursing and triage notes (agree or disagree)? Why? @ -I reviewed and agree with nursing and triage notes Were old charts reviewed (outside hosp., previous admission, EMS record, old E KG, old radiological studies, urgent care reports/EKG's, fci records)? Report findings @ -I looked at her previous charts and previous lab work Differential Diagnosis (chest pain, altered mental status, abdominal pain women, abdominal pain men, vaginal bleeding, weakness, fever, dyspnea, syncope, headache, dizziness, GI bleed, back pain, seizure, CVA, palpatations, mental health, musculoskeletal)? @ -Differential Altered Mental Status: Hypoglycemia, DKA, hypercapnia, ETOH, overdose, CO poisoning, trauma, myxedema coma, HTN encephalopathy, infection, encephalitis, psychosis, intercranial hemorrhage, hepatic encephalopathy, meningitis, CVA, this is not meant to be an all-inclusive list EKG interpreted by me (3pts min.). @ -As above X-rays interpreted by me (1pt min.). @ -Chest x-ray was interpreted by myself. Chest x-ray shows no acute abnorma lity. CT interpreted by me (1pt min.). @ -CT of the brain and C-spine were interpreted by myself shows no acute normalities U/S interpreted by me (1pt. min.). @ -None done What testing was considered but not performed or refused? (CT, X-rays, U/S, labs)? Why? @ -None What meds were considered but not given or refused? Why? @ -None Did you discuss the management of the patient with other professionals (professionals i.e. [employer] Mcginnis, TRAFFIC SIGNAL MECHANIC, lab, RT, psych nurse, social work manager, assistant golf course superintendent, teacher, [place] [employer] police officer, case preparer and liner)? Give summary @ -I spoke with some physicians agreed to admit the patient to the patient wrote admitting orders Was smoking cessation discussed for >3mins.? @ -No Was critical care preformed (if so, how long)? @ -No Were there social determinants of health that impacted care today? How? (Homele ssness, low income, unemployed, alcoholism, drug addiction, transportation, low edu. Level, literacy, decrease access to med. care, group home, rehab)? @ -No Was there de-escalation of care discussed even if they declined (Discuss DNR or withdrawal of care, Hospice)? DNR status @ -No What co-morbidities impacted this encounter? (DM, HTN, Smoking, COPD, CAD, Cancer, CVA, ARF, Chemo, Hep., AIDS, mental health diagnosis, sleep apnea, morbid obesity)? @ -None Was patient admitted / discharged? Hospital course, mention meds given and route, prescriptions, significant lab abnormalities, going to OR and other pertinent info. @ -Patient was in atrial flutter I saw no other EKG psych believe this to be new onset. I gave the patient a heparin bolus and then placed the patient heparin drip. Patient also started on a Cardizem drip. Patient also is hypokalemic so I replaced the potassium. I spoke with some physicians he agreed to admit the patient to the patient wrote admitting orders and put the patient on Ativan protocol for withdrawal Undiagnosed new problem with uncertain prognosis? @ -No Drug Therapy requiring intensive monitoring for toxicity (Heparin, Nitro, Insulin, Cardizem)? @ -No Were any procedures done? @ -No Diagnosis/symptom? @ -Atrial flutter with rapid ventricular response Acute, or Chronic, or Acute on Chronic? @ -Acute Uncomplicated (without systemic symptoms) or Complicated (systemic symptoms)? @ -Complicated Side effects of treatment? @ -No Exacerbation, Progression, or Severe Exacerbation? @ -No Poses a threat to life or bodily function? How? (Chest pain, USA, VT, pneumonia, PE, COPD, DKA, ARF, appy, cholecystitis, CVA, Diverticulitis, Homicidal, Suicidal, threat to staff... and all critical care pts) @ -Yes This can lead to poor perfusion and and organ dysfunction Diagnosis/symptom? @ -Alcohol intoxication Acute, or Chronic, or Acute on Chronic? @ -Acute Uncomplicated (without systemic symptoms) or Complicated (systemic symptoms)? @ -Complicated Side effects of treatment? @ -none Exacerbation, Progression, or Severe Exacerbation] @ -no Poses a threat to life or bodily function? @ -no Diagnosis/symptom? @ -Hypokalemia Acute, or Chronic, or Acute on Chronic? @ -Acute Uncomplicated (without systemic symptoms) or Complicated (systemic symptoms)? @ -Complicated Side effects of treatment? @ -none Exacerbation, Progression, or Severe Exacerbation] @ -no Poses a threat to life or bodily function? @ -no - Lab Data Result diagrams: 11/29/22 14:00 11/29/22 14:00 Lab Results 11/29/22 11/29/22 11/29/22 Range/Units 14:00 14:00 14:00 WBC 5.7 (3.8-10.6) k/uL RBC 3.88 L (4.30-5.90) m/uL Hgb 13.9 (13.0-17.5) gm/dL Hct 38.9 L (39.0-53.0) % MCV 100.3 H (80.0-100.0) fL MCH 35.7 H (25.0-35.0) pg MCHC 35.7 (31.0-37.0) g/dL RDW 12.6 (11.5-15.5) % Plt Count 244 (150-450) k/uL MPV 7.3 Neutrophils % 59 % Lymphocytes % 32 % Monocytes % 6 % Eosinophils % 1 % Basophils % 1 % Neutrophils # 3.4 (1.3-7.7) k/uL Lymphocytes # 1.8 (1.0-4.8) k/uL Monocytes # 0.3 (0-1.0) k/uL Eosinophils # 0.0 (0-0.7) k/uL Basophils # 0.0 (0-0.2) k/uL Sodium 145 (137-145) mmol/L Potassium 2.8 L (3.5-5.1) mmol/L Chloride 111 H (98-107) mmol/L Carbon Dioxide 24 (22-30) mmol/L Anion Gap 10 mmol/L BUN 8 L (9-20) mg/dL Creatinine 0.71 (0.66-1.25) mg/dL Est GFR (CKD-EPI)AfAm >90 (>60 ml/min/1.73 sqM) Est GFR (CKD-EPI)NonAf >90 (>60 ml/min/1.73 sqM) Glucose 93 (74-99) mg/dL Calcium 8.0 L (8.4-10.2) mg/dL Magnesium 2.1 (1.6-2.3) mg/dL Total Bilirubin 0.5 (0.2-1.3) mg/dL AST 42 (17-59) U/L ALT 27 (4-49) U/L Alkaline Phosphatase 108 (38-126) U/L Troponin I 0.016 (0.000-0.034) ng/mL Total Protein 6.1 L (6.3-8.2) g/dL Albumin 3.3 L (3.5-5.0) g/dL Serum Alcohol mg/dL 11/29/22 Range/Units 14:50 WBC (3.8-10.6) k/uL RBC (4.30-5.90) m/uL Hgb (13.0-17.5) gm/dL Hct (39.0-53.0) % MCV (80.0-100.0) fL MCH (25.0-35.0) pg MCHC (31.0-37.0) g/dL RDW (11.5-15.5) % Plt Count (150-450) k/uL MPV Neutrophils % % Lymphocytes % % Monocytes % % Eosinophils % % Basophils % % Neutrophils # (1.3-7.7) k/uL Lymphocytes # (1.0-4.8) k/uL Monocytes # (0-1.0) k/uL Eosinophils # (0-0.7) k/uL Basophils # (0-0.2) k/uL Sodium (137-145) mmol/L Potassium (3.5-5.1) mmol/L Chloride (98-107) mmol/L Carbon Dioxide (22-30) mmol/L Anion Gap mmol/L BUN (9-20) mg/dL Creatinine (0.66-1.25) mg/dL Est GFR (CKD-EPI)AfAm (>60 ml/min/1.73 sqM) Est GFR (CKD-EPI)NonAf (>60 ml/min/1.73 sqM) Glucose (74-99) mg/dL Calcium (8.4-10.2) mg/dL Magnesium (1.6-2.3) mg/dL Total Bilirubin (0.2-1.3) mg/dL AST (17-59) U/L ALT (4-49) U/L Alkaline Phosphatase (38-126) U/L Troponin I (0.000-0.034) ng/mL Total Protein (6.3-8.2) g/dL Albumin (3.5-5.0) g/dL Serum Alcohol 289 H* mg/dL Disposition Clinical Impression: Hypokalemia, Alcohol intoxication, Atrial flutter with rapid ventricular respon se Disposition: ADMITTED IP TO THIS HOSP Referrals: Reuben Hewitt DO [Primary Care Provider] - 1-2 days Time of Disposition: 15:33
--- NOTE | 2022-11-29 14:16 | XR ---
EXAMINATION TYPE: XR chest 2V DATE OF EXAM: 11/29/2022 COMPARISON: 06/25/2022 HISTORY: Shortness of breath TECHNIQUE: Frontal and lateral views of the chest are obtained. FINDINGS: Scattered senescent parenchymal changes noted. Hyperinflation compatible with COPD. No evidence for infiltrate. No evidence for atelectasis. Heart size is stable. Mediastinal structures are stable and grossly unremarkable. No evidence for hilar prominence. Degenerative changes dorsal spine. IMPRESSION: 1. No evidence for acute pulmonary disease.
[2022-11-29 14:20] LABS: Basophils % (A) 1 %; Eosinophils % (A) 1 %; HCT 38.9 % (39.0-53.0); HGB 13.9 gm/dL (13.0-17.5); Lymphocytes # (A) 1.8 k/uL (1.0-4.8); Lymphocytes % (A) 32 %; MCH 35.7 pg (25.0-35.0); MCHC 35.7 g/dL (31.0-37.0); MCV 100.3 fL (80.0-100.0); Mean Platelet Volume 7.3; Monocytes # (A) 0.3 k/uL (0-1.0); Monocytes % (A) 6 %; Neutrophils # (A) 3.4 k/uL (1.3-7.7); Neutrophils % (A) 59 %; Platelet Count 244 k/uL (150-450); RBC 3.88 m/uL (4.30-5.90); RDW 12.6 % (11.5-15.5); WBC 5.7 k/uL (3.8-10.6)
[2022-11-29 14:30] LABS: ALT 27 U/L (4-49); AST 42 U/L (17-59); African American GFR (CKD) >90 (>60 ml/min/1.73 sqM); Albumin 3.3 g/dL (3.5-5.0); Alkaline Phosphatase 108 U/L (38-126); Anion Gap 10 mmol/L; Blood Urea Nitrogen 8 mg/dL (9-20); Carbon Dioxide 24 mmol/L (22-30); Chloride 111 mmol/L (98-107); Glucose 93 mg/dL (74-99); Magnesium 2.1 mg/dL (1.6-2.3); Non-African American GFR(CKD) >90 (>60 ml/min/1.73 sqM); Potassium 2.8 mmol/L (3.5-5.1); Sodium 145 mmol/L (137-145); Total Bilirubin 0.5 mg/dL (0.2-1.3); Total Protein 6.1 g/dL (6.3-8.2)
[2022-11-29] MEDS ORDERED: POTASSIUM CHLORIDE 20 MEQ in WATER FOR INJECTION 1 100ML.BAG IVPB STA (14:38)
[2022-11-29] MEDS ORDERED: POTASSIUM CHLORIDE ER 20 MEQ TAB.ER PO STA (14:38)
[2022-11-29] MEDS ORDERED: HEPARIN SODIUM 1,000 UN/ML (10ML VL) IV ONE (15:28)
[2022-11-29] MEDS ORDERED: HEPARIN SOD,PORK IN 0.45% NACL 25,000 UNIT in 0.45% NACL 1 250ML.BAG IV SCH (15:30)
[2022-11-29] MEDS ORDERED: THIAMINE 100 MG/ML 2 ML VIAL IM STA (15:37)
[2022-11-29] MEDS ORDERED: LORazepam 2 MG/ML INJ IV PRN ×4 (15:37→16:48)
[2022-11-29] MEDS: DILTIAZEM 125 MG in SODIUM CHLORIDE 0.9% 100 ML IV SCH (16:33)
--- NOTE | 2022-11-29 16:47 | P.HPIM ---
History of Present Illness H&P Date: 11/29/22 History of Presenting Illness: Patient is a very pleasant 61-year-old male with a past medical history of hypertension, depression, alcohol abuse, alcohol withdrawal seizures, nicotine dependence, and daily marijuana use. Patient reports long-standing history of drinking a fifth of alcohol daily. Patient's at bedside reports patient has had multiple ICU admissions as well as withdraw seizures secondary to alcohol withdrawal. Patient presented to the emergency department today with his secondary to alcohol intoxication. Patient reportedly became dizzy because he was too intoxicated. Patient reports long-standing history of alcoholism and states he has been drinking excessively heavy recently because he has been more depressed. Patient reports he has been hiding this from his but has been drinking 1-2 fifths of fireball per day as well as smoking marijuana every day. Patient reports he is so intoxicated and high that he is dizzy and lightheaded and is having palpitations. Denies having any changes in vision or hearing, facial numbness or tingling, dysphagia, chest pain, shortness of breath, nausea, vomiting, or experiencing any numbness/tingling/weakness/swelling in his extremities. Patient and patient's at bedside deny patient having any recent falls or injuries. Patient underwent full evaluation in the emergency department. EKG was completed revealing atrial flutter with RVR at 132 bpm with T-wave inversion in inferior leads II, III and aVF upon personal review and interpretation. Chest x-ray reviewed and lungs appear clear showing no signs of acute cardiopulmonary process. Labs completed and reviewed. Serum alcohol level 289. CBC showing no significant abnormalities. CMP revealing hypokalemia with potassium of 2.8 and hyperchloremia with chloride of 111. Patient started on Cardizem and heparin infusion. Discussed patient, laboratory findings, and imaging results with the ED physician. Patient being admitted under our services for alcohol intoxication and new onset atrial fibrillation with RVR. Patient being admitted to cardiac stepdown unit with consultation to cardiology. Review of systems: Pertinent positives and negatives as discussed in HPI, a complete review of systems was performed and all other systems are negative. Physical exam: Vital signs reviewed and stable. General: Nontoxic, no distress and appears stated age. Derm: Skin warm and dry, normal coloration for ethnicity. Head: Atraumatic, normocephalic and symmetric. Eyes: EOMs intact, no lid lag, and anicteric sclera Mouth: no lip lesions, mucus membranes moist Cardiovascular: Tachycardic rate and regular rhythm with normal S1S2, no murmur, positive posterior tibial pulses bilaterally, and cap refill < 2 seconds. Lungs: Respirations even, regular, and unlabored on room air. Lungs CTA bilaterally, no rhonchi, no rales, no wheezing, and no accessory muscle usage. Abdominal: soft, nontender to palpation, no guarding, no appreciable organomegaly Ext: ROM intact. No gross muscle atrophy, no edema, no contractures Neuro: Speech clear, face symmetrical and CN II-XII grossly intact with no noted focal neuro deficits Psych: Alert and oriented to person, place, time, and situation. Appropriate and pleasant affect. Assessment and Plan of Care: Alcohol intoxication pending withdraw History of DTs and alcohol withdrawal seizures Hypokalemia Marijuana use disorder Nicotine dependence -Labs completed and reviewed. Serum alcohol level 289. CBC showing no significant abnormalities. CMP revealing hypokalemia with potassium of 2.8 and hyperchloremia with chloride of 111. -CIWA scale to be completed and patient placed on symptom triggered medication management with benzodiazepines medicated with Ativan 0.5 mg every 4 hours as needed for CIWA score of 4-5, Ativan 1 mg every 4 hours for CIWA score of 6-7, Ativan 2 mg every 3 hours CIWA score of 8-9, and Ativan 2 mg every 2 hours forr CIWA score of 10 or greater. -Patient to receive continuous IV fluid hydration with 0.9% normal saline at 150 mL per hour. -Thiamine 100 mg twice a day. -Multivitamin daily. -Folate 1 mg daily. -Seizure, fall, aspiration, and elopement precautions in place. -Continued close monitoring of electrolytes and replace as needed. -Telemetry monitoring. -Urinalysis drug screen, salicylate level, and acetaminophen level to be completed. New-onset atrial flutter with RVR -EKG was completed revealing atrial flutter with RVR at 132 bpm with T-wave inversion in inferior leads II, III and aVF upon personal review and interpretation. -Chest x-ray reviewed and lungs appear clear showing no signs of acute cardiopulmonary process. -Labs completed and reviewed. Troponin 0.016. -Patient started on Cardizem and heparin infusion. -Discussed patient, laboratory findings, and imaging results with the ED physician. -Patient being admitted under our services to cardiac stepdown unit for alcohol intoxication and new onset atrial fibrillation with RVR. The patient is admitted with an anticipated greater than 2 midnight stay for evaluation of alcohol intoxication pending withdraw and new onset atrial fibrillation with RVR CODE STATUS: Full code DVT prophylaxis: Heparin Discussed with: Patient, patient's , RN, in ED physician Anticipated discharge date: Clinical course to determine Anticipated discharge place: Home Patient was seen independently by Nurse Practitioner. This document was prepared using [employer] dictation software. Please allow for errors in sap bw bi developer while rare they do occur. Ilir Wise NP rendered care for this patient independently, reviewed the findings and plan as documented in the note above. I did not physically speak with or examine the patient on this date. Supplements K-Lyte 40 mEq for a total of 100 mEq of potassium. Repeat potassium in a.m. -Case discussed with nursing and will increase Cardizem drip to 10 mg as patient heart rate is suboptimally controlled at 136 Past Medical History Past Medical History: Hypertension, Seizure Disorder Additional Past Medical History / Comment(s): ETOH, depression, encephalopathy, left lung collapse History of Any Multi-Drug Resistant Organisms: None Reported Past Surgical History: Orthopedic Surgery Additional Past Surgical History / Comment(s): rt femur Past Anesthesia/Blood Transfusion Reactions: No Reported Reaction Past Psychological History: Depression Smoking Status: Current every day smoker Past Alcohol Use History: Abuse, Daily Past Drug Use History: Marijuana - Past Family History Father Family Medical History: Hypertension Mother Family Medical History: No Reported History Medications and Allergies Home Medications Medication Instructions Recorded Confirmed Type Meloxicam 15 mg PO DAILY 06/15/21 11/29/22 History Pantoprazole [Protonix] 40 mg PO DAILY 03/10/22 11/29/22 History Lacosamide [Vimpat] 50 mg PO BID 04/07/22 11/29/22 History NIFEdipine [Adalat CC] 30 mg PO DAILY 04/07/22 11/29/22 History levETIRAcetam [Keppra] 1,000 mg PO BID 04/07/22 11/29/22 History Acamprosate Calcium [Campral] 666 mg PO TID 11/29/22 11/29/22 History Citalopram Hydrobromide [CeleXA] 40 mg PO DAILY 11/29/22 11/29/22 History QUEtiapine [SEROquel] 50 mg PO HS 11/29/22 11/29/22 History Allergies Allergy/AdvReac Type Severity Reaction Status Date / Time goat milk Allergy Unknown Uncoded 07/05/22 18:40 Childhood Physical Exam Osteopathic Statement: *. No significant issues noted on an osteopathic structural exam other than those noted in the History and Physical/Consult. Vitals: Vital Signs Temp Pulse Resp BP Pulse Ox 11/29/22 16:38 134 H 18 141/86 95 11/29/22 13:38 98.1 F 129 H 18 118/90 98 Intake and Output 11/29/22 11/29/22 11/29/22 06:59 14:59 22:59 Other: Weight 68.039 kg Results CBC & Chem 7: 11/29/22 14:00 11/29/22 14:00 Labs: Abnormal Lab Results - Last 24 Hours (Table) 11/29/22 11/29/22 11/29/22 Range/Units 14:00 14:00 14:50 RBC 3.88 L (4.30-5.90) m/uL Hct 38.9 L (39.0-53.0) % MCV 100.3 H (80.0-100.0) fL MCH 35.7 H (25.0-35.0) pg Potassium 2.8 L (3.5-5.1) mmol/L Chloride 111 H (98-107) mmol/L BUN 8 L (9-20) mg/dL Calcium 8.0 L (8.4-10.2) mg/dL Total Protein 6.1 L (6.3-8.2) g/dL Albumin 3.3 L (3.5-5.0) g/dL Serum Alcohol 289 H* mg/dL
[2022-11-29] MEDS: NICOTINE 21MG/24HR PATCH TRANSDERM SCH (17:50)
[2022-11-29 18:12] LABS: Acetaminophen <10.0 ug/mL; Salicylate <1.0 mg/dL
[2022-11-29] MEDS ORDERED: POTASSIUM BICARBONATE/CIT AC 20 MEQ TABLET.EFF PO ONE (19:00)
[2022-11-29] MEDS: LORazepam 2 MG/ML INJ IV PRN (19:43)
[2022-11-29] MEDS: LACOSAMIDE 50 MG TABLET PO SCH (21:06)
[2022-11-29] MEDS: QUEtiapine 50 MG TAB PO SCH (21:06)
[2022-11-29] MEDS: levETIRAcetam 500 MG TAB PO SCH (21:06)
[2022-11-29] MEDS: ACAMPROSATE CALCIUM 333 MG TABLET.DR PO SCH (21:07)
[2022-11-30] MEDS: LORazepam 2 MG/ML INJ IV PRN ×4 (01:58→22:14)
[2022-11-30] MEDS: PANTOPRAZOLE 40 MG TABLET PO SCH (06:15)
[2022-11-30] MEDS: DILTIAZEM 125 MG in SODIUM CHLORIDE 0.9% 100 ML IV SCH (07:33)
[2022-11-30 07:55] LABS: HCT 36.6 % (39.0-53.0); HGB 12.6 gm/dL (13.0-17.5); MCH 35.6 pg (25.0-35.0); MCHC 34.4 g/dL (31.0-37.0); MCV 103.6 fL (80.0-100.0); Macrocytosis Slight; Mean Platelet Volume 7.6; Platelet Count 198 k/uL (150-450); RBC 3.53 m/uL (4.30-5.90); RDW 12.8 % (11.5-15.5); WBC 7.4 k/uL (3.8-10.6)
[2022-11-30 08:05] LABS: ALT 32 U/L (4-49); AST 87 U/L (17-59); African American GFR (CKD) >90 (>60 ml/min/1.73 sqM); Albumin 3.2 g/dL (3.5-5.0); Alkaline Phosphatase 103 U/L (38-126); Anion Gap 7 mmol/L; Blood Urea Nitrogen 8 mg/dL (9-20); Calcium 7.5 mg/dL (8.4-10.2); Carbon Dioxide 24 mmol/L (22-30); Chloride 112 mmol/L (98-107); Glucose 90 mg/dL (74-99); Magnesium 1.4 mg/dL (1.6-2.3); Non-African American GFR(CKD) >90 (>60 ml/min/1.73 sqM); Potassium 3.5 mmol/L (3.5-5.1); Sodium 143 mmol/L (137-145); Total Bilirubin 0.8 mg/dL (0.2-1.3); Total Protein 5.9 g/dL (6.3-8.2)
[2022-11-30] MEDS: NICOTINE 21MG/24HR PATCH TRANSDERM SCH (08:13)
[2022-11-30] MEDS: FOLIC ACID 1 MG TAB PO SCH (08:14)
[2022-11-30] MEDS: ACAMPROSATE CALCIUM 333 MG TABLET.DR PO SCH ×3 (08:14→21:12)
[2022-11-30] MEDS: THIAMINE 100 MG TAB PO SCH (08:14)
[2022-11-30] MEDS: LACOSAMIDE 50 MG TABLET PO SCH ×2 (08:14→21:12)
[2022-11-30] MEDS: CITALOPRAM HYDROBROMIDE 20 MG TAB PO SCH (08:14)
[2022-11-30] MEDS: levETIRAcetam 500 MG TAB PO SCH ×2 (08:14→21:12)
[2022-11-30] MEDS: NIFEdipine XL 30 MG TAB.ER.24 PO SCH (08:14)
[2022-11-30] MEDS: MULTIVITAMINS, THERA 1 EACH TAB PO SCH (08:14)
--- NOTE | 2022-11-30 11:08 | P.CRDCN ---
History of Present Illness History of present illness: HISTORY OF PRESENT ILLNESS: This is a 61-year-old male with a past medical history significant for alcohol abuse, GERD, and seizure disorder. 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 We have been asked to see the patient in consultation for atrial flutter. Nella ent examined at the bedside. Patient presented to the hospital yesterday secondary to dizziness and palpitations. Patient was found to be acutely intoxicated with an alcohol level of 289. Patient was found to be in atrial flutter with RVR. The patient was started on IV Cardizem and IV heparin. He converted to sinus mechanism and is maintaining sinus mechanism this morning. He denies any complaints of chest pain or pressure. He denies any shortness of breath. The patient is a current cigarette smoker and smokes 1 pack per day. He reports daily marijuana use. He reports he drinks fireball daily and drinks between 1 pint and 1/5 of liquor a day depending on how much when he has. * EKG reveals atrial flutter with RVR. Subsequent EKG reveals sinus mechanism * Chest xray negative for acute process * Laboratory data: W BC 7.4. Hemoglobin 12.6. Platelet count 198. Sodium 143. Potassium 3.5. BUN 8. Creatinine 0.68. Magnesium 1.4. TSH 1.350. * Current home cardiac medications include none REVIEW OF SYSTEMS: At the time of my exam: CONSTITUTIONAL: Denies fever or chills. HEENT: Denies blurred vision, vision changes, or eye pain. Denies hemoptysis CARDIOVASCULAR: Denies chest pain. Denies orthopnea. Denies PND. Denies palpitations RESPIRATORY: Denies shortness of breath. GASTROINTESTINAL: Denies abdominal pain. Denies nausea or vomiting. HEMATOLOGIC: Denies bleeding disorders. GENITOURINARY: Denies any blood in urine. SKIN: Denies pruitis. Denies rash. PHYSICAL EXAM: VITAL SIGNS: Reviewed. GENERAL: Well-developed in no acute distress. HEENT: Head is normocephalic. Pupils are equal, round. Sclerae anicteric. Mucous membranes of the mouth are moist. Neck supple. No JVD or thyromegaly LUNGS: Respirations even and unlabored. Lungs essentially clear to auscultation bilaterally. HEART: Regular rate and rhythm. S1 and S2 heard. ABDOMEN: Soft. Nondistended. Nontender. EXTREMITIES: Normal range of motion. No clubbing or cyanosis. Peripheral pulses intact. No lower extremity edema NEUROLOGIC: Awake and alert. Oriented x 3. ASSESSMENT: Dizziness and palpitations Acute alcohol intoxication, alcohol level 289 New onset paroxysmal typical atrial flutter, currently maintaining sinus mechanism Seizure disorder GERD Alcohol abuse PLAN: Obtain 2-D echo to assess cardiac structure and function Resume home cardiac medications Abstinence from alcohol and marijuana use recommended Smoking cessation recommended CHADVASC score is 0. Patient also with history of falls. No anticoagulation recommended at this time Further recommendations pending patient's course Nurse practitioner note has been reviewed by physician. Signing provider agrees with the documented findings, assessment, and plan of care. Past Medical History Past Medical History: Hypertension, Seizure Disorder Additional Past Medical History / Comment(s): ETOH, depression, encephalopathy, left lung collapse History of Any Multi-Drug Resistant Organisms: None Reported Past Surgical History: Orthopedic Surgery Additional Past Surgical History / Comment(s): rt femur Past Anesthesia/Blood Transfusion Reactions: No Reported Reaction Past Psychological History: Depression Smoking Status: Current every day smoker Past Alcohol Use History: Abuse, Daily Past Drug Use History: Marijuana - Past Family History Father Family Medical History: Hypertension Mother Family Medical History: No Reported History Medications and Allergies Home Medications Medication Instructions Recorded Confirmed Type Meloxicam 15 mg PO DAILY 06/15/21 11/29/22 History Pantoprazole [Protonix] 40 mg PO DAILY 03/10/22 11/29/22 History Lacosamide [Vimpat] 50 mg PO BID 04/07/22 11/29/22 History NIFEdipine [Adalat CC] 30 mg PO DAILY 04/07/22 11/29/22 History levETIRAcetam [Keppra] 1,000 mg PO BID 04/07/22 11/29/22 History Acamprosate Calcium [Campral] 666 mg PO TID 11/29/22 11/29/22 History Citalopram Hydrobromide [CeleXA] 40 mg PO DAILY 11/29/22 11/29/22 History QUEtiapine [SEROquel] 50 mg PO HS 11/29/22 11/29/22 History Allergies Allergy/AdvReac Type Severity Reaction Status Date / Time goat milk Allergy Unknown Uncoded 07/05/22 18:40 Childhood Physical Exam Vitals: Vital Signs Temp Pulse Pulse Resp BP BP Pulse Ox 11/30/22 03:27 98.0 F 62 18 110/70 97 11/30/22 02:00 78 18 11/29/22 23:31 97.9 F 72 18 103/68 96 11/29/22 20:35 78 18 11/29/22 20:00 97.9 F 117 H 18 112/73 97 11/29/22 18:12 97.7 F 132 H 17 126/89 99 11/29/22 16:38 134 H 18 141/86 95 11/29/22 13:38 98.1 F 129 H 18 118/90 98 Intake and Output 11/29/22 11/30/22 11/30/22 22:59 06:59 14:59 Intake Total 11 66.817 114 Output Total 350 375 Balance -339 -308.183 114 Intake: Intake, IV Titration 11 66.817 114 Amount Diltiazem 125 mg In 11 114 Sodium Chloride 0.9% 100 ml @ 10 MG/HR 10 mls/hr IV .[id number] [facility] Rx#: [id number] Heparin Sod,Pork in 0.45% 66.817 NaCl 25,000 unit In 0.45 % NaCl 1 250ml.bag @ 12 UNITS/KG/HR 8.165 mls/hr IV .Q24H [facility] Rx#: [id number] Output: Urine 350 375 Other: Voiding Method Toilet Toilet Urinal Urinal # Bowel Movements 1 Weight 68.039 kg Results 11/30/22 07:34 11/30/22 07:34 Cardiac Enzymes 11/29/22 11/29/22 11/30/22 Range/Units 14:00 14:00 07:34 AST 42 87 H (17-59) U/L Troponin I 0.016 (0.000-0.034) ng/mL Coagulation 11/30/22 11/30/22 Range/Units 00:13 07:34 APTT 107.8 H* 37.9 H (22.0-30.0) sec CBC 11/29/22 11/30/22 Range/Units 14:00 07:34 WBC 5.7 7.4 (3.8-10.6) k/uL RBC 3.88 L 3.53 L (4.30-5.90) m/uL Hgb 13.9 12.6 L (13.0-17.5) gm/dL Hct 38.9 L 36.6 L (39.0-53.0) % Plt Count 244 198 (150-450) k/uL Comprehensive Metabolic Panel 11/29/22 11/30/22 Range/Units 14:00 07:34 Sodium 145 143 (137-145) mmol/L Potassium 2.8 L 3.5 (3.5-5.1) mmol/L Chloride 111 H 112 H (98-107) mmol/L Carbon Dioxide 24 24 (22-30) mmol/L BUN 8 L 8 L (9-20) mg/dL Creatinine 0.71 0.68 (0.66-1.25) mg/dL Glucose 93 90 (74-99) mg/dL Calcium 8.0 L 7.5 L (8.4-10.2) mg/dL AST 42 87 H (17-59) U/L ALT 27 32 (4-49) U/L Alkaline Phosphatase 108 103 (38-126) U/L Total Protein 6.1 L 5.9 L (6.3-8.2) g/dL Albumin 3.3 L 3.2 L (3.5-5.0) g/dL Current Medications Generic Name Dose Route Start Last Admin Trade Name Freq PRN Reason Stop Dose Admin Acamprosate 666 mg 11/29/22 22:00 11/30/22 08:14 Acamprosate Calcium 333 Mg Tablet. PO 666 mg TID [facility] Administration Citalopram Hydrobromide 40 mg 11/30/22 09:00 11/30/22 08:14 Citalopram Hydrobromide 20 Mg Tab PO 40 mg DAILY [facility] Administration Folic Acid 1 mg 11/30/22 09:00 11/30/22 08:14 Folic Acid 1 Mg Tab PO 1 mg DAILY [facility] Administration Heparin Sodium/Sodium Chloride 250 mls @ 8.165 mls/hr 11/29/22 15:30 11/30/22 01:46 25,000 unit/ Sodium Chloride IV 9 units/kg/hr .Q24H [facility] 6.124 mls/hr Titration Protocol 12 UNITS/KG/HR Diltiazem HCl 125 mg/ Sodium 125 mls @ 10 mls/hr 11/29/22 15:40 11/30/22 0 7:33 Chloride IV Not Given .[id number] [facility] 10 MG/HR Lacosamide 50 mg 11/29/22 21:00 11/30/22 08:14 Lacosamide 50 Mg Tablet PO 50 mg BID [facility] Administration Levetiracetam 1,000 mg 11/29/22 21:00 11/30/22 08:14 Levetiracetam 500 Mg Tab PO 1,000 mg BID [facility] Administration Lorazepam 1 mg 11/29/22 16:48 Lorazepam 2 Mg/Ml Inj IV Q1HR PRN CIWA 10 to 15 Lorazepam 1 mg 11/29/22 16:48 11/30/22 01:58 Lorazepam 2 Mg/Ml Inj IV 1 mg Q2HR PRN Administration CIWA 8 or 9 Lorazepam 2 mg 11/29/22 16:48 Lorazepam 2 Mg/Ml Inj IV 12/01/22 16:48 Q10M PRN CIWA 16 or higher Lorazepam 2 mg 11/29/22 16:48 Lorazepam 2 Mg/Ml Inj IV Q6HR PRN Seizures Multivitamins 1 each 11/30/22 09:00 11/30/22 08:14 Multivitamins, Thera 1 Each Tab PO 1 each DAILY [facility] Administration Nicotine 1 patch 11/29/22 17:00 11/30/22 08:13 Nicotine 21mg/24hr Patch TRANSDERM 1 patch DAILY [facility] Administration Nifedipine 30 mg 11/30/22 09:00 11/30/22 08:14 Nifedipine Xl 30 Mg Tab.Er.24 PO 30 mg DAILY [facility] Administration Pantoprazole Sodium 40 mg 11/30/22 07:30 11/30/22 06:15 Pantoprazole 40 Mg Tablet PO 40 mg [id number] [facility] Administration Quetiapine Fumarate 50 mg 11/29/22 21:00 11/29/22 21:06 Quetiapine 50 Mg Tab PO 50 mg HS [facility] Administration Thiamine HCl 100 mg 11/30/22 09:00 11/30/22 08:14 Thiamine 100 Mg Tab PO 100 mg DAILY [facility] Administration Intake and Output 11/29/22 11/30/22 11/30/22 22:59 06:59 14:59 Intake Total 11 66.817 114 Output Total 350 375 Balance -339 -308.183 114 Intake: Intake, IV Titration 11 66.817 114 Amount Diltiazem 125 mg In 11 114 Sodium Chloride 0.9% 100 ml @ 10 MG/HR 10 mls/hr IV .[id number] [facility] Rx#: [id number] Heparin Sod,Pork in 0.45% 66.817 NaCl 25,000 unit In 0.45 % NaCl 1 250ml.bag @ 12 UNITS/KG/HR 8.165 mls/hr IV .Q24H [facility] Rx#: [id number] Output: Urine 350 375 Other: Voiding Method Toilet Toilet Urinal Urinal # Bowel Movements 1 Weight 68.039 kg 11/30/22 07:34 11/30/22 07:34
[2022-11-30] MEDS: MAGNESIUM SULFATE-D5W PMX 1 GM in DEXTROSE/WATER 1 100ML.BAG IVPB SCH ×3 (12:59→17:07)
--- NOTE | 2022-11-30 13:28 | P.PN ---
Subjective Progress Note Date: 11/30/22 Hospital Course: Patient is a very pleasant 61-year-old male with a past medical history of hypertension, depression, alcohol abuse, alcohol withdrawal seizures, nicotine dependence, and daily marijuana use. Patient reports long-standing history of drinking a fifth of alcohol daily. Patient's at bedside reports patient has had multiple ICU admissions as well as withdraw seizures secondary to alcohol withdrawal. Patient presented to the emergency department today with his secondary to alcohol intoxication. Patient reportedly became dizzy because he was too intoxicated. Patient reports long-standing history of alcoholism and states he has been drinking excessively heavy recently because he has been more depressed. Patient reports he has been hiding this from his but has been drinking 1-2 fifths of fireball per day as well as smoking marijuana every day. Patient reports he is so intoxicated and high that he is dizzy and lightheaded and is having palpitations. Denies having any changes in vision or hearing, facial numbness or tingling, dysphagia, chest pain, shortness of breath, nausea, vomiting, or experiencing any numbness/t ingling/weakness/swelling in his extremities. Patient and patient's at bedside deny patient having any recent falls or injuries. Patient underwent full evaluation in the emergency department. EKG was completed revealing atrial tachycardia/flutter with RVR at 132 bpm with T-wave inversion in inferior leads II, III and aVF upon personal review and interpretation. Chest x-ray reviewed and lungs appear clear showing no signs of acute cardiopulmonary process. Labs completed and reviewed. Serum alcohol level 289. CBC showing no significant abnormalities. CMP revealing hypokalemia with potassium of 2.8 and hyperchloremia with chloride of 111. Patient started on Cardizem and heparin in fusion. Discussed patient, laboratory findings, and imaging results with the ED physician. Patient being admitted under our services for alcohol intoxication and new onset atrial fibrillation with RVR. Patient being admitted to cardiac stepdown unit with consultation to cardiology. Physical exam: Vital signs reviewed and stable. General: Nontoxic, no distress and appears stated age. Derm: Skin warm and dry, normal coloration for ethnicity. Head: Atraumatic, normocephalic and symmetric. Eyes: EOMs intact, no lid lag, and anicteric sclera Mouth: no lip lesions, mucus membranes moist Cardiovascular: Regular rate and regular rhythm with normal S1S2, no murmur, positive posterior tibial pulses bilaterally, and cap refill < 2 seconds. Lungs: Respirations even, regular, and unlabored on room air. Lungs CTA bilaterally, no rhonchi, no rales, no wheezing, and no accessory muscle usage. Abdominal: soft, nontender to palpation, no guarding, no appreciable organomegaly Ext: ROM intact. No gross muscle atrophy, no edema, no contractures Neuro: Speech clear, face symmetrical and CN II-XII grossly intact with no noted focal neuro deficits Psych: Alert and oriented to person, place, time, and situation. Appropriate and pleasant affect. Assessment and Plan of Care: Alcohol intoxication pending withdraw History of DTs and alcohol withdrawal seizures Hypokalemia Hypomagnesemia Marijuana use disorder Nicotine dependence -Labs completed and reviewed. CBC revealing stable macrocytic hyperchromic anemia with hemoglobin of 12.6. BMP unremarkable showing resolution of hypokalemia with potassium of 3.5. Magnesium was low revealing hypomagnesemia with magnesium of 1.4. Liver profile showing elevated AST of 87. -Continue CIWA scale along with symptom triggered medication management with benzodiazepines medicating patient with Ativan 0.5 mg every 4 hours as needed for CIWA score of 4-5, Ativan 1 mg every 4 hours for CIWA score of 6-7, Ativan 2 mg every 3 hours CIWA score of 8-9, and Ativan 2 mg every 2 hours forr CIWA score of 10 or greater. Patient has had 2 mg of Ativan over the past 12 hours and currently CIWA score is 3. -Patient received IV fluid hydration for a total of 3 L of 0.9% normal saline. Patient is tolerating oral intake and IV fluids have been discontinued at this time. -Continue Thiamine 100 mg twice a day, Multivitamin daily, and Folate 1 mg daily. -Order placed for magnesium sulfate 3 g IVPB to be administered for magnesium of 1.4. -Seizure, fall, aspiration, and elopement precautions to remain in place. -Continued close monitoring of electrolytes to follow-up on continued resolution of hypokalemia and monitor for resolution of hypomagnesemia. -Telemetry monitoring. -Urinalysis drug screen received 11/29/22 the lab and currently remains pending results. -Salicylate level and acetaminophen level reviewed and both negative. Patient reports an intentional overdose of his medication -Patient reports taking more medication than prescribed in attempts to increase his euphoria from high -Patient denies suicidal or homicidal ideations. He does report increased depression. -Psychiatry was consulted for evaluation and pending their recommendations patient to continue daily medication regimen with Celexa. New-onset atrial tachycardia, atrial flutter was ruled out by cardiology and patient currently maintaining sinus mechanism -Cardiology evaluated, discussed with cardiology and he and atrial flutter was ruled out. Heparin and Cardizem were discontinued. CODE STATUS: Full code DVT prophylaxis: Heparin Discussed with: Patient, cardiology [employer], and RN Anticipated discharge date: Clinical course to determine Anticipated discharge place: Home Patient was seen independently by Nurse Practitioner. This document was prepared using [employer] dictation software. Please allow for errors in oyster floater while rare they do occur. Ilir Wise NP rendered care for this patient independently, reviewed the findings and plan as documented in the note above. I did not physically speak with or examine the patient on this date. Objective - Vital Signs Vital signs: Vital Signs Temp 98 F 11/30/22 08:16 Pulse 68 11/30/22 08:16 Resp 18 11/30/22 08:16 BP 151/88 11/30/22 08:16 Pulse Ox 100 11/30/22 08:16 FiO2 Intake & Output 11/29/22 11/30/22 11/30/22 18:59 06:59 18:59 Intake Total 11 66.817 272.316 Output Total 725 Balance 11 -658.183 272.316 Weight 68.039 kg Intake: Intake, IV Titration 11 66.817 154.316 Amount Diltiazem 125 mg In 11 114 Sodium Chloride 0.9% 100 ml @ 10 MG/HR 10 mls/hr IV .[id number] [facility] Rx#: [id number] Heparin Sod,Pork in 0.45% 66.817 40.316 NaCl 25,000 unit In 0.45 % NaCl 1 250ml.bag @ 12 UNITS/KG/HR 8.165 mls/hr IV .Q24H [facility] Rx#: [id number] Oral 118 Output: Urine 725 Other: Voiding Method Toilet Toilet Urinal # Bowel Movements 1 - Labs CBC & Chem 7: 11/30/22 07:34 11/30/22 07:34 Labs: Abnormal Lab Results - Last 24 Hours (Table) 11/29/22 11/29/22 11/29/22 Range/Units 14:00 14:00 14:50 RBC 3.88 L (4.30-5.90) m/uL Hgb (13.0-17.5) gm/dL Hct 38.9 L (39.0-53.0) % MCV 100.3 H (80.0-100.0) fL MCH 35.7 H (25.0-35.0) pg APTT (22.0-30.0) sec Potassium 2.8 L (3.5-5.1) mmol/L Chloride 111 H (98-107) mmol/L BUN 8 L (9-20) mg/dL Calcium 8.0 L (8.4-10.2) mg/dL Magnesium (1.6-2.3) mg/dL AST (17-59) U/L Total Protein 6.1 L (6.3-8.2) g/dL Albumin 3.3 L (3.5-5.0) g/dL Serum Alcohol 289 H* mg/dL 11/30/22 11/30/22 11/30/22 Range/Units 00:13 07:34 07:34 RBC 3.53 L (4.30-5.90) m/uL Hgb 12.6 L (13.0-17.5) gm/dL Hct 36.6 L (39.0-53.0) % MCV 103.6 H (80.0-100.0) fL MCH 35.6 H (25.0-35.0) pg APTT 107.8 H* (22.0-30.0) sec Potassium (3.5-5.1) mmol/L Chloride 112 H (98-107) mmol/L BUN 8 L (9-20) mg/dL Calcium 7.5 L (8.4-10.2) mg/dL Magnesium 1.4 L (1.6-2.3) mg/dL AST 87 H (17-59) U/L Total Protein 5.9 L (6.3-8.2) g/dL Albumin 3.2 L (3.5-5.0) g/dL Serum Alcohol mg/dL 11/30/22 Range/Units 07:34 RBC (4.30-5.90) m/uL Hgb (13.0-17.5) gm/dL Hct (39.0-53.0) % MCV (80.0-100.0) fL MCH (25.0-35.0) pg APTT 37.9 H (22.0-30.0) sec Potassium (3.5-5.1) mmol/L Chloride (98-107) mmol/L BUN (9-20) mg/dL Calcium (8.4-10.2) mg/dL Magnesium (1.6-2.3) mg/dL AST (17-59) U/L Total Protein (6.3-8.2) g/dL Albumin (3.5-5.0) g/dL Serum Alcohol mg/dL
[2022-11-30 17:14] LABS: Urine Alcohol Positive (Negative); Urine Barbiturate Negative (Negative); Urine Cocaine Negative (Negative); Urine Methadone Negative (Negative); Urine Opiates Negative (Negative); Urine Phencyclidine Negative (Negative)
[2022-11-30] MEDS: QUEtiapine 50 MG TAB PO SCH (21:12)
[2022-12-01] MEDS: PANTOPRAZOLE 40 MG TABLET PO SCH (06:09)
[2022-12-01 07:00] LABS: HCT 33.4 % (39.0-53.0); HGB 11.9 gm/dL (13.0-17.5); MCH 36.4 pg (25.0-35.0); MCHC 35.7 g/dL (31.0-37.0); Mean Platelet Volume 7.7; Platelet Count 150 k/uL (150-450); RBC 3.28 m/uL (4.30-5.90); RDW 12.5 % (11.5-15.5)
[2022-12-01 07:25] LABS: ALT 47 U/L (4-49); AST 118 U/L (17-59); African American GFR (CKD) >90 (>60 ml/min/1.73 sqM); Albumin 3.1 g/dL (3.5-5.0); Alkaline Phosphatase 134 U/L (38-126); Anion Gap 5 mmol/L; Blood Urea Nitrogen 4 mg/dL (9-20); Calcium 7.7 mg/dL (8.4-10.2); Carbon Dioxide 28 mmol/L (22-30); Chloride 104 mmol/L (98-107); Glucose 95 mg/dL (74-99); Magnesium 1.9 mg/dL (1.6-2.3); Non-African American GFR(CKD) >90 (>60 ml/min/1.73 sqM); Potassium 2.8 mmol/L (3.5-5.1); Sodium 137 mmol/L (137-145); Total Bilirubin 0.7 mg/dL (0.2-1.3); Total Protein 5.7 g/dL (6.3-8.2)
[2022-12-01] MEDS ORDERED: ENOXAPARIN 40 MG/0.4 ML SYRINGE SQ SCH (09:00)
[2022-12-01 10:00] VITALS: BP 132/88; PULSE 70; RESP 18; TEMP 98.4
[2022-12-01] MEDS: MULTIVITAMINS, THERA 1 EACH TAB PO SCH (10:00)
[2022-12-01] MEDS: THIAMINE 100 MG TAB PO SCH (10:00)
[2022-12-01] MEDS: NIFEdipine XL 30 MG TAB.ER.24 PO SCH (10:00)
[2022-12-01] MEDS: ACAMPROSATE CALCIUM 333 MG TABLET.DR PO SCH (10:00)
[2022-12-01] MEDS: levETIRAcetam 500 MG TAB PO SCH (10:00)
[2022-12-01] MEDS: NICOTINE 21MG/24HR PATCH TRANSDERM SCH (10:00)
[2022-12-01] MEDS: FOLIC ACID 1 MG TAB PO SCH (10:01)
[2022-12-01] MEDS: LACOSAMIDE 50 MG TABLET PO SCH (10:01)
[2022-12-01] MEDS: CITALOPRAM HYDROBROMIDE 20 MG TAB PO SCH (10:01)
[2022-12-01] MEDS: POTASSIUM CHLORIDE ER 20 MEQ TAB.ER PO SCH ×2 (10:11→14:39)
--- NOTE | 2022-12-01 13:46 | P.CN ---
Psychiatric Consult - . Consult date: 12/01/22 Consult:: 12/01/22 13:45 IDENTIFYING DATA: This patient is a, on disability, 61-year-old male with significant history of hypertension, alcohol use disorder, and depression who presents to her hospital on 11/29/2022 for acute alcohol intoxication and concerns for withdrawal. HISTORY OF PRESENT ILLNESS: The patient presented to the hospital on 11/29/2022, brought into the emergency department by EMS for severe alcohol intoxication. EMS was called by the patient's . The patient has been reportedly drinking at least a fifth of whiskey per day. During this hospitalization, the patient was noted to have cardiac arrhythmias. He was stabilized on Cardizem.Psychiatry has been consulted for evaluation of depression and suicidal ideation as there is concern that the patient may have intentionally overdosed on his home medications. Presents to the patient as his Ibeth. Patient is agreeable to having his present during the psychiatric interview. Currently, the patient is not reporting any suicidal or homicidal ideation, intention, and/or plan. He vehemently denies any suicide attempt prior to this admission. His also confirms that he did not overdose on any medications that she is the one who controls and supervises his medication administration at home. They report that the patient attempted to overdose more than a year ago. The patient does however endorse significant symptoms of depression including anhedonia, crying episodes, difficulty with sleep, low appetite, and low motivation. He does not report any significant symptoms of bipolar disorder and denies any periods of excessive energy, grandiosity, mood lability, or increased goal-directed activity. The patient is not reporting any auditory or visualizations. He denies any paranoia or other delusions. The patient does admit to heavy alcohol use. Patient reports drinkingv daily. He reports that the longest he has been sober was for a year when he was in a three-quarter house and attending AA groups. He reports that he slowly began to relapse into heavy alcohol use since moving into his own apartment in the same building [address] . He states that he began with sneaking in a few drinks here and there this quickly spiraled into heavy alcohol use again. He does report a history of DTs and alcohol withdrawal seizures. PAST PSYCHIATRIC HISTORY: Patient has a history of alcohol use disorder and depression and anxiety. So medication regimen includes citalopram 40 mg by mouth daily and Seroquel 50 mg at bedtime. He reports no previous psychiatric hospitalization. He is open with [facility]. He reports an overdose approximately year ago but denies any recent overdoses. PAST MEDICAL HISTORY: Past Medical History: Hypertension, Seizure Disorder Additional Past Medical History / Comment(s): ETOH, depression, encephalopathy, left lung collapse History of Any Multi-Drug Resistant Organisms: None Reported Past Surgical History: Orthopedic Surgery Additional Past Surgical History / Comment(s): rt femur Past Anesthesia/Blood Transfusion Reactions: No Reported Reaction Past Psychological History: Depression Smoking Status: Current every day smoker Past Alcohol Use History: Abuse, Daily Past Drug Use History: Marijuana ALLERGIES: Goat milk CHEMICAL DEPENDENCY HISTORY: Patient reports transient a fifth of liquor per day. He does have a history of multiple rehab admissions. He previously was staying three-quarter housing is now living on his own. He also smokes tobacco daily. Reports daily marijuana use as well. No report of illicit drug use. FAMILY PSYCHIATRIC/SUBSTANCE USE HISTORY: None reported SOCIAL HISTORY: Patient is currently . He is on disability. He lives in his own apartment with his living nearby. They are together but . MENTAL STATUS EXAM: General Appearance: Patient appears to be stated age is alert, pleasant, and cooperative. Patient appears to have fair hygiene and grooming wearing hospital gown with fair eye contact. Patient is wearing glasses with his left eye being covered. Behavior: Patient is calmly lying in bed without any agitated behavior. Speech: Patient's speech is fluent and nonpressured. Spontaneous with normal rate and volume. Mood/Affect: Patient reports their mood is "feeling better", affect is congruent but mildly malaised. Suicidality/Homicidality: Patient vehemently denies any suicidal or homicidal ideation, intention, and/or plan. Perceptions: Patient denies any visual hallucinations and denies any auditory hallucinations Though content/process: There is no evidence of any delusional thought content and thought process is linear and goal-directed. Memory and concentration: AOX3, grossly intact for the purposes of this session. Can spell "WORLD" backwards Judgment and insight: Fair Vital Signs Temp 98.4 F 12/01/22 08:00 Pulse 70 12/01/22 08:00 Resp 18 12/01/22 08:00 BP 132/88 12/01/22 08:00 Pulse Ox 100 12/01/22 08:00 FiO2 Intake & Output 11/30/22 12/01/22 12/01/22 18:59 06:59 18:59 Intake Total 395.056 540 168 Output Total 400 Balance 395.056 140 168 Intake: Intake, IV Titration 159.056 Amount Diltiazem 125 mg In 114 Sodium Chloride 0.9% 100 ml @ 10 MG/HR 10 mls/hr IV .[id number] [facility] Rx#: [id number] Heparin Sod,Pork in 0.45% 45.056 NaCl 25,000 unit In 0.45 % NaCl 1 250ml.bag @ 12 UNITS/KG/HR 8.165 mls/hr IV .Q24H [facility] Rx#: [id number] Oral 236 540 168 Output: Urine 400 Other: Voiding Method Toilet Toilet Urinal Urinal # Voids 1 1 # Bowel Movements 1 Laboratory Results WBC 4.0 k/uL (3.8-10.6) 12/01/22 06:14 RBC 3.28 m/uL (4.30-5.90) L 12/01/22 06:14 Hgb 11.9 gm/dL (13.0-17.5) L 12/01/22 06:14 Hct 33.4 % (39.0-53.0) L 12/01/22 06:14 MCV 102.0 fL (80.0-100.0) H 12/01/22 06:14 MCH 36.4 pg (25.0-35.0) H 12/01/22 06:14 MCHC 35.7 g/dL (31.0-37.0) 12/01/22 06:14 RDW 12.5 % (11.5-15.5) 12/01/22 06:14 Plt Count 150 k/uL (150-450) 12/01/22 06:14 MPV 7.7 12/01/22 06:14 Neutrophils % 59 % 11/29/22 14:00 Lymphocytes % 32 % 11/29/22 14:00 Monocytes % 6 % 11/29/22 14:00 Eosinophils % 1 % 11/29/22 14:00 Basophils % 1 % 11/29/22 14:00 Neutrophils # 3.4 k/uL (1.3-7.7) 11/29/22 14:00 Lymphocytes # 1.8 k/uL (1.0-4.8) 11/29/22 14:00 Monocytes # 0.3 k/uL (0-1.0) 11/29/22 14:00 Eosinophils # 0.0 k/uL (0-0.7) 11/29/22 14:00 Basophils # 0.0 k/uL (0-0.2) 11/29/22 14:00 Macrocytosis Slight 11/30/22 07:34 APTT 37.9 sec (22.0-30.0) H 11/30/22 07:34 Sodium 137 mmol/L (137-145) 12/01/22 06:14 Potassium 2.8 mmol/L (3.5-5.1) L 12/01/22 06:14 Chloride 104 mmol/L (98-107) 12/01/22 06:14 Carbon Dioxide 28 mmol/L (22-30) 12/01/22 06:14 Anion Gap 5 mmol/L 12/01/22 06:14 BUN 4 mg/dL (9-20) L 12/01/22 06:14 Creatinine 0.49 mg/dL (0.66-1.25) L 12/01/22 06:14 Est GFR (CKD-EPI)AfAm >90 (>60 ml/min/1.73 sqM) 12/01/22 06:14 Est GFR (CKD-EPI)NonAf >90 (>60 ml/min/1.73 sqM) 12/01/22 06:14 Glucose 95 mg/dL (74-99) 12/01/22 06:14 Calcium 7.7 mg/dL (8.4-10.2) L 12/01/22 06:14 Magnesium 1.9 mg/dL (1.6-2.3) 12/01/22 06:14 Total Bilirubin 0.7 mg/dL (0.2-1.3) 12/01/22 06:14 AST 118 U/L (17-59) H 12/01/22 06:14 ALT 47 U/L (4-49) 12/01/22 06:14 Alkaline Phosphatase 134 U/L (38-126) H 12/01/22 06:14 Troponin I 0.016 ng/mL (0.000-0.034) 11/29/22 14:00 Total Protein 5.7 g/dL (6.3-8.2) L 12/01/22 06:14 Albumin 3.1 g/dL (3.5-5.0) L 12/01/22 06:14 TSH 1.350 mIU/L (0.465-4.680) 11/30/22 07:34 Salicylates <1.0 mg/dL 11/29/22 14:00 Urine Opiates Screen Negative (Negative) 11/29/22 18:40 Urine Methadone Screen Negative (Negative) 11/29/22 18:40 Ur Propoxyphene Screen Negative (Negative) 11/29/22 18:40 Acetaminophen <10.0 ug/mL 11/29/22 14:00 Urine Barbiturates Negative (Negative) 11/29/22 18:40 Ur Phencyclidine Scrn Negative (Negative) 11/29/22 18:40 Ur Amphetamine Screen Negative (Negative) 11/29/22 18:40 U Benzodiazepines Scrn Negative (Negative) 11/29/22 18:40 Urine Cocaine Screen Negative (Negative) 11/29/22 18:40 U Cannabinoids Screen Positive (Negative) A 11/29/22 18:40 Urine Alcohol Positive (Negative) A 11/29/22 18:40 Serum Alcohol 289 mg/dL H* 11/29/22 14:50 IMPRESSIONS: Alcohol use disorder Alcohol withdrawal Major depressive disorder, recurrent, moderate Cannabis use disorder Nicotine dependence PLAN: -At this time patient DOES NOT meet criteria for inpatient psychiatric admission. As per discussion with the patient and his , the patient did not overdose intentionally on any medications and is vehemently denying any suicidal or homicidal ideation, intention, and/or plan. The patient's monitors his medications and controls his administration. -Delirium precautions recommended with patient including - avoiding use of narcotics and TEASELER sedatives, limit anticholinergic medications when possible, frequent re-orientation, minimize use of restraints, open window shades during the day and close them at night -Would recommend the following medication changes/additions: Continue Celexa 40 mg by mouth daily for depression/anxiety - EKG reviewed. QTC 440 with normal sinus rhythm. -Discussed at length that the patient's alcohol abuse is leading to cardiac dysfunction and arrhythmias. Patient and his acknowledge the concerns with Celexa and cardiac arrhythmias. They're in agreement to continue to follow with [facility] in the outpatient setting regarding any medication changes. Continue Seroquel 50 mg by mouth at bedtime for mood stabilization/augmentation/insomnia -Patient does not require a one-to-one sitter. -Recommend referrals for inpatient substance rehabilitation or outpatient substance abuse treatment. -This provider discussed at length alternative options including naltrexone, Campral, and Antabuse. Patient reports that he is working with [facility] and is likely to start [facility] in the outpatient setting. -Approximately 30 minutes of the interview was spent providing the patient with motivational interviewing and psychoeducation regarding his substance abuse -Psychiatry will sign off at this point, please contact with any questions. 12/01/22 13:45
--- NOTE | 2022-12-01 14:01 | P.PN ---
Subjective Progress Note Date: 12/01/22 HISTORY OF PRESENT ILLNESS: This is a 61-year-old male with a past medical history significant for alcohol abuse, GERD, and seizure disorder. Patient does not follow with a leave coordinator. We have been asked to see the patient in consultation for atrial flutter. Patient examined at the bedside. Patient presented to the hospital yesterday secondary to dizziness and palpitations. Patient was found to be acutely intoxicated with an alcohol level of 289. Patient was found to be in atrial flutter with RVR. The patient was started on IV Cardizem and IV heparin. He converted to sinus mechanism and is maintaining sinus mechanism this morning. He denies any complaints of chest pain or pressure. He denies any shortness of breath. The patient is a current cigarette smoker and smokes 1 pack per day. He reports daily marijuana use. He reports he drinks fireball daily and drinks between 1 pint and 1/5 of liquor a day depending on how much when he has. * EKG reveals atrial flutter with RVR. Subsequent EKG reveals sinus mechanism * Chest xray negative for acute process * Laboratory data: W BC 7.4. Hemoglobin 12.6. Platelet count 198. Sodium 143. Potassium 3.5. BUN 8. Creatinine 0.68. Magnesium 1.4. TSH 1.350. * Current home cardiac medications include none 12/01 Patient is seen today in follow-up. He is in a sinus rhythm in the 70s. Blood pressure 112/56. PHYSICAL EXAM: VITAL SIGNS: Reviewed. GENERAL: Well-developed in no acute distress. HEENT: Head is normocephalic. Pupils are equal, round. Sclerae anicteric. Mucous membranes of the mouth are moist. Neck supple. No JVD or thyromegaly LUNGS: Respirations even and unlabored. Lungs essentially clear to auscultation bilaterally. HEART: Regular rate and rhythm. S1 and S2 heard. ABDOMEN: Soft. Nondistended. Nontender. EXTREMITIES: Normal range of motion. No clubbing or cyanosis. Peripheral pulses intact. No lower extremity edema NEUROLOGIC: Awake and alert. Oriented x 3. ASSESSMENT: Dizziness and palpitations Acute alcohol intoxication, alcohol level 289 New onset paroxysmal typical atrial flutter, currently maintaining sinus mechanism Seizure disorder GERD Alcohol abuse PLAN: Obtain 2-D echo to assess cardiac structure and function Resume home cardiac medications Abstinence from alcohol and marijuana use recommended Smoking cessation recommended CHADVASC score is 0. Patient also with history of falls. No anticoagulation recommended at this time Patient is cleared by cardiology for discharge. Cardiology will follow on an as-needed basis. Nurse practitioner note has been reviewed by physician. Signing provider agrees with the documented findings, assessment, and plan of care. Objective - Vital Signs Vital signs: Vital Signs Temp 98.4 F 12/01/22 08:00 Pulse 70 12/01/22 08:00 Resp 18 12/01/22 08:00 BP 132/88 12/01/22 08:00 Pulse Ox 100 12/01/22 08:00 FiO2 Intake & Output 11/30/22 12/01/22 12/01/22 18:59 06:59 18:59 Intake Total 395.056 540 118 Output Total 400 Balance 395.056 140 118 Intake: Intake, IV Titration 159.056 Amount Diltiazem 125 mg In 114 Sodium Chloride 0.9% 100 ml @ 10 MG/HR 10 mls/hr IV .[id number] [facility] Rx#: [id number] Heparin Sod,Pork in 0.45% 45.056 NaCl 25,000 unit In 0.45 % NaCl 1 250ml.bag @ 12 UNITS/KG/HR 8.165 mls/hr IV .Q24H [facility] Rx#: [id number] Oral 236 540 118 Output: Urine 400 Other: Voiding Method Toilet Toilet Urinal Urinal # Voids 1 1 # Bowel Movements 1 - Labs CBC & Chem 7: 12/01/22 06:14 12/01/22 06:14 Labs: Abnormal Lab Results - Last 24 Hours (Table) 11/29/22 12/01/22 12/01/22 Range/Units 18:40 06:14 06:14 RBC 3.28 L (4.30-5.90) m/uL Hgb 11.9 L (13.0-17.5) gm/dL Hct 33.4 L (39.0-53.0) % MCV 102.0 H (80.0-100.0) fL MCH 36.4 H (25.0-35.0) pg Potassium 2.8 L (3.5-5.1) mmol/L BUN 4 L (9-20) mg/dL Creatinine 0.49 L (0.66-1.25) mg/dL Calcium 7.7 L (8.4-10.2) mg/dL AST 118 H (17-59) U/L Alkaline Phosphatase 134 H (38-126) U/L Total Protein 5.7 L (6.3-8.2) g/dL Albumin 3.1 L (3.5-5.0) g/dL U Cannabinoids Screen Positive A (Negative) Urine Alcohol Positive A (Negative)
--- NOTE | 2022-12-01 18:10 | CA ---
Transthoracic Echo Report Name: Hector Caro Age: 61 Gender: M : 1960 Exam Date: 12/01/2022 11:00 Exam Location: [facility] Ht (in): 70 Wt (lb): 150 Ordering Physician: Ilir Wise Attending/Referring Phys: Marsh Buggy Operator Chloe Witt RDCS Procedure CPT: Indications: atrial flutter Cardiac Hx: Technical Quality: Good Contrast 1: Total Dose (mL): Contrast 2: Total Dose (mL): MEASUREMENTS (Male / Female) Normal Values 2D ECHO LV Diastolic Diameter PLAX 4.2 cm 4.2 - 5.9 / 3.9 - 5.3 cm LV Systolic Diameter PLAX 2.7 cm IVS Diastolic Thickness 1.3 cm 0.6 - 1.0 / 0.6 - 0.9 cm LVPW Diastolic Thickness 1.3 cm 0.6 - 1.0 / 0.6 - 0.9 cm LV Relative Wall Thickness 0.6 RV Internal Dim ED PLAX 3.4 cm LA Systolic Diameter LX 3.2 cm 3.0 - 4.0 / 2.7 - 3.8 cm LA Volume 57.8 cm??? 18 - 58 / 22 - 52 cm??? M-MODE Aortic Root Diameter MM 3.8 cm MV E Point Septal Separation 0.6 cm AV Cusp Separation MM 2.6 cm DOPPLER AV Peak Velocity 98.2 cm/s AV Peak Gradient 3.9 mmHg MV Area PHT 2.0 cm??? Mitral E Point Velocity 51.0 cm/s Mitral A Point Velocity 57.3 cm/s Mitral E to A Ratio 0.9 MV Deceleration Time 375.2 ms MV E' Velocity 8.2 cm/s Mitral E to MV E' Ratio 6.3 FINDINGS Left Ventricle Left ventricular ejection fraction is estimated at 55-60 %. Left ventricular cavity size normal. Mildly increased septal wall thickness. Normal left ventricular wall motion. Right Ventricle Mild right ventricular dilatation. No TR unable to estimate the right ventricular systolic pressure. Right Atrium Normal right atrial size. Left Atrium Normal left atrial size. Mitral Valve Structurally normal mitral valve. Trace to mild mitral regurgitation. Aortic Valve Trileaflet aortic valve. No aortic valve stenosis or regurgitation. Tricuspid Valve Tricuspid valve not well visualized. No tricuspid stenosis, regurgitation or prolapse. Pulmonic Valve Structurally normal pulmonic valve. Trace pulmonic regurgitation. Pericardium Normal pericardium. No pericardial effusion. Aorta Borderline size aortic root and proximal ascending aorta. CONCLUSIONS Mild RV enlargement Normal RV systolic function Normal LV size and function Previewed by: Dr. Abel Ivory MD (Electronically Signed) Final Date: 01 December 2022 18:07
--- NOTE | 2022-12-01 18:36 | P.DS ---
Providers Date of admission: 11/29/22 15:38 Expected date of discharge: 12/01/22 Attending physician: Trey Prieto MD Consults: 11/29/22 16:50 Consult Physician Routine Consulting Provider: Daniel Enrique Consult Reason/Comments: atrial flutter Do you want consulting provider notified?: Yes 11/29/22 17:49 Consult Physician Routine Consulting Provider: David Grimm Consult Reason/Comments: depression, reports intentional overdose on medication Do you want consulting provider notified?: Yes Primary care physician: [facility] Course: Discharge Diagnosis: Alcohol intoxication History of DTs and alcohol withdrawal seizures Hypokalemia, replaced. Patient discharged home on potassium chloride 10 mEq daily along with prescription to have BMP and magnesium drawn in 3 days with results to be sent to PCP for follow-up and management. Hypomagnesemia, replaced. Patient discharged home with prescription to have BMP and magnesium drawn in 3 days with results to be sent to PCP for follow-up and management Marijuana use disorder Nicotine dependence Patient reports an intentional overdose of his medication. Patient evaluated by psychiatry recommending continuation of Seroquel 50 mg nightly and Celexa 40 mg daily. Psychiatry also recommended inpatient substance rehabilitation program, however patient again declined. New-onset atrial tachycardia, atrial flutter was ruled out by cardiology and patient currently maintaining sinus mechanism Hospital Course: Patient is a very pleasant 61-year-old male with a past medical history of hypertension, depression, alcohol abuse, alcohol withdrawal seizures, nicotine dependence, and daily marijuana use. Patient reports long-standing history of drinking a fifth of alcohol daily. Patient's at bedside reports patient has had multiple ICU admissions as well as withdraw seizures secondary to alcohol withdrawal. Patient presented to the emergency department today with his secondary to alcohol intoxication. Patient reportedly became dizzy because he was too intoxicated. Patient reports long-standing history of alcoholism and states he has been drinking excessively heavy recently because he has been more depressed. Patient reports he has been hiding this from his but has been drinking 1-2 fifths of fireball per day as well as smoking marijuana every day. Patient reports he is so intoxicated and high that he is dizzy and lightheaded and is having palpitations. Denies having any changes in vision or hearing, facial numbness or tingling, dysphagia, chest pain, shortness of breath, nausea, vomiting, or experiencing any numbness/tingling/weakness/swelling in his extremities. Patient and patient's at bedside deny patient having any recent falls or injuries. Patient underwent full evaluation in the emergency department. EKG was completed revealing atrial tachycardia/flutter with RVR at 132 bpm with T-wave inversion in inferior leads II, III and aVF upon personal review and interpretation. Chest x-ray reviewed and lungs appear clear showing no signs of acute cardiopulmonary process. Labs completed and reviewed. Serum alcohol level 289. CBC showing no significant abnormalities. CMP revealing hypokalemia with potassium of 2.8 and hyperchloremia with chloride of 111. Patient started on Cardizem and heparin infusion. Discussed patient, laboratory findings, and imaging results with the ED physician. Patient being admitted under our s ervices for alcohol intoxication and new onset atrial fibrillation with RVR. Patient being admitted to cardiac stepdown unit with consultation to cardiology and psychiatry. Patient has been receiving treatment for alcohol withdrawal. He has received a total of 3 mg of Ativan over the past 24 hours. Most recent CIWA score was 1. Patient adamant about being discharged today. Had long discussion with patient regarding strongly advising also cessation of alcohol use. Recommending inpatient rehab, patient declined. Physical exam: Vital signs reviewed and stable. General: Nontoxic, no distress and appears stated age. Derm: Skin warm and dry, normal coloration for ethnicity. Head: Atraumatic, normocephalic and symmetric. Eyes: EOMs intact, no lid lag, and anicteric sclera Mouth: no lip lesions, mucus membranes moist Cardiovascular: Regular rate and regular rhythm with normal S1S2, no murmur, positive posterior tibial pulses bilaterally, and cap refill < 2 seconds. Lungs: Respirations even, regular, and unlabored on room air. Lungs CTA bilaterally, no rhonchi, no rales, no wheezing, and no accessory muscle usage. Abdominal: soft, nontender to palpation, no guarding, no appreciable organomegaly Ext: ROM intact. No gross muscle atrophy, no edema, no contractures Neuro: Speech clear, face symmetrical and CN II-XII grossly intact with no noted focal neuro deficits Psych: Alert and oriented to person, place, time, and situation. Appropriate and pleasant affect. A total of 31 minutes of time were spent preparing this complex discharge summary. Pt was discharged on 12/01/22 at 9:50 AM. Patient was seen independently by Nurse Practitioner. This document was prepared using [employer] dictation software. Please allow for errors in ict account manager while rare they do occur. Ilir Wise NP rendered care for this patient independently, reviewed the findings and plan as documented in the note above. I did not physically speak with or examine the patient on this date. Patient Condition at Discharge: Stable Plan - Discharge Summary Discharge Rx Participant: No New Discharge Prescriptions: New Potassium Chloride ER [K-Dur 10] 10 meq PO DAILY 30 Days #30 tab Metoprolol Succinate (ER) [Toprol Xl] 12.5 mg PO DAILY #30 tab Folic Acid 1 mg PO DAILY tab Multivitamins, Thera [Multivitamin (formulary)] 1 each PO DAILY tab Thiamine [Vitamin B-1] 100 mg PO DAILY tab Continue Pantoprazole [Protonix] 40 mg PO DAILY levETIRAcetam [Keppra] 1,000 mg PO BID NIFEdipine [Adalat CC] 30 mg PO DAILY QUEtiapine [SEROquel] 50 mg PO HS Acamprosate Calcium [Campral] 666 mg PO TID Meloxicam 15 mg PO DAILY Lacosamide [Vimpat] 50 mg PO BID Citalopram Hydrobromide [CeleXA] 40 mg PO DAILY Discharge Medication List Meloxicam 15 mg PO DAILY 06/15/21 [History] Pantoprazole [Protonix] 40 mg PO DAILY 03/10/22 [History] Lacosamide [Vimpat] 50 mg PO BID 04/07/22 [History] NIFEdipine [Adalat CC] 30 mg PO DAILY 04/07/22 [History] levETIRAcetam [Keppra] 1,000 mg PO BID 04/07/22 [History] Acamprosate Calcium [Campral] 666 mg PO TID 11/29/22 [History] Citalopram Hydrobromide [CeleXA] 40 mg PO DAILY 11/29/22 [History] QUEtiapine [SEROquel] 50 mg PO HS 11/29/22 [History] Folic Acid 1 mg PO DAILY tab 12/01/22 [Rx] Metoprolol Succinate (ER) [Toprol Xl] 12.5 mg PO DAILY #30 tab 12/01/22 [Rx] Multivitamins, Thera [Multivitamin (formulary)] 1 each PO DAILY tab 12/01/22 [Rx] Potassium Chloride ER [K-Dur 10] 10 meq PO DAILY 30 Days #30 tab 12/01/22 [Rx] Thiamine [Vitamin B-1] 100 mg PO DAILY tab 12/01/22 [Rx] Follow up Appointment(s)/Referral(s): Reuben Hewitt DO [Primary Care Provider] - 12/09/22 2:20 pm Daniel Enrique MD [STAFF PHYSICIAN] - 12/11/22 3:15 pm () Ambulatory/Diagnostic Orders: Basic Metabolic Panel [LAB.AMB] Time Frame: 3 Days, Location: None Selected Magnesium [LAB.AMB] Location: None Selected Patient Instructions/Handouts: Alcohol Intoxication (DC), Abuse of Alcohol (DC), Alcohol Withdrawal (DC) Activity/Diet/Wound Care/Special Instructions: Activity: As tolerated. Take breaks as needed. Diet: Heart healthy and carb consistent diet. Avoid salts, or foods with hidden salts such as canned or boxed foods and frozen dinners. Extra salt makes your heart work harder and traps the fluid in your body for longer. Special Instructions: Take all of your medications as directed and remember to keep all of your doctor's appointments and follow-up as needed. Strongly advise staying away from any and all alcohol use. Thank you for allowing us to participate in your care, it was truly a pleasure having you for our patient!!! Discharge/Stand Alone Forms: AA Meetings [place] Discharge Disposition: HOME SELF-CARE
== END 2022-12-01 14:43 | disposition home or self-care (01) | DRG 897 ==
LOC: EC 13:34 → 3SCARD 15:38
PROVIDERS: ADMIT Student in an Organized Health Care Education/Training Program; ATTEND Student in an Organized Health Care Education/Training Program
DX: F10.229 Alcohol dependence with intoxication, unspecified (principal); I47.1 Supraventricular tachycardia; G40.509 Epileptic seizures related to external causes, not intractable, without status epilepticus; F33.1 Major depressive disorder, recurrent, moderate; E87.6 Hypokalemia; F10.239 Alcohol dependence with withdrawal, unspecified; I10 Essential (primary) hypertension; E83.42 Hypomagnesemia; E87.8 Other disorders of electrolyte and fluid balance, not elsewhere classified; T50.902A Poisoning by unspecified drugs, medicaments and biological substances, intentional self-harm, initial encounter; F17.210 Nicotine dependence, cigarettes, uncomplicated; R74.01 Elevation of levels of liver transaminase levels; K21.9 Gastro-esophageal reflux disease without esophagitis; Y90.8 Blood alcohol level of 240 mg/100 ml or more; D53.9 Nutritional anemia, unspecified; F12.90 Cannabis use, unspecified, uncomplicated; Z79.1 Long term (current) use of non-steroidal anti-inflammatories (NSAID); Z79.899 Other long term (current) drug therapy; Z71.41 Alcohol abuse counseling and surveillance of alcoholic; Z71.6 Tobacco abuse counseling
CPT/HCPCS: 36415; 71046; 80053; 80143; 80179; 80306; 80320; 83735; 84443; 84484; 85025; 85027; 85730; 93005; 93306; 96365; 96366; 96368; 96372; 96375; 99285

== ENCOUNTER 2022-12-15 16:06 | Inpatient (IN) | payer MEDICARE, OTHER ==
[2022-12-15] MEDS ORDERED: SODIUM CHLORIDE 0.9% 1,000 ML IV STA ×3 (18:53→20:48)
[2022-12-15] MEDS ORDERED: ONDANSETRON 4 MG/2 ML VIAL IVP STA (18:53)
[2022-12-15] MEDS ORDERED: PANTOPRAZOLE 40 MG/10 ML VIAL IVP STA (18:53)
[2022-12-15] MEDS ORDERED: THIAMINE 100 MG/ML 2 ML VIAL IM STA (18:54)
[2022-12-15] MEDS ORDERED: LORazepam 2 MG/ML INJ IV PRN ×2 (18:54)
[2022-12-15] MEDS: LORazepam 2 MG/ML INJ IV PRN ×2 (19:55→21:41)
[2022-12-15 20:37] LABS: INR 1.1 (<1.2); Prothrombin Time 11.2 sec (9.0-12.0)
[2022-12-15 20:38] LABS: Partial Thromboplastin Time 25.2 sec (22.0-30.0)
--- NOTE | 2022-12-15 20:42 | XR ---
EXAMINATION TYPE: XR KUB DATE OF EXAM: 12/15/2022 8:16 PM CLINICAL HISTORY: Abdominal pain. TECHNIQUE: Two Upright KUB images of the abdomen are obtained. COMPARISON: None. FINDINGS: Scattered gas seen in slightly prominent small bowel loops with air-fluid levels. No abnorm al dilated small bowel loops clearly seen. Gas seen in nondistended colon along the periphery. The guy ng bases are clear. Moderate axial joint space loss in both hips. No free air is present. IMPRESSION: Overall nonspecific but favor nonobstructive bowel gas pattern.
[2022-12-15 21:23] LABS: ALT 29 U/L (4-49); African American GFR (CKD) >90 (>60 ml/min/1.73 sqM); Alcohol 44 mg/dL; Amylase 61 U/L (30-110); Anion Gap 15 mmol/L; Blood Urea Nitrogen 13 mg/dL (9-20); Carbon Dioxide 11 mmol/L (22-30); Chloride 117 mmol/L (98-107); Glucose 115 mg/dL (74-99); Non-African American GFR(CKD) >90 (>60 ml/min/1.73 sqM); Sodium 143 mmol/L (137-145); Total Bilirubin 0.6 mg/dL (0.2-1.3); Total Protein 6.9 g/dL (6.3-8.2)
[2022-12-15] MEDS: DEXTROSE 5%-0.9% NACL 1,000 ML IV SCH (21:47)
[2022-12-15 21:50] LABS: Potassium 7.3 mmol/L (3.5-5.1)
[2022-12-15 21:51] LABS: AST 54 U/L (17-59); Alkaline Phosphatase 92 U/L (38-126); Lipase 304 U/L (23-300)
[2022-12-15] MEDS ORDERED: ALBUTEROL NEB (CONC) 2.5 MG/0.5 ML INHALATION ONE (21:54)
[2022-12-15] MEDS ORDERED: INSULIN REGULAR 100 UNIT/ML VIAL (IV) IV ONE (21:54)
[2022-12-15] MEDS ORDERED: SODIUM BICARB 8.4% 50 ML SYR (1 MEQ/ML) IV ONE (21:54)
[2022-12-15] MEDS ORDERED: DEXTROSE 50% SYRINGE 50 ML IVP ONE (21:55)
[2022-12-15 21:57] LABS: VBG PH 7.36 (7.31-7.41)
[2022-12-15] MEDS ORDERED: CALCIUM GLUCONATE IN NACL 1 GM in SALINE 1 100ML.BAG IVPB ONE (22:00)
[2022-12-15 22:38] LABS: Basophils % (A) 0 %; Eosinophils % (A) 0 %; HGB 13.3 gm/dL (13.0-17.5); Lymphocytes # (A) 0.4 k/uL (1.0-4.8); Lymphocytes % (A) 4 %; MCHC 32.4 g/dL (31.0-37.0); Macrocytosis Moderate; Mean Platelet Volume 9.6; Monocytes # (A) 0.5 k/uL (0-1.0); Monocytes % (A) 5 %; Neutrophils % (A) 91 %; RBC 3.79 m/uL (4.30-5.90); RDW 12.5 % (11.5-15.5)
[2022-12-15 22:39] LABS: MCV 108.3 fL (80.0-100.0); Platelet Count 352 k/uL (150-450)
[2022-12-15 22:40] LABS: Potassium 6.2 mmol/L (3.5-5.1)
[2022-12-15] MEDS ORDERED: SODIUM ZIRCONIUM CYCLOSILICATE 10 GM PACKET PO ONE (22:50)
[2022-12-15] MEDS ORDERED: ONDANSETRON 4 MG/2 ML VIAL IVP PRN (22:54)
[2022-12-15] MEDS ORDERED: NALOXONE 0.4 MG/ML 1 ML VIAL IV PRN (22:54)
--- NOTE | 2022-12-15 23:02 | ED ---
General Adult HPI - General Chief complaint: Abdominal Pain Stated complaint: ETOH Time Seen by Provider: 12/15/22 18:24 Source: patient, RN notes reviewed, old records reviewed Mode of arrival: wheelchair Limitations: no limitations - History of Present Illness Initial comments: Patient is a 62-year-old male who presents to the emergency Department with concern for alcohol withdrawal. Patient has a history of seizure disorder, alcohol withdrawal, who states he last drank a pint of alcohol yesterday. Patient is endorsing some nausea, nonbilious nonbloody emesis. Denies diarrhea. Endorses some abdominal discomfort. Early which is since resolved. Denies any chest or shortness breath. Does endorse tremors as well as tongue fascic ulations. States he believes he is withdrawing at this time. States he has required admission in the past as well. Patient is presenting for admission. - Related Data Home Medications Medication Instructions Recorded Confirmed Meloxicam 15 mg PO DAILY 06/15/21 12/15/22 Pantoprazole [Protonix] 40 mg PO DAILY 03/10/22 12/15/22 Lacosamide [Vimpat] 50 mg PO BID 04/07/22 12/15/22 NIFEdipine [Adalat CC] 30 mg PO DAILY 04/07/22 12/15/22 levETIRAcetam [Keppra] 1,000 mg PO BID 04/07/22 12/15/22 Acamprosate Calcium [Campral] 666 mg PO TID 11/29/22 12/15/22 Citalopram Hydrobromide [CeleXA] 40 mg PO DAILY 11/29/22 12/15/22 QUEtiapine [SEROquel] 50 mg PO HS 11/29/22 12/15/22 Multivitamins, Thera [Multivitamin 1 tab PO DAILY 12/15/22 12/15/22 (formulary)] Previous Rx's Medication Instructions Recorded Folic Acid 1 mg PO DAILY tab 12/01/22 Metoprolol Succinate (ER) [Toprol 12.5 mg PO DAILY #30 tab 12/01/22 Xl] Potassium Chloride ER [K-Dur 10] 10 meq PO DAILY 30 Days #30 tab 12/01/22 Thiamine [Vitamin B-1] 100 mg PO DAILY tab 12/01/22 Allergies Allergy/AdvReac Type Severity Reaction Status Date / Time goat milk Allergy Unknown Uncoded 12/15/22 22:11 Childhood Review of Systems ROS Statement: Those systems with pertinent positive or pertinent negative responses have been documented in the HPI. Review of Systems: CONST: Denies fever EYES: Denies blurry vision ENT: Denies nasal congestion C/V: Denies Chest pain RESP: Denies shortness of breath GI: Denies abdominal pain : Denies dysuria SKIN: Denies rash. MSK: Denies joint pain. NEURO: Denies headache ROS Other: All systems not noted in ROS Statement are negative. Past Medical History Past Medical History: Hypertension, Seizure Disorder Additional Past Medical History / Comment(s): ETOH, depression, encephalopathy, left lung collapse History of Any Multi-Drug Resistant Organisms: None Reported Past Surgical History: Orthopedic Surgery Additional Past Surgical History / Comment(s): rt femur Past Anesthesia/Blood Transfusion Reactions: No Reported Reaction Past Psychological History: Depression Smoking Status: Current every day smoker Past Alcohol Use History: Abuse, Daily Past Drug Use History: Marijuana - Past Family History Father Family Medical History: Hypertension Mother Family Medical History: No Reported History General Exam - General Exam Comments Initial Comments: General: Tremulous. Tongue fasciculations. Appears to be in alcohol wi thdrawals. HEAD: Normal with no signs of head trauma. EYES: PERRLA, EOMI, conjunctiva normal, no discharge. Pupils 3 mm equal bilaterally. ENT: Hearing grossly intact, normal oropharynx. Dry mucous membranes. RESPIRATORY: Clear breath sounds bilaterally. No wheezes, rales, or rhonchi. C/V: Tachycardic with a regular rhythm. S1 and S2 auscultated. Peripheral pulses 2+ and intact throughout. No peripheral edema. ABD: Abd is soft, nontender, nondistended EXT: Normal range of motion, no obvious deformity SKIN: No rashes or lesions observed on exposed skin. NEURO: Alert and oriented x 4. Cranial nerves II-XII intact. No focal sensory or strength deficits. Tremulous with tongue fasciculations. Appears to be in alcohol withdrawal. Limitations: no limitations Course Vital Signs 12/15/22 12/15/22 12/15/22 16:18 21:04 22:11 Temperature 97.9 F Pulse Rate 115 H 91 82 Pulse Rate [ Pulse Oximetery ] Respiratory 20 14 Rate Blood Pressure 109/71 124/82 Blood Pressure [Left Arm] O2 Sat by Pulse 100 99 Oximetry 12/15/22 12/15/22 12/16/22 22:21 22:24 00:12 Temperature 98.0 F Pulse Rate 90 82 Pulse Rate [ 104 H Pulse Oximetery ] Respiratory 16 19 Rate Blood Pressure 113/80 Blood Pressure 127/69 [Left Arm] O2 Sat by Pulse 99 100 Oximetry Medical Decision Making - Medical Decision Making Was pt. sent in by a medical professional or institution ([facility] Mcginnis, FREEZER WORKER, urgent care, hospital, or intermediate...) When possible be specific @ -No Did you speak to anyone other than the patient for history (EMS, parent, family, police, friend...)? What history was obtained from this source @ -No Did you review nursing and triage notes (agree or disagree)? Why? @ -I reviewed and agree with nursing and triage notes Were old charts reviewed (outside hosp., previous admission, EMS record, old EKG, old radiological studies, urgent care reports/EKG's, intermediate records)? Report findings @ -Old charts reviewed, including EKG from 12/03/2022 Differential Diagnosis (chest pain, altered mental status, abdominal pain women, abdominal pain men, vaginal bleeding, weakness, fever, dyspnea, syncope, headache, dizziness, GI bleed, back pain, seizure, CVA, palpatations, mental health, musculoskeletal)? @ -Alcohol withdrawals, alcohol intoxication, electrolyte abnormalities, dehydration, infection. This list is not all inclusive. EKG interpreted by me (3pts min.). @ -As above X-rays interpreted by me (1pt min.). @ -KUB x-ray reveals no obvious process. CT interpreted by me (1pt min.). @ -None done U/S interpreted by me (1pt. min.). @ -None done What testing was considered but not performed or refused? (CT, X-rays, U/S, labs)? Why? @ -None What meds were considered but not given or refused? Why? @ -None Did you discuss the management of the patient with other professionals (professionals i.e. [facility] Mcginnis, [employer]ZER WORKER, lab, RT, psych nurse, health and social care teacher, cable systems installer, teacher, worldwide chief creative officer, window caser)? Give summary @ -Discussed with the admitting physician, Dr. Lyons who accepted the patient. Also spoke with the nurse practitioner for the ICU Toribio who works under Dr. Pretty who agreed that the patient does not appear to require the unit at this time and accepted the consult we'll continue to monitor the patient in stepdown bed. Was otherwise in agreement the plan. Was smoking cessation discussed for >3mins.? @ -No Was critical care preformed (if so, how long)? @ -Yes, 35 minutes. Were there social determinants of health that impacted care today? How? (Homelessness, low income, unemployed, alcoholism, drug addiction, transportation, low edu. Level, literacy, decrease access to med. care, care home, rehab)? @ -No Was there de-escalation of care discussed even if they declined (Discuss DNR or withdrawal of care, Hospice)? DNR status @ -No What co-morbidities impacted this encounter? (DM, HTN, Smoking, COPD, CAD, Cancer, CVA, ARF, Chemo, Hep., AIDS, mental health diagnosis, sleep apnea, morbid obesity)? @ -Alcohol abuse Was patient admitted / discharged? Hospital course, mention meds given and route, prescriptions, significant lab abnormalities, going to OR and other pertinent info. @ -Based on the patient's presentation and physical exam, I'm concerned for alcohol withdrawals for the patient. Also concerned for possible alcoholic starvation ketoacidosis as well as electrolyte abnormalities. We will obtain generalized labs, screening EKG, KUB x-ray. Patient was in agreement this plan. CIWA approximately 13 upon arrival and patient will be started on the alcohol withdrawal protocol with benzodiazepines. He'll receive 2 L of IV fluids. He will also receive IV Zofran, IV Protonix. He was in agreement this plan. Timing also be given. Vital signs are remarkable for a sinus tachycardia but otherwise are within acceptable limits. EKG showed no signs of acute ischemia. KUB x-ray unremarkable. Laboratory studies did take quite some time to return, as we sent multiple hemolyzed specimens. Patient's labs did eventually return, and were remarkable for mild leukocytosis of 11.0. Lactic acid was 11.2. Patient was hyperkalemic to 7.3. There is an anion gap of 15 with the elevated lactic acid. Lipase is just barely elevated to 304. I'll call level is 44. Acetone pending. ABG is remarkable for what appears to be a metabolic acidosis with respiratory compromise. Repeat lactic acid is 6.6 after the 2 L fluid bolus. Repeat potassium was 6.2. This time I do believe that the hyperkalemia is likely reactive waited to the acidosis which I do suspect it is starvation acidosis as well as dehydration. Acetone still pending at this time. We will start the patient on a D5 normal saline drip at 100 mL an hour. We are continuing to administer IV Ativan which seems to be working well. Vital signs are hemodynamically stable. Tachycardia is resolved. I did discuss with the patient that I would like to admit him to the hospital. He was in agreement this plan. Patient did have mild hyperkalemia changes on EKG. Patient did receive a hyperkalemic cocktail including blood,, IV insulin and D50, albuterol treatment, bicarb push, calcium. I spoke with Dr. lyons the admitting physician who accepted the patient. I suspect with Toribio, nurse practitioner in the ICU who works under Dr. Pretty or who was in agreement that the patient to be admitted to stepdown and he will continue to watch labs overnight. Patient was therefore admitted in serious condition. Undiagnosed new problem with uncertain prognosis? @ -No Drug Therapy requiring intensive monitoring for toxicity (Heparin, Nitro, Insulin, Cardizem)? @ -No Were any procedures done? @ -No Diagnosis/symptom? @ -Alcohol withdrawal, alcohol intoxication, dehydration, lactic acidosis likely from starvation ketoacidosis from alcohol abuse, hyperkalemia Acute, or Chronic, or Acute on Chronic? @ -Acute Uncomplicated (without systemic symptoms) or Complicated (systemic symptoms)? @ -Complicated Side effects of treatment? @ -No Exacerbation, Progression, or Severe Exacerbation? @ -No Poses a threat to life or bodily function? How? (Chest pain, USA, CO, pneumonia, PE, COPD, DKA, ARF, appy, cholecystitis, CVA, Diverticulitis, Homicidal, Suicidal, threat to staff... and all critical care pts) @ -Yes - Lab Data Result diagrams: 12/15/22 19:42 12/15/22 22:15 Lab Results 12/15/22 12/15/22 12/15/22 Range/Units 19:42 19:42 19:53 WBC 11.0 H (3.8-10.6) k/uL RBC 3.79 L (4.30-5.90) m/uL Hgb 13.3 (13.0-17.5) gm/dL Hct 41.0 (39.0-53.0) % MCV 108.3 H D (80.0-100.0) fL MCH 35.0 (25.0-35.0) pg MCHC 32.4 (31.0-37.0) g/dL RDW 12.5 (11.5-15.5) % Plt Count 352 D (150-450) k/uL MPV 9.6 Neutrophils % 91 % Lymphocytes % 4 % Monocytes % 5 % Eosinophils % 0 % Basophils % 0 % Neutrophils # 10.0 H (1.3-7.7) k/uL Lymphocytes # 0.4 L (1.0-4.8) k/uL Monocytes # 0.5 (0-1.0) k/uL Eosinophils # 0.0 (0-0.7) k/uL Basophils # 0.0 (0-0.2) k/uL Macrocytosis Moderate PT 11.2 (9.0-12.0) sec INR 1.1 (<1.2) APTT 25.2 (22.0-30.0) sec VBG pH (7.31-7.41) VBG pCO2 (37-51) mmHg VBG HCO3 (24-28) mmol/L Sodium (137-145) mmol/L Potassium (3.5-5.1) mmol/L Chloride (98-107) mmol/L Carbon Dioxide (22-30) mmol/L Anion Gap mmol/L BUN (9-20) mg/dL Creatinine (0.66-1.25) mg/dL Est GFR (CKD-EPI)AfAm (>60 ml/min/1.73 sqM) Est GFR (CKD-EPI)NonAf (>60 ml/min/1.73 sqM) Glucose (74-99) mg/dL Lactic Ac Sepsis Rflx Plasma Lactic Acid Jayson 11.2 H* (0.7-2.0) mmol/L Calcium (8.4-10.2) mg/dL Total Bilirubin (0.2-1.3) mg/dL AST (17-59) U/L ALT (4-49) U/L Alkaline Phosphatase (38-126) U/L Total Protein (6.3-8.2) g/dL Albumin (3.5-5.0) g/dL Amylase (30-110) U/L Lipase (23-300) U/L Serum Alcohol mg/dL Acetone, Qual (Negative) 12/15/22 12/15/22 12/15/22 Range/Units 20:47 21:07 21:37 WBC (3.8-10.6) k/uL RBC (4.30-5.90) m/uL Hgb (13.0-17.5) gm/dL Hct (39.0-53.0) % MCV (80.0-100.0) fL MCH (25.0-35.0) pg MCHC (31.0-37.0) g/dL RDW (11.5-15.5) % Plt Count (150-450) k/uL MPV Neutrophils % % Lymphocytes % % Monocytes % % Eosinophils % % Basophils % % Neutrophils # (1.3-7.7) k/uL Lymphocytes # (1.0-4.8) k/uL Monocytes # (0-1.0) k/uL Eosinophils # (0-0.7) k/uL Basophils # (0-0.2) k/uL Macrocytosis PT (9.0-12.0) sec INR (<1.2) APTT (22.0-30.0) sec VBG pH 7.36 (7.31-7.41) VBG pCO2 25 L (37-51) mmHg VBG HCO3 13 L (24-28) mmol/L Sodium 143 (137-145) mmol/L Potassium 7.3 H* (3.5-5.1) mmol/L Chloride 117 H (98-107) mmol/L Carbon Dioxide 11 L (22-30) mmol/L Anion Gap 15 mmol/L BUN 13 (9-20) mg/dL Creatinine 0.91 (0.66-1.25) mg/dL Est GFR (CKD-EPI)AfAm >90 (>60 ml/min/1.73 sqM) Est GFR (CKD-EPI)NonAf >90 (>60 ml/min/1.73 sqM) Glucose 115 H (74-99) mg/dL Lactic Ac Sepsis Rflx Y Plasma Lactic Acid Jayson (0.7-2.0) mmol/L Calcium 9.0 (8.4-10.2) mg/dL Total Bilirubin 0.6 (0.2-1.3) mg/dL AST 54 (17-59) U/L ALT 29 (4-49) U/L Alkaline Phosphatase 92 (38-126) U/L Total Protein 6.9 (6.3-8.2) g/dL Albumin 4.0 (3.5-5.0) g/dL Amylase 61 (30-110) U/L Lipase 304 H (23-300) U/L Serum Alcohol 44 mg/dL Acetone, Qual (Negative) 12/15/22 12/15/22 12/15/22 Range/Units 21:47 22:10 22:15 WBC (3.8-10.6) k/uL RBC (4.30-5.90) m/uL Hgb (13.0-17.5) gm/dL Hct (39.0-53.0) % MCV (80.0-100.0) fL MCH (25.0-35.0) pg MCHC (31.0-37.0) g/dL RDW (11.5-15.5) % Plt Count (150-450) k/uL MPV Neutrophils % % Lymphocytes % % Monocytes % % Eosinophils % % Basophils % % Neutrophils # (1.3-7.7) k/uL Lymphocytes # (1.0-4.8) k/uL Monocytes # (0-1.0) k/uL Eosinophils # (0-0.7) k/uL Basophils # (0-0.2) k/uL Macrocytosis PT (9.0-12.0) sec INR (<1.2) APTT (22.0-30.0) sec VBG pH (7.31-7.41) VBG pCO2 (37-51) mmHg VBG HCO3 (24-28) mmol/L Sodium (137-145) mmol/L Potassium 6.2 H* 5.7 H (3.5-5.1) mmol/L Chloride (98-107) mmol/L Carbon Dioxide (22-30) mmol/L Anion Gap mmol/L BUN (9-20) mg/dL Creatinine (0.66-1.25) mg/dL Est GFR (CKD-EPI)AfAm (>60 ml/min/1.73 sqM) Est GFR (CKD-EPI)NonAf (>60 ml/min/1.73 sqM) Glucose (74-99) mg/dL Lactic Ac Sepsis Rflx Plasma Lactic Acid Jayson 6.6 H* (0.7-2.0) mmol/L Calcium (8.4-10.2) mg/dL Total Bilirubin (0.2-1.3) mg/dL AST (17-59) U/L ALT (4-49) U/L Alkaline Phosphatase (38-126) U/L Total Protein (6.3-8.2) g/dL Albumin (3.5-5.0) g/dL Amylase (30-110) U/L Lipase (23-300) U/L Serum Alcohol mg/dL Acetone, Qual Negative (Negative) 12/15/22 Range/Units 22:25 WBC (3.8-10.6) k/uL RBC (4.30-5.90) m/uL Hgb (13.0-17.5) gm/dL Hct (39.0-53.0) % MCV (80.0-100.0) fL MCH (25.0-35.0) pg MCHC (31.0-37.0) g/dL RDW (11.5-15.5) % Plt Count (150-450) k/uL MPV Neutrophils % % Lymphocytes % % Monocytes % % Eosinophils % % Basophils % % Neutrophils # (1.3-7.7) k/uL Lymphocytes # (1.0-4.8) k/uL Monocytes # (0-1.0) k/uL Eosinophils # (0-0.7) k/uL Basophils # (0-0.2) k/uL Macrocytosis PT (9.0-12.0) sec INR (<1.2) APTT (22.0-30.0) sec VBG pH (7.31-7.41) VBG pCO2 (37-51) mmHg VBG HCO3 (24-28) mmol/L Sodium (137-145) mmol/L Potassium (3.5-5.1) mmol/L Chloride (98-107) mmol/L Carbon Dioxide (22-30) mmol/L Anion Gap mmol/L BUN (9-20) mg/dL Creatinine (0.66-1.25) mg/dL Est GFR (CKD-EPI)AfAm (>60 ml/min/1.73 sqM) Est GFR (CKD-EPI)NonAf (>60 ml/min/1.73 sqM) Glucose (74-99) mg/dL Lactic Ac Sepsis Rflx Y Plasma Lactic Acid Jayson (0.7-2.0) mmol/L Calcium (8.4-10.2) mg/dL Total Bilirubin (0.2-1.3) mg/dL AST (17-59) U/L ALT (4-49) U/L Alkaline Phosphatase (38-126) U/L Total Protein (6.3-8.2) g/dL Albumin (3.5-5.0) g/dL Amylase (30-110) U/L Lipase (23-300) U/L Serum Alcohol mg/dL Acetone, Qual (Negative) - EKG Data -: EKG Interpreted by Me EKG Comments: 12-lead Electrocardiogram Interpretation Note EKG was reviewed and interpreted by myself. 12-lead ECG performed at 1942 is interpreted by me as revealing normal sinus rhythm at a rate of 95 beats per minute. Chrisney is normal. SC interval is 164 ms, QRS duration is 102 ms, QTc is 411 ms.. There were no ST or T wave abnormalities to suggest myocardial ischemia or injury. R wave progression across the precordium was satisfactory. By my interpretation this EKG is non-diagnostic for acute ischemia. Somewhat peaked T waves suggestive of hyperkalemia changes. This EKG was compared to EKG from 12/03/2022. Critical Care Time Critical Care Time: Yes Total Critical Care Time: 35 Critical Care Time: Upon my evaluation, this patient had a high probability of imminent or life- threatening deterioration due to alcohol withdrawal, lactic acidosis, dehydration, hyperkalemia, which required my direct attention, intervention, and personal management. I have personally provided 35 minutes of critical care time exclusive of time spent on separately billable procedures. Time includes review of laboratory data, radiology results, discussion with consultants, and monitoring for potential decompensation. Interventions were performed as documented in my note. Disposition Clinical Impression: Alcoholic ketoacidosis, Alcohol withdrawal, Lactic acidosis, Alcohol intoxication, Dehydration, Hyperkalemia Disposition: ADMITTED IP TO THIS HOSP Condition: Serious Time of Disposition: 22:45
[2022-12-16] MEDS: LORazepam 2 MG/ML INJ IV PRN (00:47)
[2022-12-16] MEDS: levETIRAcetam 500 MG TAB PO SCH ×3 (00:49→20:24)
[2022-12-16] MEDS: HEPARIN SODIUM,PORCINE/PF 5,000 UNIT/0.5 ML SYRINGE SQ SCH ×4 (00:49→23:29)
[2022-12-16] MEDS: LACOSAMIDE 50 MG TABLET PO SCH ×3 (00:49→20:25)
--- NOTE | 2022-12-16 00:56 | P.HPIM ---
History of Present Illness H&P Date: 12/16/22 The patient is a 62-year-old male with a PMH of extensive EtOH abuse, hypertension, marijuana abuse, who presented to the emergency room accompanied by his for possible alcohol withdrawal. The patient reports that he has been drinking roughly a pint of hard liquor daily for the past several years. States that he had recently been trying to quit and that his last drink was yesterday. States that earlier today began feeling shaky and his brought him to the emergency room. He reports a significant history of alcohol withdrawal with DTs and alcohol withdrawal seizures. Of note, the patient was recently admitted to the hospital on 11/29 for alcohol intoxication and was discharged on 12/01. The patient reported feeling shaky at the time of interview and states that he does not feel well. He denied experiencing chest discomfort, shortness of breath, abdominal pain, nausea, vomiting, diarrhea. He reports that he has not had solid food for the past several days and has had minimal water intake during this time as well. The patient underwent an extensive evaluation in the emergency room. EKG revealed sinus rhythm at [address]/T-wave changes noted as reviewed by me. Laboratory evaluation was remarkable for leukocytosis of 11.0 with MCV 108.3, sodium 143, potassium 7.3 (hemolyzed), lactic acid 11.2, CO2 11, lipase level 304, serum alcohol level of 44. ED documentation reviewed and case discussed with ED provider. Review of systems: Pertinent positives and negatives as discussed in HPI, a complete review of systems was performed and all other systems are negative. Physical examination: Vital signs reviewed General: Thin frail male, no distress, appears older than stated age, normal weight Derm: no unusual rashes/lesions, warm Head: atraumatic, normocephalic, symmetric Eyes: EOMI, no lid lag, anicteric sclera, pupils equal round reactive to light ENT: Nose and ears atraumatic Neck: No cervical lymphadenopathy, trachea midline, supple Mouth: no lip lesion, mucus membranes dry, tongue fasciculations noted Cardiovascular: S1S2 reg, no murmur, positive dorsalis pedis pulse bilateral, no edema Lungs: CTA bilateral, no rhonchi, no rales, no accessory muscle use Abdominal: soft, nontender to palpation, no guarding Ext: muscle strength 4 out of 5 in all 4 extremities grossly, thin extremities, no contractures, Neuro: CN II-XI grossly intact, no gross focal neuro deficits, outstretched hand tremor noted Psych: Alert, oriented, appropriate affect Assessment: Starvation ketoacidosis with alcohol abuse Alcohol withdrawal Lactic acidosis Hyperkalemia Imaging: EKG revealed sinus rhythm at [address]/T-wave changes noted as reviewed by me. Data Review: Laboratory evaluation was remarkable for leukocytosis of 11.0 with MCV 108.3, sodium 143, potassium 7.3 (hemolyzed), lactic acid 11.2, CO2 11, lipase level 304, serum alcohol level of 44. Vital signs upon presentation to the ED were BP 100/71, pulse 115, temperature 97.9F, and SpO2 100% on room air. Plan: Continue with IV fluids D5NS at 100 mL an hour Status post thiamine IM. Continue with by mouth daily dosing Status post hyperkalemia cocktail. Monitor for now Patient admitted to the medical ICU with case discussed with ceo and founder by ED provider. CIWA protocol Ativan IVP prn Start Librium 50 mg PO TID DVT prophylaxis: Heparin subq The patient is admitted with an anticipated greater than 2 midnight stay for evaluation of EtOh withdrawal CODE STATUS: Full Code Discussed with: Patient, Anticipated discharge date: 3-[address]: Home Past Medical History Past Medical History: Hypertension, Seizure Disorder Additional Past Medical History / Comment(s): ETOH, depression, encephalopathy, left lung collapse History of Any Multi-Drug Resistant Organisms: None Reported Past Surgical History: Orthopedic Surgery Additional Past Surgical History / Comment(s): rt femur Past Anesthesia/Blood Transfusion Reactions: No Reported Reaction Past Psychological History: Depression Smoking Status: Current every day smoker Past Alcohol Use History: Abuse, Daily Additional Past Alcohol Use History / Comment(s): drinks 1-2 pints of liquor per day. Past Drug Use History: Marijuana Additional Drug Use History / Comment(s): recreational marijuana use. - Past Family History Father Family Medical History: Hypertension Mother Family Medical History: Cancer Medications and Allergies Home Medications Medication Instructions Recorded Confirmed Type Meloxicam 15 mg PO DAILY 06/15/21 12/15/22 History Pantoprazole [Protonix] 40 mg PO DAILY 03/10/22 12/15/22 History Lacosamide [Vimpat] 50 mg PO BID 04/07/22 12/15/22 History NIFEdipine [Adalat CC] 30 mg PO DAILY 04/07/22 12/15/22 History levETIRAcetam [Keppra] 1,000 mg PO BID 04/07/22 12/15/22 History Acamprosate Calcium [Campral] 666 mg PO TID 11/29/22 12/15/22 History Citalopram Hydrobromide [CeleXA] 40 mg PO DAILY 11/29/22 12/15/22 History QUEtiapine [SEROquel] 50 mg PO HS 11/29/22 12/15/22 History Folic Acid 1 mg PO DAILY tab 12/01/22 12/15/22 Rx Metoprolol Succinate (ER) [Toprol 12.5 mg PO DAILY #30 tab 12/01/22 12/15/22 Rx Xl] Potassium Chloride ER [K-Dur 10] 10 meq PO DAILY 30 Days #30 tab 12/01/22 12/15/22 Rx Thiamine [Vitamin B-1] 100 mg PO DAILY tab 12/01/22 12/15/22 Rx Multivitamins, Thera [Multivitamin 1 tab PO DAILY 12/15/22 12/15/22 History (formulary)] Allergies Allergy/AdvReac Type Severity Reaction Status Date / Time goat milk Allergy Unknown Uncoded 12/15/22 22:11 Childhood Physical Exam Vitals: Vital Signs Temp Pulse Pulse Resp BP BP Pulse Ox 12/16/22 00:12 98.0 F 104 H 19 127/69 100 12/15/22 22:24 82 12/15/22 22:21 90 16 113/80 99 12/15/22 22:11 82 12/15/22 21:04 91 14 124/82 99 12/15/22 16:18 97.9 F 115 H 20 109/71 100 Intake and Output 12/15/22 12/15/22 12/16/22 14:59 22:59 06:59 Other: # Voids 1 # Bowel Movements 1 Weight 64.41 kg 64.41 kg Results CBC & Chem 7: 12/15/22 19:42 12/15/22 22:15 Labs: Abnormal Lab Results - Last 24 Hours (Table) 12/15/22 12/15/22 12/15/22 Range/Units 19:42 19:42 21:07 WBC 11.0 H (3.8-10.6) k/uL RBC 3.79 L (4.30-5.90) m/uL MCV 108.3 H D (80.0-100.0) fL Neutrophils # 10.0 H (1.3-7.7) k/uL Lymphocytes # 0.4 L (1.0-4.8) k/uL VBG pCO2 (37-51) mmHg VBG HCO3 (24-28) mmol/L Potassium 7.3 H* (3.5-5.1) mmol/L Chloride 117 H (98-107) mmol/L Carbon Dioxide 11 L (22-30) mmol/L Glucose 115 H (74-99) mg/dL Plasma Lactic Acid Jayson 11.2 H* (0.7-2.0) mmol/L Lipase 304 H (23-300) U/L 12/15/22 12/15/22 12/15/22 Range/Units 21:37 21:47 22:10 WBC (3.8-10.6) k/uL RBC (4.30-5.90) m/uL MCV (80.0-100.0) fL Neutrophils # (1.3-7.7) k/uL Lymphocytes # (1.0-4.8) k/uL VBG pCO2 25 L (37-51) mmHg VBG HCO3 13 L (24-28) mmol/L Potassium 6.2 H* (3.5-5.1) mmol/L Chloride (98-107) mmol/L Carbon Dioxide (22-30) mmol/L Glucose (74-99) mg/dL Plasma Lactic Acid Jayson 6.6 H* (0.7-2.0) mmol/L Lipase (23-300) U/L 12/15/22 12/15/22 Range/Units 22:15 23:24 WBC (3.8-10.6) k/uL RBC (4.30-5.90) m/uL MCV (80.0-100.0) fL Neutrophils # (1.3-7.7) k/uL Lymphocytes # (1.0-4.8) k/uL VBG pCO2 (37-51) mmHg VBG HCO3 (24-28) mmol/L Potassium 5.7 H (3.5-5.1) mmol/L Chloride (98-107) mmol/L Carbon Dioxide (22-30) mmol/L Glucose (74-99) mg/dL Plasma Lactic Acid Jayson 4.4 H* (0.7-2.0) mmol/L Lipase (23-300) U/L Thrombosis Risk Factor Assmnt - Choose All That Apply Any of the Below Risk Factors Present?: Yes Each Factor Represents 1 point: Age 41-60 years Thrombosis Risk Factor Assessment Total Risk Factor Score: 1 Thrombosis Risk Factor Assessment Level: Low Risk
[2022-12-16 03:03] LABS: African American GFR (CKD) >90 (>60 ml/min/1.73 sqM); Anion Gap 5 mmol/L; Blood Urea Nitrogen 13 mg/dL (9-20); Calcium 8.9 mg/dL (8.4-10.2); Carbon Dioxide 22 mmol/L (22-30); Chloride 118 mmol/L (98-107); Glucose 126 mg/dL (74-99); Non-African American GFR(CKD) >90 (>60 ml/min/1.73 sqM); Sodium 145 mmol/L (137-145)
--- NOTE | 2022-12-16 03:19 | P.CNPUL ---
History of Present Illness Consult date: 12/16/22 Requesting physician: Jean Eugene Reason for consult: other (Alcoholic ketoacidosis) Chief complaint: Alcohol withdrawal History of present illness: I'm seeing this patient in new consultation today 12/16/2022 on the selective care unit for alcohol withdrawal. Patient is a 62-year-old white male with past medical history significant for alcoholism, previous alcohol withdrawal, alcohol withdrawal seizures, and is a current 1 pack per day smoker. He denies any pulmonary issues. He did have a recent admission for alcohol withdrawal earlier this month. Patient reportedly drinks about a pint of whiskey per day, last reported drink was 2 days ago. The patient has been trying to cut back on his alcohol intake, started to feel withdrawal symptoms, and came to the emergency room yesterday evening. Patient was also reporting symptoms of nausea and vomiting and abdominal discomfort. Denies any hematemesis, or bloody stools. Abdominal x-ray on admission showed nonspecific, nonobstructive bowel gas pattern. Patient is currently resting in bed, on room air, in no acute distress. He is calm and oriented at this time. CIWA on my assessment was an 8. CIWA protocol is ordered. He is receiving a combination of when necessary Ativan and Librium. Patient's potassium on arrival was elevated at 7.2, but was a hemolyzed sample, and is down to 5.7 after a combination of regular insulin 10 units, 1 amp of D50W, 1 amp of sodium bicarbonate, inhaled albuterol, and Lokelma. Lactic acid level was also elevated at 11.2 on arrival and is down to 4.4 with fluid resuscitation of a 1 L normal saline bolus. Patient also has D5W and 0.9% saline infusing at 100 ML's per hour. Most recent current BMP shows a sodium 143, potassium 5.7, chloride 117, serum CO2 11, BUN 13, creatinine 0.91, glucose 115. LFTs were not elevated. Lipase was mildly elevated. Acetone negative. Serum alcohol level is 44 arrival. CBC showed a WBC count 11, hemoglobin 13.3, hematocrit 41, platelets 352,000. Vimpat and Keppra have been restarted for seizures. Patient's vital signs are stable. Review of Systems REVIEW OF SYSTEMS: CONSTITUTIONAL: Denies any recent significant weight loss or weight gain. EYES: Denies change in vision. EARS, NOSE, MOUTH, THROAT: Denies sore throat. Admits headache CARDIOVASCULAR: Denies chest pain, palpitations or syncopal episodes. RESPIRATORY: Denies shortness of breath, cough, congestion or hemoptysis. GASTROINTESTINAL: See HPI GENITOURINARY: Denies hematuria, denies infections. MUSKULOSKELETAL: Denies pain, denies swelling. INTEGUMENTARY: Denies rash, denies eczema. NEUROLOGICAL: Denies recent memory loss, no recent seizure activity. PSYCHIATRIC: Denies anxiety, denies depression. HEMATOLOGIC/LYMPHATIC: Denies anemia, denies enlarged lymph node Past Medical History Past Medical History: Hypertension, Seizure Disorder Additional Past Medical History / Comment(s): ETOH, depression, encephalopathy, left lung collapse History of Any Multi-Drug Resistant Organisms: None Reported Past Surgical History: Orthopedic Surgery Additional Past Surgical History / Comment(s): rt femur Past Anesthesia/Blood Transfusion Reactions: No Reported Reaction Past Psychological History: Depression Smoking Status: Current every day smoker Past Alcohol Use History: Abuse, Daily Past Drug Use History: Marijuana - Past Family History Father Family Medical History: Hypertension Mother Family Medical History: No Reported History Medications and Allergies Home Medications Medication Instructions Recorded Confirmed Type Meloxicam 15 mg PO DAILY 06/15/21 12/15/22 History Pantoprazole [Protonix] 40 mg PO DAILY 03/10/22 12/15/22 History Lacosamide [Vimpat] 50 mg PO BID 04/07/22 12/15/22 History NIFEdipine [Adalat CC] 30 mg PO DAILY 04/07/22 12/15/22 History levETIRAcetam [Keppra] 1,000 mg PO BID 04/07/22 12/15/22 History Acamprosate Calcium [Campral] 666 mg PO TID 11/29/22 12/15/22 History Citalopram Hydrobromide [CeleXA] 40 mg PO DAILY 11/29/22 12/15/22 History QUEtiapine [SEROquel] 50 mg PO HS 11/29/22 12/15/22 History Folic Acid 1 mg PO DAILY tab 12/01/22 12/15/22 Rx Metoprolol Succinate (ER) [Toprol 12.5 mg PO DAILY #30 tab 12/01/22 12/15/22 Rx Xl] Potassium Chloride ER [K-Dur 10] 10 meq PO DAILY 30 Days #30 tab 12/01/22 12/15/22 Rx Thiamine [Vitamin B-1] 100 mg PO DAILY tab 12/01/22 12/15/22 Rx Multivitamins, Thera [Multivitamin 1 tab PO DAILY 12/15/22 12/15/22 History (formulary)] Allergies Allergy/AdvReac Type Severity Reaction Status Date / Time goat milk Allergy Unknown Uncoded 12/15/22 22:11 Childhood Physical Exam Vitals: Vital Signs Temp Pulse Pulse Resp BP BP Pulse Ox 12/16/22 00:12 98.0 F 104 H 19 127/69 100 12/15/22 22:24 82 12/15/22 22:21 90 16 113/80 99 12/15/22 22:11 82 12/15/22 21:04 91 14 124/82 99 12/15/22 16:18 97.9 F 115 H 20 109/71 100 Intake and Output 12/15/22 12/15/22 12/16/22 14:59 22:59 06:59 Other: Voiding Method Toilet # Voids 1 # Bowel Movements 1 Weight 64.41 kg 64.41 kg GENERAL EXAM: Drowsy, 62-year-old white male, comfortable in no apparent distress. HEAD: Normocephalic and atraumatic EYES: Normal reaction of pupils, equal size. NOSE: Clear with pink turbinates. THROAT: No erythema or exudates. NECK: No masses, no JVD. CHEST: No chest wall deformity. LUNGS: Equal air entry with no crackles, wheeze, rhonchi or dullness. No conversational dyspnea or accessory muscle use.. CVS: S1 and S2 normal with no audible murmur, regular rhythm. No extra heart sounds ABDOMEN: No hepatosplenomegaly, active bowel sounds, no guarding or rigidity. SPINE: No scoliosis or deformity SKIN: No rashes CENTRAL NERVOUS SYSTEM: No focal deficits, tone is normal in all 4 extremities. There are mild tremors with arm extension. EXTREMITIES: There is no peripheral edema, clubbing, or cyanosis. Peripheral pulses are intact. Results - Laboratory Findings CBC and BMP: 12/15/22 19:42 12/15/22 22:15 PT/INR, D-dimer PT 11.2 sec (9.0-12.0) 12/15/22 19:53 INR 1.1 (<1.2) 12/15/22 19:53 Abnormal lab findings: Abnormal Labs 12/15/22 12/15/22 12/15/22 19:42 19:42 21:07 WBC 11.0 H RBC 3.79 L MCV 108.3 H D Neutrophils # 10.0 H Lymphocytes # 0.4 L VBG pCO2 VBG HCO3 Potassium 7.3 H* Chloride 117 H Carbon Dioxide 11 L Glucose 115 H Plasma Lactic Acid Jayson 11.2 H* Lipase 304 H 12/15/22 12/15/22 12/15/22 21:37 21:47 22:10 WBC RBC MCV Neutrophils # Lymphocytes # VBG pCO2 25 L VBG HCO3 13 L Potassium 6.2 H* Chloride Carbon Dioxide Glucose Plasma Lactic Acid Jayson 6.6 H* Lipase 12/15/22 12/15/22 22:15 23:24 WBC RBC MCV Neutrophils # Lymphocytes # VBG pCO2 VBG HCO3 Potassium 5.7 H Chloride Carbon Dioxide Glucose Plasma Lactic Acid Jayson 4.4 H* Lipase Assessment and Plan Assessment: Alcoholic ketoacidosis Alcohol withdrawal. Serum EtOH level on admission was 44. Last drink was reportedly 2 days ago Lactic acidosis secondary to above, improving Hyperkalemia, down to 5.7 Possible acute gastritis History of alcohol withdrawal seizures Hypertension Chronic nicotine dependence, current 1 pack per day smoker History of traumatic pneumothorax Plan: Patient's medication, labs reviewed Continue CIWA protocol Hyperkalemia has been treated, repeat level is pending Lactic acid level is trending down Continue with IV hydration Vitamin B1 supplementation Continue Protonix Vital signs are stable Patient denies any significant pulmonary complaints I have personally seen and examined the patient, performed the documentation and the assessment and plan as written. Number of minutes spent on the visit:20 Time with Patient: Greater than 30
[2022-12-16] MEDS: chlordiazePOXIDE 25 MG CAP PO SCH ×4 (04:25→20:24)
[2022-12-16 06:08] LABS: Glucose,Whole Blood 150 mg/dL (70-110)
[2022-12-16] MEDS: PANTOPRAZOLE 40 MG TABLET PO SCH ×2 (06:21→16:43)
[2022-12-16] MEDS: DEXTROSE 5%-0.9% NACL 1,000 ML IV SCH ×2 (06:21→16:44)
[2022-12-16 07:49] LABS: Basophils % (A) 0 %; Eosinophils % (A) 0 %; HCT 30.4 % (39.0-53.0); HGB 10.4 gm/dL (13.0-17.5); Lymphocytes # (A) 1.2 k/uL (1.0-4.8); Lymphocytes % (A) 18 %; MCHC 34.3 g/dL (31.0-37.0); MCV 108.1 fL (80.0-100.0); Macrocytosis Moderate; Monocytes # (A) 0.4 k/uL (0-1.0); Monocytes % (A) 7 %; Neutrophils # (A) 4.9 k/uL (1.3-7.7); Neutrophils % (A) 74 %; Platelet Count 278 k/uL (150-450); RBC 2.82 m/uL (4.30-5.90); RDW 12.7 % (11.5-15.5); WBC 6.6 k/uL (3.8-10.6)
[2022-12-16 07:54] LABS: African American GFR (CKD) >90 (>60 ml/min/1.73 sqM); Anion Gap 4 mmol/L; Blood Urea Nitrogen 12 mg/dL (9-20); Calcium 8.7 mg/dL (8.4-10.2); Carbon Dioxide 25 mmol/L (22-30); Chloride 115 mmol/L (98-107); Glucose 119 mg/dL (74-99); Non-African American GFR(CKD) >90 (>60 ml/min/1.73 sqM); Potassium 4.8 mmol/L (3.5-5.1); Sodium 144 mmol/L (137-145)
[2022-12-16] MEDS ORDERED: PANTOPRAZOLE 40 MG TABLET PO SCH (09:00)
[2022-12-16] MEDS: METOPROLOL SUCCINATE (ER) 25 MG TAB.ER.24H PO SCH (09:24)
[2022-12-16] MEDS: THIAMINE 100 MG TAB PO SCH (09:24)
[2022-12-16] MEDS: NIFEdipine XL 30 MG TAB.ER.24 PO SCH (09:24)
[2022-12-16] MEDS: MULTIVITAMINS, THERA 1 EACH TAB PO SCH (09:24)
--- NOTE | 2022-12-16 12:22 | P.PN ---
Subjective Progress Note Date: 12/16/22 The patient is a 62-year-old male with a PMH of extensive EtOH abuse, hypertension, marijuana abuse, who presented to the emergency room accompanied by his for possible alcohol withdrawal. The patient reports that he has been drinking roughly a pint of hard liquor daily for the past several years. States that he had recently been trying to quit and that his last drink was yesterday. States that earlier today began feeling shaky and his brought him to the emergency room. He reports a significant history of alcohol withdrawal with DTs and alcohol withdrawal seizures. The patient underwent an extensive evaluation in the emergency room. EKG revealed sinus rhythm at [address]/T-wave changes noted as reviewed by me. Laboratory evaluation was remarkable for leukocytosis of 11.0 with MCV 108.3, sodium 143, potassium 7.3 (hemolyzed), lactic acid 11.2, CO2 11, lipase level 304, serum alcohol level of 44. Patient was seen and examined. No acute events overnight. States that he would like to go home and think about rehab. Last drink was 12/15. Most recent CIWA score 8. General: non toxic, no distress, appears older than stated age, thin and frail Derm: warm, dry Head: atraumatic, normocephalic, symmetric Eyes: EOMI, no lid lag, anicteric sclera Mouth: no lip lesion, mucus membranes moist, tongue fasiculations Cardiovascular: S1S2 reg, no murmur Lungs: CTA bilateral, no rhonchi, no rales , no accessory muscle use Ext: no gross muscle atrophy, no edema, no contractures, hand tremors outstretched hands Neuro: no focal neuro deficits Psych: Alert, oriented, appropriate affect Alcoholic ketoacidosis Alcohol withdrawal Macrocytic anemia Resolved: Lactic acidosis, Hyperkalemia Based on my assessment of this patient, this patient meets a high complexity level of care. Patient has an acute diagnosis of alcohol withdrawal complicated with resolving ketoacidosis and hyperkalemia that poses a threat to life or bodily function. His bicarb and potassium has normalized. His most recent CIWA score is 8. 4 mg of Ativan over the past 24H. Continue D5 normal saline 100 mL per hour. Continue Ativan IV as needed per CIWA protocol. Continue Librium 50 mg by mouth 3 times a day scheduled. Telemetry monitoring as ordered. Prognosis is guarded. Pulmonology/ICU on board. He is pending clinical improvement. I have reviewed the following lean process deployment consultant notes: None. I have reviewed the results of the following tests: CBC shows hemoglobin 10.4 and MCV of 108.1. Drop in hemoglobin is likely dilutional in nature. BMP shows chloride of 115. Potassium and bicarbonate within normal limits. Lactic acid 1.9, improved from 4.4 on admission. Vitamin B12 730. I have ordered the following tests: CBC and BMP ordered for tomorrow morning. Folic acid ordered to evaluate macrocytic anemia. I have discussed the care of this patient with the following independent histor cecilia: The case was discussed with Dr. Pretty and Shaylee CEDILLO. I have independently interpreted the following test below: None. I have discussed the management of this patient with the following physician: None. Objective - Vital Signs Vital signs: Vital Signs Temp 98.2 F 12/16/22 04:00 Pulse 80 12/16/22 04:00 Resp 19 12/16/22 00:12 BP 123/71 12/16/22 04:00 Pulse Ox 97 12/16/22 04:00 FiO2 Intake & Output 12/15/22 12/16/22 12/16/22 18:59 06:59 18:59 Weight 64.41 kg 64.41 kg Other: Voiding Method Toilet # Voids 1 # Bowel Movements 1 - Labs CBC & Chem 7: 12/16/22 07:06 12/16/22 07:06 Labs: Abnormal Lab Results - Last 24 Hours (Table) 12/15/22 12/15/22 12/15/22 Range/Units 19:42 19:42 21:07 WBC 11.0 H (3.8-10.6) k/uL RBC 3.79 L (4.30-5.90) m/uL Hgb (13.0-17.5) gm/dL Hct (39.0-53.0) % MCV 108.3 H D (80.0-100.0) fL MCH (25.0-35.0) pg Neutrophils # 10.0 H (1.3-7.7) k/uL Lymphocytes # 0.4 L (1.0-4.8) k/uL VBG pCO2 (37-51) mmHg VBG HCO3 (24-28) mmol/L Potassium 7.3 H* (3.5-5.1) mmol/L Chloride 117 H (98-107) mmol/L Carbon Dioxide 11 L (22-30) mmol/L Glucose 115 H (74-99) mg/dL POC Glucose (mg/dL) (70-110) mg/dL Plasma Lactic Acid Jayson 11.2 H* (0.7-2.0) mmol/L Lipase 304 H (23-300) U/L 12/15/22 12/15/22 12/15/22 Range/Units 21:37 21:47 22:10 WBC (3.8-10.6) k/uL RBC (4.30-5.90) m/uL Hgb (13.0-17.5) gm/dL Hct (39.0-53.0) % MCV (80.0-100.0) fL MCH (25.0-35.0) pg Neutrophils # (1.3-7.7) k/uL Lymphocytes # (1.0-4.8) k/uL VBG pCO2 25 L (37-51) mmHg VBG HCO3 13 L (24-28) mmol/L Potassium 6.2 H* (3.5-5.1) mmol/L Chloride (98-107) mmol/L Carbon Dioxide (22-30) mmol/L Glucose (74-99) mg/dL POC Glucose (mg/dL) (70-110) mg/dL Plasma Lactic Acid Jayson 6.6 H* (0.7-2.0) mmol/L Lipase (23-300) U/L 12/15/22 12/15/22 12/16/22 Range/Units 22:15 23:24 02:03 WBC (3.8-10.6) k/uL RBC (4.30-5.90) m/uL Hgb (13.0-17.5) gm/dL Hct (39.0-53.0) % MCV (80.0-100.0) fL MCH (25.0-35.0) pg Neutrophils # (1.3-7.7) k/uL Lymphocytes # (1.0-4.8) k/uL VBG pCO2 (37-51) mmHg VBG HCO3 (24-28) mmol/L Potassium 5.7 H (3.5-5.1) mmol/L Chloride 118 H (98-107) mmol/L Carbon Dioxide (22-30) mmol/L Glucose 126 H (74-99) mg/dL POC Glucose (mg/dL) (70-110) mg/dL Plasma Lactic Acid Jayson 4.4 H* (0.7-2.0) mmol/L Lipase (23-300) U/L 12/16/22 12/16/22 12/16/22 Range/Units 02:03 06:06 07:06 WBC (3.8-10.6) k/uL RBC 2.82 L (4.30-5.90) m/uL Hgb 10.4 L (13.0-17.5) gm/dL Hct 30.4 L (39.0-53.0) % MCV 108.1 H (80.0-100.0) fL MCH 37.0 H (25.0-35.0) pg Neutrophils # (1.3-7.7) k/uL Lymphocytes # (1.0-4.8) k/uL VBG pCO2 (37-51) mmHg VBG HCO3 (24-28) mmol/L Potassium (3.5-5.1) mmol/L Chloride (98-107) mmol/L Carbon Dioxide (22-30) mmol/L Glucose (74-99) mg/dL POC Glucose (mg/dL) 150 H (70-110) mg/dL Plasma Lactic Acid Jayson 2.3 H* (0.7-2.0) mmol/L Lipase (23-300) U/L 12/16/22 Range/Units 07:06 WBC (3.8-10.6) k/uL RBC (4.30-5.90) m/uL Hgb (13.0-17.5) gm/dL Hct (39.0-53.0) % MCV (80.0-100.0) fL MCH (25.0-35.0) pg Neutrophils # (1.3-7.7) k/uL Lymphocytes # (1.0-4.8) k/uL VBG pCO2 (37-51) mmHg VBG HCO3 (24-28) mmol/L Potassium (3.5-5.1) mmol/L Chloride 115 H (98-107) mmol/L Carbon Dioxide (22-30) mmol/L Glucose 119 H (74-99) mg/dL POC Glucose (mg/dL) (70-110) mg/dL Plasma Lactic Acid Jayson (0.7-2.0) mmol/L Lipase (23-300) U/L
[2022-12-16 14:22] VITALS: BMI 20.3
[2022-12-17] MEDS: DEXTROSE 5%-0.9% NACL 1,000 ML IV SCH (06:34)
[2022-12-17] MEDS: PANTOPRAZOLE 40 MG TABLET PO SCH (06:39)
[2022-12-17 07:56] VITALS: BP 118/76; PULSE 64; RESP 16; TEMP 98
[2022-12-17] MEDS: chlordiazePOXIDE 25 MG CAP PO SCH (08:09)
[2022-12-17] MEDS: METOPROLOL SUCCINATE (ER) 25 MG TAB.ER.24H PO SCH (08:09)
[2022-12-17] MEDS: HEPARIN SODIUM,PORCINE/PF 5,000 UNIT/0.5 ML SYRINGE SQ SCH (08:09)
[2022-12-17] MEDS: NIFEdipine XL 30 MG TAB.ER.24 PO SCH (08:10)
[2022-12-17] MEDS: MULTIVITAMINS, THERA 1 EACH TAB PO SCH (08:10)
[2022-12-17] MEDS: THIAMINE 100 MG TAB PO SCH (08:10)
[2022-12-17] MEDS: levETIRAcetam 500 MG TAB PO SCH (08:10)
[2022-12-17] MEDS: LACOSAMIDE 50 MG TABLET PO SCH (08:10)
[2022-12-17 11:02] LABS: African American GFR (CKD) >90 (>60 ml/min/1.73 sqM); Anion Gap 7 mmol/L; Blood Urea Nitrogen 4 mg/dL (9-20); Calcium 8.3 mg/dL (8.4-10.2); Carbon Dioxide 26 mmol/L (22-30); Chloride 103 mmol/L (98-107); Glucose 109 mg/dL (74-99); Non-African American GFR(CKD) >90 (>60 ml/min/1.73 sqM); Potassium 3.4 mmol/L (3.5-5.1); Sodium 136 mmol/L (137-145)
--- NOTE | 2022-12-17 11:08 | CDI ---
Documentation Clarification Form Date: 12/17/2022 10:33:28 AM From: Cindy Curran RN CCDS Phone: [phone] Admit Date: 12/15/2022 10:54:00 PM Patient Name: Hector Caro Visit Number: [id number] Discharge Date: ATTENTION: The Clinical Documentation Specialists (CDI) and [facility] Coding Staff appreciate your assistance in clarifying documentation. Please respond to the clarification below the line at the bottom and electronically sign. The CDI & [facility] Coding staff will review the response and follow-up if needed. Please note: Queries are made part of the Legal Health Record. If you have any questions, please contact the author of this message via ITS. Dr. Prachi Brewer The Registered Dietitian assessment on 12/16 indicates this patient meets criteria for Severe Malnutrition. Based on this information and the findings below, is there an additional diagnosis that is clinically appropriate for this patient? History/Risk Factors: 60-year-old male presented with possible alcohol withdrawal. He started feeling shaky and not feeling well, last drink was the day before. Medical History: Daily smoker, HTN, Seizure disorder and ETOH abuse. 12/16, H&P Clinical Indicators: RD Consult Assessment: Nutritional History: DX starvation ketoacidosis, hyperkalemia Current BMI: 20.3 Hgt 5 ft 10 in. Weight 64.41kg BMI Normal Calculate [place] body wgt 75.296kg, usual body weight 72.575kg. Involuntary weight loss of 11% of UBW in< 3 months. Related to decline in caloric intake <50% of estimated needs x 1 -3 months, etoh abuse. Appetite poor for one to three months. Diet history: Regular with Oral supplement. Nutritional Assessment: Patient is very lethargic and weak. Nutrition Intake: Poor 0-25% consumed. Heart healthy diet. Appetite, Poor. Oral Supplement Ensure Enlive TID Kcal/Serving 350Kcal Protein /Serving 20 gram. Estimated protein range 1.2grams/kg; estimated protein needs 90 grams/day. Estimated fluid needs 1ml/Kcal; estimated fluid needs 1882 mls/day Labs: Potassium 5.7; Lactic acid 11.2 Treatment: Regular diet, Monitor po intake and supplement intake. Dietary Consult: see above Supplements: Chocolate Ensure Plus TID Monitoring: Potassium and Lactic acid labs. Is there an additional diagnosis that is clinically appropriate for this patient? [ ] Severe Protein-Calorie Malnutrition [ ] Other condition, please specify [ x ] Unable to Determine (Template Last Revised: October 2020) MTDD
[2022-12-17 11:11] LABS: MCH 35.2 pg (25.0-35.0); MCHC 34.4 g/dL (31.0-37.0); Macrocytosis Slight; Mean Platelet Volume 8.2; Platelet Count 238 k/uL (150-450); RBC 3.13 m/uL (4.30-5.90); RDW 12.7 % (11.5-15.5); WBC 5.3 k/uL (3.8-10.6)
[2022-12-17] MEDS ORDERED: POTASSIUM CHLORIDE ER 20 MEQ TAB.ER PO STA (11:16)
[2022-12-17 11:19] LABS: MCV 102.4 fL (80.0-100.0)
--- NOTE | 2022-12-17 11:37 | P.DS ---
Providers Date of admission: 12/15/22 22:54 Expected date of discharge: 12/17/22 Attending physician: Mary Vitale MD Consults: 12/15/22 22:54 Consult Physician Routine Consulting Provider: Darya Pretty Consult Reason/Comments: Alcohol withdrawal, starvation ketoacidosis, hyperkalemia Do you want consulting provider notified?: Already Contacted Primary care physician: [facility] Course: The patient is a 62-year-old male with a PMH of extensive EtOH abuse, hypertension, marijuana abuse, who presented to the emergency room accompanied by his for possible alcohol withdrawal. The patient reports that he has been drinking roughly a pint of hard liquor daily for the past several years. States that he had recently been trying to quit and that his last drink was yesterday. States that earlier today began feeling shaky and his brought him to the emergency room. He reports a significant history of alcohol withdrawal with DTs and alcohol withdrawal seizures. The patient underwent an extensive evaluation in the emergency room. EKG revealed sinus rhythm at [address]/T-wave changes noted as reviewed by me. Laboratory evaluation was remarkable for leukocytosis of 11.0 with MCV 108.3, sodium 143, potassium 7.3 (hemolyzed), lactic acid 11.2, CO2 11, lipase level 304, serum alcohol level of 44. His hyperkalemia resolved with hyperkalemia cocktail which was given in the ED. His ketoacidosis resolved with IV hydration. He received Ativan and Librium as needed for symptoms of alcohol withdrawal. Patient was seen and examined. No acute events overnight. States that he would like to go home. He states that he has no intention of drinking after discharge. Last drink was 12/15. Pertinent studies include KUB. General: non toxic, no distress, appears older than stated age, thin and frail Derm: warm, dry Head: atraumatic, normocephalic, symmetric Eyes: EOMI, no lid lag, anicteric sclera Mouth: no lip lesion, mucus membranes moist Cardiovascular: S1S2 reg, no murmur Lungs: CTA bilateral, no rhonchi, no rales , no accessory muscle use Ext: no gross muscle atrophy, no edema, no contractures, no tremors Neuro: no focal neuro deficits Psych: Alert, oriented, appropriate affect Discharge diagnosis: Alcoholic ketoacidosis Alcohol withdrawal Macrocytic anemia Resolved: Lactic acidosis, Hyperkalemia Patient will be discharged home with the following instructions: Diet: Regular Drink plenty of water. Stop drinking alcohol. Do not mix Librium and alcohol as this could lead to sudden . This complex discharge took 35 minutes to complete. Patient Condition at Discharge: Stable Plan - Discharge Summary Discharge Rx Participant: No New Discharge Prescriptions: New chlordiazePOXIDE HCl [Librium] 10 mg PO TID PRN 3 Days #9 capsule PRN Reason: Alcohol Withdrawal Metoprolol Succinate (ER) [Toprol XL] 12.5 mg PO DAILY tab Continue Pantoprazole [Protonix] 40 mg PO DAILY levETIRAcetam [Keppra] 1,000 mg PO BID NIFEdipine [Adalat CC] 30 mg PO DAILY QUEtiapine [SEROquel] 50 mg PO HS Acamprosate Calcium [Campral] 666 mg PO TID Potassium Chloride ER [K-Dur 10] 10 meq PO DAILY 30 Days #30 tab Lacosamide [Vimpat] 50 mg PO BID Citalopram Hydrobromide [CeleXA] 40 mg PO DAILY Folic Acid 1 mg PO DAILY tab Thiamine [Vitamin B-1] 100 mg PO DAILY tab Multivitamins, Thera [Multivitamin (formulary)] 1 tab PO DAILY Discontinued Metoprolol Succinate (ER) [Toprol Xl] 12.5 mg PO DAILY #30 tab Meloxicam 15 mg PO DAILY Discharge Medication List Pantoprazole [Protonix] 40 mg PO DAILY 03/10/22 [History] Lacosamide [Vimpat] 50 mg PO BID 04/07/22 [History] NIFEdipine [Adalat CC] 30 mg PO DAILY 04/07/22 [History] levETIRAcetam [Keppra] 1,000 mg PO BID 04/07/22 [History] Acamprosate Calcium [Campral] 666 mg PO TID 11/29/22 [History] Citalopram Hydrobromide [CeleXA] 40 mg PO DAILY 11/29/22 [History] QUEtiapine [SEROquel] 50 mg PO HS 11/29/22 [History] Folic Acid 1 mg PO DAILY tab 12/01/22 [Rx] Potassium Chloride ER [K-Dur 10] 10 meq PO DAILY 30 Days #30 tab 12/01/22 [Rx] Thiamine [Vitamin B-1] 100 mg PO DAILY tab 12/01/22 [Rx] Multivitamins, Thera [Multivitamin (formulary)] 1 tab PO DAILY 12/15/22 [Hi story] Metoprolol Succinate (ER) [Toprol XL] 12.5 mg PO DAILY tab 12/17/22 [Rx] chlordiazePOXIDE HCl [Librium] 10 mg PO TID PRN 3 Days #9 capsule 12/17/22 [Rx] Follow up Appointment(s)/Referral(s): Reuben Hewitt DO [Primary Care Provider] - 12/23/22 5:20 pm (Office will be calling you prior to appointment) Patient Instructions/Handouts: Hyperkalemia (DC) Activity/Diet/Wound Care/Special Instructions: Diet: Regular Drink plenty of water. Stop drinking alcohol. Do not mix Librium and alcohol as this could lead to sudden . Discharge/Stand Alone Forms: AA Meetings [facility] Resources, Outpatient Counseling, In Substance Abuse Facilities, Personal Fluoroscope Operator Discharge Disposition: HOME SELF-CARE
--- NOTE | 2023-01-13 15:36 | CDI ---
Documentation Clarification Form Date: 12/17/2022 10:33:00 AM From: Cindy Curran Phone: [phone] Admit Date: 12/15/2022 10:54:00 PM Patient Name: Hector Caro Visit Number: [id number] Discharge Date: 12/17/2022 11:23:00 AM ATTENTION: The Clinical Documentation Specialists (CDI) and [facility] Coding Staff appreciate your assistance in clarifying documentation. Please respond to the clarification below the line at the bottom and electronically sign. The CDI & [facility] Coding staff will review the response and follow-up if needed. Please note: Queries are made part of the Legal Health Record. If you have any questions, please contact the author of this message via ITS. Dr. Prachi Brewer The Registered Dietitian assessment on 12/16 indicates this patient meets criteria for Severe Malnutrition. Based on this information and the findings below, is there an additional diagnosis that is clinically appropriate for this patient? History/Risk Factors: 60-year-old male presented with possible alcohol withdrawal. He started feeling shaky and not feeling well, last drink was the day before. Medical History: Daily smoker, HTN, Seizure disorder and ETOH abuse. 12/16, H&P Clinical Indicators: RD Consult Assessment: Nutritional History: DX starvation ketoacidosis, hyperkalemia Current BMI: 20.3 Hgt 5 ft 10 in. Weight 64.41kg BMI Normal Calculate [facility] body wgt 75.296kg, usual body weight 72.575kg. Involuntary weight loss of 11% of UBW in< 3 months. Related to decline in caloric intake <50% of estimated needs x 1 -3 months, etoh abuse. Appetite poor for one to three months. Diet history: Regular with Oral supplement. Nutritional Assessment: Patient is very lethargic and weak. Nutrition Intake: Poor 0-25% consumed. Heart healthy diet. Appetite, Poor. Oral Supplement Ensure Enlive TID Kcal/Serving 350Kcal Protein /Serving 20 gram. Estimated protein range 1.2grams/kg; estimated protein needs 90 grams/day. Estimated fluid needs 1ml/Kcal; estimated fluid needs 1882 mls/day Labs: Potassium 5.7; Lactic acid 11.2 Treatment: Regular diet, Monitor po intake and supplement intake. Dietary Consult: see above Supplements: Chocolate Ensure Plus TID Monitoring: Potassium and Lactic acid labs. Is there an additional diagnosis that is clinically appropriate for this patient? [ x ] Severe Protein-Calorie Malnutrition [ ] Other condition, please specify [ ] Unable to Determine (Template Last Revised: October 2020) MTDD
== END 2022-12-17 11:23 | disposition home or self-care (01) | DRG 896 ==
LOC: EC 16:06 → 3SCARD 22:54
PROVIDERS: ADMIT Internal Medicine; ATTEND Internal Medicine
DX: F10.239 Alcohol dependence with withdrawal, unspecified (principal); E43 Unspecified severe protein-calorie malnutrition; E87.29 Other acidosis; E46 Unspecified protein-calorie malnutrition; E88.89 Other specified metabolic disorders; G40.909 Epilepsy, unspecified, not intractable, without status epilepticus; I10 Essential (primary) hypertension; F12.10 Cannabis abuse, uncomplicated; D53.9 Nutritional anemia, unspecified; Z68.20 Body mass index [BMI] 20.0-20.9, adult; Z28.310 Unvaccinated for COVID-19; F32.A Depression, unspecified; Y90.2 Blood alcohol level of 40-59 mg/100 ml; E87.5 Hyperkalemia; F17.210 Nicotine dependence, cigarettes, uncomplicated; D72.829 Elevated white blood cell count, unspecified; Z71.6 Tobacco abuse counseling; Z91.011 Allergy to milk products; Z79.899 Other long term (current) drug therapy; Z79.1 Long term (current) use of non-steroidal anti-inflammatories (NSAID); Z71.3 Dietary counseling and surveillance
CPT/HCPCS: 36415; 74018; 80048; 80053; 80320; 82009; 82150; 82607; 82747; 82803; 83605; 83690; 84132; 85025; 85027; 85610; 85730; 93005; 94640; 96361; 96365; 96372; 96375; 96376; 99291

== ENCOUNTER 2023-05-15 11:46 | Emergency (ER) | payer MEDICARE, OTHER ==
--- NOTE | 2023-05-15 12:13 | ED ---
Fall HPI - General Chief Complaint: Fall Stated Complaint: Fall, No Thinners Time Seen by Provider: 05/15/23 12:12 Source: patient, RN notes reviewed Mode of arrival: ambulatory Limitations: no limitations - History of Present Illness Initial Comments: 62-year-old male presents emergency Department from [place] for evaluation of head trauma. Patient was seen here earlier this morning for a fall. Patient has CT which was negative. Patient went back to [place] states he tripped on the curb striking his head. Patient has a laceration, head injury associated with this. - Related Data Home Medications Medication Instructions Recorded Confirmed Pantoprazole [Protonix] 40 mg PO DAILY 03/10/22 12/15/22 Lacosamide [Vimpat] 50 mg PO BID 04/07/22 12/15/22 NIFEdipine [Adalat CC] 30 mg PO DAILY 04/07/22 12/15/22 levETIRAcetam [Keppra] 1,000 mg PO BID 04/07/22 12/15/22 Acamprosate Calcium [Campral] 666 mg PO TID 11/29/22 12/15/22 Citalopram Hydrobromide [CeleXA] 40 mg PO DAILY 11/29/22 12/15/22 QUEtiapine [SEROquel] 50 mg PO HS 11/29/22 12/15/22 Multivitamins, Thera [Multivitamin 1 tab PO DAILY 12/15/22 12/15/22 (formulary)] Previous Rx's Medication Instructions Recorded Folic Acid 1 mg PO DAILY tab 12/01/22 Potassium Chloride ER [K-Dur 10] 10 meq PO DAILY 30 Days #30 tab 12/01/22 Thiamine [Vitamin B-1] 100 mg PO DAILY tab 12/01/22 Metoprolol Succinate (ER) [Toprol 12.5 mg PO DAILY tab 12/17/22 XL] chlordiazePOXIDE HCl [Librium] 10 mg PO TID PRN 3 Days #9 capsule 12/17/22 chlordiazePOXIDE HCl [Librium] 10 mg PO TID PRN 3 Days #9 capsule 12/17/22 Allergies Allergy/AdvReac Type Severity Reaction Status Date / Time goat milk Allergy Unknown Uncoded 05/15/23 11:57 Childhood Review of Systems ROS Statement: Those systems with pertinent positive or pertinent negative responses have been documented in the HPI. ROS Other: All systems not noted in ROS Statement are negative. Past Medical History Past Medical History: Hypertension, Seizure Disorder Additional Past Medical History / Comment(s): ETOH, depression, encephalopathy, left lung collapse, vision problems History of Any Multi-Drug Resistant Organisms: None Reported Past Surgical History: Orthopedic Surgery Additional Past Surgical History / Comment(s): rt femur Past Anesthesia/Blood Transfusion Reactions: No Reported Reaction Past Psychological History: Depression Smoking Status: Current every day smoker Past Alcohol Use History: Abuse, Daily Past Drug Use History: Marijuana - Past Family History Father Family Medical History: Hypertension Mother Family Medical History: No Reported History General Exam - General Exam Comments Initial Comments: Visual Physical Exam Vital signs reviewed General: Well-appearing, nontoxic, no acute distress. Head: Normocephalic, atraumatic Eyes: PERRLA, EOMI ENT: Airway patent Chest: Nonlabored breathing Skin: No visual rash, normal skin tone Neuro: Alert and oriented 3 Musculoskeletal: No gross abnormalities Limitations: no limitations General appearance: alert, in no apparent distress Head exam: Present: atraumatic, normocephalic. Absent: normal inspection (Superficial laceration left periorbital) Eye exam: Present: normal appearance, PERRL, EOMI, periorbital swelling, periorbital tenderness. Absent: scleral icterus, conjunctival injection ENT exam: Present: normal exam, normal oropharynx, mucous membranes moist, TM's normal bilaterally Neck exam: Present: normal inspection, full ROM. Absent: tenderness, meningismus, lymphadenopathy Respiratory exam: Present: normal lung sounds bilaterally. Absent: respiratory distress, wheezes, rales, rhonchi, stridor Cardiovascular Exam: Present: regular rate, normal rhythm, normal heart sounds. Absent: systolic murmur, diastolic murmur, rubs, gallop, clicks Neurological exam: Present: alert, oriented X3, CN II-XII intact, reflexes normal. Absent: motor sensory deficit Skin exam: Present: warm, dry, intact, normal color. Absent: rash Course Vital Signs 05/15/23 11:55 Temperature 98.4 F Pulse Rate 78 Respiratory 20 Rate Blood Pressure 112/83 O2 Sat by Pulse 99 Oximetry Medical Decision Making - Medical Decision Making I performed a quick note portion of this chart signed Reuben Heredia PA-C Was pt. sent in by a medical professional or institution ([employer], SCREW MACHINE REPAIRER, urgent care, hospital, or senior living...) When possible be specific @ -No Did you speak to anyone other than the patient for history (EMS, parent, family, police, friend...)? What history was obtained from this source @ -No Did you review nursing and triage notes (agree or disagree)? Why? @ -I reviewed and agree with nursing and triage notes Were old charts reviewed (outside hosp., previous admission, EMS record, old EKG, old radiological studies, urgent care reports/EKG's, senior living records)? Report findings @ -No old charts were reviewed Differential Diagnosis (chest pain, altered mental status, abdominal pain women, abdominal pain men, vaginal bleeding, weakness, fever, dyspnea, syncope, headache, dizziness, GI bleed, back pain, seizure, CVA, palpatations, mental health, musculoskeletal)? @ -Fall, intracranial hemorrhage, facial fracture EKG interpreted by me (3pts min.). @ -None X-rays interpreted by me (1pt min.). @ -None done CT interpreted by me (1pt min.). @ -CT brain, C-spine no acute fracture dislocation or intracranial hemorrhage U/S interpreted by me (1pt. min.). @ -None done What testing was considered but not performed or refused? (CT, X-rays, U/S, labs)? Why? @ -None What meds were considered but not given or refused? Why? @ -None Did you discuss the management of the patient with other professionals (professionals i.e. [employer]innis, SCREW MACHINE REPAIRER, lab, RT, psych nurse, web content & social media manager, baseball glove stuffer, teacher, air force senior officer, showcase maker)? Give summary @ -No Was smoking cessation discussed for >3mins.? @ -No Was critical care preformed (if so, how long)? @ -No Were there social determinants of health that impacted care today? How? (Homelessness, low income, unemployed, alcoholism, drug addiction, transportation, low edu. Level, literacy, decrease access to med. care, halfway, rehab)? @ -[No] Was there de-escalation of care discussed even if they declined (Discuss DNR or withdrawal of care, Hospice)? DNR status @ -[No] What co-morbidities impacted this encounter? (DM, HTN, Smoking, COPD, CAD, Cancer, CVA, ARF, Chemo, Hep., AIDS, mental health diagnosis, sleep apnea, morbid obesity)? @ -[None] Was patient admitted / discharged? Hospital course, mention meds given and route , prescriptions, significant lab abnormalities, going to OR and other pertinent info. @ -[Discharged patient CT is unremarkable patient had a fall earlier today which CT was compared to these are mechanical falls in which patient will be discharged back to [place]] Undiagnosed new problem with uncertain prognosis? @ -[No] Drug Therapy requiring intensive monitoring for toxicity (Heparin, Nitro, Insulin, Cardizem)? @ -[No] Were any procedures done? @ -[No] Diagnosis/symptom? @ -[Fall, head injury, facial laceration] Acute, or Chronic, or Acute on Chronic? @ -[Acute] Uncomplicated (without systemic symptoms) or Complicated (systemic symptoms)? @ -[Uncomplicated] Side effects of treatment? @ -[No] Exacerbation, Progression, or Severe Exacerbation? @ -[No] Poses a threat to life or bodily function? How? (Chest pain, USA, SC, pneumonia, PE, COPD, DKA, ARF, appy, cholecystitis, CVA, Diverticulitis, Homicidal, Suicidal, threat to staff... and all critical care pts) @ -[No] Disposition Clinical Impression: Fall, Closed head injury, Facial laceration Disposition: HOME SELF-CARE Condition: Stable Instructions (If sedation given, give patient instructions): Fall Prevention for Older Adults (ED) Additional Instructions: Please return to the Emergency Department if symptoms worsen or any other concerns. Is patient prescribed a controlled substance at d/c from ED?: No Referrals: Reuben Hewitt DO [Primary Care Provider] - 1-2 days Time of Disposition: 14:12
--- NOTE | 2023-05-15 14:27 | CT ---
EXAMINATION TYPE: CT brain oksanaine wo con DATE OF EXAM: 05/15/2023 COMPARISON: 05/15/2023 HISTORY: Pain CT DLP: 1473.2 mGycm Automated exposure control for dose reduction was used. TECHNIQUE: CT scan of the head and cervical spine are performed without contrast. FINDINGS: There is no acute intracranial hemorrhage, mass effect, or midline shift identified. Mode rate generalized degenerative changes of mild hypoattenuation in the white matter. Left frontal soft tissue swelling stable. Assessment spinal canal limited due to noncontrast technique and resolution. There is multilevel deg enerative disc disease with severe changes at C5-C6. Diffuse osteopenia. No acute fracture. Advanced degenerative change of the atlantoaxial joint. Emphysematous changes are noted with subpleural micron odule stable. Thoracic aorta measures 3.6 cm. Multilevel facet arthropathy and uncovertebral joint hy pertrophy with multilevel foraminal encroachment. There is posterior spondylosis and central disc bul ging C5-C6. Canal stenosis not excluded. IMPRESSION: 1. There is no acute fracture or dislocation evident in the cervical spine. 2. No acute intracranial hemorrhage, mass effect, or midline shift is seen.
[2023-05-15 15:03] VITALS: BP 114/76; PULSE 73; RESP 16; TEMP 97.6
== END 2023-05-15 15:01 | disposition home or self-care (01) ==
LOC: EC 11:46
DX: S01.111A Laceration without foreign body of right eyelid and periocular area, initial encounter (principal); S09.90XA Unspecified injury of head, initial encounter; I10 Essential (primary) hypertension; F32.A Depression, unspecified; F17.200 Nicotine dependence, unspecified, uncomplicated; F12.90 Cannabis use, unspecified, uncomplicated; Z79.899 Other long term (current) drug therapy; Z91.011 Allergy to milk products; W01.10XA Fall on same level from slipping, tripping and stumbling with subsequent striking against unspecified object, initial encounter
CPT/HCPCS: 70450; 72125; 99284

== ENCOUNTER 2023-10-07 13:59 | Observation (INO) | payer MEDICARE, OTHER ==
--- NOTE | 2023-10-07 14:18 | ED ---
Alcohol HPI - General Chief Complaint: Alcohol Stated Complaint: ETOH Time Seen by Provider: 10/07/23 14:12 Source: patient, EMS, RN notes reviewed Mode of arrival: EMS Limitations: no limitations - History of Present Illness Initial Comments: This is a 62 year old male who presents to the emergency department for alcohol intoxication. Patient not answering many questions on exam. When asked how much he had to drink, he states "too much". Patient's states that they live in separate apartments, however he has been consuming much more alcohol than usual over the last couple of weeks. She saw him yesterday and he was notably intoxicated, however she states that it is worse today. Unsure what he drank or how much he may have had. He has said that he wants to check into [place] and he was there a year ago. She does state that he has a hx of withdrawal seizures and DTs. MD Complaint: alcohol intoxication - Related Data Home Medications Medication Instructions Recorded Confirmed Pantoprazole [Protonix] 40 mg PO DAILY 03/10/22 12/15/22 Lacosamide [Vimpat] 50 mg PO BID 04/07/22 12/15/22 NIFEdipine [Adalat CC] 30 mg PO DAILY 04/07/22 12/15/22 levETIRAcetam [Keppra] 1,000 mg PO BID 04/07/22 12/15/22 Acamprosate Calcium [Campral] 666 mg PO TID 11/29/22 12/15/22 Citalopram Hydrobromide [CeleXA] 40 mg PO DAILY 11/29/22 12/15/22 QUEtiapine [SEROquel] 50 mg PO HS 11/29/22 12/15/22 Multivitamins, Thera [Multivitamin 1 tab PO DAILY 12/15/22 12/15/22 (formulary)] Previous Rx's Medication Instructions Recorded Folic Acid 1 mg PO DAILY tab 12/01/22 Potassium Chloride ER [K-Dur 10] 10 meq PO DAILY 30 Days #30 tab 12/01/22 Thiamine [Vitamin B-1] 100 mg PO DAILY tab 12/01/22 Metoprolol Succinate (ER) [Toprol 12.5 mg PO DAILY tab 12/17/22 XL] chlordiazePOXIDE HCl [Librium] 10 mg PO TID PRN 3 Days #9 capsule 12/17/22 chlordiazePOXIDE HCl [Librium] 10 mg PO TID PRN 3 Days #9 capsule 12/17/22 Allergies Allergy/AdvReac Type Severity Reaction Status Date / Time goat milk Allergy Unknown Uncoded 10/07/23 14:08 Childhood Review of Systems ROS Statement: Those systems with pertinent positive or pertinent negative responses have been documented in the HPI. ROS Other: All systems not noted in ROS Statement are negative. Past Medical History Past Medical History: Hypertension, Seizure Disorder Additional Past Medical History / Comment(s): ETOH, depression, encephalopathy, left lung collapse, vision problems History of Any Multi-Drug Resistant Organisms: None Reported Past Surgical History: Orthopedic Surgery Additional Past Surgical History / Comment(s): rt femur Past Anesthesia/Blood Transfusion Reactions: No Reported Reaction Past Psychological History: Depression Smoking Status: Current every day smoker Past Alcohol Use History: Abuse, Daily Past Drug Use History: Marijuana - Past Family History Father Family Medical History: Hypertension Mother Family Medical History: No Reported History General Exam Limitations: no limitations General appearance: alert, appears intoxicated Head exam: Present: atraumatic, normocephalic, normal inspection Respiratory exam: Present: normal lung sounds bilaterally. Absent: respiratory distress, wheezes, rales, rhonchi, stridor Cardiovascular Exam: Present: regular rate, normal rhythm, normal heart sounds. Absent: systolic murmur, diastolic murmur, rubs, gallop, clicks Neurological exam: Present: alert Skin exam: Present: warm, dry, intact, normal color. Absent: rash Course Vital Signs 10/07/23 10/07/23 14:04 18:06 Pulse Rate 65 77 Respiratory 18 18 Rate Blood Pressure 112/73 117/77 O2 Sat by Pulse 95 98 Oximetry Medical Decision Making - Medical Decision Making This is a 62-year-old male who presents to the emergency department for alcohol intoxication. Was pt. sent in by a medical professional or institution? @ -No Did you speak to anyone other than the patient for history? @ -His provided the majority of the history. Did you review nursing and triage notes? @ -Yes, and I agree, it is accurate with regards to the patient's symptoms. Were old charts reviewed? @ -No Differential Diagnosis? @ -Differential Alcoholism: Sympathomimetic syndrome, anti-muscarinic syndrome, serotonin syndrome, neuroleptic malignant syndrome, thyrotoxicosis, encephalitis, acute psychosis, hypoglycemia, trauma, sepsis. This is not meant to be an all-inclusive list. EKG interpreted by me (3pts min.)? @ -Not obtained X-rays interpreted by me (1pt min.)? @ -Not obtained CT interpreted by me (1pt min.)? @ -Not obtained U/S interpreted by me (1pt. min.)? @ -Not obtained What testing was considered but not performed? (CT, X-rays, U/S, labs)? Why? @ -None What meds were considered but not given? Why? @ -None Did you discuss the management of the patient with other professionals? @ -Yes, Dr. Brewer, who accepts the patient for admission. Did you reconcile home meds? @ -No Was smoking cessation discussed for >3mins.? @ -I discussed smoking cessation for greater than 3 minutes. The risk of smoking were discussed with the patient including but not limited to risks of cancer, stroke, coronary artery disease and COPD. Also discussed with patient were multiple methods of quitting smoking. Lastly we discussed the financial cost of smoking. Was critical care preformed (if so, how long)? @ -No Were there social determinants of health that impacted care today? How? (Homelessness, low income, unemployed, alcoholism, drug addiction, transportation, low edu. Level, literacy, decrease access to med. care, intermediate, rehab)? @ -Alcoholism, leading to his visit today. Was there de-escalation of care discussed even if they declined? (Discuss DNR or withdrawal of care, Hospice)? @ -No What co-morbidities impacted this encounter? (DM, HTN, Smoking, COPD, CAD, Cancer, CVA, Hep., AIDS, mental health diagnosis, sleep apnea, morbid obesity)? @ -HTN, seizure disorder, alcoholism Was patient admitted / discharged? @ -Admitted. Lab work obtained demonstrating alcohol level of 345. Lab work was otherwise fairly unremarkable. Urine drug screen positive for marijuana. Patient was significantly intoxicated on exam and unable to give much of any hi story. Per his , he does have a substantial history of alcohol withdrawal seizures and DTs. Patient subsequently admitted to medicine for alcohol intoxication and withdrawals. [facility] protocol initiated. Undiagnosed new problem with uncertain prognosis? @ -None Drug Therapy requiring intensive monitoring for toxicity (Heparin, Nitro, Insu enoch, Cardizem)? @ -None Were any procedures done? @ -None Diagnosis/symptom? @ -Alcohol intoxication Acute, or Chronic, or Acute on Chronic? @ -Acute Uncomplicated (without systemic symptoms) or Complicated (systemic symptoms)? @ -Complicated Side effects of treatment? @ -None Exacerbation, Progression, or Severe Exacerbation] @ -Not applicable Poses a threat to life or bodily function? @ -Yes, can lead to seizures and DTs. This case was discussed in detail with the attending ED physician, Dr. Martinez. Presentation, findings, and treatment plan discussed in detail as well. - Lab Data Result diagrams: 10/07/23 14:37 10/07/23 15:34 Lab Results 10/07/23 10/07/23 10/07/23 Range/Units 14:37 14:37 14:37 WBC 5.8 (3.8-10.6) k/uL RBC 3.94 L (4.30-5.90) m/uL Hgb 13.8 (13.0-17.5) gm/dL Hct 40.4 (39.0-53.0) % MCV 102.6 H (80.0-100.0) fL MCH 35.0 (25.0-35.0) pg MCHC 34.1 (31.0-37.0) g/dL RDW 13.3 (11.5-15.5) % Plt Count 396 (150-450) k/uL MPV 7.1 Neutrophils % 49 % Lymphocytes % 38 % Monocytes % 7 % Eosinophils % 2 % Basophils % 1 % Neutrophils # 2.8 (1.3-7.7) k/uL Lymphocytes # 2.2 (1.0-4.8) k/uL Monocytes # 0.4 (0-1.0) k/uL Eosinophils # 0.1 (0-0.7) k/uL Basophils # 0.1 (0-0.2) k/uL Macrocytosis Slight PT 11.5 (10.0-12.5) sec INR 1.1 (<1.2) Sodium (137-145) mmol/L Potassium (3.5-5.1) mmol/L Chloride (98-107) mmol/L Carbon Dioxide (22-30) mmol/L Anion Gap mmol/L BUN (9-20) mg/dL Creatinine (0.66-1.25) mg/dL Est GFR (CKD-EPI)AfAm (>60 ml/min/1.73 sqM) Est GFR (CKD-EPI)NonAf (>60 ml/min/1.73 sqM) Glucose (74-99) mg/dL Calcium (8.4-10.2) mg/dL Phosphorus (2.5-4.5) mg/dL Magnesium (1.6-2.3) mg/dL Total Bilirubin (0.2-1.3) mg/dL AST (17-59) U/L ALT (4-49) U/L Alkaline Phosphatase (38-126) U/L Total Protein (6.3-8.2) g/dL Albumin (3.5-5.0) g/dL Lipase (23-300) U/L Urine Opiates Screen Not Detected (NotDetected) Ur Oxycodone Screen Not Detected (NotDetected) Urine Methadone Screen Not Detected (NotDetected) Ur Barbiturates Screen Not Detected (NotDetected) U Tricyclic Antidepress Not Detected (NotDetected) Ur Phencyclidine Scrn Not Detected (NotDetected) Ur Amphetamines Screen Not Detected (NotDetected) U Methamphetamines Scrn Not Detected (NotDetected) U Benzodiazepines Scrn Not Detected (NotDetected) Urine Cocaine Screen Not Detected (NotDetected) U Marijuana (THC) Screen Detected H (NotDetected) Serum Alcohol mg/dL 10/07/23 Range/Units 15:34 WBC (3.8-10.6) k/uL RBC (4.30-5.90) m/uL Hgb (13.0-17.5) gm/dL Hct (39.0-53.0) % MCV (80.0-100.0) fL MCH (25.0-35.0) pg MCHC (31.0-37.0) g/dL RDW (11.5-15.5) % Plt Count (150-450) k/uL MPV Neutrophils % % Lymphocytes % % Monocytes % % Eosinophils % % Basophils % % Neutrophils # (1.3-7.7) k/uL Lymphocytes # (1.0-4.8) k/uL Monocytes # (0-1.0) k/uL Eosinophils # (0-0.7) k/uL Basophils # (0-0.2) k/uL Macrocytosis PT (10.0-12.5) sec INR (<1.2) Sodium 143 (137-145) mmol/L Potassium 4.1 (3.5-5.1) mmol/L Chloride 115 H (98-107) mmol/L Carbon Dioxide 18 L (22-30) mmol/L Anion Gap 10 mmol/L BUN 8 L (9-20) mg/dL Creatinine 0.57 L (0.66-1.25) mg/dL Est GFR (CKD-EPI)AfAm >90 (>60 ml/min/1.73 sqM) Est GFR (CKD-EPI)NonAf >90 (>60 ml/min/1.73 sqM) Glucose 85 (74-99) mg/dL Calcium 8.9 (8.4-10.2) mg/dL Phosphorus 2.9 (2.5-4.5) mg/dL Magnesium 2.0 (1.6-2.3) mg/dL Total Bilirubin 0.5 (0.2-1.3) mg/dL AST 37 (17-59) U/L ALT 15 (4-49) U/L Alkaline Phosphatase 87 (38-126) U/L Total Protein 6.8 (6.3-8.2) g/dL Albumin 3.8 (3.5-5.0) g/dL Lipase 205 (23-300) U/L Urine Opiates Screen (NotDetected) Ur Oxycodone Screen (NotDetected) Urine Methadone Screen (NotDetected) Ur Barbiturates Screen (NotDetected) U Tricyclic Antidepress (NotDetected) Ur Phencyclidine Scrn (NotDetected) Ur Amphetamines Screen (NotDetected) U Methamphetamines Scrn (NotDetected) U Benzodiazepines Scrn (NotDetected) Urine Cocaine Screen (NotDetected) U Marijuana (THC) Screen (NotDetected) Serum Alcohol 345 H* mg/dL Disposition Clinical Impression: Alcohol intoxication, Nicotine dependence Disposition: ADMITTED IP TO [facility] Time of Disposition: 17:09
[2023-10-07] MEDS: SODIUM CHLORIDE 0.9% 1,000 ML IV STA (14:35)
[2023-10-07 14:52] LABS: Basophils # (A) 0.1 k/uL (0-0.2); Basophils % (A) 1 %; Eosinophils # (A) 0.1 k/uL (0-0.7); Eosinophils % (A) 2 %; HCT 40.4 % (39.0-53.0); HGB 13.8 gm/dL (13.0-17.5); Lymphocytes # (A) 2.2 k/uL (1.0-4.8); Lymphocytes % (A) 38 %; MCHC 34.1 g/dL (31.0-37.0); MCV 102.6 fL (80.0-100.0); Macrocytosis Slight; Mean Platelet Volume 7.1; Monocytes # (A) 0.4 k/uL (0-1.0); Monocytes % (A) 7 %; Neutrophils # (A) 2.8 k/uL (1.3-7.7); Neutrophils % (A) 49 %; Platelet Count 396 k/uL (150-450); RBC 3.94 m/uL (4.30-5.90); RDW 13.3 % (11.5-15.5); WBC 5.8 k/uL (3.8-10.6)
[2023-10-07 15:20] LABS: INR 1.1 (<1.2); Prothrombin Time 11.5 sec (10.0-12.5)
[2023-10-07 15:50] LABS: Amphetamine Screen,Urine Not Detected (NotDetected); Barbiturate Screen,Urine Not Detected (NotDetected); Benzodiazepines Screen,Urine Not Detected (NotDetected); Cocaine Screen,Urine Not Detected (NotDetected); Methadone Screen, Urine Not Detected (NotDetected); Opiate Screen,Urine Not Detected (NotDetected); Oxycodone Screen, Urine Not Detected (NotDetected); Phencyclidine Screen,Urine Not Detected (NotDetected); Tricyclic Antidepressant,Urine Not Detected (NotDetected); Urn Cannabinoid Scrn Detected (NotDetected)
[2023-10-07 15:59] LABS: ALT 15 U/L (4-49); African American GFR (CKD) >90 (>60 ml/min/1.73 sqM); Albumin 3.8 g/dL (3.5-5.0); Anion Gap 10 mmol/L; Blood Urea Nitrogen 8 mg/dL (9-20); Calcium 8.9 mg/dL (8.4-10.2); Carbon Dioxide 18 mmol/L (22-30); Chloride 115 mmol/L (98-107); Glucose 85 mg/dL (74-99); Lipase 205 U/L (23-300); Non-African American GFR(CKD) >90 (>60 ml/min/1.73 sqM); Sodium 143 mmol/L (137-145); Total Bilirubin 0.5 mg/dL (0.2-1.3); Total Protein 6.8 g/dL (6.3-8.2)
[2023-10-07 16:29] LABS: Alcohol 345 mg/dL; Potassium 4.1 mmol/L (3.5-5.1)
[2023-10-07 16:30] LABS: AST 37 U/L (17-59); Alkaline Phosphatase 87 U/L (38-126); Phosphorus 2.9 mg/dL (2.5-4.5)
[2023-10-07] MEDS ORDERED: LORazepam 2 MG/ML INJ IV PRN ×4 (16:54)
[2023-10-07] MEDS ORDERED: LORazepam 1 MG TAB PO PRN (16:54)
[2023-10-07] MEDS ORDERED: ACETAMINOPHEN TAB 325 MG TAB PO PRN (17:06)
[2023-10-07] MEDS ORDERED: NALOXONE 0.4 MG/ML 1 ML VIAL IV PRN (17:06)
[2023-10-07] MEDS ORDERED: ONDANSETRON 4 MG/2 ML VIAL IVP PRN (17:06)
--- NOTE | 2023-10-07 17:30 | P.HPIM ---
History of Present Illness H&P Date: 10/07/23 The patient is a 62-year-old male with a PMH of extensive EtOH abuse, hypertension, marijuana abuse, who presented to the emergency room accompanied by his for possible alcohol withdrawal. The patient reports that he has been drinking roughly a pint of hard liquor daily for the past several years. His brought him in today because he was difficult to wake up. He reports epigastric pain on and off along with poor appetite. He reports a significant history of alcohol withdrawal with DTs and alcohol withdrawal seizures. The patient underwent an extensive evaluation in the emergency room. Vital signs stable. Laboratory evaluation was remarkable for MCV 102.6, Cl 115, bicarb 18, BUN 8, Cr 0.57. Serum alcohol level of 345. UDS + marijuana. General: non toxic, no distress, appears older than stated age, thin and frail Derm: warm, dry Head: atraumatic, normocephalic, symmetric Eyes: EOMI, no lid lag, anicteric sclera Mouth: no lip lesion, mucus membranes moist Cardiovascular: S1S2 reg, no murmur Lungs: CTA bilateral, no rhonchi, no rales , no accessory muscle use Ext: no gross muscle atrophy, no edema, no contractures Neuro: no focal neuro deficits Psych: Alert, oriented, appropriate affect Epigastric TTP without rebound. Based on my assessment of this patient, this patient meets a high complexity level of care. Alcoholic ketoacidosis: Start NS at 100 cc/hr. Alcohol withdrawal: CIWA protocol with Ativan as needed per CIWA scale. Macrocytic anemia: Likely due to EtOH abuse. Epigastric pain: Obtain KUB. Likely gastritis. Protonix 40 mg PO QD. I have reviewed the following [employer] financial[employer] consultant notes: None. I have reviewed the results of the following tests: As above. I have ordered the following tests: As above. I have discussed the care of this patient with the following independent historian: . I have independently interpreted the following test below: I have discussed the management of this patient with the following physician: ED provider. Past Medical History Past Medical History: Hypertension, Seizure Disorder Additional Past Medical History / Comment(s): ETOH, depression, encephalopathy, left lung collapse, vision problems History of Any Multi-Drug Resistant Organisms: None Reported Past Surgical History: Orthopedic Surgery Additional Past Surgical History / Comment(s): rt femur Past Anesthesia/Blood Transfusion Reactions: No Reported Reaction Past Psychological History: Depression Smoking Status: Current every day smoker Past Alcohol Use History: Abuse, Daily Past Drug Use History: Marijuana - Past Family History Father Family Medical History: Hypertension Mother Family Medical History: No Reported History Medications and Allergies Home Medications Medication Instructions Recorded Confirmed Type Pantoprazole [Protonix] 40 mg PO DAILY 03/10/22 12/15/22 History Lacosamide [Vimpat] 50 mg PO BID 04/07/22 12/15/22 History NIFEdipine [Adalat CC] 30 mg PO DAILY 04/07/22 12/15/22 History levETIRAcetam [Keppra] 1,000 mg PO BID 04/07/22 12/15/22 History Acamprosate Calcium [Campral] 666 mg PO TID 11/29/22 12/15/22 History Citalopram Hydrobromide [CeleXA] 40 mg PO DAILY 11/29/22 12/15/22 History QUEtiapine [SEROquel] 50 mg PO HS 11/29/22 12/15/22 History Folic Acid 1 mg PO DAILY tab 12/01/22 12/15/22 Rx Potassium Chloride ER [K-Dur 10] 10 meq PO DAILY 30 Days #30 tab 12/01/22 12/15/22 Rx Thiamine [Vitamin B-1] 100 mg PO DAILY tab 12/01/22 12/15/22 Rx Multivitamins, Thera [Multivitamin 1 tab PO DAILY 12/15/22 12/15/22 History (formulary)] Metoprolol Succinate (ER) [Toprol 12.5 mg PO DAILY tab 12/17/22 Rx XL] chlordiazePOXIDE HCl [Librium] 10 mg PO TID PRN 3 Days #9 capsule 12/17/22 Rx chlordiazePOXIDE HCl [Librium] 10 mg PO TID PRN 3 Days #9 capsule 12/17/22 Rx Allergies Allergy/AdvReac Type Severity Reaction Status Date / Time goat milk Allergy Unknown Uncoded 10/07/23 14:08 Childhood Physical Exam Vitals: Vital Signs Pulse Resp BP Pulse Ox 10/07/23 14:04 65 18 112/73 95 Intake and Output 10/07/23 10/07/23 10/07/23 06:59 14:59 22:59 Other: Weight 58.967 kg Results CBC & Chem 7: 10/07/23 14:37 10/07/23 15:34 Labs: Abnormal Lab Results - Last 24 Hours (Table) 10/07/23 10/07/23 10/07/23 Range/Units 14:37 14:37 15:34 RBC 3.94 L (4.30-5.90) m/uL MCV 102.6 H (80.0-100.0) fL Chloride 115 H (98-107) mmol/L Carbon Dioxide 18 L (22-30) mmol/L BUN 8 L (9-20) mg/dL Creatinine 0.57 L (0.66-1.25) mg/dL U Marijuana (THC) Screen Detected H (NotDetected) Serum Alcohol 345 H* mg/dL
--- NOTE | 2023-10-07 17:51 | XR ---
EXAMINATION TYPE: XR KUB portable DATE OF EXAM: 10/07/2023 5:38 PM CLINICAL INDICATION:Male, 62 years old with history of Abd pain; COMPARISON: 12/16/2023. TECHNIQUE: One radiographic view of the abdomen was obtained. FINDINGS: The bowel gas pattern is nonspecific without dilated loops of small or large bowel. There i s no evidence for organomegaly or pneumoperitoneum. The osseous structures are intact. No abnormal calcifications are present. Fecal material and gas are demonstrated throughout the colon and rectum. Right femur fixation zan appears intact. IMPRESSION: Nonspecific bowel gas pattern without radiographic evidence for acute process.
[2023-10-07] MEDS: SODIUM CHLORIDE 0.9% 1,000 ML IV SCH (18:13)
[2023-10-07] MEDS: THIAMINE 100 MG/ML 2 ML VIAL IM STA (18:13)
[2023-10-07] MEDS: QUEtiapine 50 MG TAB PO SCH (21:57)
[2023-10-07] MEDS: LACOSAMIDE 50 MG TABLET PO SCH (21:57)
[2023-10-07] MEDS: levETIRAcetam 500 MG TAB PO SCH (21:57)
[2023-10-08 08:19] VITALS: BP 109/81; PULSE 84; RESP 20; TEMP 97.8
[2023-10-08] MEDS: ENOXAPARIN 40 MG/0.4 ML SYRINGE SQ SCH (08:47)
[2023-10-08] MEDS: CITALOPRAM HYDROBROMIDE 20 MG TAB PO SCH (08:48)
[2023-10-08] MEDS: PANTOPRAZOLE 40 MG TABLET PO SCH (08:48)
[2023-10-08] MEDS: THIAMINE 100 MG TAB PO SCH (08:48)
[2023-10-08] MEDS: MULTIVITAMINS, THERA 1 EACH TAB PO SCH (08:48)
[2023-10-08] MEDS: METOPROLOL SUCCINATE (ER) 25 MG TAB.ER.24H PO SCH (08:48)
[2023-10-08] MEDS: NIFEdipine XL 30 MG TAB.ER.24 PO SCH (08:48)
[2023-10-08] MEDS: FOLIC ACID 1 MG TAB PO SCH (08:48)
--- NOTE | 2023-10-08 11:43 | P.DS ---
Providers Date of admission: 10/07/23 17:07 Expected date of discharge: 10/08/23 Attending physician: Prachi Brewer MD [facility] Course: The patient is a 62-year-old male with a PMH of extensive EtOH abuse, hypertension, marijuana abuse, who presented to the emergency room accompanied by his for possible alcohol withdrawal. The patient reports that he has been drinking roughly a pint of hard liquor daily for the past several years. His brought him in today because he was difficult to wake up. He reports epigastric pain on and off along with poor appetite. He reports a significant history of alcohol withdrawal with DTs and alcohol withdrawal seizures. The patient underwent an extensive evaluation in the emergency room. Vital signs stable. Laboratory evaluation was remarkable for MCV 102.6, Cl 115, bicarb 18, BUN 8, Cr 0.57. Serum alcohol level of 345. UDS + marijuana. 10/08 Patient was seen and examined. He would like to go home and discuss [place] with his . Much more awake and alert. KUB unremarkable. Advised not to drink. Plans for discharge home today. General: non toxic, no distress, appears older than stated age, thin and frail Derm: warm, dry Head: atraumatic, normocephalic, symmetric Eyes: EOMI, no lid lag, anicteric sclera Mouth: no lip lesion, mucus membranes moist Cardiovascular: S1S2 reg, no murmur Lungs: CTA bilateral, no rhonchi, no rales , no accessory muscle use Ext: no gross muscle atrophy, no edema, no contractures Neuro: no focal neuro deficits Psych: Alert, oriented, appropriate affect Discharge Diagnosis: Alcoholic ketoacidosis Alcohol withdrawal Macrocytic anemia Gastritis This complex discharge took 35 minutes to complete. Patient Condition at Discharge: Stable Plan - Discharge Summary Discharge Rx Participant: No New Discharge Prescriptions: Continue Pantoprazole [Protonix] 40 mg PO DAILY levETIRAcetam [Keppra] 1,000 mg PO BID QUEtiapine [SEROquel] 50 mg PO HS NIFEdipine XL [Procardia XL] 30 mg PO DAILY Lacosamide [Vimpat] 50 mg PO BID Citalopram Hydrobromide [CeleXA] 40 mg PO DAILY Multivitamins, Thera [Multivitamin (formulary)] 1 tab PO DAILY Metoprolol Succinate (ER) [Toprol XL] 12.5 mg PO DAILY tab Melatonin 10 mg PO HS Discharge Medication List Pantoprazole [Protonix] 40 mg PO DAILY 03/10/22 [History] Lacosamide [Vimpat] 50 mg PO BID 04/07/22 [History] levETIRAcetam [Keppra] 1,000 mg PO BID 04/07/22 [History] Citalopram Hydrobromide [CeleXA] 40 mg PO DAILY 11/29/22 [History] QUEtiapine [SEROquel] 50 mg PO HS 11/29/22 [History] Multivitamins, Thera [Multivitamin (formulary)] 1 tab PO DAILY 12/15/22 [History] Metoprolol Succinate (ER) [Toprol XL] 12.5 mg PO DAILY tab 12/17/22 [Rx] Melatonin 10 mg PO HS 10/07/23 [History] NIFEdipine XL [Procardia XL] 30 mg PO DAILY 10/07/23 [History] Follow up Appointment(s)/Referral(s): Reuben Hewitt DO [Primary Care Provider] - 10/13/23 2:20 pm Discharge/Stand Alone Forms: AA Meetings [place], Outpatient Counseling, In Substance Abuse Facilities Discharge Disposition: HOME SELF-CARE
== END 2023-10-08 12:44 | disposition home or self-care (01) ==
LOC: EC 13:59 → 5NMEDONC 17:07
PROVIDERS: ADMIT Family Medicine; ATTEND Family Medicine
DX: F10.239 Alcohol dependence with withdrawal, unspecified (principal); E87.29 Other acidosis; D53.9 Nutritional anemia, unspecified; K29.70 Gastritis, unspecified, without bleeding; I10 Essential (primary) hypertension; F32.A Depression, unspecified; F17.200 Nicotine dependence, unspecified, uncomplicated; Y90.8 Blood alcohol level of 240 mg/100 ml or more; Z79.899 Other long term (current) drug therapy
CPT/HCPCS: 96372 ×2; 99285; 36415; 80053; 83690; 83735; 84100; 85025; 85610; 80306; 80320; 74018; G0378 ×2; J3411; J1650

== ENCOUNTER 2023-12-18 19:35 | Emergency (ER) | payer MEDICARE, OTHER ==
--- NOTE | 2023-12-18 19:52 | ED ---
General Adult HPI - General Source: patient, EMS, RN notes reviewed Mode of arrival: EMS Limitations: no limitations <Leroy Godoy - Last Filed: 12/18/23 21:13> <Tom Vines - Last Filed: 12/20/23 23:45> - General Chief complaint: Alcohol Stated complaint: ETOH Time Seen by Provider: 12/18/23 19:37 - History of Present Illness Initial comments: Patient is a 63-year-old male presenting to the emergency department with abdominal discomfort. Onset of symptoms was the past 2 or 3 days. Patient has been drinking alcohol intermittently over the past 4 to 5 days. Patient does sometimes drink a large amount of alcohol. No history of similar abdominal discomfort previously. Discomfort is epigastric region. Patient has had some nausea and vomiting. No fever. No constipation or diarrhea. (Leroy Godoy) - Related Data Home Medications Medication Instructions Recorded Confirmed Pantoprazole [Protonix] 40 mg PO DAILY 03/10/22 10/07/23 Lacosamide [Vimpat] 50 mg PO BID 04/07/22 10/07/23 levETIRAcetam [Keppra] 1,000 mg PO BID 04/07/22 10/07/23 Citalopram Hydrobromide [CeleXA] 40 mg PO DAILY 11/29/22 10/07/23 QUEtiapine [SEROquel] 50 mg PO HS 11/29/22 10/07/23 Multivitamins, Thera [Multivitamin 1 tab PO DAILY 12/15/22 10/07/23 (formulary)] Melatonin 10 mg PO HS 10/07/23 10/07/23 NIFEdipine XL [Procardia XL] 30 mg PO DAILY 10/07/23 10/07/23 Previous Rx's Medication Instructions Recorded Metoprolol Succinate (ER) [Toprol 12.5 mg PO DAILY tab 12/17/22 XL] Famotidine [Pepcid] 20 mg PO BID #14 tablet 12/19/23 Ondansetron Odt [Zofran ODT] 4 mg PO Q8HR PRN #10 tab 12/19/23 Allergies Allergy/AdvReac Type Severity Reaction Status Date / Time goat milk Allergy Unknown Uncoded 10/07/23 21:30 Childhood Review of Systems ROS Other: All systems not noted in ROS Statement are negative. Constitutional: Denies: fever Eyes: Denies: eye pain ENT: Denies: ear pain Respiratory: Denies: dyspnea Cardiovascular: Denies: chest pain Endocrine: Denies: fatigue Gastrointestinal: Reports: as per HPI, abdominal pain, nausea, vomiting Genitourinary: Denies: dysuria Musculoskeletal: Denies: back pain <Leroy Godoy - Last Filed: 12/18/23 21:13> ROS Other: All systems not noted in ROS Statement are negative. <Tom Vines - Last Filed: 12/20/23 23:45> ROS Statement: Those systems with pertinent positive or pertinent negative responses have been documented in the HPI. Past Medical History Past Medical History: Hypertension, Seizure Disorder Additional Past Medical History / Comment(s): ETOH, depression, encephalopathy, left lung collapse, vision problems History of Any Multi-Drug Resistant Organisms: None Reported Past Surgical History: Orthopedic Surgery Additional Past Surgical History / Comment(s): rt femur Past Anesthesia/Blood Transfusion Reactions: No Reported Reaction Past Psychological History: Depression Smoking Status: Current every day smoker Past Alcohol Use History: Abuse, Daily Past Drug Use History: Marijuana - Past Family History Father Family Medical History: Hypertension Mother Family Medical History: No Reported History <Leroy Godoy - Last Filed: 12/18/23 21:13> General Exam Limitations: no limitations General appearance: alert, in no apparent distress Head exam: Present: normocephalic Eye exam: Present: normal appearance Neck exam: Present: normal inspection Respiratory exam: Present: normal lung sounds bilaterally Cardiovascular Exam: Present: regular rate, normal rhythm Expanded Peripheral pulses: 2+: Dorsalis Pedis (R), Dorsalis Pedis (L) GI/Abdominal exam: Present: soft, tenderness (Mild epigastric tenderness to palpation). Absent: distended Extremities exam: Present: normal inspection Neurological exam: Present: alert Psychiatric exam: Present: normal affect, normal mood Skin exam: Present: normal color <Leroy Godoy - Last Filed: 12/18/23 21:13> Course Vital Signs 12/18/23 12/18/23 12/19/23 19:43 23:48 01:58 Temperature 98.2 F Pulse Rate 65 63 60 Respiratory 18 18 18 Rate Blood Pressure 141/88 149/88 148/98 O2 Sat by Pulse 93 L 98 98 Oximetry Medical Decision Making - Lab Data Result diagrams: 12/18/23 20:07 12/18/23 20:07 <Leroy Godoy - Last Filed: 12/18/23 21:13> - Lab Data Result diagrams: 12/18/23 20:07 12/18/23 20:07 <JasmynTom - Last Filed: 12/20/23 23:45> - Medical Decision Making Was pt. sent in by a medical professional or institution (, PA, CLINICAL MANAGER HOME CARE, urgent care, hospital, or retirement...) When possible be specific @ -[No] Did you speak to anyone other than the patient for history (EMS, parent, family, police, friend...)? What history was obtained from this source @ -[No] Did you review nursing and triage notes (agree or disagree)? Why? @ -[I reviewed and agree with nursing and triage notes] Were old charts reviewed (outside hosp., previous admission, EMS record, old EKG, old radiological studies, urgent care reports/EKG's, retirement records)? Report findings @ -[No old charts were reviewed] Differential Diagnosis (chest pain, altered mental status, abdominal pain women, abdominal pain men, vaginal bleeding, weakness, fever, dyspnea, syncope, headache, dizziness, GI bleed, back pain, seizure, CVA, palpatations, mental health, musculoskeletal)? @ -Differential Abdominal Pain Men: Appendicitis, cholecystitis, diverticulosis, ischemic bowel, pancreatitis, hepatitis, UTI, gastroenteritis, AAA, incarcerated hernia, bowel obstruction, constipation, inflammatory bowel, hepatitis, peptic ulcer disease, splenic infarction, perforated viscus, testicular torsion, this is not meant to be an all-inclusive list EKG interpreted by me (3pts min.). @ -[As above] X-rays interpreted by me (1pt min.). @ -[None done] CT interpreted by me (1pt min.). @ -Ordered and is pending U/S interpreted by me (1pt. min.). @ -[None done] What testing was considered but not performed or refused? (CT, X-rays, U/S, labs)? Why? @ -ET scan of the abdomen and pelvis ordered and is pending What meds were considered but not given or refused? Why? @ -[None] Did you discuss the management of the patient with other professionals (professionals i.e. , PA, CLINICAL MANAGER HOME CARE, lab, RT, psych nurse, social service assistant, special effects person, teacher, radio electronics officer, case packer)? Give summary @ -[No] Was smoking cessation discussed for >3mins.? @ -[No] Was critical care preformed (if so, how long)? @ -[No] Were there social determinants of health that impacted care today? How? (Homelessness, low income, unemployed, alcoholism, drug addiction, transportation, low edu. Level, literacy, decrease access to med. care, halfway, rehab)? @ -[No] Was there de-escalation of care discussed even if they declined (Discuss DNR or withdrawal of care, Hospice)? DNR status @ -[No] What co-morbidities impacted this encounter? (DM, HTN, Smoking, COPD, CAD, Cancer, CVA, ARF, Chemo, Hep., AIDS, mental health diagnosis, sleep apnea, morbid obesity)? @ -[None] Was patient admitted / discharged? Hospital course, mention meds given and route, prescriptions, significant lab abnormalities, going to OR and other pertinent info. @ -Patient presents with increased alcohol use and epigastric pain. No obvious abnormality on blood work. CT scan pending. Case will be endorsed to Dr. Méndez at shift change. (Leroy Godoy) I received this patient as a signout pending the results of his CT scan. There was prolonged delay in his radiology was very busy. I reevaluated the patient and he was feeling better and wanted to go home. Discussed with the patient that he must have further follow-up as the results of the CT did not reveal any exact etiology of his pain. Discussed appropriate further care and follow-up as well as return parameters. Was patient admitted / discharged? Hospital course, mention meds given and route, prescriptions, significant lab abnormalities, going to OR and other pertinent info. @ -[As above Undiagnosed new problem with uncertain prognosis? @ -[No] Drug Therapy requiring intensive monitoring for toxicity (Heparin, Nitro, Insulin, Cardizem)? @ -[No] Were any procedures done? @ -[No] Diagnosis/symptom? @ -[Abdominal pain Acute, or Chronic, or Acute on Chronic? @ -[Acute Uncomplicated (without systemic symptoms) or Complicated (systemic symptoms)? @ -Uncomplicated Side effects of treatment? @ -[No] Exacerbation, Progression, or Severe Exacerbation? @ -[No] Poses a threat to life or bodily function? How? (Chest pain, [place], [place], pneumonia, PE, COPD, DKA, ARF, appy, cholecystitis, CVA, Diverticulitis, Homicidal, Suicidal, threat to staff... and all critical care pts) @ -[No] (Tom Vines) - Lab Data Lab Results 12/18/23 12/18/23 Range/Units 20:07 20:07 WBC 7.2 (3.8-10.6) k/uL RBC 3.91 L (4.30-5.90) m/uL Hgb 13.8 (13.0-17.5) gm/dL Hct 40.2 (39.0-53.0) % MCV 102.7 H (80.0-100.0) fL MCH 35.3 H (25.0-35.0) pg MCHC 34.3 (31.0-37.0) g/dL RDW 13.8 (11.5-15.5) % Plt Count 250 (150-450) k/uL MPV 7.9 Neutrophils % 59 % Lymphocytes % 35 % Monocytes % 3 % Eosinophils % 1 % Basophils % 0 % Neutrophils # 4.3 (1.3-7.7) k/uL Lymphocytes # 2.5 (1.0-4.8) k/uL Monocytes # 0.2 (0-1.0) k/uL Eosinophils # 0.1 (0-0.7) k/uL Basophils # 0.0 (0-0.2) k/uL Macrocytosis Slight Sodium 133 L (137-145) mmol/L Potassium 4.4 (3.5-5.1) mmol/L Chloride 107 (98-107) mmol/L Carbon Dioxide 17 L (22-30) mmol/L Anion Gap 9 mmol/L BUN 13 (9-20) mg/dL Creatinine 0.58 L (0.66-1.25) mg/dL Est GFR (CKD-EPI)AfAm >90 (>60 ml/min/1.73 sqM) Est GFR (CKD-EPI)NonAf >90 (>60 ml/min/1.73 sqM) Glucose 91 (74-99) mg/dL Calcium 9.0 (8.4-10.2) mg/dL Total Bilirubin 0.9 (0.2-1.3) mg/dL AST 34 (17-59) U/L ALT 8 (4-49) U/L Alkaline Phosphatase 66 (38-126) U/L Total Protein 6.6 (6.3-8.2) g/dL Albumin 3.7 (3.5-5.0) g/dL Amylase 62 (30-110) U/L Lipase 147 (23-300) U/L Serum Alcohol 55 mg/dL Disposition <Leroy Godoy - Last Filed: 12/18/23 21:13> Is patient prescribed a controlled substance at d/c from ED?: No <Tom Vines - Last Filed: 12/20/23 23:45> Clinical Impression: Abdominal pain Disposition: HOME SELF-CARE Condition: Fair Instructions (If sedation given, give patient instructions): Abdominal Pain (ED) Prescriptions: Famotidine [Pepcid] 20 mg PO BID #14 tablet Ondansetron Odt [Zofran ODT] 4 mg PO Q8HR PRN #10 tab PRN Reason: Nausea Referrals: Reuben Hewitt DO [Primary Care Provider] - 1-2 days Guicho Caraballo MD [STAFF PHYSICIAN] - 1-2 days
[2023-12-18 20:14] VITALS: RESP 18; TEMP 98.2
[2023-12-18 20:18] LABS: Basophils % (A) 0 %; Eosinophils # (A) 0.1 k/uL (0-0.7); Eosinophils % (A) 1 %; HCT 40.2 % (39.0-53.0); HGB 13.8 gm/dL (13.0-17.5); Lymphocytes # (A) 2.5 k/uL (1.0-4.8); Lymphocytes % (A) 35 %; MCH 35.3 pg (25.0-35.0); MCHC 34.3 g/dL (31.0-37.0); MCV 102.7 fL (80.0-100.0); Macrocytosis Slight; Mean Platelet Volume 7.9; Monocytes # (A) 0.2 k/uL (0-1.0); Monocytes % (A) 3 %; Neutrophils # (A) 4.3 k/uL (1.3-7.7); Neutrophils % (A) 59 %; Platelet Count 250 k/uL (150-450); RBC 3.91 m/uL (4.30-5.90); RDW 13.8 % (11.5-15.5); WBC 7.2 k/uL (3.8-10.6)
[2023-12-18] MEDS: SODIUM CHLORIDE 0.9% 1,000 ML IV STA (20:24)
[2023-12-18] MEDS: MORPHINE SULFATE 4 MG/ML SYRINGE IVP STA (20:24)
[2023-12-18] MEDS: METOCLOPRAMIDE 5 MG/ML 2 ML VIAL IVP STA (20:26)
[2023-12-18] MEDS: PANTOPRAZOLE 40 MG/10 ML VIAL IVP STA (20:30)
[2023-12-18 20:39] LABS: ALT 8 U/L (4-49); African American GFR (CKD) >90 (>60 ml/min/1.73 sqM); Albumin 3.7 g/dL (3.5-5.0); Alcohol 55 mg/dL; Amylase 62 U/L (30-110); Anion Gap 9 mmol/L; Blood Urea Nitrogen 13 mg/dL (9-20); Carbon Dioxide 17 mmol/L (22-30); Chloride 107 mmol/L (98-107); Glucose 91 mg/dL (74-99); Lipase 147 U/L (23-300); Non-African American GFR(CKD) >90 (>60 ml/min/1.73 sqM); Sodium 133 mmol/L (137-145)
[2023-12-18 20:40] LABS: AST 34 U/L (17-59); Alkaline Phosphatase 66 U/L (38-126); Potassium 4.4 mmol/L (3.5-5.1); Total Bilirubin 0.9 mg/dL (0.2-1.3); Total Protein 6.6 g/dL (6.3-8.2)
--- NOTE | 2023-12-19 00:59 | CT ---
EXAMINATION TYPE: CT abdomen pelvis w con CT DLP: 714 mGycm, Automated exposure control for dose reduction was used. DATE OF EXAM: 12/18/2023 8:26 PM COMPARISON: None. CLINICAL INDICATION:Male, 63 years old with history of abdominal pain; abdominal pain, nausea vomitin g, etoh TECHNIQUE: Axial CT of the abdomen and pelvis. Sagittal and coronal reformats were created on a [employer] workstation. Contrast used:80 mL of Isovue 300 with IV Contrast, (none if empty) Oral contrast used: without Oral Contrast (none if empty) FINDINGS: LOWER CHEST: Mild stranding in the lower lobes suggesting scarring or subsegmental atelectasis. Heart size normal. Trace pericardial fluid. ABDOMEN LIVER: Unremarkable GALLBLADDER AND BILE DUCTS: Gallbladder is not distended. There is a mildly thickened appearance of t he wall without clear pericholecystic inflammatory change. PANCREAS: Unremarkable. SPLEEN: Unremarkable. ADRENAL GLANDS: Thickened and small nodular appearance of the left more than right adrenal, likely hy perplasia versus adenomatoid changes.. KIDNEYS AND URETERS: Kidneys enhance symmetrically. There is a punctate calculus towards the lower po le the right kidney. Other small bilateral renal hypodensities are not fully characterized but could reflect cysts. No evidence of ureteral calculi or ureterectasis. PELVIS BLADDER: Unremarkable REPRODUCTIVE: Nonenlarged prostate with vague high attenuation on the right could reflect calcificati on. ABDOMEN & PELVIS STOMACH AND BOWEL: Evaluation of GI tract is limited without enteric contrast. A somewhat thickened a nd irregular appearance of the gastric outlet is suggested. Some gas and fluid is seen along the duod enal sweep which is not visually separable from the pancreatic head in some areas. No significant sma ll bowel thickening or distention distention is suggested---These equivocal findings could be followe d up with upper GI or endoscopy as warranted. The appendix is seen in the RLQ and appears unremarkable. There is mild to moderate stool and some ga s seen throughout the colon, no clearly acute abnormality. PERITONEUM/RETROPERITONEUM: No evidence of pneumoperitoneum or free fluid. VASCULATURE: Moderate to severe atherosclerotic calcifications are present throughout the abdominal a guerita and its branches. No evidence of aortic aneurysm. Portal vein, superior mesenteric vein, spleni c vein are patent. LYMPH NODES: No enlarged nodes by CT size criteria. Small soft tissue densities in the alicia hepatis with associated stippled calcifications, might be related to remote calcified granulomatous disease. SOFT TISSUE/ABDOMINAL WALL: No acute abnormality. MUSCULOSKELETAL: No evidence of acute bony abnormality. Degenerative changes of the lumbar spine. Postoperative change s of the right proximal femur including intramedullary zan. Partially seen healed or healing fracture of the femoral shaft. Mild degenerative changes of the lumbar spine. IMPRESSION: 1. No acute obstructive or inflammatory process seen to explain the patient's symptoms. 2. Mildly thickened appearance of the gallbladder wall, nonspecific. Considerations include incomple te distention, intrinsic causes such as inflammation, extrinsic causes such as liver disease. 3. Multiple other chronic and likely incidental findings as above.
[2023-12-19 02:11] VITALS: BP 148/98; PULSE 60
== END 2023-12-19 01:59 | disposition home or self-care (01) ==
LOC: EC 19:35
DX: R10.13 Epigastric pain (principal); F17.200 Nicotine dependence, unspecified, uncomplicated; Z91.011 Allergy to milk products
CPT/HCPCS: 36415; 80053; 82150; 83690; 85025; 80320; 74177; 99285; 96374; 96375 ×2; 96361; J2270; J2765; C9113; Q9967

== ENCOUNTER 2024-02-03 18:39 | Inpatient (IN) | payer MEDICARE, OTHER ==
--- NOTE | 2024-02-03 18:55 | ED ---
General Adult HPI - General Chief complaint: Syncope Stated complaint: seizure Time Seen by Provider: 02/03/24 18:40 Source: patient, EMS, RN notes reviewed, old records reviewed Mode of arrival: EMS Limitations: no limitations - History of Present Illness Initial comments: This is a 63-year-old male who presents to the emergency department after having 2 unresponsive episodes at home. According to the after he had each unresponsive episode he immediately vomited. Patient states he does drink every day and he drink 4 beers today but nothing else. Patient denies any headache patient denies numbness weakness. Patient denies chest pain difficulty breathing or shortness of breath or patient has any palpitation. Patient has abdominal pain patient denies any recent diarrhea. Patient states he is eating and drinking normally. - Related Data Home Medications Medication Instructions Recorded Confirmed Pantoprazole [Protonix] 40 mg PO DAILY 03/10/22 10/07/23 Lacosamide [Vimpat] 50 mg PO BID 04/07/22 10/07/23 levETIRAcetam [Keppra] 1,000 mg PO BID 04/07/22 10/07/23 Citalopram Hydrobromide [CeleXA] 40 mg PO DAILY 11/29/22 10/07/23 QUEtiapine [SEROquel] 50 mg PO HS 11/29/22 10/07/23 Multivitamins, Thera [Multivitamin 1 tab PO DAILY 12/15/22 10/07/23 (formulary)] Melatonin 10 mg PO HS 10/07/23 10/07/23 NIFEdipine XL [Procardia XL] 30 mg PO DAILY 10/07/23 10/07/23 Previous Rx's Medication Instructions Recorded Metoprolol Succinate (ER) [Toprol 12.5 mg PO DAILY tab 12/17/22 XL] Famotidine [Pepcid] 20 mg PO BID #14 tablet 12/19/23 Ondansetron Odt [Zofran ODT] 4 mg PO Q8HR PRN #10 tab 12/19/23 Allergies Allergy/AdvReac Type Severity Reaction Status Date / Time goat milk Allergy Unknown Uncoded 10/07/23 21:30 Childhood Review of Systems ROS Statement: Those systems with pertinent positive or pertinent negative responses have been documented in the HPI. ROS Other: All systems not noted in ROS Statement are negative. Past Medical History Past Medical History: Hypertension, Seizure Disorder Additional Past Medical History / Comment(s): ETOH, depression, encephalopathy, left lung collapse, vision problems History of Any Multi-Drug Resistant Organisms: None Reported Past Surgical History: Orthopedic Surgery Additional Past Surgical History / Comment(s): rt femur Past Anesthesia/Blood Transfusion Reactions: No Reported Reaction Past Psychological History: Depression Smoking Status: Current every day smoker Past Alcohol Use History: Abuse, Daily Past Drug Use History: Marijuana - Past Family History Father Family Medical History: Hypertension Mother Family Medical History: No Reported History General Exam - General Exam Comments Initial Comments: GENERAL: Patient is well-developed and well-nourished. Patient is nontoxic and well- hydrated and is in mild distress. ENT: Neck is soft and supple. No significant lymphadenopathy is noted. Oropharynx is clear. Moist mucous membranes. Neck has full range of motion without eliciting any pain. EYES: The sclera were anicteric and conjunctiva were pink and moist. Extraocular movements were intact and pupils were equal round and reactive to light. Eyelids were unremarkable. PULMONARY: Unlabored respirations. Good breath sounds bilaterally. No audible rales rhonchi or wheezing was noted. CARDIOVASCULAR: There is a regular rate and rhythm without any murmurs gallops or rubs. ABDOMEN: Soft and nontender with normal bowel sounds. SKIN: Skin is clear with no lesions or rashes and otherwise unremarkable. NEUROLOGIC: Patient is alert and oriented x3. Cranial nerves II through XII are grossly intact. Motor and sensory are also intact. Normal speech, volume and content. Symmetrical smile. MUSCULOSKELETAL: Normal extremities with adequate strength and full range of motion. LYMPHATICS: No significant lymphadenopathy is noted PSYCHIATRIC: Normal psychiatric evaluation. Limitations: no limitations Course Vital Signs 02/03/24 02/03/24 02/03/24 18:40 19:45 20:00 Temperature 98.1 F Pulse Rate 76 63 60 Respiratory 16 18 18 Rate Blood Pressure 144/91 180/103 148/96 O2 Sat by Pulse 100 97 100 Oximetry Medical Decision Making - Medical Decision Making EKG is interpreted by myself read EKG shows a sinus rhythm at 62 bpm OR interval 147 QRS is 90 QT interval is 453 QTc is 458. Patient's EKG shows no ST segment elevation or depression. Patient had another episode in the ER and his heart rate went up to about 120 beats a minute and we try to get an EKG when this was occurring but unfortunately before the EKG could be finished he went back down into the 60s. This EKG was interpreted by myself. EKG shows a sinus rhythm with occasional PVCs at a rate of 63 bpm parables 155 QRS is 88 QT interval is 437 QTc is 445. Patient's EKG shows no ST segment elevation Was pt. sent in by a medical professional or institution (, PA, PHYTOPATHOLOGIST, urgent care, hospital, or intermediate...) When possible be specific @ -No Did you speak to anyone other than the patient for history (EMS, parent, family, police, friend...)? What history was obtained from this source @ -No Did you review nursing and triage notes (agree or disagree)? Why? @ -I reviewed and agree with nursing and triage notes Were old charts reviewed (outside hosp., previous admission, EMS record, old EKG , old radiological studies, urgent care reports/EKG's, intermediate records)? Report findings @ -No old charts were reviewed Differential Diagnosis (chest pain, altered mental status, abdominal pain women, abdominal pain men, vaginal bleeding, weakness, fever, dyspnea, syncope, headache, dizziness, GI bleed, back pain, seizure, CVA, palpatations, mental health, musculoskeletal)? @ -Differential Altered Mental Status: Hypoglycemia, DKA, hypercapnia, ETOH, overdose, CO poisoning, trauma, myxedema coma, HTN encephalopathy, infection, encephalitis, psychosis, intercranial hemorrhage, hepatic encephalopathy, meningitis, CVA, this is not meant to be an all-inclusive list EKG interpreted by me (3pts min.). @ -As above X-rays interpreted by me (1pt min.). @ -Chest x-ray shows no acute abnormality CT interpreted by me (1pt min.). @ -None done U/S interpreted by me (1pt. min.). @ -None done What testing was considered but not performed or refused? (CT, X-rays, U/S, labs)? Why? @ -None What meds were considered but not given or refused? Why? @ -None Did you discuss the management of the patient with other professionals (professionals i.e. , POLLO, PHYTOPATHOLOGIST, lab, RT, psych nurse, social work faculty member, regional engagement consultant, teacher, accounting officer, hospice case manager)? Give summary @ -I spoke with [facility] [place] [facility] and they agreed admit the patient Was smoking cessation discussed for >3mins.? @ -No Was critical care preformed (if so, how long)? @ -No Were there social determinants of health that impacted care today? How? (Homelessness, low income, unemployed, alcoholism, drug addiction, transportation, low edu. Level, literacy, decrease access to med. care, assisted, rehab)? @ -No Was there de-escalation of care discussed even if they declined (Discuss DNR or withdrawal of care, Hospice)? DNR status @ -No What co-morbidities impacted this encounter? (DM, HTN, Smoking, COPD, CAD, Cancer, CVA, ARF, Chemo, Hep., AIDS, mental health diagnosis, sleep apnea, morbid obesity)? @ -None Was patient admitted / discharged? Hospital course, mention meds given and route, prescriptions, significant lab abnormalities, going to OR and other pertinent info. @ -Patient had another episode of unresponsiveness in the emergency department he became tachycardic at 112 beats a minute he became diaphoretic and he episode lasted about 2 minutes. After the episode was done he was nauseated and was back to his normal self. Patient is slightly hyponatremic and hypomagnesemic. Patient did get fluids in the emergency department as well as magnesium. Patient also has a slightly low potassium for which she also received replaceme nt. I will be admitting to [facility] [place] [facility] and consult to cardiology Undiagnosed new problem with uncertain prognosis? @ -No Drug Therapy requiring intensive monitoring for toxicity (Heparin, Nitro, Insulin, Cardizem)? @ -No Were any procedures done? @ -No Diagnosis/symptom? @ -Unresponsive Acute, or Chronic, or Acute on Chronic? @ -Acute Uncomplicated (without systemic symptoms) or Complicated (systemic symptoms)? @ -Complicated Side effects of treatment? @ -No Exacerbation, Progression, or Severe Exacerbation? @ -No Poses a threat to life or bodily function? How? (Chest pain, [place], OR, pneumonia, PE, COPD, DKA, ARF, appy, cholecystitis, CVA, Diverticulitis, Homicidal, Suicidal, threat to staff... and all critical care pts) @ -Yes this can be secondary to an arrhythmia which could lead to poor perfusion and potential Diagnosis/symptom? @ -Hypomagnesemia Acute, or Chronic, or Acute on Chronic? @ -Acute Uncomplicated (without systemic symptoms) or Complicated (systemic symptoms)? @ -Complicated Side effects of treatment? @ -None Exacerbation, Progression, or Severe Exacerbation] @ -No Poses a threat to life or bodily function? @ -No Diagnosis/symptom? @ -Hyponatremia Acute, or Chronic, or Acute on Chronic? @ -Acute Uncomplicated (without systemic symptoms) or Complicated (systemic symptoms)? @ -Complicated Side effects of treatment? @ -None Exacerbation, Progression, or Severe Exacerbation] @ -No Poses a threat to life or bodily function? @ -No Diagnosis/symptom? @ -Hypokalemia Acute, or Chronic, or Acute on Chronic? @ -Acute Uncomplicated (without systemic symptoms) or Complicated (systemic symptoms)? @ -Uncomplicated Side effects of treatment? @ -None Exacerbation, Progression, or Severe Exacerbation] @ -No Poses a threat to life or bodily function? @ -No - Lab Data Result diagrams: 02/03/24 18:54 02/03/24 19:25 Lab Results 02/03/24 02/03/24 02/03/24 Range/Units 18:54 18:54 18:54 WBC 6.8 (3.8-10.6) k/uL RBC 3.69 L (4.30-5.90) m/uL Hgb 13.1 (13.0-17.5) gm/dL Hct 39.2 (39.0-53.0) % MCV 106.2 H (80.0-100.0) fL MCH 35.5 H (25.0-35.0) pg MCHC 33.5 (31.0-37.0) g/dL RDW 14.3 (11.5-15.5) % Plt Count 207 (150-450) k/uL MPV 8.7 Neutrophils % 80 % Lymphocytes % 12 % Monocytes % 6 % Eosinophils % 1 % Basophils % 0 % Neutrophils # 5.4 (1.3-7.7) k/uL Lymphocytes # 0.8 L (1.0-4.8) k/uL Monocytes # 0.4 (0-1.0) k/uL Eosinophils # 0.1 (0-0.7) k/uL Basophils # 0.0 (0-0.2) k/uL Macrocytosis Moderate PT 9.9 L (10.0-12.5) sec INR 0.9 (<1.2) APTT 28.1 (22.0-30.0) sec Sodium (137-145) mmol/L Potassium (3.5-5.1) mmol/L Chloride (98-107) mmol/L Carbon Dioxide (22-30) mmol/L Anion Gap mmol/L BUN (9-20) mg/dL Creatinine (0.66-1.25) mg/dL Est GFR (CKD-EPI)AfAm (>60 ml/min/1.73 sqM) Est GFR (CKD-EPI)NonAf (>60 ml/min/1.73 sqM) Glucose (74-99) mg/dL Plasma Lactic Acid Jayson 2.7 H* (0.7-2.0) mmol/L Calcium (8.4-10.2) mg/dL Magnesium (1.6-2.3) mg/dL Total Bilirubin (0.2-1.3) mg/dL AST (17-59) U/L ALT (4-49) U/L Alkaline Phosphatase (38-126) U/L Troponin I (0.000-0.034) ng/mL Total Protein (6.3-8.2) g/dL Albumin (3.5-5.0) g/dL Serum Alcohol mg/dL 02/03/24 02/03/24 Range/Units 18:54 19:25 WBC (3.8-10.6) k/uL RBC (4.30-5.90) m/uL Hgb (13.0-17.5) gm/dL Hct (39.0-53.0) % MCV (80.0-100.0) fL MCH (25.0-35.0) pg MCHC (31.0-37.0) g/dL RDW (11.5-15.5) % Plt Count (150-450) k/uL MPV Neutrophils % % Lymphocytes % % Monocytes % % Eosinophils % % Basophils % % Neutrophils # (1.3-7.7) k/uL Lymphocytes # (1.0-4.8) k/uL Monocytes # (0-1.0) k/uL Eosinophils # (0-0.7) k/uL Basophils # (0-0.2) k/uL Macrocytosis PT (10.0-12.5) sec INR (<1.2) APTT (22.0-30.0) sec Sodium 127 L (137-145) mmol/L Potassium 3.4 L (3.5-5.1) mmol/L Chloride 101 (98-107) mmol/L Carbon Dioxide 18 L (22-30) mmol/L Anion Gap 8 mmol/L BUN 10 (9-20) mg/dL Creatinine 0.59 L (0.66-1.25) mg/dL Est GFR (CKD-EPI)AfAm >90 (>60 ml/min/1.73 sqM) Est GFR (CKD-EPI)NonAf >90 (>60 ml/min/1.73 sqM) Glucose 97 (74-99) mg/dL Plasma Lactic Acid Jayson (0.7-2.0) mmol/L Calcium 9.3 (8.4-10.2) mg/dL Magnesium 1.4 L (1.6-2.3) mg/dL Total Bilirubin 0.6 (0.2-1.3) mg/dL AST 26 (17-59) U/L ALT 9 (4-49) U/L Alkaline Phosphatase 86 (38-126) U/L Troponin I <0.012 (0.000-0.034) ng/mL Total Protein 6.3 (6.3-8.2) g/dL Albumin 4.0 (3.5-5.0) g/dL Serum Alcohol 15 mg/dL Critical Care Time Critical Care Time: Yes Total Critical Care Time: 35 Disposition Clinical Impression: Unresponsive episode, Hypomagnesemia, Hypokalemia, Hyponatremia Disposition: ADMITTED IP TO THIS HOSP Referrals: Reuben Hewitt DO [Primary Care Provider] - 1-2 days Time of Disposition: 20:25
--- NOTE | 2024-02-03 19:11 | XR ---
EXAMINATION TYPE: XR chest 2V DATE OF EXAM: 02/03/2024 7:05 PM CLINICAL INDICATION:Male, 63 years old with history of Chest Pain; [facility] COMPARISON: Chest radiographs from 11/29/2022 TECHNIQUE: XR chest 2V Frontal and lateral views of the chest. FINDINGS: Lungs/Pleura: There is no evidence of pleural effusion, focal consolidation, or pneumothorax. Pulmonary vascularity: Unremarkable. Heart/mediastinum: Cardiomediastinal silhouette is unremarkable. Musculoskeletal: No acute osseous pathology. IMPRESSION: No acute cardiopulmonary disease/process.
[2024-02-03] MEDS: SODIUM CHLORIDE 0.9% 500 ML 500 ML IV STA (19:14)
[2024-02-03] MEDS: SODIUM CHLORIDE 0.9% 1,000 ML IV STA (19:14)
[2024-02-03 19:15] LABS: INR 0.9 (<1.2); Partial Thromboplastin Time 28.1 sec (22.0-30.0); Prothrombin Time 9.9 sec (10.0-12.5)
[2024-02-03 19:37] LABS: Basophils % (A) 0 %; Eosinophils # (A) 0.1 k/uL (0-0.7); Eosinophils % (A) 1 %; HCT 39.2 % (39.0-53.0); HGB 13.1 gm/dL (13.0-17.5); Lymphocytes # (A) 0.8 k/uL (1.0-4.8); Lymphocytes % (A) 12 %; MCH 35.5 pg (25.0-35.0); MCHC 33.5 g/dL (31.0-37.0); MCV 106.2 fL (80.0-100.0); Macrocytosis Moderate; Mean Platelet Volume 8.7; Monocytes # (A) 0.4 k/uL (0-1.0); Monocytes % (A) 6 %; Neutrophils # (A) 5.4 k/uL (1.3-7.7); Neutrophils % (A) 80 %; Platelet Count 207 k/uL (150-450); RBC 3.69 m/uL (4.30-5.90); RDW 14.3 % (11.5-15.5); WBC 6.8 k/uL (3.8-10.6)
[2024-02-03] MEDS: ONDANSETRON 4 MG/2 ML VIAL IVP STA (19:45)
[2024-02-03 19:52] VITALS: RESP 18
[2024-02-03 20:03] LABS: ALT 9 U/L (4-49); AST 26 U/L (17-59); African American GFR (CKD) >90 (>60 ml/min/1.73 sqM); Alcohol 15 mg/dL; Alkaline Phosphatase 86 U/L (38-126); Anion Gap 8 mmol/L; Blood Urea Nitrogen 10 mg/dL (9-20); Calcium 9.3 mg/dL (8.4-10.2); Carbon Dioxide 18 mmol/L (22-30); Chloride 101 mmol/L (98-107); Glucose 97 mg/dL (74-99); Magnesium 1.4 mg/dL (1.6-2.3); Non-African American GFR(CKD) >90 (>60 ml/min/1.73 sqM); Potassium 3.4 mmol/L (3.5-5.1); Sodium 127 mmol/L (137-145); Total Bilirubin 0.6 mg/dL (0.2-1.3); Total Protein 6.3 g/dL (6.3-8.2)
[2024-02-03] MEDS: MAGNESIUM SULFATE-D5W PMX 1 GM in DEXTROSE/WATER 1 100ML.BAG IVPB ONE (20:21)
[2024-02-03] MEDS: SODIUM CHLORIDE 0.9% 1,000 ML IV ONE (21:03)
[2024-02-03] MEDS: POTASSIUM CHLORIDE 20 MEQ in WATER FOR INJECTION 1 100ML.BAG IVPB STA (22:50)
--- NOTE | 2024-02-04 02:17 | P.HPIM ---
History of Present Illness H&P Date: 02/03/24 Chief Complaint: Staring in the blank unresponsive 63-year-old male with history of seizures Patient coming in for evaluation for episodes of unresponsiveness while staring into space, patient himself has no complaints at this time he reports double vision which is not new he gives conflicting story regarding the glasses he is wearing seems to be a bit confused. However denies any headache or new focal neurodeficits denies any chest pain trouble breathing fevers chills nausea vomiting GI bleeding. He does report history of seizures does not recall which type. It has been about 2 years since his last seizure however today he was having repeated episodes of unresponsiveness while staring into space no associated tonic-clonic seizure-like activity. Patient denies any falling head injury. insisted on bringing him to the hospital for evaluation Patient admits to tobacco smoking marijuana and occasional alcohol Patient claims to be compliant with his antiseizure meds review of systems Pertinent positives as noted in HPI. All other systems were reviewed and are negative on exam Constitutional: No acute distress, conversant, pleasant Eyes: Anicteric sclerae, moist conjunctiva, Pupils equal round reactive to light ENMT: NC/AT Oropharynx clear, no erythema, or exudates Neck: Supple, no masses, or JVD No carotid bruits No thyromegaly Lungs: Clear to auscultation Clear to percussion Normal respiratory effort, no accessory muscle use Cardiovascular: Heart regular in rate and rhythm, No murmurs, gallops, or rubs No peripheral edema Abdominal: Soft Nontender, no guarding, rebound or rigidity Abdomen moving with respiration Normoactive bowel sounds Extremities: No digital cyanosis No clubbing Pedal pulses intact and symmetrical Radial pulses intact and symmetrical No calf tenderness Psychiatric: Alert and oriented to person, place and time Appropriate affect fair judgement Neuro Muscles Strength 5/5 in all 4 extremities Sensation to light touch grossly present throughout Cranial nerves II-XII grossly intact Past Medical History Past Medical History: Hypertension, Seizure Disorder Additional Past Medical History / Comment(s): ETOH, depression, encephalopathy, left lung collapse, vision problems History of Any Multi-Drug Resistant Organisms: None Reported Past Surgical History: Orthopedic Surgery Additional Past Surgical History / Comment(s): rt femur Past Anesthesia/Blood Transfusion Reactions: No Reported Reaction Past Psychological History: Depression Smoking Status: Current every day smoker Past Alcohol Use History: Abuse, Daily Past Drug Use History: Marijuana - Past Family History Father Family Medical History: Hypertension Mother Family Medical History: No Reported History Medications and Allergies Home Medications Medication Instructions Recorded Confirmed Type Pantoprazole [Protonix] 40 mg PO DAILY 03/10/22 02/03/24 History Lacosamide [Vimpat] 50 mg PO BID 04/07/22 02/03/24 History levETIRAcetam [Keppra] 1,000 mg PO BID 04/07/22 02/03/24 History Citalopram Hydrobromide [CeleXA] 40 mg PO DAILY 11/29/22 02/03/24 History QUEtiapine [SEROquel] 50 mg PO HS 11/29/22 02/03/24 History Multivitamins, Thera [Multivitamin 1 tab PO DAILY 12/15/22 02/03/24 History (formulary)] NIFEdipine XL [Procardia XL] 30 mg PO DAILY 10/07/23 02/03/24 History Naltrexone Microspheres [Vivitrol] 380 mg IM Q30D 02/03/24 02/03/24 History Allergies Allergy/AdvReac Type Severity Reaction Status Date / Time goat milk Allergy Unknown Uncoded 02/03/24 20:44 Childhood Physical Exam Vitals: Vital Signs Temp Pulse Pulse Pulse Pulse Resp BP 02/03/24 20:25 60 70 52 L 02/03/24 20:00 60 18 148/96 02/03/24 19:45 63 18 180/103 02/03/24 18:40 98.1 F 76 16 144/91 BP BP BP Pulse Ox 02/03/24 20:25 165/100 158/96 154/93 02/03/24 20:00 100 02/03/24 19:45 97 02/03/24 18:40 100 Intake and Output 02/03/24 02/03/24 02/04/24 14:59 22:59 06:59 Other: Weight 61.054 kg Results CBC & Chem 7: 02/03/24 18:54 02/03/24 19:25 Labs: Abnormal Lab Results - Last 24 Hours (Table) 02/03/24 02/03/24 02/03/24 Range/Units 18:54 18:54 18:54 RBC 3.69 L (4.30-5.90) m/uL MCV 106.2 H (80.0-100.0) fL MCH 35.5 H (25.0-35.0) pg Lymphocytes # 0.8 L (1.0-4.8) k/uL PT 9.9 L (10.0-12.5) sec Sodium (137-145) mmol/L Potassium (3.5-5.1) mmol/L Carbon Dioxide (22-30) mmol/L Creatinine (0.66-1.25) mg/dL Plasma Lactic Acid Jayson 2.7 H* (0.7-2.0) mmol/L Magnesium (1.6-2.3) mg/dL 02/03/24 Range/Units 19:25 RBC (4.30-5.90) m/uL MCV (80.0-100.0) fL MCH (25.0-35.0) pg Lymphocytes # (1.0-4.8) k/uL PT (10.0-12.5) sec Sodium 127 L (137-145) mmol/L Potassium 3.4 L (3.5-5.1) mmol/L Carbon Dioxide 18 L (22-30) mmol/L Creatinine 0.59 L (0.66-1.25) mg/dL Plasma Lactic Acid Jayson (0.7-2.0) mmol/L Magnesium 1.4 L (1.6-2.3) mg/dL Assessment and Plan Assessment: 63-year-old male with history of seizures coming in for evaluation for episodes of unresponsiveness while staring into space I discussed case with ED doctor and accepted the admission for suspected seizure-like activity with anticipated length of stay less than 2 midnights Suspected breakthrough seizure with episodes of unresponsiveness Suspecting absence seizure's Seizure precautions Check EEG Neuro consult Resume Keppra and lacosamide home medications Cardiac monitoring Monitor vital signs Gentle IV fluid hydration continue normal saline 100 cc/h Lactic acid 2.7 Blood work overall unremarkable hemoglobin 13 white count 6.8 Hyponatremia Sodium 127 Continue with IV fluid hydration normal saline 100 cc/h patient status post 2 L bolus potassium 3.4 BUN 10 creatinine 0.59 Hypomagnesemia Replace IV follow-up levels Magnesium 1.4 Hypertension, uncontrolled Continue nifedipine Monitor vital signs Full code DVT prophylaxis heparin subcu 3 times daily
[2024-02-04] MEDS ORDERED: ACETAMINOPHEN TAB 325 MG TAB PO PRN (02:25)
[2024-02-04 09:04] LABS: African American GFR (CKD) >90 (>60 ml/min/1.73 sqM); Anion Gap 2 mmol/L; Blood Urea Nitrogen 5 mg/dL (9-20); Calcium 8.7 mg/dL (8.4-10.2); Carbon Dioxide 20 mmol/L (22-30); Chloride 107 mmol/L (98-107); Glucose 87 mg/dL (74-99); Magnesium 1.6 mg/dL (1.6-2.3); Non-African American GFR(CKD) >90 (>60 ml/min/1.73 sqM); Potassium 3.9 mmol/L (3.5-5.1); Sodium 129 mmol/L (137-145)
[2024-02-04] MEDS: HEPARIN SODIUM,PORCINE 5,000 UNIT/ML 1 ML VIAL SQ SCH (10:29)
[2024-02-04] MEDS: CITALOPRAM HYDROBROMIDE 20 MG TAB PO SCH (10:29)
[2024-02-04] MEDS: levETIRAcetam 500 MG TAB PO SCH (10:30)
[2024-02-04] MEDS: PANTOPRAZOLE 40 MG TABLET PO SCH (10:30)
[2024-02-04] MEDS: NIFEdipine XL 30 MG TAB.ER.24 PO SCH (10:31)
[2024-02-04] MEDS: LACOSAMIDE 50 MG TABLET PO SCH (10:31)
--- NOTE | 2024-02-04 16:41 | CA ---
Transthoracic Echo Report Name: Hector Caro Age: 63 Gender: M : 1960 Exam Date: 02/04/2024 14:59 Exam Location: [facility] Ht (in): 67 Wt (lb): 134 Ordering Physician: Jesse Linn MD ([id number]) Attending/Referring Phys: Manager Wind Chloe Witt RDCS Procedure CPT: Indications: Syncope Cardiac Hx: Technical Quality: Good Contrast 1: Total Dose (mL): Contrast 2: Total Dose (mL): MEASUREMENTS (Male / Female) Normal Values 2D ECHO LV Diastolic Diameter PLAX 4.5 cm 4.2 - 5.9 / 3.9 - 5.3 cm LV Systolic Diameter PLAX 3.7 cm IVS Diastolic Thickness 1.1 cm 0.6 - 1.0 / 0.6 - 0.9 cm LVPW Diastolic Thickness 1.0 cm 0.6 - 1.0 / 0.6 - 0.9 cm LV Relative Wall Thickness 0.5 RV Internal Dim ED PLAX 3.5 cm LA Systolic Diameter LX 3.7 cm 3.0 - 4.0 / 2.7 - 3.8 cm LA Volume 66.4 cm??? 18 - 58 / 22 - 52 cm??? LA Volume Index 39.2 cm???/m??? 16 - 28 cm???/m??? M-MODE Aortic Root Diameter MM 3.6 cm LA Systolic Diameter MM 2.8 cm LA Ao Ratio MM 0.8 DOPPLER AV Peak Velocity 100.7 cm/s AV Peak Gradient 4.1 mmHg Mitral E Point Velocity 57.7 cm/s Mitral A Point Velocity 59.4 cm/s Mitral E to A Ratio 1.0 MV Deceleration Time 308.6 ms TR Peak Velocity 220.7 cm/s TR Peak Gradient 19.5 mmHg Right Ventricular Systolic Press 27.5 mmHg FINDINGS Left Ventricle Left ventricular ejection fraction is estimated at 55-60 %. Left ventricular cavity size normal. Left ventricular wall thickness normal. Right Ventricle Mild right ventricular dilatation. Right ventricular systolic pressure within normal limits. Right Atrium Normal right atrial size. No right atrial thrombus or mass seen. Left Atrium Mildly increased left atrial volume. No left atrial thrombus or mass present. Mitral Valve Structurally normal mitral valve. Mild mitral regurgitation. Aortic Valve Trileaflet aortic valve. No aortic valve stenosis or regurgitation. Tricuspid Valve Structurally normal tricuspid valve. Mild tricuspid regurgitation. Pulmonic Valve Structurally normal pulmonic valve. No pulmonic regurgitation. Pericardium No pericardial or pleural effusion. Aorta Normal size aortic root and proximal ascending aorta. CONCLUSIONS Normal LV size and function Previewed by: Dr. Abel Ivory MD (Electronically Signed) Final Date: 04 February 2024 16:40
--- NOTE | 2024-02-04 17:14 | P.CRDCN ---
History of Present Illness Consult date: 02/04/24 History of present illness: HISTORY OF PRESENTING ILLNESS 63-year-old with prior history of seizure disorder. He comes to the hospital because of an episode of unresponsiveness where he was finding himself staring into space. Patient reported that he did not lose consciousness or fall to the ground. There was no reported tonic-clonic seizure activity like. Patient's prior seizure was tonic-clonic. Patient denies any chest pain chest pressure during or after the event. He denies any palpitations lightheadedness dizziness. He is not reporting any symptoms of lightheadedness dizziness over last few days. Admission ECG shows normal sinus rhythm, heart rate 63 bpm Labs shows hemoglobin 13, MCV 106, macrocytosis, BUN 5, creatinine 0.5, troponin negative, elevated lactate which resolved REVIEW OF SYSTEMS 14 point review of system is negative except what is mentioned above in HPI. PHYSICAL EXAMINATION Vital signs reviewed. Head: Normocephalic. Eyes: Sclerae nonicteric. Neck: Brisk carotid upstroke, no jugular venous distention. Lungs: Clear to auscultation. Heart: Regular rate and rhythm, S1-S2, no S3, no murmur or rub. Abdomen: Soft nontender, positive bowel sounds. Extremities: No edema, intact distal pulses. Neuro: Alert, oritented, no focal deficits. Detailed neuro exam was not performed. ASSESSMENT Unresponsiveness and staring into space Prior history of seizure disorder Elevated lactate Hyponatremia Hypomagnesemia Hypertension, on nifedipine PLAN Patient's unresponsiveness and staring into space is less likely cardiogenic in etiology. Patient's echocardiogram showed an EF of 55 to 60% with no valvular abnormalities Patient ECG does not show any concerning arrhythmias or any ischemic changes. His telemetry monitoring does not show any concerning arrhythmias At this time cardiology team will sign off. Please reconsult us in case of any question. Jesse Linn MD, FACC, RPVI Thank you for allowing [facility] to participate in this patient's care. Feel free to reach out in case of any followup questions. Past Medical History Past Medical History: Hypertension, Seizure Disorder Additional Past Medical History / Comment(s): ETOH, depression, encephalopathy, left lung collapse, vision problems History of Any Multi-Drug Resistant Organisms: None Reported Past Surgical History: Orthopedic Surgery Additional Past Surgical History / Comment(s): rt femur Past Anesthesia/Blood Transfusion Reactions: No Reported Reaction Past Psychological History: Depression Smoking Status: Current every day smoker Past Alcohol Use History: Abuse, Daily Past Drug Use History: Marijuana - Past Family History Father Family Medical History: Hypertension Mother Family Medical History: No Reported History Medications and Allergies Home Medications Medication Instructions Recorded Confirmed Type Pantoprazole [Protonix] 40 mg PO DAILY 03/10/22 02/03/24 History Lacosamide [Vimpat] 50 mg PO BID 04/07/22 02/03/24 History levETIRAcetam [Keppra] 1,000 mg PO BID 04/07/22 02/03/24 History Citalopram Hydrobromide [CeleXA] 40 mg PO DAILY 11/29/22 02/03/24 History QUEtiapine [SEROquel] 50 mg PO HS 11/29/22 02/03/24 History Multivitamins, Thera [Multivitamin 1 tab PO DAILY 12/15/22 02/03/24 History (formulary)] NIFEdipine XL [Procardia XL] 30 mg PO DAILY 10/07/23 02/03/24 History Naltrexone Microspheres [Vivitrol] 380 mg IM Q30D 02/03/24 02/03/24 History Allergies Allergy/AdvReac Type Severity Reaction Status Date / Time goat milk Allergy Unknown Uncoded 02/03/24 20:44 Childhood Physical Exam Vitals: Vital Signs Temp Pulse Pulse Pulse Pulse Resp BP 02/04/24 10:28 61 18 144/90 02/04/24 07:30 60 18 144/80 02/04/24 07:13 60 142/81 02/03/24 20:25 60 70 52 L 02/03/24 20:00 60 18 148/96 02/03/24 19:45 63 18 180/103 02/03/24 18:40 98.1 F 76 16 144/91 BP BP BP Pulse Ox 02/04/24 10:28 97 02/04/24 07:30 02/04/24 07:13 02/03/24 20:25 165/100 158/96 154/93 02/03/24 20:00 100 02/03/24 19:45 97 02/03/24 18:40 100 Results 02/03/24 18:54 06/13/24 07:35 Cardiac Enzymes 02/03/24 02/03/24 Range/Units 18:54 19:25 AST 26 (17-59) U/L Troponin I <0.012 (0.000-0.034) ng/mL Coagulation 02/03/24 Range/Units 18:54 PT 9.9 L (10.0-12.5) sec APTT 28.1 (22.0-30.0) sec CBC 02/03/24 Range/Units 18:54 WBC 6.8 (3.8-10.6) k/uL RBC 3.69 L (4.30-5.90) m/uL Hgb 13.1 (13.0-17.5) gm/dL Hct 39.2 (39.0-53.0) % Plt Count 207 (150-450) k/uL Comprehensive Metabolic Panel 02/03/24 02/04/24 Range/Units 19:25 07:35 Sodium 127 L 129 L (137-145) mmol/L Potassium 3.4 L 3.9 (3.5-5.1) mmol/L Chloride 101 107 (98-107) mmol/L Carbon Dioxide 18 L 20 L (22-30) mmol/L BUN 10 5 L (9-20) mg/dL Creatinine 0.59 L 0.50 L (0.66-1.25) mg/dL Glucose 97 87 (74-99) mg/dL Calcium 9.3 8.7 (8.4-10.2) mg/dL AST 26 (17-59) U/L ALT 9 (4-49) U/L Alkaline Phosphatase 86 (38-126) U/L Total Protein 6.3 (6.3-8.2) g/dL Albumin 4.0 (3.5-5.0) g/dL Current Medications Generic Name Dose Route Start Last Admin Trade Name Freq PRN Reason Stop Dose Admin Acetaminophen 650 mg 02/04/24 02:25 Acetaminophen Tab 325 Mg Tab PO Q4HR PRN Fever and/ or Pain Citalopram Hydrobromide 40 mg 02/04/24 09:00 02/04/24 10:29 Citalopram Hydrobromide 20 Mg Tab PO 40 mg DAILY ALMA Administration Heparin Sodium (Porcine) 5,000 unit 02/04/24 08:00 02/04/24 10:29 Heparin Sodium,Porcine 5,000 Unit/Ml 1 Ml Vial SQ 5,000 unit Q8HR ALMA Administration Lacosamide 50 mg 02/04/24 09:00 02/04/24 10:31 Lacosamide 50 Mg Tablet PO 50 mg BID ALMA Administration Levetiracetam 1,000 mg 02/04/24 09:00 02/04/24 10:30 Levetiracetam 500 Mg Tab PO 1,000 mg BID ALMA Administration Nifedipine 30 mg 02/04/24 09:00 02/04/24 10:31 Nifedipine Xl 30 Mg Tab.Er.24 PO 30 mg DAILY ALMA Administration Pantoprazole Sodium 40 mg 02/04/24 09:00 02/04/24 10:30 Pantoprazole 40 Mg Tablet PO 40 mg DAILY ALMA Administration Quetiapine Fumarate 50 mg 02/04/24 21:00 Quetiapine 50 Mg Tab PO HS [facility] 02/03/24 18:54 02/04/24 07:35
--- NOTE | 2024-02-04 17:15 | P.PN ---
Subjective Progress Note Date: 02/04/24 No new complaints. Pending EEG read and neurology consultation. Gen: In NAD, non-toxic HEENT: normocephalic, atraumatic, hearing acuity is intant, mucous membranes moist CVS: perfusing all extremities well, no pitting edema, Respiratory: symmetric chest expansion, no accessory muscle use, GI: soft, NTTP, ND, : no suprapubic tenderness, no CVA tenderness MSK/Derm: no rashes, cyanosis Neuro: CN II-XII intact, no motor weakness, Psych: cooperative, euthymic mood, judgment and insight is intact Hospital course: 63-year-old male with history of seizures coming in for evaluation for episodes of unresponsiveness while staring into space I discussed case with ED doctor and accepted the admission for suspected seizure-like activity with anticipated length of stay less than 2 midnights Lactic acid 2.7 Magnesium 1.4 Sodium 127 Blood work overall unremarkable hemoglobin 13 white count 6.8 potassium 3.4 BUN 10 creatinine 0.59 Assessment/plan: Suspected breakthrough seizure with episodes of unresponsiveness Suspecting absence seizure's Seizure precautions Check EEG Neuro consult Resume Keppra and lacosamide home medications Cardiac monitoring Monitor vital signs Gentle IV fluid hydration continue normal saline 100 cc/h Hyponatremia Continue with IV fluid hydration normal saline 100 cc/h patient status post 2 L bolus Hypomagnesemia Replace IV follow-up levels Hypertension, uncontrolled Continue nifedipine Monitor vital signs Full code DVT prophylaxis heparin subcu 3 times daily Objective - Vital Signs Vital signs: Vital Signs Temp 98.1 F 02/03/24 18:40 Pulse 61 02/04/24 10:28 Resp 18 02/04/24 10:28 BP 144/90 02/04/24 10:28 Pulse Ox 97 02/04/24 10:28 FiO2 Intake & Output 02/03/24 02/04/24 02/04/24 18:59 06:59 18:59 Weight 61.054 kg - Labs CBC & Chem 7: 02/03/24 18:54 02/04/24 07:35 Labs: Abnormal Lab Results - Last 24 Hours (Table) 02/03/24 02/03/24 02/03/24 Range/Units 18:54 18:54 18:54 RBC 3.69 L (4.30-5.90) m/uL MCV 106.2 H (80.0-100.0) fL MCH 35.5 H (25.0-35.0) pg Lymphocytes # 0.8 L (1.0-4.8) k/uL PT 9.9 L (10.0-12.5) sec Sodium (137-145) mmol/L Potassium (3.5-5.1) mmol/L Carbon Dioxide (22-30) mmol/L BUN (9-20) mg/dL Creatinine (0.66-1.25) mg/dL Plasma Lactic Acid Jayson 2.7 H* (0.7-2.0) mmol/L Magnesium (1.6-2.3) mg/dL 02/03/24 02/04/24 Range/Units 19:25 07:35 RBC (4.30-5.90) m/uL MCV (80.0-100.0) fL MCH (25.0-35.0) pg Lymphocytes # (1.0-4.8) k/uL PT (10.0-12.5) sec Sodium 127 L 129 L (137-145) mmol/L Potassium 3.4 L (3.5-5.1) mmol/L Carbon Dioxide 18 L 20 L (22-30) mmol/L BUN 5 L (9-20) mg/dL Creatinine 0.59 L 0.50 L (0.66-1.25) mg/dL Plasma Lactic Acid Jayson (0.7-2.0) mmol/L Magnesium 1.4 L (1.6-2.3) mg/dL
--- NOTE | 2024-02-04 18:06 | P.CNNES ---
History of Present Illness Consult date: 02/04/24 Requesting physician: Reyes Camacho Reason for Consult: Seizure History of Present Illness: Patient is a 63-year-old male with history of alcoholism, seizure disorder, came to the hospital by ambulance yesterday at 6:39 p.m. for possible breakthrough seizure versus syncope. Patient's was also present, who provided with a history. Yesterday patient was sitting, watching TV at 2:30 to 3 PM, when sudd enly he stopped answering. There was no jerking, no shaking, and his hands were cold and clammy. His head was sweating. It lasted for about 2 or 3 minutes. They did not seek medical attention. He had a second spell at 6 PM, with similar semiology as mentioned above however he vomited small amount at that time. His called the ambulance. As per EMS flowsheet when they arrived, patient was seated in his living room, alert and orient x 4 with GCS of 15. Patient's on the scene reports that patient became unresponsive while seated but his eyes were open. She did not see any rigidity or jerking movements. He then became pale/alexander, diaphoretic and vomited. The episode lasted about 3 to 4 minutes and so she called 911. She reported that this is the second time this has occurred today. The patient has a seizure history (last seizure approximately 2 to 3 years ago) and patient is medication compliant and denies missing his dose of medications. Patient denied any chest pain shortness of breath nausea headache dizziness vision changes back pain or abdominal pain. Patient admitted to having 2 beers today. No reported drug use. Patient's blood glucose was 174 mg/dL. Vitals were stable. EKG showed some PVCs. Otherwise sinus rhythm. They were debating if patient should go to the ER, when patient stopped responding to his in front of EMS. He became alexander, diaphoretic and would not respond to verbal or painful stimuli with his eyes remained open. While patient was placed on the stretcher, he vomited 3 times. Patient was given aspirin 324 mg. There was no chest pain shortness of breath nausea or headache or dizziness or vision change. No back pain or abdominal pain. Patient's blood pressure at the scene was 116/73, pulse rate 77 respiration 20. When patient was brought to the hospital, he had a fourth event witnessed by Dr. Powers. He mentioned that patient just stopped talking was staring, not responding. No shaking or jerking was noted. EEG was ordered. Patient had orthostatics checked in the hospital which is normal. Supine blood pressure 154/93, sitting 165/100 and standing 158/96. Blood tests showed normal CBC with elevated MCV 106.2. PT PTT normal. Sodium 127 potassium 3.4, normal renal and hepatic panel. Troponin negative, blood alcohol level is mildly elevated 15. Lactate 2.7. Patient had a few admissions to the hospital in the past with alcohol intoxications patient had a normal EEG on 06/16/2021. Another EEG from 06/26/2022 showed mild slowing. Patient's mentions that patient's seizures has been very well-controlled and has not had a seizure for last 3 years. Patient seizures are grand mal sei zures. Patient continues to drink alcohol, and he drinks 2 large 24 ounce cans of beer (equal to 4 regular beers per day). Off-and-on he also drinks hard liquor "fireball", and he could not tell how often he drinks that. His believes that he drinks hard liquor "too much". Apparently patient did not drink alcohol on Thursday because he was supposed to have his Vivitrol injection for which she has to be clean for 24 hours. He had his Vivitrol on Thursday. He drank a little bit of hard liquor on Thursday night, and came here later at night with a seizure as mentioned above. Patient takes Keppra 1000 mg twice daily and Vimpat 50 mg twice daily, compliant with the medication. Patient has smoked 1 pack/day of since age 14. Also smokes marijuana. No other drug use. Patient has history of seizure disorder since around 2017 or 2018 as mentioned in my previous notes. Patient was seen by myself on 06/16/2021, when patient was having these spells, and was felt to be possible complex partial seizure. He was started on Vimpat at that time 50 mg twice daily. Review of Systems As mentioned above in detail in HPI. All other pertinent positive negatives mentioned in HPI. Others review of systems are negative. Patient does feel very tired Past Medical History Past Medical History: Hypertension, Seizure Disorder Additional Past Medical History / Comment(s): ETOH, depression, encephalopathy, left lung collapse, vision problems History of Any Multi-Drug Resistant Organisms: None Reported Past Surgical History: Orthopedic Surgery Additional Past Surgical History / Comment(s): rt femur Past Anesthesia/Blood Transfusion Reactions: No Reported Reaction Past Psychological History: Depression Smoking Status: Current every day smoker Past Alcohol Use History: Abuse, Daily Past Drug Use History: Marijuana - Past Family History Father Family Medical History: Hypertension Mother Family Medical History: No Reported History Medications and Allergies Home Medications Medication Instructions Recorded Confirmed Type Pantoprazole [Protonix] 40 mg PO DAILY 03/10/22 02/03/24 History Lacosamide [Vimpat] 50 mg PO BID 04/07/22 02/03/24 History levETIRAcetam [Keppra] 1,000 mg PO BID 04/07/22 02/03/24 History Citalopram Hydrobromide [CeleXA] 40 mg PO DAILY 11/29/22 02/03/24 History QUEtiapine [SEROquel] 50 mg PO HS 11/29/22 02/03/24 History Multivitamins, Thera [Multivitamin 1 tab PO DAILY 12/15/22 02/03/24 History (formulary)] NIFEdipine XL [Procardia XL] 30 mg PO DAILY 10/07/23 02/03/24 History Naltrexone Microspheres [Vivitrol] 380 mg IM Q30D 02/03/24 02/03/24 History Allergies Allergy/AdvReac Type Severity Reaction Status Date / Time goat milk Allergy Unknown Uncoded 02/03/24 20:44 Childhood Physical Examination - Vital Signs Vital Signs: Vital Signs Temp Pulse Pulse Pulse Pulse Resp BP 02/04/24 10:28 61 18 144/90 02/04/24 07:30 60 18 144/80 02/04/24 07:13 60 142/81 02/03/24 20:25 60 70 52 L 02/03/24 20:00 60 18 148/96 02/03/24 19:45 63 18 180/103 02/03/24 18:40 98.1 F 76 16 144/91 BP BP BP Pulse Ox 02/04/24 10:28 97 02/04/24 07:30 02/04/24 07:13 02/03/24 20:25 165/100 158/96 154/93 02/03/24 20:00 100 02/03/24 19:45 97 02/03/24 18:40 100 Intake and Output 02/03/24 02/04/24 02/04/24 22:59 06:59 14:59 Other: Weight 61.054 kg Patient is a late middle aged male, in no acute distress. Patient is alert awake oriented to time place and person. Speech and language functions are normal. Patient can name and repeat very well. No aphasia or dysarthria. Attention, concentration and fund of knowledge is adequate. On cranial nerve examination, pupils are equal, round and reacting to light, visual scott are full on confrontation, with no neglect on double simultaneous stimulation. Extraocular muscles are intact with no nystagmus. Face is symmetric, tongue protrudes to the midline. Palatal elevation and sensation normal, hearing and shoulder shrug normal, facial sensation normal. On muscle strength testing, there is no pronator drift and the strength is normal in arms and legs distally and proximally. Deep tendon reflexes are symmetric biceps 2+, brachioradialis 2+, knees 2+ ankles 1+ and plantars downgoing bilaterally. Sensory to touch is equal with no neglect on double simultaneous stimulation. Cerebellar function showed no ataxia for [id number] testing. No dysdiadochokinesia. No ataxia for [id number] testing on either side. Tone and bulk of muscles normal. Gait deferred.. On general examination, there is no carotid bruit or murmur, S1-S2 audible. Chest is clear on consultation. Abdomen is soft nontender. No organomegaly, bowel sounds present. Peripheral pulses are present. No peripheral edema. Patient has frequent bruises. Results - Laboratory Findings CBC and BMP: 02/03/24 18:54 02/04/24 07:35 Abnormal Lab Findings: Abnormal Labs 02/03/24 02/03/24 02/03/24 18:54 18:54 18:54 RBC 3.69 L MCV 106.2 H MCH 35.5 H Lymphocytes # 0.8 L PT 9.9 L Sodium Potassium Carbon Dioxide BUN Creatinine Plasma Lactic Acid Jayson 2.7 H* Magnesium 02/03/24 02/04/24 19:25 07:35 RBC MCV MCH Lymphocytes # PT Sodium 127 L 129 L Potassium 3.4 L Carbon Dioxide 18 L 20 L BUN 5 L Creatinine 0.59 L 0.50 L Plasma Lactic Acid Jayson Magnesium 1.4 L Assessment and Plan Assessment: * Seizure disorder, came with breakthrough seizure. Patient did not drink his usual amount of alcohol on Thursday (1 day prior to arrival) because he was receiving his Vivitrol, for which she has to be clean of alcohol. This probably resulted in partial alcohol withdrawal leading to seizure on Thursday evening. * Alcoholism * Tobacco use * Marijuana use * Hypertension Plan: * EEG was performed today which was normal awake and drowsy. No focal, lateralized or epileptiform activity was seen. * Continue same dose of seizure medications including Keppra 1000 mg twice daily and Vimpat 50 mg twice daily. * His seizure was likely provoked due to partial alcohol withdrawal. * No changes in seizure medications recommended. * Patient recommended to gradually decrease and abstain from alcoholism. * Recommend tobacco cessation. * Patient recommended no driving unless seizure-free for 6 months, climbing ladders, operating dangerous machinery or unsupervised swimming. * Neurologically clear for discharge. Patient follows up with Dr. Mendosa. * Thank you for the consultation.
--- NOTE | 2024-02-04 18:53 | P.DS ---
Providers Date of admission: 02/03/24 20:25 Expected date of discharge: 02/04/24 Attending physician: Reyes Camacho MD Consults: 02/04/24 02:12 Consult Physician Routine Consulting Provider: Abhishek Freeman Consult Reason/Comments: Seizure Do you want consulting provider notified?: Yes, Notify in am [facility] Course: Suspected breakthrough seizure with episodes of unresponsiveness Suspecting absence seizure's Hyponatremia Hypomagnesemia Hypertension, uncontrolled Gen: In NAD, non-toxic HEENT: normocephalic, atraumatic, hearing acuity is intant, mucous membranes moist CVS: perfusing all extremities well, no pitting edema, Respiratory: symmetric chest expansion, no accessory muscle use, GI: soft, NTTP, ND, : no suprapubic tenderness, no CVA tenderness MSK/Derm: no rashes, cyanosis Neuro: CN II-XII intact, no motor weakness, Psych: cooperative, euthymic mood, judgment and insight is intact Hospital course: 63-year-old male with history of seizures coming in for evaluation for episodes of unresponsiveness while staring into space I discussed case with ED doctor and accepted the admission for suspected seizure-like activity. Initial workup: Lactic acid 2.7 Magnesium 1.4 Sodium 127 Blood work overall unremarkable hemoglobin 13 white count 6.8 potassium 3.4 BUN 10 creatinine 0.59 Follow up: Patient was seen in consultation with Neurology, who completed EEG and did not feel any adjustments to seizure meds were necessary based on results. Seen by cardiology who recommended outpatient f/u and event monitor. Pt was discharged home with PCP f/u. Patient Condition at Discharge: Good Plan - Discharge Summary New Discharge Prescriptions: Continue Pantoprazole [Protonix] 40 mg PO DAILY levETIRAcetam [Keppra] 1,000 mg PO BID QUEtiapine [SEROquel] 50 mg PO HS NIFEdipine XL [Procardia XL] 30 mg PO DAILY Lacosamide [Vimpat] 50 mg PO BID Citalopram Hydrobromide [CeleXA] 40 mg PO DAILY Multivitamins, Thera [Multivitamin (formulary)] 1 tab PO DAILY Naltrexone Microspheres [Vivitrol] 380 mg IM Q30D Discharge Medication List Pantoprazole [Protonix] 40 mg PO DAILY 03/10/22 [History] Lacosamide [Vimpat] 50 mg PO BID 04/07/22 [History] levETIRAcetam [Keppra] 1,000 mg PO BID 04/07/22 [History] Citalopram Hydrobromide [CeleXA] 40 mg PO DAILY 11/29/22 [History] QUEtiapine [SEROquel] 50 mg PO HS 11/29/22 [History] Multivitamins, Thera [Multivitamin (formulary)] 1 tab PO DAILY 12/15/22 [Histor y] NIFEdipine XL [Procardia XL] 30 mg PO DAILY 10/07/23 [History] Naltrexone Microspheres [Vivitrol] 380 mg IM Q30D 02/03/24 [History] Follow up Appointment(s)/Referral(s): Jesse Linn MD [Medical Doctor] - 1 Week Reuben Hewitt DO [Primary Care Provider] - 1-2 days Discharge Disposition: HOME SELF-CARE Plan of Treatment: Will need 30 day event monitor on outpatient bases
[2024-02-04 19:37] VITALS: BP 137/89; PULSE 69; TEMP 98.5
[2024-02-04] MEDS ORDERED: QUEtiapine 50 MG TAB PO SCH (21:00)
--- NOTE | 2024-02-04 22:19 | EEG ---
ELECTROENCEPHALOGRAM REPORT PREAMBLE: This is a 63-year-old male with seizure disorder, came with breakthrough seizures. CURRENT MEDICATIONS: 1. Keppra 1000 mg b.i.d. 2. Vimpat 50 mg b.i.d. EEG FINDINGS: This is a 21-channel digital EEG recorded with video component, utilizing 10/20 international system with referential and bipolar montages. Background consists of well developed, well regulated moderate voltage activity in 8 to 9 hertz alpha. Background is posterior dominant and reactive to eye opening and closing. Photic driving response was not seen. Drowsiness was seen with appearance of bilaterally symmetric theta frequency rhythm. Deeper stages of sleep were not seen. No focal or generalized epileptiform activity was seen. EKG channel showed no obvious arrhythmia. IMPRESSION: This is a normal awake and drowsy EEG. No focal, lateralized or epileptiform activity was seen. MMHALLEL / HARMONYN: [id number] /
== END 2024-02-04 19:33 | disposition home or self-care (01) | DRG 101 ==
LOC: EC 18:39 → 3SCARD 20:25
PROVIDERS: ADMIT Internal Medicine; ATTEND Internal Medicine
PROC: 4A10X4Z Monitoring of Central Nervous Electrical Activity, External Approach (ICD-10-PCS; principal; 2024-02-04)
DX: G40.409 Other generalized epilepsy and epileptic syndromes, not intractable, without status epilepticus (principal); E87.1 Hypo-osmolality and hyponatremia; I10 Essential (primary) hypertension; E83.42 Hypomagnesemia; Z79.899 Other long term (current) drug therapy; Z82.49 Family history of ischemic heart disease and other diseases of the circulatory system; Z91.018 Allergy to other foods
CPT/HCPCS: 36415; 71046; 80048; 80053; 80320; 83605; 83735; 84484; 85025; 85610; 85730; 93005; 93306; 95816; 96361; 96365; 96366; 96367; 96372; 96375; 99285

== ENCOUNTER 2024-02-06 | Emergency (ER) | payer MEDICARE, OTHER ==
[2024-02-06 00:12] VITALS: TEMP 97.5
[2024-02-06 00:21] LABS: Glucose,Whole Blood 154 mg/dL (70-110)
--- NOTE | 2024-02-06 00:33 | ED ---
Seizure HPI - General Chief Complaint: Seizure Stated Complaint: Seizure Time Seen by Provider: 02/06/24 00:05 Source: patient, EMS Mode of arrival: EMS - History of Present Illness Initial Comments: This patient is 63-year-old man with history of seizure disorder who arrives to have evaluation after having had generalized seizure. MD Complaint: seizure Onset/Timin -: hour(s) Description of Episode: loss of consciousness, tonic-clonic movement -: minutes(s) (2) Witnessed: yes - by bystander Trauma: No Seizure History: known seizure disorder Place: home Possible Precipitating Event: none Associated Symptoms: denies other symptoms Treatments Prior to Arrival: none - Related Data Home Medications Medication Instructions Recorded Confirmed Pantoprazole [Protonix] 40 mg PO DAILY 03/10/22 02/03/24 Lacosamide [Vimpat] 50 mg PO BID 04/07/22 02/03/24 levETIRAcetam [Keppra] 1,000 mg PO BID 04/07/22 02/03/24 Citalopram Hydrobromide [CeleXA] 40 mg PO DAILY 11/29/22 02/03/24 QUEtiapine [SEROquel] 50 mg PO HS 11/29/22 02/03/24 Multivitamins, Thera [Multivitamin 1 tab PO DAILY 12/15/22 02/03/24 (formulary)] NIFEdipine XL [Procardia XL] 30 mg PO DAILY 10/07/23 02/03/24 Naltrexone Microspheres [Vivitrol] 380 mg IM Q30D 02/03/24 02/03/24 Previous Rx's Medication Instructions Recorded LORazepam [Ativan] 1 mg PO TID 3 Days #9 tab 02/06/24 Magnesium Oxide [Magox 400] 400 mg PO DAILY #30 tablet 02/06/24 Allergies Allergy/AdvReac Type Severity Reaction Status Date / Time goat milk Allergy Unknown Uncoded 02/03/24 20:44 Childhood Review of Systems ROS Statement: Those systems with pertinent positive or pertinent negative responses have been documented in the HPI. ROS Other: All systems not noted in ROS Statement are negative. Constitutional: Denies: fever, chills, weakness Eyes: Denies: vision change Respiratory: Denies: cough, dyspnea Cardiovascular: Denies: chest pain, palpitations, edema Gastrointestinal: Denies: abdominal pain, nausea, vomiting Genitourinary: Denies: dysuria, hematuria Musculoskeletal: Denies: back pain Skin: Denies: rash Neurological: Denies: headache, weakness Past Medical History Past Medical History: Hypertension, Seizure Disorder Additional Past Medical History / Comment(s): ETOH, depression, encephalopathy, left lung collapse, vision problems History of Any Multi-Drug Resistant Organisms: None Reported Past Surgical History: Orthopedic Surgery Additional Past Surgical History / Comment(s): rt femur Past Anesthesia/Blood Transfusion Reactions: No Reported Reaction Past Psychological History: Depression Smoking Status: Current every day smoker Past Alcohol Use History: Abuse, Daily Past Drug Use History: Marijuana - Past Family History Father Family Medical History: Hypertension Mother Family Medical History: No Reported History General Exam General appearance: alert, in no apparent distress Head exam: Present: atraumatic, normocephalic Eye exam: Present: normal appearance. Absent: scleral icterus, conjunctival injection ENT exam: Present: normal oropharynx Neck exam: Present: normal inspection, full ROM. Absent: tenderness, meningismus Respiratory exam: Present: normal lung sounds bilaterally. Absent: respiratory distress, wheezes, rales, rhonchi, stridor, accessory muscle use Cardiovascular Exam: Present: regular rate, normal rhythm, normal heart sounds. Absent: systolic murmur, diastolic murmur, rubs, gallop GI/Abdominal exam: Present: soft. Absent: distended, tenderness, guarding, rebound, rigid, mass Extremities exam: Present: normal inspection, normal capillary refill. Absent: pedal edema Back exam: Present: normal inspection. Absent: CVA tenderness (R), CVA tenderness (L) Neurological exam: Present: alert, oriented X3, CN II-XII intact. Absent: motor sensory deficit Skin exam: Present: warm, dry, intact, normal color. Absent: rash Course Vital Signs 02/06/24 02/06/24 02/06/24 00:07 00:30 00:45 Temperature 97.5 F L Pulse Rate 68 67 71 Respiratory 17 21 14 Rate Blood Pressure 148/86 148/85 134/83 O2 Sat by Pulse 95 96 95 Oximetry 02/06/24 02/06/24 02/06/24 01:15 01:45 02:45 Temperature Pulse Rate 63 68 66 Respiratory 17 17 15 Rate Blood Pressure 143/90 135/89 139/89 O2 Sat by Pulse 96 96 96 Oximetry Medical Decision Making - Medical Decision Making Was pt. sent in by a medical professional or institution (POLLO Mcginnis, SOURCING SPECIALIST, urgent care, hospital, or assisted...) When possible be specific @ -[No] Did you speak to anyone other than the patient for history (EMS, parent, family, police, friend...)? What history was obtained from this source @ -[No] Did you review nursing and triage notes (agree or disagree)? Why? @ -[I reviewed and agree with nursing and triage notes] Were old charts reviewed (outside hosp., previous admission, EMS record, old EKG, old radiological studies, urgent care reports/EKG's, assisted records)? Report findings @ -[No old charts were reviewed] Differential Diagnosis (chest pain, altered mental status, abdominal pain women, abdominal pain men, vaginal bleeding, weakness, fever, dyspnea, syncope, headache, dizziness, GI bleed, back pain, seizure, CVA, palpatations, mental health, musculoskeletal)? @ -[Differential Seizure: Recurrent seizure disorder, febrile seizure, alcohol withdrawal, stimulants, meningitis, encephalitis, intercranial hemorrhage, intracranial tumor, stroke, eclampsia, thyrotoxicosis, hypocalcemia, hyponatremia, hypernatremia, hypomagnesemia, psychogenic, this is not meant to be an all-inclusive list. EKG interpreted by me (3pts min.). @ -[I interpreted as above] X-rays interpreted by me (1pt min.). @ -[None done] CT interpreted by me (1pt min.). @ -[None done] U/S interpreted by me (1pt. min.). @ -[None done] What testing was considered but not performed or refused? (CT, X-rays, U/S, labs)? Why? @ -[None] What meds were considered but not given or refused? Why? @ -[None] Did you discuss the management of the patient with other professionals (professionals i.e. POLLO Mcginnis, SOURCING SPECIALIST, lab, RT, psych nurse, clinical social worker, multimedia project manager, teacher, bank operations officer, test case developer)? Give summary @ -[No] Was smoking cessation discussed for >3mins.? @ -[No] Was critical care preformed (if so, how long)? @ -[No] Were there social determinants of health that impacted care today? How? (Homelessness, low income, unemployed, alcoholism, drug addiction, transportat ion, low edu. Level, literacy, decrease access to med. care, halfway, rehab)? @ -[No] Was there de-escalation of care discussed even if they declined (Discuss DNR or withdrawal of care, Hospice)? DNR status @ -[No] What co-morbidities impacted this encounter? (DM, HTN, Smoking, COPD, CAD, Cancer, CVA, ARF, Chemo, Hep., AIDS, mental health diagnosis, sleep apnea, morbid obesity)? @ -Seizure disorder Was patient admitted / discharged? Hospital course, mention meds given and route, prescriptions, significant lab abnormalities, going to OR and other pertinent info. @ -[This patient is a 63-year-old man with history of seizure disorder who had 1 uncomplicated, generalized tonic-clonic seizure and has returned to baseline. The patient at this point stable for discharge with follow-up to his ne urologist. Return parameters discussed Undiagnosed new problem with uncertain prognosis? @ -[No] Drug Therapy requiring intensive monitoring for toxicity (Heparin, Nitro, Insulin, Cardizem)? @ -[No] Were any procedures done? @ -[No] Diagnosis/symptom? @ -[Acute generalized seizure Acute hypomagnesemia Acute, or Chronic, or Acute on Chronic? @ -[Acute Uncomplicated (without systemic symptoms) or Complicated (systemic symptoms)? @ -[Uncomplicated Side effects of treatment? @ -[No] Exacerbation, Progression, or Severe Exacerbation? @ -[No] Poses a threat to life or bodily function? How? (Chest pain, [place], [place], pneumonia, PE, COPD, DKA, ARF, appy, cholecystitis, CVA, Diverticulitis, Homicidal, Suicidal, threat to staff... and all critical care pts) @ -[No] - Lab Data Result diagrams: 02/06/24 00:22 02/06/24 00:22 Lab Results 02/06/24 02/06/24 02/06/24 Range/Units 00:21 00:22 00:22 WBC 6.3 (3.8-10.6) k/uL RBC 3.37 L (4.30-5.90) m/uL Hgb 12.3 L (13.0-17.5) gm/dL Hct 36.2 L (39.0-53.0) % MCV 107.6 H (80.0-100.0) fL MCH 36.5 H (25.0-35.0) pg MCHC 33.9 (31.0-37.0) g/dL RDW 14.1 (11.5-15.5) % Plt Count 159 (150-450) k/uL MPV 8.7 Neutrophils % 73 % Lymphocytes % 18 % Monocytes % 6 % Eosinophils % 2 % Basophils % 0 % Neutrophils # 4.6 (1.3-7.7) k/uL Lymphocytes # 1.1 (1.0-4.8) k/uL Monocytes # 0.4 (0-1.0) k/uL Eosinophils # 0.1 (0-0.7) k/uL Basophils # 0.0 (0-0.2) k/uL Macrocytosis Moderate Sodium 127 L (137-145) mmol/L Potassium 4.2 (3.5-5.1) mmol/L Chloride 102 (98-107) mmol/L Carbon Dioxide 16 L (22-30) mmol/L Anion Gap 9 mmol/L BUN 5 L (9-20) mg/dL Creatinine 0.50 L (0.66-1.25) mg/dL Est GFR (CKD-EPI)AfAm >90 (>60 ml/min/1.73 sqM) Est GFR (CKD-EPI)NonAf >90 (>60 ml/min/1.73 sqM) Glucose 125 H (74-99) mg/dL POC Glucose (mg/dL) 154 H (70-110) mg/dL POC Glu Back Shoe Worker ID Nat Wilson Calcium 9.2 (8.4-10.2) mg/dL Magnesium 1.4 L (1.6-2.3) mg/dL Total Bilirubin 1.0 (0.2-1.3) mg/dL AST 35 (17-59) U/L ALT 13 (4-49) U/L Alkaline Phosphatase 79 (38-126) U/L Total Protein 6.7 (6.3-8.2) g/dL Albumin 4.1 (3.5-5.0) g/dL Levetiracetam (3.0-60.0) ug/mL 02/06/24 Range/Units 00:35 WBC (3.8-10.6) k/uL RBC (4.30-5.90) m/uL Hgb (13.0-17.5) gm/dL Hct (39.0-53.0) % MCV (80.0-100.0) fL MCH (25.0-35.0) pg MCHC (31.0-37.0) g/dL RDW (11.5-15.5) % Plt Count (150-450) k/uL MPV Neutrophils % % Lymphocytes % % Monocytes % % Eosinophils % % Basophils % % Neutrophils # (1.3-7.7) k/uL Lymphocytes # (1.0-4.8) k/uL Monocytes # (0-1.0) k/uL Eosinophils # (0-0.7) k/uL Basophils # (0-0.2) k/uL Macrocytosis Sodium (137-145) mmol/L Potassium (3.5-5.1) mmol/L Chloride (98-107) mmol/L Carbon Dioxide (22-30) mmol/L Anion Gap mmol/L BUN (9-20) mg/dL Creatinine (0.66-1.25) mg/dL Est GFR (CKD-EPI)AfAm (>60 ml/min/1.73 sqM) Est GFR (CKD-EPI)NonAf (>60 ml/min/1.73 sqM) Glucose (74-99) mg/dL POC Glucose (mg/dL) (70-110) mg/dL POC Glu Back Shoe Worker ID Calcium (8.4-10.2) mg/dL Magnesium (1.6-2.3) mg/dL Total Bilirubin (0.2-1.3) mg/dL AST (17-59) U/L ALT (4-49) U/L Alkaline Phosphatase (38-126) U/L Total Protein (6.3-8.2) g/dL Albumin (3.5-5.0) g/dL Levetiracetam 46.3 (3.0-60.0) ug/mL Disposition Clinical Impression: Generalized seizure, Hyponatremia, Hypomagnesemia Disposition: HOME SELF-CARE Condition: Good Instructions (If sedation given, give patient instructions): Seizure/Epilepsy Discharge Instructions & Follow-Up, Hypomagnesemia (ED) Prescriptions: LORazepam [Ativan] 1 mg PO TID 3 Days #9 tab Magnesium Oxide [Magox 400] 400 mg PO DAILY #30 tablet Is patient prescribed a controlled substance at d/c from ED?: No Referrals: Reuben Hewitt DO [Primary Care Provider] - 1-2 days
[2024-02-06 00:51] LABS: Basophils % (A) 0 %; Eosinophils # (A) 0.1 k/uL (0-0.7); Eosinophils % (A) 2 %; HCT 36.2 % (39.0-53.0); HGB 12.3 gm/dL (13.0-17.5); Lymphocytes # (A) 1.1 k/uL (1.0-4.8); Lymphocytes % (A) 18 %; MCH 36.5 pg (25.0-35.0); MCHC 33.9 g/dL (31.0-37.0); MCV 107.6 fL (80.0-100.0); Macrocytosis Moderate; Mean Platelet Volume 8.7; Monocytes # (A) 0.4 k/uL (0-1.0); Monocytes % (A) 6 %; Neutrophils # (A) 4.6 k/uL (1.3-7.7); Neutrophils % (A) 73 %; Platelet Count 159 k/uL (150-450); RBC 3.37 m/uL (4.30-5.90); RDW 14.1 % (11.5-15.5); WBC 6.3 k/uL (3.8-10.6)
[2024-02-06] MEDS: LORazepam 2 MG/ML INJ IV STA (00:59)
[2024-02-06 01:11] LABS: ALT 13 U/L (4-49); AST 35 U/L (17-59); African American GFR (CKD) >90 (>60 ml/min/1.73 sqM); Albumin 4.1 g/dL (3.5-5.0); Alkaline Phosphatase 79 U/L (38-126); Anion Gap 9 mmol/L; Blood Urea Nitrogen 5 mg/dL (9-20); Calcium 9.2 mg/dL (8.4-10.2); Carbon Dioxide 16 mmol/L (22-30); Chloride 102 mmol/L (98-107); Glucose 125 mg/dL (74-99); Magnesium 1.4 mg/dL (1.6-2.3); Non-African American GFR(CKD) >90 (>60 ml/min/1.73 sqM); Potassium 4.2 mmol/L (3.5-5.1); Sodium 127 mmol/L (137-145); Total Protein 6.7 g/dL (6.3-8.2)
[2024-02-06] MEDS: chlordiazePOXIDE 25 MG CAP PO STA (02:48)
[2024-02-06] MEDS: MAGNESIUM OXIDE 400 MG TAB PO STA (02:48)
[2024-02-06 02:51] VITALS: BP 139/89; PULSE 66; RESP 15
== END 2024-02-06 03:05 | disposition home or self-care (01) ==
LOC: EC
DX: R56.9 Unspecified convulsions (principal); E87.1 Hypo-osmolality and hyponatremia; E83.42 Hypomagnesemia; F17.200 Nicotine dependence, unspecified, uncomplicated; Z91.011 Allergy to milk products
CPT/HCPCS: 36415; 93005; 80053; 80177; 83735; 85025; 99284; 96374; J2060

== ENCOUNTER 2024-04-19 21:54 | Emergency (ER) | payer MEDICARE, OTHER ==
--- NOTE | 2024-04-19 22:12 | ED ---
Seizure HPI - General Chief Complaint: Seizure Stated Complaint: Seizure Time Seen by Provider: 04/19/24 21:57 Source: EMS, RN notes reviewed, old records reviewed Mode of arrival: EMS Limitations: no limitations - History of Present Illness Initial Comments: This is a 63-year-old male to the ER for evaluation patient [facility] for evaluation regards to seizure. History of seizures seizure activity prior to arrival here in the emergency department simple partial seizures history of simple partial seizures. Patient has no headaches no chest pain no shortness of breath no fevers no other complaints taking medications as prescribed MD Complaint: seizure, possible seizure -: hour(s) Description of Episode: loss of consciousness, tonic-clonic movement -: second(s) Witnessed: yes - by bystander Trauma: Yes Seizure History: known seizure disorder Place: home Possible Precipitating Event: none Associated Symptoms: denies other symptoms Treatments Prior to Arrival: none - Related Data Home Medications Medication Instructions Recorded Confirmed Pantoprazole [Protonix] 40 mg PO DAILY 03/10/22 02/03/24 Lacosamide [Vimpat] 50 mg PO BID 04/07/22 02/03/24 levETIRAcetam [Keppra] 1,000 mg PO BID 04/07/22 02/03/24 Citalopram Hydrobromide [CeleXA] 40 mg PO DAILY 11/29/22 02/03/24 QUEtiapine [SEROquel] 50 mg PO HS 11/29/22 02/03/24 Multivitamins, Thera [Multivitamin 1 tab PO DAILY 12/15/22 02/03/24 (formulary)] NIFEdipine XL [Procardia XL] 30 mg PO DAILY 10/07/23 02/03/24 Naltrexone Microspheres [Vivitrol] 380 mg IM Q30D 02/03/24 02/03/24 Previous Rx's Medication Instructions Recorded LORazepam [Ativan] 1 mg PO TID 3 Days #9 tab 02/06/24 Magnesium Oxide [Magox 400] 400 mg PO DAILY #30 tablet 02/06/24 Allergies Allergy/AdvReac Type Severity Reaction Status Date / Time goat milk Allergy Unknown Uncoded 02/03/24 20:44 Childhood Review of Systems ROS Statement: Those systems with pertinent positive or pertinent negative responses have been documented in the HPI. ROS Other: All systems not noted in ROS Statement are negative. Past Medical History Past Medical History: Hypertension, Seizure Disorder Additional Past Medical History / Comment(s): ETOH, depression, encephalopathy, left lung collapse, vision problems History of Any Multi-Drug Resistant Organisms: None Reported Past Surgical History: Orthopedic Surgery Additional Past Surgical History / Comment(s): rt femur Past Anesthesia/Blood Transfusion Reactions: No Reported Reaction Past Psychological History: Depression Smoking Status: Current every day smoker Past Alcohol Use History: Abuse, Daily Past Drug Use History: Marijuana - Past Family History Father Family Medical History: Hypertension Mother Family Medical History: No Reported History General Exam Limitations: no limitations General appearance: alert, in no apparent distress Head exam: Present: atraumatic, normocephalic, normal inspection Eye exam: Present: normal appearance, PERRL, EOMI. Absent: scleral icterus, conjunctival injection, periorbital swelling ENT exam: Present: normal exam, mucous membranes moist Neck exam: Present: normal inspection. Absent: tenderness, meningismus, lymphadenopathy Respiratory exam: Present: normal lung sounds bilaterally. Absent: respiratory distress, wheezes, rales, rhonchi, stridor Cardiovascular Exam: Present: regular rate, normal rhythm, normal heart sounds. Absent: systolic murmur, diastolic murmur, rubs, gallop, clicks GI/Abdominal exam: Present: soft, normal bowel sounds. Absent: distended, tenderness, guarding, rebound, rigid Extremities exam: Present: normal inspection, full ROM, normal capillary refill. Absent: tenderness, pedal edema, joint swelling, calf tenderness Back exam: Present: normal inspection Neurological exam: Present: alert, oriented X3, CN II-XII intact Psychiatric exam: Present: normal affect, normal mood Skin exam: Present: warm, dry, intact, normal color. Absent: rash Course Vital Signs 04/19/24 04/19/24 04/19/24 21:56 23:16 23:35 Temperature 98.4 F 98.6 F Pulse Rate 71 66 70 Respiratory 16 18 18 Rate Blood Pressure 126/76 126/72 116/70 O2 Sat by Pulse 95 97 96 Oximetry - Reevaluation(s) Reevaluation #1: 04/19/24 22:23 Medical records reviewed Reevaluation #2: 04/19/24 22:24 Symptoms unchanged Reevaluation #3: 04/19/24 22:24 Patient informed of results and questions answered Reevaluation #4: Was pt. sent in by a medical professional or institution (, POLLO, BLACK ASH BURNER OPERATOR, urgent care, hospital, or [facility]...) When possible be specific @ -no Did you speak to anyone other than the patient for history (EMS, parent, family, police, friend...)? What history was obtained from this source @ -no Did you review nursing and triage notes (agree or disagree)? Why? @ -agree Are old charts reviewed (outside hosp., previous admission, EMS record, old EKG, old radiological studies, urgent care reports/EKG's, [facility] records)? Report findings @ -yes Differential Diagnosis (chest pain, altered mental status, abdominal pain women, abdominal pain men, vaginal bleeding, weakness, fever, dyspnea, syncope, headache, dizziness, GI bleed, back pain, seizure, CVA, palpatations, mental health, musculoskeletal)? @ -prior EKG interpreted by me (3pts min.). @ -yes X-rays interpreted by me (1pt min.). @ -no CT interpreted by me (1pt min.). @ -no U/S interpreted by me (1pt. min.). @ -no What testing was considered but not performed or refused? (CT, X-rays, U/S, labs)? Why? @ -none What meds were considered but not given or refused? Why? @ -none Did you discuss the management of the patient with other professionals (keyon rider i.e. POLLO Mcginnis, BLACK ASH BURNER OPERATOR, lab, RT, psych nurse, social psychologist, trolley car overhauler, teacher, military source operations officer, therapeutic case manager)? Give summary @ -no Was smoking cessation discussed for >3mins.? @ -no Was critical care preformed (if so, how long)? @ -no Were there social determinants of health that impacted care today? How? (Homelessness, low income, unemployed, alcoholism, drug addiction, transportation, low edu. Level, literacy, decrease access to med. care, custodial, rehab)? @ -none Was there de-escalation of care discussed even if they declined (Discuss DNR or withdrawal of care, Hospice)? DNR status @ -no What co-morbidities impacted this encounter? (DM, HTN, Smoking, COPD, CAD, Cancer, CVA, ARF, Chemo, Hep., AIDS, mental health diagnosis, sleep apnea, morbid obesity)? @ -none Was patient admitted / discharged? Hospital course, mention meds given and route, prescriptions, significant lab abnormalities, going to OR and other pertinent info. @ - 63 Male to the ER for evaluation patient presents today for evaluation regards to seizure recurrent seizure with seizure prior to arrival, patient has no acute findings here in the ER no seizures here in the ER and can be discharged home Discharge recurrent seizure recurrent seizure Undiagnosed new problem with uncertain prognosis? @ -no Drug Therapy requiring intensive monitoring for toxicity (Heparin, Nitro, Insulin, Cardizem)? @ -no Were any procedures done? @ -no Diagnosis/symptom? @ - Acute, or Chronic, or Acute on Chronic? @ -Acute Uncomplicated (without systemic symptoms) or Complicated (systemic symptoms)? @ -Complicated Side effects of treatment? @ -no Exacerbation, Progression, or Severe Exacerbation? @ -exacerbation Poses a threat to life or bodily function? How? (Chest pain, [place], [place], pneumonia, PE, COPD, DKA, ARF, appy, cholecystitis, CVA, Diverticulitis, Homicidal, Suicidal, threat to staff... and all critical care pts) @ -yes Reevaluation #5: Differential Seizure: Recurrent seizure disorder, febrile seizure, alcohol withdrawal, stimulants, meningitis, encephalitis, intercranial hemorrhage, intracranial tumor, stroke, eclampsia, thyrotoxicosis, hypocalcemia, hyponatremia, hypernatremia, h ypomagnesemia, psychogenic, this is not meant to be an all-inclusive list. Medical Decision Making - Medical Decision Making 63 Male to the ER for evaluation patient presents today for evaluation regards to seizure recurrent seizure with seizure prior to arrival, patient has no acute findings here in the ER no seizures here in the ER and can be discharged home - Lab Data Result diagrams: 04/19/24 22:20 04/19/24 22:20 Lab Results 04/19/24 04/19/24 04/19/24 Range/Units 22:20 22:20 22:20 WBC 6.6 (3.8-10.6) k/uL RBC 3.09 L (4.30-5.90) m/uL Hgb 11.5 L (13.0-17.5) gm/dL Hct 33.7 L (39.0-53.0) % MCV 109.1 H (80.0-100.0) fL MCH 37.1 H (25.0-35.0) pg MCHC 34.0 (31.0-37.0) g/dL RDW 12.7 (11.5-15.5) % Plt Count 253 (150-450) k/uL MPV 7.9 Neutrophils % 81 % Lymphocytes % 11 % Monocytes % 6 % Eosinophils % 1 % Basophils % 0 % Neutrophils # 5.3 (1.3-7.7) k/uL Lymphocytes # 0.7 L (1.0-4.8) k/uL Monocytes # 0.4 (0-1.0) k/uL Eosinophils # 0.1 (0-0.7) k/uL Basophils # 0.0 (0-0.2) k/uL Macrocytosis Moderate Sodium 137 (137-145) mmol/L Potassium 3.8 (3.5-5.1) mmol/L Chloride 109 H (98-107) mmol/L Carbon Dioxide 21 L (22-30) mmol/L Anion Gap 7 mmol/L BUN 19 (9-20) mg/dL Creatinine 0.76 (0.66-1.25) mg/dL Est GFR (CKD-EPI)AfAm >90 (>60 ml/min/1.73 sqM) Est GFR (CKD-EPI)NonAf >90 (>60 ml/min/1.73 sqM) Glucose 134 H (74-99) mg/dL Calcium 9.5 (8.4-10.2) mg/dL Magnesium 1.8 (1.6-2.3) mg/dL Total Bilirubin 0.8 (0.2-1.3) mg/dL AST 47 (17-59) U/L ALT 23 (4-49) U/L Alkaline Phosphatase 63 (38-126) U/L Total Protein 6.2 L (6.3-8.2) g/dL Albumin 3.7 (3.5-5.0) g/dL Urine Color Colorless Urine Appearance Clear (Clear) Urine pH 6.5 (5.0-8.0) Ur Specific [place] 1.014 (1.001-1.035) Urine Protein Negative (Negative) Urine Glucose (UA) Negative (Negative) Urine Ketones Negative (Negative) Urine Blood Negative (Negative) Urine Nitrite Negative (Negative) Urine Bilirubin Negative (Negative) Urine Urobilinogen <2.0 (<2.0) mg/dL Ur Leukocyte Esterase Negative (Negative) Salicylates <1.0 mg/dL Urine Opiates Screen Not Detected (NotDetected) Ur Oxycodone Screen Not Detected (NotDetected) Urine Methadone Screen Not Detected (NotDetected) Acetaminophen <10.0 ug/mL Ur Barbiturates Screen Not Detected (NotDetected) U Tricyclic Antidepress Not Detected (NotDetected) Ur Phencyclidine Scrn Not Detected (NotDetected) Ur Amphetamines Screen Not Detected (NotDetected) U Methamphetamines Scrn Not Detected (NotDetected) U Benzodiazepines Scrn Detected H (NotDetected) Urine Cocaine Screen Not Detected (NotDetected) U Marijuana (THC) Screen Detected H (NotDetected) Serum Alcohol <10 mg/dL - EKG Data -: EKG Interpreted by Me (EKG is sinus 68 MT 161 QRS 92 QTc 465) Disposition Clinical Impression: Seizure disorder, Epileptic seizure, generalized Disposition: HOME SELF-CARE Condition: Fair Instructions (If sedation given, give patient instructions): Seizure/Epilepsy Discharge Instructions & Follow-Up, Recurrent Seizures in Adults (ED) Is patient prescribed a controlled substance at d/c from ED?: No Referrals: Reuben Hewitt DO [Primary Care Provider] - 1-2 days Time of Disposition: 23:20
[2024-04-19] MEDS: LORazepam 2 MG/ML INJ IV STA (22:27)
[2024-04-19] MEDS: levETIRAcetam IV 500 MG/5 ML VIAL IVP STA (22:31)
[2024-04-19 22:33] LABS: Basophils % (A) 0 %; Eosinophils # (A) 0.1 k/uL (0-0.7); Eosinophils % (A) 1 %; HCT 33.7 % (39.0-53.0); HGB 11.5 gm/dL (13.0-17.5); Lymphocytes # (A) 0.7 k/uL (1.0-4.8); Lymphocytes % (A) 11 %; MCH 37.1 pg (25.0-35.0); MCV 109.1 fL (80.0-100.0); Macrocytosis Moderate; Mean Platelet Volume 7.9; Monocytes # (A) 0.4 k/uL (0-1.0); Monocytes % (A) 6 %; Neutrophils # (A) 5.3 k/uL (1.3-7.7); Neutrophils % (A) 81 %; Platelet Count 253 k/uL (150-450); RBC 3.09 m/uL (4.30-5.90); RDW 12.7 % (11.5-15.5); WBC 6.6 k/uL (3.8-10.6)
[2024-04-19 22:34] LABS: Appearance,Urine Clear (Clear); Bilirubin,Urine Negative (Negative); Blood,Urine Negative (Negative); Color,Urine Colorless; Glucose,Urine (UA) Negative (Negative); Ketones,Urine Negative (Negative); Leukocyte Esterase,Urine Negative (Negative); Nitrite,Urine Negative (Negative); PH, Urine 6.5 (5.0-8.0); Protein,Urine Negative (Negative); Specific Gravity,Urine 1.014 (1.001-1.035); Urobilinogen,Urine <2.0 mg/dL (<2.0)
[2024-04-19 22:43] LABS: ALT 23 U/L (4-49); Acetaminophen <10.0 ug/mL; African American GFR (CKD) >90 (>60 ml/min/1.73 sqM); Alcohol <10 mg/dL; Anion Gap 7 mmol/L; Blood Urea Nitrogen 19 mg/dL (9-20); Calcium 9.5 mg/dL (8.4-10.2); Carbon Dioxide 21 mmol/L (22-30); Chloride 109 mmol/L (98-107); Glucose 134 mg/dL (74-99); Magnesium 1.8 mg/dL (1.6-2.3); Non-African American GFR(CKD) >90 (>60 ml/min/1.73 sqM); Salicylate <1.0 mg/dL; Sodium 137 mmol/L (137-145); Total Bilirubin 0.8 mg/dL (0.2-1.3)
[2024-04-19 22:44] LABS: AST 47 U/L (17-59); Albumin 3.7 g/dL (3.5-5.0); Alkaline Phosphatase 63 U/L (38-126); Amphetamine Screen,Urine Not Detected (NotDetected); Barbiturate Screen,Urine Not Detected (NotDetected); Benzodiazepines Screen,Urine Detected (NotDetected); Cocaine Screen,Urine Not Detected (NotDetected); Methadone Screen, Urine Not Detected (NotDetected); Opiate Screen,Urine Not Detected (NotDetected); Oxycodone Screen, Urine Not Detected (NotDetected); Phencyclidine Screen,Urine Not Detected (NotDetected); Potassium 3.8 mmol/L (3.5-5.1); Total Protein 6.2 g/dL (6.3-8.2); Tricyclic Antidepressant,Urine Not Detected (NotDetected); Urn Cannabinoid Scrn Detected (NotDetected)
[2024-04-19] MEDS: SODIUM CHLORIDE 0.9% 1,000 ML IV STA (22:44)
[2024-04-19 23:18] VITALS: RESP 18
[2024-04-19 23:48] VITALS: BP 116/70; PULSE 70; TEMP 98.6
== END 2024-04-19 23:47 | disposition home or self-care (01) ==
LOC: EC 21:54
DX: R56.9 Unspecified convulsions
CPT/HCPCS: 36415; 80053; 80143; 80179; 80306; 80320; 81003; 83735; 85025; 93005; 96361; 96374; 96375; 99284

== ENCOUNTER → 2024-04-21 | Outpatient (CLI) | payer MEDICARE, OTHER ==
[2024-04-22 06:22] LABS: Levetiracetam (Keppra) 50.1 ug/mL (3.0-60.0)
== END | disposition home or self-care (01) ==
LOC: LABWHC1 15:55
PROVIDERS: ATTEND Psychiatry & Neurology Neurology
DX: G40.209 Localization-related (focal) (partial) symptomatic epilepsy and epileptic syndromes with complex partial seizures, not intractable, without status epilepticus (principal)
CPT/HCPCS: 36415; 80177; 80235

== ENCOUNTER → 2024-05-16 | Outpatient (CLI) | payer MEDICARE, OTHER ==
[2024-05-18 09:54] LABS: Levetiracetam (Keppra) 59.6 ug/mL (3.0-60.0)
== END | disposition home or self-care (01) ==
LOC: LABWHC1 12:13
PROVIDERS: ATTEND Psychiatry & Neurology Neurology
DX: G40.209 Localization-related (focal) (partial) symptomatic epilepsy and epileptic syndromes with complex partial seizures, not intractable, without status epilepticus (principal)
CPT/HCPCS: 36415; 80177; 80235

== ENCOUNTER → 2024-09-19 | Outpatient (CLI) | payer MEDICARE, OTHER ==
[2024-09-19 19:12] LABS: ALT 19 U/L (10-49); AST 44 U/L (14-35); Albumin 4.1 g/dL (3.8-4.9); Albumin/Globulin Ratio 1.46 Ratio (1.60-3.17); Alkaline Phosphatase 107 U/L (41-126); BUN/Creat Ratio 5.89 Ratio (12.00-20.00); Bilirubin, Conjugated <0.20 mg/dL (0.20-0.40); Bilirubin,Unconjugated >0.10 mg/dL (0.20-1.00); Blood Urea Nitrogen 5.3 mg/dL (9.0-27.0); Calcium 9.4 mg/dL (8.7-10.3); Carbon Dioxide 22.3 mmol/L (21.6-31.8); Chloride 101 mmol/L (96-109); Globulin 2.8 g/dL (1.6-3.3); Glucose 83 mg/dL (70-110); Sodium 137 mmol/L (135-145); Total Bilirubin 0.3 mg/dL (0.3-1.2); Total Protein 6.9 g/dL (6.2-8.2)
[2024-09-19 19:18] LABS: Basophils # (A) 0.03 X 10*3/uL (0.00-0.10); Basophils % (A) 0.5 %; Eosinophils # (A) 0.02 X 10*3/uL (0.04-0.35); Eosinophils % (A) 0.3 %; HCT 41.7 % (39.6-50.0); HGB 14.4 g/dL (13.0-17.0); Lymphocytes # (A) 1.59 X 10*3/uL (0.90-5.00); MCH 34.1 pg (27.0-32.0); MCHC 34.5 g/dL (32.0-37.0); MCV 98.8 FL (80.0-97.0); Mean Platelet Volume 10.5 FL (9.5-12.2); Monocytes # (A) 0.39 X 10*3/uL (0.20-1.00); Monocytes % (A) 6.4 %; NRBC Per 100 WBC 0 X 10*3/uL (0.00-0.01); Neutrophils # (A) 4.07 X 10*3/uL (1.80-7.70); Neutrophils % (A) 66.5 %; Platelet Count 231 X 10*3/uL (140-440); RBC 4.22 X 10*6/uL (4.40-5.60); RDW 15.2 % (11.5-14.5); WBC 6.12 X 10*3/uL (4.50-10.00)
== END | disposition home or self-care (01) ==
LOC: LABWHC1 14:11
PROVIDERS: ATTEND Nurse Practitioner
DX: F34.1 Dysthymic disorder (principal); F10.20 Alcohol dependence, uncomplicated; Z79.899 Other long term (current) drug therapy
CPT/HCPCS: 36415; 80053; 82248; 85025

== ENCOUNTER 2025-03-01 20:14 | Emergency (ER) | payer MEDICARE, OTHER ==
--- NOTE | 2025-03-01 20:21 | ED ---
Seizure HPI - General Chief Complaint: Seizure Stated Complaint: Seizure Time Seen by Provider: 03/01/25 20:21 Source: patient, RN notes reviewed, old records reviewed Mode of arrival: ambulatory Limitations: no limitations - History of Present Illness Initial Comments: This is a 64-year-old male to the ER for evaluation of [place] evaluation regards to seizure activity seizure activity MD Complaint: seizure -: hour(s) Description of Episode: loss of consciousness, tonic-clonic movement -: second(s) Trauma: Yes Seizure History: none, known seizure disorder Place: home - Related Data Home Medications Medication Instructions Recorded Confirmed Pantoprazole [Protonix] 40 mg PO DAILY 03/10/22 02/03/24 Lacosamide [Vimpat] 50 mg PO BID 04/07/22 02/03/24 levETIRAcetam [Keppra] 1,000 mg PO BID 04/07/22 02/03/24 Citalopram Hydrobromide [CeleXA] 40 mg PO DAILY 11/29/22 02/03/24 QUEtiapine [SEROquel] 50 mg PO HS 11/29/22 02/03/24 Multivitamins, Thera [Multivitamin 1 tab PO DAILY 12/15/22 02/03/24 (formulary)] NIFEdipine XL [Procardia XL] 30 mg PO DAILY 10/07/23 02/03/24 Naltrexone Microspheres [Vivitrol] 380 mg IM Q30D 02/03/24 02/03/24 Previous Rx's Medication Instructions Recorded LORazepam [Ativan] 1 mg PO TID 3 Days #9 tab 02/06/24 Magnesium Oxide [Magox 400] 400 mg PO DAILY #30 tablet 02/06/24 Allergies Allergy/AdvReac Type Severity Reaction Status Date / Time goat milk Allergy Unknown Uncoded 02/03/24 20:44 Childhood Review of Systems ROS Statement: Those systems with pertinent positive or pertinent negative responses have been documented in the HPI. ROS Other: All systems not noted in ROS Statement are negative. Past Medical History Past Medical History: Hypertension, Seizure Disorder Additional Past Medical History / Comment(s): ETOH, depression, encephalopathy, left lung collapse, vision problems History of Any Multi-Drug Resistant Organisms: None Reported Past Surgical History: Orthopedic Surgery Additional Past Surgical History / Comment(s): rt femur Past Anesthesia/Blood Transfusion Reactions: No Reported Reaction Past Psychological History: Depression Smoking Status: Current every day smoker Past Alcohol Use History: Abuse, Daily Past Drug Use History: Marijuana - Past Family History Father Family Medical History: Hypertension Mother Family Medical History: No Reported History General Exam Limitations: no limitations General appearance: alert, in no apparent distress Head exam: Present: atraumatic, normocephalic, normal inspection Eye exam: Present: normal appearance, PERRL, EOMI. Absent: scleral icterus, conjunctival injection, periorbital swelling ENT exam: Present: normal exam, mucous membranes moist Neck exam: Present: normal inspection. Absent: tenderness, meningismus, lymphadenopathy Respiratory exam: Present: normal lung sounds bilaterally. Absent: respiratory distress, wheezes, rales, rhonchi, stridor Cardiovascular Exam: Present: regular rate, normal rhythm, normal heart sounds. Absent: systolic murmur, diastolic murmur, rubs, gallop, clicks GI/Abdominal exam: Present: soft, normal bowel sounds. Absent: distended, tenderness, guarding, rebound, rigid Extremities exam: Present: normal inspection, full ROM, normal capillary refill. Absent: tenderness, pedal edema, joint swelling, calf tenderness Back exam: Present: normal inspection Neurological exam: Present: alert, oriented X3, CN II-XII intact Psychiatric exam: Present: normal affect, normal mood Skin exam: Present: warm, dry, intact, normal color. Absent: rash Course Vital Signs 03/01/25 03/01/25 03/01/25 20:16 20:51 21:10 Temperature 99.0 F 99.8 F H Pulse Rate 74 108 H 75 Respiratory 18 18 16 Rate Blood Pressure 138/92 138/62 132/85 O2 Sat by Pulse 95 97 98 Oximetry - Reevaluation(s) Reevaluation #1: 03/01/25 20:32 Medical records reviewed Reevaluation #2: 03/01/25 21:19 No recurrent seizure activity here in the ER Reevaluation #3: 03/01/25 21:19 Patient informed of results questions answered Reevaluation #4: Was pt. sent in by a medical professional or institution (, PA, MOTION GRAPHICS ARTIST, urgent care, hospital, or [facility]...) When possible be specific @ -no Did you speak to anyone other than the patient for history (EMS, parent, family, police, friend...)? What history was obtained from this source @ -no Did you review nursing and triage notes (agree or disagree)? Why? @ -agree Are old charts reviewed (outside hosp., previous admission, EMS record, old EKG, old radiological studies, urgent care reports/EKG's, [facility] records)? Report findings @ -yes Differential Diagnosis (chest pain, altered mental status, abdominal pain women, abdominal pain men, vaginal bleeding, weakness, fever, dyspnea, syncope, headache, dizziness, GI bleed, back pain, seizure, CVA, palpatations, mental health, musculoskeletal)? @ -prior EKG interpreted by me (3pts min.). @ -yes X-rays interpreted by me (1pt min.). @ -yes negative for acute disease CT interpreted by me (1pt min.). @ -no U/S interpreted by me (1pt. min.). @ -no What testing was considered but not performed or refused? (CT, X-rays, U/S, l abs)? Why? @ -none What meds were considered but not given or refused? Why? @ -none Did you discuss the management of the patient with other professionals (professionals i.e. , PA, MOTION GRAPHICS ARTIST, lab, RT, psych nurse, social media community manager, children's zoo caretaker, teacher, tactical deception plans officer, director of casework services)? Give summary @ -no Was smoking cessation discussed for >3mins.? @ -no Was critical care preformed (if so, how long)? @ -no Were there social determinants of health that impacted care today? How? (Homelessness, low income, unemployed, alcoholism, drug addiction, transportation, low edu. Level, literacy, decrease access to med. care, shelter, rehab)? @ -none Was there de-escalation of care discussed even if they declined (Discuss DNR or withdrawal of care, Hospice)? DNR status @ -no What co-morbidities impacted this encounter? (DM, HTN, Smoking, COPD, CAD, Cancer, CVA, ARF, Chemo, Hep., AIDS, mental health diagnosis, sleep apnea, morbid obesity)? @ -none Was patient admitted / discharged? Hospital course, mention meds given and route, prescriptions, significant lab abnormalities, going to OR and other pertinent info. @ - Undiagnosed new problem with uncertain prognosis? @ -no Drug Therapy requiring intensive monitoring for toxicity (Heparin, Nitro, Insulin, Cardizem)? @ -no Were any procedures done? @ -no Diagnosis/symptom? @ - Acute, or Chronic, or Acute on Chronic? @ -Acute Uncomplicated (without systemic symptoms) or Complicated (systemic symptoms)? @ -Complicated Side effects of treatment? @ -no Exacerbation, Progression, or Severe Exacerbation? @ -exacerbation Poses a threat to life or bodily function? How? (Chest pain, [place], [place], pneumonia, PE, COPD, DKA, ARF, appy, cholecystitis, CVA, Diverticulitis, Homicidal, Suicidal, threat to staff... and all critical care pts) @ -yes Reevaluation #5: Differential Seizure: Recurrent seizure disorder, febrile seizure, alcohol withdrawal, stimulants, meningitis, encephalitis, intercranial hemorrhage, intracranial tumor, stroke, eclampsia, thyrotoxicosis, hypocalcemia, hyponatremia, hypernatremia, hypomagnesemia, psychogenic, this is not meant to be an all-inclusive list. Medical Decision Making - Medical Decision Making 64 male to the ER for evaluation patient has recurrent seizures with history of seizures multiple ER visits in the past for seizures, no acute findings here in the ER patient can be discharged home - Lab Data Result diagrams: 03/01/25 20:42 03/01/25 20:42 Lab Results 03/01/25 03/01/25 Range/Units 20:42 20:42 WBC 9.33 (4.50-10.00) 10*3/uL RBC 3.58 L (4.40-5.60) 10*6/uL Hgb 12.9 L (13.0-17.0) g/dL Hct 34.6 L (39.6-50.0) % MCV 96.6 (80.0-97.0) fL MCH 36.0 H (27.0-32.0) pg MCHC 37.3 H (32.0-37.0) g/dL Plt Count 234 (140-440) 10*3/uL MPV 9.1 L (9.5-12.2) fL Immature Gran % (Auto) 0.5 % Neutrophils % 70.8 % Lymphocytes % 23.4 % Monocytes % 4.7 % Eosinophils % 0.1 % Basophils % 0.5 % Immature Gran # 0.05 H (0.00-0.04) 10*3/uL Neutrophils # 6.60 (1.80-7.70) 10*3/uL Lymphocytes # 2.18 (0.90-5.00) 10*3/uL Monocytes # 0.44 (0.20-1.00) 10*3/uL Eosinophils # 0.01 L (0.04-0.35) 10*3/uL Basophils # 0.05 (0.00-0.10) 10*3/uL Sodium 125 L (137-145) mmol/L Potassium 3.5 (3.5-5.1) mmol/L Chloride 91 L (98-107) mmol/L Carbon Dioxide 21 L (22-30) mmol/L Anion Gap 13 mmol/L BUN 3 L (9-20) mg/dL Creatinine 0.59 L (0.66-1.25) mg/dL Est GFR (CKD-EPI)AfAm >90 (>60 ml/min/1.73 sqM) Est GFR (CKD-EPI)NonAf >90 (>60 ml/min/1.73 sqM) Glucose 96 (74-99) mg/dL Calcium 9.3 (8.4-10.2) mg/dL Magnesium 2.0 (1.6-2.3) mg/dL Total Bilirubin 0.4 (0.2-1.3) mg/dL AST 44 (17-59) U/L ALT 19 (4-49) U/L Alkaline Phosphatase 143 H (38-126) U/L Total Protein 6.4 (6.3-8.2) g/dL Albumin 3.7 (3.5-5.0) g/dL - EKG Data -: EKG Interpreted by Me (EKG is sinus 69 AL 181 QRS 105 QTc 479) Disposition Clinical Impression: New onset seizure, Seizure disorder Disposition: HOME SELF-CARE Condition: Fair Instructions (If sedation given, give patient instructions): Seizure/Epilepsy Discharge Instructions & Follow-Up, Recurrent Seizures in Adults (ED) Is patient prescribed a controlled substance at d/c from ED?: No Referrals: Reuben Hewitt DO [Primary Care Provider] - 1-2 days Time of Disposition: 21:10
[2025-03-01 20:49] LABS: Basophils # (A) 0.05 10*3/uL (0.00-0.10); Basophils % (A) 0.5 %; Eosinophils # (A) 0.01 10*3/uL (0.04-0.35); Eosinophils % (A) 0.1 %; HCT 34.6 % (39.6-50.0); HGB 12.9 g/dL (13.0-17.0); Lymphocytes # (A) 2.18 10*3/uL (0.90-5.00); Lymphocytes % (A) 23.4 %; MCH 36.0 pg (27.0-32.0); MCHC 37.3 g/dL (32.0-37.0); MCV 96.6 fL (80.0-97.0); Monocytes # (A) 0.44 10*3/uL (0.20-1.00); Monocytes % (A) 4.7 %; Neutrophils # (A) 6.60 10*3/uL (1.80-7.70); Neutrophils % (A) 70.8 %; Platelet Count 234 10*3/uL (140-440); RBC 3.58 10*6/uL (4.40-5.60); RDW 12.6 % (11.5-14.5); WBC 9.33 10*3/uL (4.50-10.00)
[2025-03-01 20:52] VITALS: TEMP 99.8
[2025-03-01] MEDS: SODIUM CHLORIDE 0.9% 1,000 ML IV STA (21:00)
[2025-03-01 21:05] LABS: ALT 19 U/L (4-49); AST 44 U/L (17-59); African American GFR (CKD) >90 (>60 ml/min/1.73 sqM); Albumin 3.7 g/dL (3.5-5.0); Alkaline Phosphatase 143 U/L (38-126); Anion Gap 13 mmol/L; Blood Urea Nitrogen 3 mg/dL (9-20); Calcium 9.3 mg/dL (8.4-10.2); Carbon Dioxide 21 mmol/L (22-30); Chloride 91 mmol/L (98-107); Glucose 96 mg/dL (74-99); Magnesium 2.0 mg/dL (1.6-2.3); Non-African American GFR(CKD) >90 (>60 ml/min/1.73 sqM); Potassium 3.5 mmol/L (3.5-5.1); Sodium 125 mmol/L (137-145); Total Protein 6.4 g/dL (6.3-8.2)
[2025-03-01 21:13] VITALS: BP 132/85; PULSE 75; RESP 16
[2025-03-01] MEDS: levETIRAcetam IV 500 MG/5 ML VIAL IVP STA (21:33)
[2025-03-01] MEDS: LACOSAMIDE 50 MG TABLET PO SCH (21:49)
== END 2025-03-01 21:55 | disposition home or self-care (01) ==
LOC: EC 20:14
DX: G40.909 Epilepsy, unspecified, not intractable, without status epilepticus (principal); F17.200 Nicotine dependence, unspecified, uncomplicated; Z91.011 Allergy to milk products
CPT/HCPCS: 36415; 93005; 80053; 83735; 85025; 99284; 96374; 96361; J1953